=== PATIENT | male | born 1945 | race Caucasian/White ===

== ENCOUNTER 2022-01-31 21:38 | Inpatient (IN) | payer MEDICARE, SELFPAY ==
[2022-01-31 21:51] VITALS: BP 137/64; PULSE 82; RESP 20; TEMP 37; O2SAT 96; BMI 28.2
[2022-01-31 22:07] VITALS: O2SAT 98
--- NOTE | 2022-01-31 22:08 | CRLHL7_ITS ---
For Patients: As a result of the Century Cures Act, medical imaging exams and procedure reports are released immediately into your electronic medical record. You may view this report before your referring provider. If you have questions, please contact your health care provider. INDICATION: . TECHNIQUE: CT abdomen and pelvis without contrast. COMPARISON: None. FINDINGS: Lower chest: Probable focal scarring in the right lower lobe posterior basal segment. Coronary artery atherosclerotic calcification. Left lower lobe calcified granuloma. Liver: Normal in size and attenuation. Scattered calcified granulomata. No suspicious masses. Gallbladder and bile ducts: Status post cholecystectomy. No abnormal biliary ductal dilatation. Pancreas: Unremarkable. No mass or inflammation. Spleen: Scattered calcified granulomata. Adrenal glands: Normal in size. No nodules. Kidneys: Punctate nonobstructing stone left kidney. Normal right kidney. No hydronephrosis. GI tract: Unremarkable. Normal in caliber. No sign of mass or inflammation. Normal appendix. Vasculature: Normal caliber abdominal aorta with mild atherosclerotic calcification. Lymph nodes: No lymphadenopathy. Peritoneum/Abdominal Wall: Unremarkable. No sign of mass or infiltration. No free air or significant free fluid. Pelvis: Distended bladder. No pelvic masses. Bones: Advanced degenerative changes of the spine. Grade 1 anterolisthesis of L4 on L5 secondary to facet arthrosis. IMPRESSION: No acute findings within the abdomen and pelvis. No evidence for obstruction. Punctate nonobstructing left renal stone. Distended bladder. Please note that all CT scans at this facility use dose modulation, iterative reconstruction, and/or weight-based dosing when appropriate to reduce radiation dose to as low as reasonably achievable. Dictated by Ángel Durham MD @ 01/31/2022 10:59:11 PM (Electronically Signed)
--- NOTE | 2022-01-31 22:10 | ED.GENADULT ---
HPI - General Adult General Time Seen by Provider: 22:10 <Jose Chi MD - Last Filed: 01/31/22 23:12> Date Seen: 01/31/22 <Jose Chi MD - Last Filed: 01/31/22 23:12> Chief complaint: Abdominal Pain <Jose Chi MD - Last Filed: 01/31/22 23:12> Stated complaint: Influenza A+ - Distended,Painful Stomach <Jose Chi MD - Last Filed: 01/31/22 23:12> Time Seen by Provider: 01/31/22 21:39 <Jose Chi MD - Last Filed: 01/31/22 23:12> Source: patient <Jose Chi MD - Last Filed: 01/31/22 23:12> Mode of arrival: ambulatory <Jose Chi MD - Last Filed: 01/31/22 23:12> Limitations: no limitations <Jose Chi MD - Last Filed: 01/31/22 23:12> History of Present Illness HPI narrative: Patient is a 76 year white male who was diagnosed influenza a today. He reports he has not had much eating or drinking over the last 24 hours, his main complaint presented to the ER as his abdominal distension. He is also fearful is dehydrated. He has had some body aches, fever, chills. He is afebrile here and had a good O2 sat 96%. He has had a history of cholecystectomy remotely, but no recent intra-abdominal surgery, he has not had a bowel obstruction in the past. He reports he had passed a small amount of diarrhea earlier today. <Jose Chi MD - Last Filed: 01/31/22 23:12> Related Data Home medications: Home Medications Medication Instructions Recorded Confirmed chlorthalidone 25 mg tablet 25 mg PO DAILY 01/31/22 01/31/22 colchicine 0.6 mg tablet 0.6 mg PO BID PRN 01/31/22 02/01/22 metoprolol succinate 50 mg 50 mg PO DAILY 01/31/22 01/31/22 tablet,extended release 24 hr tamsulosin 0.4 mg capsule 0.8 mg PO DAILY 02/01/22 02/01/22 <Jose Chi MD - Last Filed: 01/31/22 23:12> Allergies/adverse reactions: Allergies Allergy/AdvReac Type Severity Reaction Status Date / Time vancomycin Allergy Intermediate high fever Verified 01/31/22 21:57 Sulfa (Sulfonamide Allergy Mild Hives Verified 01/31/22 21:57 Antibiotics) <Jose Chi MD - Last Filed: 01/31/22 23:12> Review of Systems Status of ROS: Reports: 10 or more systems reviewed and unremarkable except as noted in History and below <Jose Chi MD - Last Filed: 01/31/22 23:12> [facility] Medical History: Medical History Dry eyes Hypertension <Jose Chi MD - Last Filed: 01/31/22 23:12> Social History: Social History Smoking Status: Never smoker Do you use any of these nicotine containing products: None How often do you have a drink containing alcohol: never AUDIT-C Alcohol total score: 0 Non-prescribed substance use: denies use <Jose Chi MD - Last Filed: 01/31/22 23:12> Exam Narrative: Exam Narrative: Objective: Patient's vital signs unremarkable In general is no apparent distress but he does grab his abdomen is if it is uncomfortable. HEENT is unremarkable mouth somewhat dry neck is supple Pulses regular Abdomen bowel sounds hypoactive mildly distended abdomen, that is tympanitic, no rebound but mild voluntary guarding, no palpable masses Extremities are no edema good peripheral perfusion noted Neurologic nonfocal Skin is warm and dry <Jose hCi MD - Last Filed: 01/31/22 23:12> Const: Vital Signs, click to edit/add: Vital Signs - 24 hr 01/31/22 21:51 01/31/22 23:46 01/31/22 22:07 Temperature 98.6 F Pulse Rate 80 Pulse Rate [Right Pulse Oximeter] 82 Respiratory Rate 20 16 Blood Pressure 143/79 H Blood Pressure [Ri ght Upper Arm] 137/64 Pulse Oximetry 96 96 98 Oxygen Delivery Me thod Room Air Room Air 01/31/22 23:46 01/31/22 23:47 02/01/22 00:02 Temperature Pulse Rate 83 82 Pulse Rate [Right Pulse Oximeter] Respiratory Rate Blood Pressure 143/79 H 114/79 Blood Pressure [Ri ght Upper Arm] Pulse Oximetry 96 96 Oxygen Delivery Me thod 02/01/22 00:33 02/01/22 00:45 02/01/22 01:02 Temperature Pulse Rate 80 Pulse Rate [Right Pulse Oximeter] Respiratory Rate Blood Pressure 108/74 113/71 Blood Pressure [Ri ght Upper Arm] Pulse Oximetry 97 Oxygen Delivery Me thod 02/01/22 01:18 02/01/22 01:33 02/01/22 02:02 Temperature Pulse Rate 90 Pulse Rate [Right Pulse Oximeter] Respiratory Rate Blood Pressure 134/70 142/94 H Blood Pressure [Ri ght Upper Arm] Pulse Oximetry 98 Oxygen Delivery Me thod 02/01/22 02:32 02/01/22 02:43 02/01/22 02:45 Temperature Pulse Rate 84 89 Pulse Rate [Right Pulse Oximeter] Respiratory Rate Blood Pressure 130/75 Blood Pressure [Ri ght Upper Arm] Pulse Oximetry 96 95 Oxygen Delivery Me thod 02/01/22 03:00 02/01/22 03:02 02/01/22 03:15 Temperature Pulse Rate 88 88 87 Pulse Rate [Right Pulse Oximeter] Respiratory Rate Blood Pressure 106/82 Blood Pressure [Ri ght Upper Arm] Pulse Oximetry 96 96 95 Oxygen Delivery Me thod 02/01/22 03:30 02/01/22 03:32 02/01/22 03:34 Temperature Pulse Rate 87 84 85 Pulse Rate [Right Pulse Oximeter] Respiratory Rate Blood Pressure 117/34 L 136/67 Blood Pressure [Ri ght Upper Arm] Pulse Oximetry 95 96 96 Oxygen Delivery Me thod 02/01/22 03:45 02/01/22 04:00 02/01/22 04:02 Temperature Pulse Rate 86 92 Pulse Rate [Right Pulse Oximeter] Respiratory Rate Blood Pressure 126/48 L Blood Pressure [Ri ght Upper Arm] Pulse Oximetry 95 96 96 Oxygen Delivery Me thod 02/01/22 04:15 02/01/22 04:30 02/01/22 04:32 Temperature Pulse Rate 88 89 Pulse Rate [Right Pulse Oximeter] Respiratory Rate Blood Pressure 164/131 H Blood Pressure [Ri ght Upper Arm] Pulse Oximetry 96 98 96 Oxygen Delivery Me thod 02/01/22 04:35 02/01/22 04:37 02/01/22 04:45 Temperature Pulse Rate 88 85 89 Pulse Rate [Right Pulse Oximeter] Respiratory Rate Blood Pressure 185/154 H 136/64 Blood Pressure [Ri ght Upper Arm] Pulse Oximetry 95 94 94 Oxygen Delivery Me thod 02/01/22 05:00 02/01/22 05:03 02/01/22 05:15 Temperature Pulse Rate 86 89 88 Pulse Rate [Right Pulse Oximeter] Respiratory Rate Blood Pressure 119/49 L Blood Pressure [Ri ght Upper Arm] Pulse Oximetry 95 95 95 Oxygen Delivery Me thod 02/01/22 05:30 02/01/22 05:32 02/01/22 05:45 Temperature Pulse Rate 85 89 86 Pulse Rate [Right Pulse Oximeter] Respiratory Rate Blood Pressure 143/92 H Blood Pressure [Ri ght Upper Arm] Pulse Oximetry 98 97 97 Oxygen Delivery Me thod 02/01/22 06:00 02/01/22 06:02 02/01/22 06:15 Temperature Pulse Rate 82 80 82 Pulse Rate [Right Pulse Oximeter] Respiratory Rate Blood Pressure 120/98 H Blood Pressure [Ri ght Upper Arm] Pulse Oximetry 96 96 96 Oxygen Delivery Me thod 02/01/22 06:30 02/01/22 06:33 02/01/22 06:34 Temperature Pulse Rate 83 82 85 Pulse Rate [Right Pulse Oximeter] Respiratory Rate Blood Pressure 113/78 Blood Pressure [Ri ght Upper Arm] Pulse Oximetry 95 95 96 Oxygen Delivery Me thod 02/01/22 06:45 02/01/22 07:00 02/01/22 07:02 Temperature Pulse Rate 81 84 84 Pulse Rate [Right Pulse Oximeter] Respiratory Rate Blood Pressure 133/77 Blood Pressure [Ri ght Upper Arm] Pulse Oximetry 96 96 95 Oxygen Delivery Me thod 02/01/22 07:15 02/01/22 07:30 02/01/22 07:32 Temperature Pulse Rate 87 82 81 Pulse Rate [Right Pulse Oximeter] Respiratory Rate Blood Pressure 117/72 Blood Pressure [Ri ght Upper Arm] Pulse Oximetry 96 95 94 Oxygen Delivery Me thod 02/01/22 07:45 02/01/22 08:00 02/01/22 08:02 Temperature Pulse Rate 87 83 82 Pulse Rate [Right Pulse Oximeter] Respiratory Rate Blood Pressure 124/75 Blood Pressure [Ri ght Upper Arm] Pulse Oximetry 94 96 96 Oxygen Delivery Me thod 02/01/22 08:15 02/01/22 08:30 02/01/22 08:32 Temperature Pulse Rate 84 84 85 Pulse Rate [Right Pulse Oximeter] Respiratory Rate Blood Pressure 118/75 Blood Pressure [Ri ght Upper Arm] Pulse Oximetry 96 96 97 Oxygen Delivery Me thod 02/01/22 08:33 02/01/22 08:45 02/01/22 09:00 Temperature Pulse Rate 85 83 87 Pulse Rate [Right Pulse Oximeter] Respiratory Rate Blood Pressure Blood Pressure [Ri ght Upper Arm] Pulse Oximetry 97 96 94 Oxygen Delivery Me thod 02/01/22 09:02 02/01/22 09:03 02/01/22 09:13 Temperature Pulse Rate 95 93 Pulse Rate [Right Pulse Oximeter] Respiratory Rate Blood Pressure 80/52 L Blood Pressure [Ri ght Upper Arm] Pulse Oximetry 96 95 96 Oxygen Delivery Me thod 02/01/22 09:15 02/01/22 09:28 02/01/22 09:30 Temperature Pulse Rate 89 90 94 Pulse Rate [Right Pulse Oximeter] Respiratory Rate Blood Pressure Blood Pressure [Ri ght Upper Arm] Pulse Oximetry 95 90 96 Oxygen Delivery Me thod 02/01/22 09:33 02/01/22 09:45 02/01/22 10:00 Temperature Pulse Rate 88 88 87 Pulse Rate [Right Pulse Oximeter] Respiratory Rate Blood Pressure 120/74 Blood Pressure [Ri ght Upper Arm] Pulse Oximetry 94 93 95 Oxygen Delivery Me thod 02/01/22 10:02 02/01/22 10:15 02/01/22 10:30 Temperature Pulse Rate 88 86 95 Pulse Rate [Right Pulse Oximeter] Respiratory Rate Blood Pressure 134/77 Blood Pressure [Ri ght Upper Arm] Pulse Oximetry 94 94 95 Oxygen Delivery Me thod 02/01/22 10:32 02/01/22 10:45 02/01/22 11:00 Temperature Pulse Rate 93 91 95 Pulse Rate [Right Pulse Oximeter] Respiratory Rate Blood Pressure 130/85 Blood Pressure [Ri ght Upper Arm] Pulse Oximetry 94 92 95 Oxygen Delivery Me thod 02/01/22 11:02 02/01/22 11:15 02/01/22 11:30 Temperature Pulse Rate 91 88 93 Pulse Rate [Right Pulse Oximeter] Respiratory Rate Blood Pressure 104/84 Blood Pressure [Ri ght Upper Arm] Pulse Oximetry 93 95 94 Oxygen Delivery Me thod 02/01/22 11:33 02/01/22 11:45 02/01/22 12:00 Temperature Pulse Rate 91 91 91 Pulse Rate [Right Pulse Oximeter] Respiratory Rate Blood Pressure 136/74 Blood Pressure [Ri ght Upper Arm] Pulse Oximetry 94 94 94 Oxygen Delivery Me thod 02/01/22 12:02 02/01/22 12:15 Temperature Pulse Rate 90 89 Pulse Rate [Right Pulse Oximeter] Respiratory Rate Blood Pressure 138/81 Blood Pressure [Ri ght Upper Arm] Pulse Oximetry 93 94 Oxygen Delivery Me thod <Jose Chi MD - Last Filed: 01/31/22 23:12> Vital Signs, click to edit/add: Vital Signs - 24 hr 01/31/22 21:51 01/31/22 23:46 01/31/22 22:07 Temperature 98.6 F Pulse Rate 80 Pulse Rate [Right Pulse Oximeter] 82 Respiratory Rate 20 16 Blood Pressure 143/79 H Blood Pressure [Ri ght Upper Arm] 137/64 Pulse Oximetry 96 96 98 Oxygen Delivery Me thod Room Air Room Air 01/31/22 23:46 01/31/22 23:47 02/01/22 00:02 Temperature Pulse Rate 83 82 Pulse Rate [Right Pulse Oximeter] Respiratory Rate Blood Pressure 143/79 H 114/79 Blood Pressure [Ri ght Upper Arm] Pulse Oximetry 96 96 Oxygen Delivery Me thod 02/01/22 00:33 02/01/22 00:45 02/01/22 01:02 Temperature Pulse Rate 80 Pulse Rate [Right Pulse Oximeter] Respiratory Rate Blood Pressure 108/74 113/71 Blood Pressure [Ri ght Upper Arm] Pulse Oximetry 97 Oxygen Delivery Me thod 02/01/22 01:18 02/01/22 01:33 02/01/22 02:02 Temperature Pulse Rate 90 Pulse Rate [Right Pulse Oximeter] Respiratory Rate Blood Pressure 134/70 142/94 H Blood Pressure [Ri ght Upper Arm] Pulse Oximetry 98 Oxygen Delivery Me thod 02/01/22 02:32 02/01/22 02:43 02/01/22 02:45 Temperature Pulse Rate 84 89 Pulse Rate [Right Pulse Oximeter] Respiratory Rate Blood Pressure 130/75 Blood Pressure [Ri ght Upper Arm] Pulse Oximetry 96 95 Oxygen Delivery Me thod 02/01/22 03:00 02/01/22 03:02 02/01/22 03:15 Temperature Pulse Rate 88 88 87 Pulse Rate [Right Pulse Oximeter] Respiratory Rate Blood Pressure 106/82 Blood Pressure [Ri ght Upper Arm] Pulse Oximetry 96 96 95 Oxygen Delivery Me thod 02/01/22 03:30 02/01/22 03:32 02/01/22 03:34 Temperature Pulse Rate 87 84 85 Pulse Rate [Right Pulse Oximeter] Respiratory Rate Blood Pressure 117/34 L 136/67 Blood Pressure [Ri ght Upper Arm] Pulse Oximetry 95 96 96 Oxygen Delivery Me thod 02/01/22 03:45 02/01/22 04:00 02/01/22 04:02 Temperature Pulse Rate 86 92 Pulse Rate [Right Pulse Oximeter] Respiratory Rate Blood Pressure 126/48 L Blood Pressure [Ri ght Upper Arm] Pulse Oximetry 95 96 96 Oxygen Delivery Me thod 02/01/22 04:15 02/01/22 04:30 02/01/22 04:32 Temperature Pulse Rate 88 89 Pulse Rate [Right Pulse Oximeter] Respiratory Rate Blood Pressure 164/131 H Blood Pressure [Ri ght Upper Arm] Pulse Oximetry 96 98 96 Oxygen Delivery Me thod 02/01/22 04:35 02/01/22 04:37 02/01/22 04:45 Temperature Pulse Rate 88 85 89 Pulse Rate [Right Pulse Oximeter] Respiratory Rate Blood Pressure 185/154 H 136/64 Blood Pressure [Ri ght Upper Arm] Pulse Oximetry 95 94 94 Oxygen Delivery Me thod 02/01/22 05:00 02/01/22 05:03 02/01/22 05:15 Temperature Pulse Rate 86 89 88 Pulse Rate [Right Pulse Oximeter] Respiratory Rate Blood Pressure 119/49 L Blood Pressure [Ri ght Upper Arm] Pulse Oximetry 95 95 95 Oxygen Delivery Me thod 02/01/22 05:30 02/01/22 05:32 02/01/22 05:45 Temperature Pulse Rate 85 89 86 Pulse Rate [Right Pulse Oximeter] Respiratory Rate Blood Pressure 143/92 H Blood Pressure [Ri ght Upper Arm] Pulse Oximetry 98 97 97 Oxygen Delivery Me thod 02/01/22 06:00 02/01/22 06:02 02/01/22 06:15 Temperature Pulse Rate 82 80 82 Pulse Rate [Right Pulse Oximeter] Respiratory Rate Blood Pressure 120/98 H Blood Pressure [Ri ght Upper Arm] Pulse Oximetry 96 96 96 Oxygen Delivery Me thod 02/01/22 06:30 02/01/22 06:33 02/01/22 06:34 Temperature Pulse Rate 83 82 85 Pulse Rate [Right Pulse Oximeter] Respiratory Rate Blood Pressure 113/78 Blood Pressure [Ri ght Upper Arm] Pulse Oximetry 95 95 96 Oxygen Delivery Me thod 02/01/22 06:45 02/01/22 07:00 02/01/22 07:02 Temperature Pulse Rate 81 84 84 Pulse Rate [Right Pulse Oximeter] Respiratory Rate Blood Pressure 133/77 Blood Pressure [Ri ght Upper Arm] Pulse Oximetry 96 96 95 Oxygen Delivery Me thod 02/01/22 07:15 02/01/22 07:30 02/01/22 07:32 Temperature Pulse Rate 87 82 81 Pulse Rate [Right Pulse Oximeter] Respiratory Rate Blood Pressure 117/72 Blood Pressure [Ri ght Upper Arm] Pulse Oximetry 96 95 94 Oxygen Delivery Me thod 02/01/22 07:45 02/01/22 08:00 02/01/22 08:02 Temperature Pulse Rate 87 83 82 Pulse Rate [Right Pulse Oximeter] Respiratory Rate Blood Pressure 124/75 Blood Pressure [Ri ght Upper Arm] Pulse Oximetry 94 96 96 Oxygen Delivery Me thod 02/01/22 08:15 02/01/22 08:30 02/01/22 08:32 Temperature Pulse Rate 84 84 85 Pulse Rate [Right Pulse Oximeter] Respiratory Rate Blood Pressure 118/75 Blood Pressure [Ri ght Upper Arm] Pulse Oximetry 96 96 97 Oxygen Delivery Me thod 02/01/22 08:33 02/01/22 08:45 02/01/22 09:00 Temperature Pulse Rate 85 83 87 Pulse Rate [Right Pulse Oximeter] Respiratory Rate Blood Pressure Blood Pressure [Ri ght Upper Arm] Pulse Oximetry 97 96 94 Oxygen Delivery Me thod 02/01/22 09:02 02/01/22 09:03 02/01/22 09:13 Temperature Pulse Rate 95 93 Pulse Rate [Right Pulse Oximeter] Respiratory Rate Blood Pressure 80/52 L Blood Pressure [Ri ght Upper Arm] Pulse Oximetry 96 95 96 Oxygen Delivery Me thod 02/01/22 09:15 02/01/22 09:28 02/01/22 09:30 Temperature Pulse Rate 89 90 94 Pulse Rate [Right Pulse Oximeter] Respiratory Rate Blood Pressure Blood Pressure [Ri ght Upper Arm] Pulse Oximetry 95 90 96 Oxygen Delivery Me thod 02/01/22 09:33 02/01/22 09:45 02/01/22 10:00 Temperature Pulse Rate 88 88 87 Pulse Rate [Right Pulse Oximeter] Respiratory Rate Blood Pressure 120/74 Blood Pressure [Ri ght Upper Arm] Pulse Oximetry 94 93 95 Oxygen Delivery Me thod 02/01/22 10:02 02/01/22 10:15 02/01/22 10:30 Temperature Pulse Rate 88 86 95 Pulse Rate [Right Pulse Oximeter] Respiratory Rate Blood Pressure 134/77 Blood Pressure [Ri ght Upper Arm] Pulse Oximetry 94 94 95 Oxygen Delivery Me thod 02/01/22 10:32 02/01/22 10:45 02/01/22 11:00 Temperature Pulse Rate 93 91 95 Pulse Rate [Right Pulse Oximeter] Respiratory Rate Blood Pressure 130/85 Blood Pressure [Ri ght Upper Arm] Pulse Oximetry 94 92 95 Oxygen Delivery Me thod 02/01/22 11:02 02/01/22 11:15 02/01/22 11:30 Temperature Pulse Rate 91 88 93 Pulse Rate [Right Pulse Oximeter] Respiratory Rate Blood Pressure 104/84 Blood Pressure [Ri ght Upper Arm] Pulse Oximetry 93 95 94 Oxygen Delivery Me thod 02/01/22 11:33 02/01/22 11:45 02/01/22 12:00 Temperature Pulse Rate 91 91 91 Pulse Rate [Right Pulse Oximeter] Respiratory Rate Blood Pressure 136/74 Blood Pressure [Ri ght Upper Arm] Pulse Oximetry 94 94 94 Oxygen Delivery Me thod 02/01/22 12:02 02/01/22 12:15 Temperature Pulse Rate 90 89 Pulse Rate [Right Pulse Oximeter] Respiratory Rate Blood Pressure 138/81 Blood Pressure [Ri ght Upper Arm] Pulse Oximetry 93 94 Oxygen Delivery Me thod <Roman Davis MD - Last Filed: 02/01/22 13:09> Course Course Hospital Course: I assumed care of this patient from Dr. Chi. Patient seen and examined. His vitals are stable. His lungs are coarse but clear. No increased work of breathing. He thinks he feels a bit better. During the night IA adjust his fluids from normal saline to 3% saline at 25 mL/hour. This was calculated to adjust his sodium upward by 6-8 over the course of the 1st 24 hours. By morning his sodium is up to 118. Would suggest we run this fluid for another 4 hours and then switch to normal saline. He will need his electrolytes checked again in another 6 hours or so. He continues to remain in the emergency department as we continue to look for an inpatient bed for him. <Jose Chi MD - Last Filed: 01/31/22 23:12> Vital Signs Vital signs: Initial Vital Signs Temperature 98.6 F 01/31/22 21:51 Temperature Source Temporal Artery Scan 01/31/22 21:51 Pulse Rate 82 01/31/22 21:51 Respiratory Rate 20 01/31/22 21:51 Blood Pressure 137/64 01/31/22 21:51 Blood Pressure Mean 88 01/31/22 21:51 Blood Pressure Position Sitting 01/31/22 21:51 Pulse Oximetry 96 01/31/22 21:51 Oxygen Delivery Method 01/31/22 21:51 Vital Signs Temperature 98.6 F 01/31/22 21:51 Pulse Rate 82 01/31/22 21:51 Respiratory Rate 20 01/31/22 21:51 Blood Pressure 137/64 01/31/22 21:51 Pulse Oximetry 96 01/31/22 21:51 Oxygen Delivery Method 01/31/22 21:51 Temperature 98.6 F 01/31/22 21:51 Pulse Rate 89 02/01/22 12:15 Respiratory Rate 16 01/31/22 23:46 Blood Pressure 138/81 02/01/22 12:02 Pulse Oximetry 94 02/01/22 12:15 Oxygen Delivery Method 01/31/22 23:46 <Jose Chi MD - Last Filed: 01/31/22 23:12> Initial Vital Signs Temperature 98.6 F 01/31/22 21:51 Temperature Source Temporal Artery Scan 01/31/22 21:51 Pulse Rate 82 01/31/22 21:51 Respiratory Rate 20 01/31/22 21:51 Blood Pressure 137/64 01/31/22 21:51 Blood Pressure Mean 88 01/31/22 21:51 Blood Pressure Position Sitting 01/31/22 21:51 Pulse Oximetry 96 01/31/22 21:51 Oxygen Delivery Method 01/31/22 21:51 Vital Signs Temperature 98.6 F 01/31/22 21:51 Pulse Rate 82 01/31/22 21:51 Respiratory Rate 20 01/31/22 21:51 Blood Pressure 137/64 01/31/22 21:51 Pulse Oximetry 96 01/31/22 21:51 Oxygen Delivery Method 01/31/22 21:51 Temperature 98.6 F 01/31/22 21:51 Pulse Rate 89 02/01/22 12:15 Respiratory Rate 16 01/31/22 23:46 Blood Pressure 138/81 02/01/22 12:02 Pulse Oximetry 94 02/01/22 12:15 Oxygen Delivery Method 01/31/22 23:46 <Roman Davis MD - Last Filed: 02/01/22 13:09> Medical Decision Making [facility] Narrative Medical decision making narrative: Patient is a 76 year white male with history of influenza, mild dehydration, and abdominal distension. He has passed some diarrhea today but is bowel sounds are hypoactive I think because of his intra-abdominal surgery in the past, a CT scan of his abdomen be appropriate to rule out obstruction. IV hydration, electrolytes CBC. Disposition pending findings above he has were comfortable plan. Will also give a small dose Ativan 0.5 mg and morphine 2 mg IV. Addendum: The patient has a CT scan of the abdomen that shows a very distended bladder no acute findings of the abdomen pelvis other than distended bladder. He has actually got prostatism is scheduled for a procedure in the next few is now with influenza as cause bladder retention due to his prostate. Will put a catheter to drain and then take the catheter out. I think that will help him get a good amount of relief. Will also review of labs as they return. Addendum: Patient will get a catheter placed as mention we will leave it in that we find out his sodium is 113. That is too low to go home and needs correction. A saline through his IV, I think once we strict his water intake its sodium is going to go higher he has been drinking water aggressively. Due to the shortage hospital beds in the state and in our own hospital he left the stay in the ER for now. Will attempt to admit when we can <Jose Chi MD - Last Filed: 01/31/22 23:12> Patient is a 76 year white male with history of influenza, mild dehydration, and abdominal distension. He has passed some diarrhea today but is bowel sounds are hypoactive I think because of his intra-abdominal surgery in the past, a CT scan of his abdomen be appropriate to rule out obstruction. IV hydration, electrolytes CBC. Disposition pending findings above he has were comfortable plan. Will also give a small dose Ativan 0.5 mg and morphine 2 mg IV. Addendum: The patient has a CT scan of the abdomen that shows a very distended bladder no acute findings of the abdomen pelvis other than distended bladder. He has actually got prostatism is scheduled for a procedure in the next few is now with influenza as cause bladder retention due to his prostate. Will put a catheter to drain and then take the catheter out. I think that will help him get a good amount of relief. Will also review of labs as they return. Addendum: Patient will get a catheter placed as mention we will leave it in that we find out his sodium is 113. That is too low to go home and needs correction. A saline through his IV, I think once we strict his water intake its sodium is going to go higher he has been drinking water aggressively. Due to the shortage hospital beds in the [facility] and in our own hospital he left the stay in the ER for now. Will attempt to admit when we can. This patient has been boarding in the emergency department until about 1:00 p.m. when I did receive news that there are beds opening up here. Dr. Smith agrees to his admission into the hospital. The patient has influenza a and is hyponatremic. He did receive hypertonic saline intravenously. His sodium improved to 119. Guidelines state that replenish sodium should not be more than 6-8 mEq per 24 hour period. So this patient had the hypertonic saline discontinued at about 11:00 a.m. and was reverted back to normal saline at 35 mL/hr. Further management and treatment will continue in the hospital. Dr. Lizandro Davis <Roman Davis MD - Last Filed: 02/01/22 13:09> Lab Data Labs: Lab Results 01/31/22 01/31/22 01/31/22 Range/Units 22:33 22:33 22:33 WBC 8.11 (4.50-11.00) K/uL RBC 5.49 (4.30-5.90) m/uL Hgb 15.6 (13.5-17.5) gm/dL Hct 42.5 (37.0-53.0) % MCV 77 L (80-100) fL MCH 28 (26-34) pg MCHC 37 H (32-36) gm/dL RDW Coeff of [place]les[place] 12.5 (11.5-15.5) % Plt Count 227 (140-440) K/uL Neut % (Auto) 78.6 H (42.0-72.0) % Lymph % (Auto) 8.6 L (20-44) % [place] % (Auto) 11.8 H (0.0-11.0) % Eos % (Auto) 0.2 (0.0-7.0) % Baso % (Auto) 0.2 (0.0-3.0) % Neut # (Auto) 6.40 (1.7-7.0) K/uL Lymph # (Auto) 0.70 L (0.90-2.90) K/uL [place] # (Auto) 1.00 H (0.00-0.90) K/UL Eos # (Auto) 0.02 (0.00-0.50) K/uL Baso # (Auto) 0.02 (0.00-0.30) K/uL Abs Immat Gran (auto) 0.05 (0.00-0.30) K/uL Imm/Tot Granulo (auto) 0.6 % Sodium 113 L* (135-149) mmol/L Potassium 3.6 (3.6-5.1) mmol/L Chloride 78 L (96-114) mmol/L Carbon Dioxide 23 (20-32) mmol/L BUN 13 (7-30) mg/dL Creatinine 0.8 (0.5-1.5) mg/dL Estimated Creat Clear 57.84 Estimated GFR 91 ml/min Glucose 86 (60-115) mg/dL Lactate (0.5-1.9) mmol/L Calcium 8.0 L (8.4-10.6) mg/dL Total Bilirubin 1.2 (0.1-1.5) mg/dL Direct Bilirubin 0.0 (0.0-0.5) mg/dL AST 45 H (12-35) U/L ALT 32 (4-50) U/L Alkaline Phosphatase 76 (40-150) U/L C-Reactive Protein 1.4 H (0.5-1.0) mg/dL Total Protein 6.5 (6.0-8.3) g/dL Albumin 4.2 (3.3-5.0) g/dL Urine Color (Yellow) Urine Appearance (Clear) Urine pH (5.0-8.5) Ur Specific [place] (1.000-1.030) Urine Protein (Negative) Urine Glucose (UA) (Negative) Urine Ketones (Negative) Urine Blood (Negative) Urine Nitrite (Negative) Urine Bilirubin (Negative) Urine Urobilinogen (0.2-1.0) Ur Leukocyte Esterase (Negative) Urine RBC (0-2) Urine WBC (0-5) Ur Squamous Epith Cells (None-Few) Urine Bacteria (None) SARS-CoV-2 (PCR) (Negative) Influenza Type A (PCR) (Negative) Influenza Type B (PCR) (Negative) RSV (PCR) (Negative) 01/31/22 02/01/22 02/01/22 Range/Units 23:30 05:50 07:19 WBC (4.50-11.00) K/uL RBC (4.30-5.90) m/uL Hgb (13.5-17.5) gm/dL Hct (37.0-53.0) % MCV (80-100) fL MCH (26-34) pg MCHC (32-36) gm/dL RDW Coeff of [place] (11.5-15.5) % Plt Count (140-440) K/uL Neut % (Auto) (42.0-72.0) % Lymph % (Auto) (20-44) % [place] % (Auto) (0.0-11.0) % Eos % (Auto) (0.0-7.0) % Baso % (Auto) (0.0-3.0) % Neut # (Auto) (1.7-7.0) K/uL Lymph # (Auto) (0.90-2.90) K/uL [place] # (Auto) (0.00-0.90) K/UL Eos # (Auto) (0.00-0.50) K/uL Baso # (Auto) (0.00-0.30) K/uL Abs Immat Gran (auto) (0.00-0.30) K/uL Imm/Tot Granulo (auto) % Sodium 118 L* (135-149) mmol/L Potassium 3.5 L (3.6-5.1) mmol/L Chloride 82 L (96-114) mmol/L Carbon Dioxide 28 (20-32) mmol/L BUN 13 (7-30) mg/dL Creatinine 0.9 (0.5-1.5) mg/dL Estimated Creat Clear 57.84 Estimated GFR 88 ml/min Glucose 80 (60-115) mg/dL Lactate (0.5-1.9) mmol/L Calcium 8.0 L (8.4-10.6) mg/dL Total Bilirubin (0.1-1.5) mg/dL Direct Bilirubin (0.0-0.5) mg/dL AST (12-35) U/L ALT (4-50) U/L Alkaline Phosphatase (40-150) U/L C-Reactive Protein (0.5-1.0) mg/dL Total Protein (6.0-8.3) g/dL Albumin (3.3-5.0) g/dL Urine Color Yellow (Yellow) Urine Appearance Clear (Clear) Urine pH 7.0 (5.0-8.5) Ur Specific [place] 1.015 (1.000-1.030) Urine Protein Negative (Negative) Urine Glucose (UA) Negative (Negative) Urine Ketones 2+ A (Negative) Urine Blood Trace-intact A (Negative) Urine Nitrite Negative (Negative) Urine Bilirubin Negative (Negative) Urine Urobilinogen 0.2 (0.2-1.0) Ur Leukocyte Esterase Negative (Negative) Urine RBC 0-2 (0-2) Urine WBC 0-2 (0-5) Ur Squamous Epith Cells Few (None-Few) Urine Bacteria Few A (None) SARS-CoV-2 (PCR) Negative SARS-CoV-2 (Negative) Influenza Type A (PCR) POSITIVE PCR FLU A A (Negative) Influenza Type B (PCR) Negative PCR FLU B (Negative) RSV (PCR) Negative PCR RSV (Negative) 02/01/22 Range/Units 10:33 WBC (4.50-11.00) K/uL RBC (4.30-5.90) m/uL Hgb (13.5-17.5) gm/dL Hct (37.0-53.0) % MCV (80-100) fL MCH (26-34) pg MCHC (32-36) gm/dL RDW Coeff of [place]les[place] (11.5-15.5) % Plt Count (140-440) K/uL Neut % (Auto) (42.0-72.0) % Lymph % (Auto) (20-44) % [place] % (Auto) (0.0-11.0) % Eos % (Auto) (0.0-7.0) % Baso % (Auto) (0.0-3.0) % Neut # (Auto) (1.7-7.0) K/uL Lymph # (Auto) (0.90-2.90) K/uL [place] # (Auto) (0.00-0.90) K/UL Eos # (Auto) (0.00-0.50) K/uL Baso # (Auto) (0.00-0.30) K/uL Abs Immat Gran (auto) (0.00-0.30) K/uL Imm/Tot Granulo (auto) % Sodium 119 L* (135-149) mmol/L Potassium (3.6-5.1) mmol/L Chloride (96-114) mmol/L Carbon Dioxide (20-32) mmol/L BUN (7-30) mg/dL Creatinine (0.5-1.5) mg/dL Estimated Creat Clear Estimated GFR ml/min Glucose (60-115) mg/dL Lactate (0.5-1.9) mmol/L Calcium (8.4-10.6) mg/dL Total Bilirubin (0.1-1.5) mg/dL Direct Bilirubin (0.0-0.5) mg/dL AST (12-35) U/L ALT (4-50) U/L Alkaline Phosphatase (40-150) U/L C-Reactive Protein (0.5-1.0) mg/dL Total Protein (6.0-8.3) g/dL Albumin (3.3-5.0) g/dL Urine Color (Yellow) Urine Appearance (Clear) Urine pH (5.0-8.5) Ur Specific [place] (1.000-1.030) Urine Protein (Negative) Urine Glucose (UA) (Negative) Urine Ketones (Negative) Urine Blood (Negative) Urine Nitrite (Negative) Urine Bilirubin (Negative) Urine Urobilinogen (0.2-1.0) Ur Leukocyte Esterase (Negative) Urine RBC (0-2) Urine WBC (0-5) Ur Squamous Epith Cells (None-Few) Urine Bacteria (None) SARS-CoV-2 (PCR) (Negative) Influenza Type A (PCR) (Negative) Influenza Type B (PCR) (Negative) RSV (PCR) (Negative) <Jose Chi MD - Last Filed: 01/31/22 23:12> Lab Results 01/31/22 01/31/22 01/31/22 Range/Units 22:33 22:33 22:33 WBC 8.11 (4.50-11.00) K/uL RBC 5.49 (4.30-5.90) m/uL Hgb 15.6 (13.5-17.5) gm/dL Hct 42.5 (37.0-53.0) % MCV 77 L (80-100) fL MCH 28 (26-34) pg MCHC 37 H (32-36) gm/dL RDW Coeff of Igles[place] 12.5 (11.5-15.5) % Plt Count 227 (140-440) K/uL Neut % (Auto) 78.6 H (42.0-72.0) % Lymph % (Auto) 8.6 L (20-44) % [place] % (Auto) 11.8 H (0.0-11.0) % Eos % (Auto) 0.2 (0.0-7.0) % Baso % (Auto) 0.2 (0.0-3.0) % Neut # (Auto) 6.40 (1.7-7.0) K/uL Lymph # (Auto) 0.70 L (0.90-2.90) K/uL [place] # (Auto) 1.00 H (0.00-0.90) K/UL Eos # (Auto) 0.02 (0.00-0.50) K/uL Baso # (Auto) 0.02 (0.00-0.30) K/uL Abs Immat Gran (auto) 0.05 (0.00-0.30) K/uL Imm/Tot Granulo (auto) 0.6 % Sodium 113 L* (135-149) mmol/L Potassium 3.6 (3.6-5.1) mmol/L Chloride 78 L (96-114) mmol/L Carbon Dioxide 23 (20-32) mmol/L BUN 13 (7-30) mg/dL Creatinine 0.8 (0.5-1.5) mg/dL Estimated Creat Clear 57.84 Estimated GFR 91 ml/min Glucose 86 (60-115) mg/dL Lactate (0.5-1.9) mmol/L Calcium 8.0 L (8.4-10.6) mg/dL Total Bilirubin 1.2 (0.1-1.5) mg/dL Direct Bilirubin 0.0 (0.0-0.5) mg/dL AST 45 H (12-35) U/L ALT 32 (4-50) U/L Alkaline Phosphatase 76 (40-150) U/L C-Reactive Protein 1.4 H (0.5-1.0) mg/dL Total Protein 6.5 (6.0-8.3) g/dL Albumin 4.2 (3.3-5.0) g/dL Urine Color (Yellow) Urine Appearance (Clear) Urine pH (5.0-8.5) Ur Specific [place] (1.000-1.030) Urine Protein (Negative) Urine Glucose (UA) (Negative) Urine Ketones (Negative) Urine Blood (Negative) Urine Nitrite (Negative) Urine Bilirubin (Negative) Urine Urobilinogen (0.2-1.0) Ur Leukocyte Esterase (Negative) Urine RBC (0-2) Urine WBC (0-5) Ur Squamous Epith Cells (None-Few) Urine Bacteria (None) SARS-CoV-2 (PCR) (Negative) Influenza Type A (PCR) (Negative) Influenza Type B (PCR) (Negative) RSV (PCR) (Negative) 01/31/22 02/01/22 02/01/22 Range/Units 23:30 05:50 07:19 WBC (4.50-11.00) K/uL RBC (4.30-5.90) m/uL Hgb (13.5-17.5) gm/dL Hct (37.0-53.0) % MCV (80-100) fL MCH (26-34) pg MCHC (32-36) gm/dL RDW Coeff of Igles[place] (11.5-15.5) % Plt Count (140-440) K/uL Neut % (Auto) (42.0-72.0) % Lymph % (Auto) (20-44) % [place] % (Auto) (0.0-11.0) % Eos % (Auto) (0.0-7.0) % Baso % (Auto) (0.0-3.0) % Neut # (Auto) (1.7-7.0) K/uL Lymph # (Auto) (0.90-2.90) K/uL [place] # (Auto) (0.00-0.90) K/UL Eos # (Auto) (0.00-0.50) K/uL Baso # (Auto) (0.00-0.30) K/uL Abs Immat Gran (auto) (0.00-0.30) K/uL Imm/Tot Granulo (auto) % Sodium 118 L* (135-149) mmol/L Potassium 3.5 L (3.6-5.1) mmol/L Chloride 82 L (96-114) mmol/L Carbon Dioxide 28 (20-32) mmol/L BUN 13 (7-30) mg/dL Creatinine 0.9 (0.5-1.5) mg/dL Estimated Creat Clear 57.84 Estimated GFR 88 ml/min Glucose 80 (60-115) mg/dL Lactate (0.5-1.9) mmol/L Calcium 8.0 L (8.4-10.6) mg/dL Total Bilirubin (0.1-1.5) mg/dL Direct Bilirubin (0.0-0.5) mg/dL AST (12-35) U/L ALT (4-50) U/L Alkaline Phosphatase (40-150) U/L C-Reactive Protein (0.5-1.0) mg/dL Total Protein (6.0-8.3) g/dL Albumin (3.3-5.0) g/dL Urine Color Yellow (Yellow) Urine Appearance Clear (Clear) Urine pH 7.0 (5.0-8.5) Ur Specific [place] 1.015 (1.000-1.030) Urine Protein Negative (Negative) Urine Glucose (UA) Negative (Negative) Urine Ketones 2+ A (Negative) Urine Blood Trace-intact A (Negative) Urine Nitrite Negative (Negative) Urine Bilirubin Negative (Negative) Urine Urobilinogen 0.2 (0.2-1.0) Ur Leukocyte Esterase Negative (Negative) Urine RBC 0-2 (0-2) Urine WBC 0-2 (0-5) Ur Squamous Epith Cells Few (None-Few) Urine Bacteria Few A (None) SARS-CoV-2 (PCR) Negative SARS-CoV-2 (Negative) Influenza Type A (PCR) POSITIVE PCR FLU A A (Negative) Influenza Type B (PCR) Negative PCR FLU B (Negative) RSV (PCR) Negative PCR RSV (Negative) 02/01/22 Range/Units 10:33 WBC (4.50-11.00) K/uL RBC (4.30-5.90) m/uL Hgb (13.5-17.5) gm/dL Hct (37.0-53.0) % MCV (80-100) fL MCH (26-34) pg MCHC (32-36) gm/dL RDW Coeff of Iglesia (11.5-15.5) % Plt Count (140-440) K/uL Neut % (Auto) (42.0-72.0) % Lymph % (Auto) (20-44) % [place] % (Auto) (0.0-11.0) % Eos % (Auto) (0.0-7.0) % Baso % (Auto) (0.0-3.0) % Neut # (Auto) (1.7-7.0) K/uL Lymph # (Auto) (0.90-2.90) K/uL [place] # (Auto) (0.00-0.90) K/UL Eos # (Auto) (0.00-0.50) K/uL Baso # (Auto) (0.00-0.30) K/uL Abs Immat Gran (auto) (0.00-0.30) K/uL Imm/Tot Granulo (auto) % Sodium 119 L* (135-149) mmol/L Potassium (3.6-5.1) mmol/L Chloride (96-114) mmol/L Carbon Dioxide (20-32) mmol/L BUN (7-30) mg/dL Creatinine (0.5-1.5) mg/dL Estimated Creat Clear Estimated GFR ml/min Glucose (60-115) mg/dL Lactate (0.5-1.9) mmol/L Calcium (8.4-10.6) mg/dL Total Bilirubin (0.1-1.5) mg/dL Direct Bilirubin (0.0-0.5) mg/dL AST (12-35) U/L ALT (4-50) U/L Alkaline Phosphatase (40-150) U/L C-Reactive Protein (0.5-1.0) mg/dL Total Protein (6.0-8.3) g/dL Albumin (3.3-5.0) g/dL Urine Color (Yellow) Urine Appearance (Clear) Urine pH (5.0-8.5) Ur Specific [place] (1.000-1.030) Urine Protein (Negative) Urine Glucose (UA) (Negative) Urine Ketones (Negative) Urine Blood (Negative) Urine Nitrite (Negative) Urine Bilirubin (Negative) Urine Urobilinogen (0.2-1.0) Ur Leukocyte Esterase (Negative) Urine RBC (0-2) Urine WBC (0-5) Ur Squamous Epith Cells (None-Few) Urine Bacteria (None) SARS-CoV-2 (PCR) (Negative) Influenza Type A (PCR) (Negative) Influenza Type B (PCR) (Negative) RSV (PCR) (Negative) <Roman Davis MD - Last Filed: 02/01/22 13:09> Discharge Plan Discharge Clinical Impression: Influenza A, Abdominal pain, Acute urinary retention, Acute hyponatremia <Jose Chi MD - Last Filed: 01/31/22 23:12> Patient Disposition: Admitted As Inpatient <Jose Chi MD - Last Filed: 01/31/22 23:12> Condition: Improved <Jose Chi MD - Last Filed: 01/31/22 23:12> Activity Level: Light activity <Jose Chi MD - Last Filed: 01/31/22 23:12> Light activity <Roman Davis MD - Last Filed: 02/01/22 13:09> Discharge Diet: Regular <Jose Chi MD - Last Filed: 01/31/22 23:12> Regular <Roman Davis MD - Last Filed: 02/01/22 13:09>
[2022-01-31] MEDS: 0.9 % SODIUM CHLORIDE 1000 ml 1,000 ML 6000 ML IV (22:35)
[2022-01-31] MEDS: LORazepam 2 MG/ML inj 0.5 MG IVP (22:37)
[2022-01-31] MEDS: MORPHINE 4 MG/ML INJ 2 MG IVP (22:38)
[2022-01-31 23:02] LABS: Albumin* 4.2 g/dL (3.3-5.0); Chloride* 78 mmol/L (96-114)
[2022-01-31 23:03] LABS: Potassium* 3.6 mmol/L (3.6-5.1)
[2022-01-31 23:04] LABS: Basophils Absolute Auto 0.02 K/uL (0.00-0.30); Basophils Percent Auto 0.2 % (0.0-3.0); Eosinophils Absolute Auto 0.02 K/uL (0.00-0.50); Eosinophils Percent Auto 0.2 % (0.0-7.0); Hematocrit 42.5 % (37.0-53.0); Hemoglobin* 15.6 gm/dL (13.5-17.5); Immature Granulocytes Abs Auto 0.05 K/uL (0.00-0.30); Immature Granulocytes Pct Auto 0.6 %; Lymphocytes Percent Auto 8.6 % (20-44); Mean Corpuscular HGB Conc 37 gm/dL (32-36); Mean Corpuscular Hemoglobin 28 pg (26-34); Mean Corpuscular Volume 77 fL (80-100); Monocytes Percent Auto 11.8 % (0.0-11.0); Neutrophils Percent Auto 78.6 % (42.0-72.0); Platelet Count* 227 K/uL (140-440); RDW Coefficient of Variation % 12.5 % (11.5-15.5); Red Blood Count 5.49 m/uL (4.30-5.90); White Blood Count* 8.11 K/uL (4.50-11.00)
[2022-01-31 23:05] LABS: Bilirubin Total* 1.2 mg/dL (0.1-1.5); Carbon Dioxide* 23 mmol/L (20-32); Creatinine* 0.8 mg/dL (0.5-1.5); Est. Creatinine Clearance* 57.84; Estimated Glomerular Filt Rate 91 ml/min
[2022-01-31 23:06] LABS: Alanine Aminotransferase* 32 U/L (4-50); Alkaline Phosphatase* 76 U/L (40-150); Aspartate Amino Transferase* 45 U/L (12-35); Blood Urea Nitrogen* 13 mg/dL (7-30); Glucose* 86 mg/dL (60-115); Total Protein* 6.5 g/dL (6.0-8.3)
[2022-01-31 23:08] LABS: C Reactive Protein* 1.4 mg/dL (0.5-1.0)
[2022-01-31 23:11] LABS: Slide Review Reflex No; Sodium* 113 mmol/L (135-149)
--- NOTE | 2022-01-31 23:20 | ED.NURSE ---
Gilman catheter placed. Per MD, leave catheter in place at this time. 16 estonian coude catheter placed and ~700 cc urine emptied. UA to lab.
[2022-01-31] MEDS: 0.9 % SODIUM CHLORIDE 1000 ml 1,000 ML 75 ML IV (23:40)
[2022-01-31 23:41] LABS: Appearance Urine Clear (Clear); Bilirubin Urine Negative (Negative); Blood Urine Trace-intact (Negative); Color Urine Yellow (Yellow); Glucose Urine Negative (Negative); Ketones Urine 2+ (Negative); Leukocyte Esterase Urine Negative (Negative); Nitrite Urine Negative (Negative); Protein Urine Negative (Negative); Specific Gravity Urine 1.015 (1.000-1.030); Urobilinogen Urine 0.2 (0.2-1.0)
[2022-01-31 23:46] VITALS: BP 143/79; PULSE 80; PULSE 83; RESP 16; O2SAT 96
[2022-01-31 23:47] VITALS: PULSE 82; O2SAT 96
[2022-01-31 23:55] LABS: RBC Urine 0-2 (0-2); WBC Urine 0-2 (0-5)
[2022-01-31 23:56] LABS: Bacteria Urine Few; Squamous Epithelial Cell Urine Few (None-Few)
[2022-02-01] VITALS (88 sets, daily range): BP systolic 80–185; BP diastolic 34–154; PULSE 80–95; RESP 18–20; TEMP 37.1–37.6; O2SAT 90–98; BMI 28.6
--- NOTE | 2022-02-01 00:55 | ED.NURSE ---
Per MD, cancel consecutive NS orders. Pt to receive first liter normal saline at 6,000 mL/hr and second liter normal saline at 50 mL/hr.
--- NOTE | 2022-02-01 00:56 | ED.NURSE ---
Pt's , Radha, requests updates in AM. ([phone])
--- NOTE | 2022-02-01 02:42 | ED.NURSE ---
~1,200 mL emptied from catheter. Sticker SpO2 monitor applied to pt's finger d/t sensor continually falling off while pt sleeping.
[2022-02-01 06:15] LABS: Chloride* 82 mmol/L (96-114); Potassium* 3.5 mmol/L (3.6-5.1)
[2022-02-01 06:18] LABS: Blood Urea Nitrogen* 13 mg/dL (7-30); Carbon Dioxide* 28 mmol/L (20-32); Creatinine* 0.9 mg/dL (0.5-1.5); Est. Creatinine Clearance* 57.84; Estimated Glomerular Filt Rate 88 ml/min
[2022-02-01 06:19] LABS: Glucose* 80 mg/dL (60-115)
[2022-02-01 06:23] LABS: Sodium* 118 mmol/L (135-149)
--- NOTE | 2022-02-01 06:23 | ED.NURSE ---
Critical value from lab: sodium 118. aware.
--- NOTE | 2022-02-01 06:52 | ED.NURSE ---
~1,350 mL emptied from catheter. Pt continuing to sleep.
--- NOTE | 2022-02-01 07:06 | ED.NURSE ---
Pt's , Radha, called and given update.
[2022-02-01 08:07] LABS: PCR FLU A POSITIVE PCR FLU A (Negative); PCR FLU B Negative PCR FLU B (Negative); PCR RSV Negative PCR RSV (Negative)
[2022-02-01 08:08] LABS: SARS PCR* Negative SARS-CoV-2 (Negative)
--- NOTE | 2022-02-01 09:26 | PC.NURSE ---
22G IV in right hand lost during patient move to 2. New 20G IV started in right wrist. 3% sodium chloride fluids restarted.
--- NOTE | 2022-02-01 10:23 | PC.NURSE ---
Patient provided breakfast. Call light within reach. Lab called for Na redraw.
--- NOTE | 2022-02-01 11:03 | PC.NURSE ---
Critical Lab: Sodium 119 Dr. Davis notified.
[2022-02-01 11:04] LABS: Sodium* 119 mmol/L (135-149)
[2022-02-01] MEDS: 0.9 % SODIUM CHLORIDE 250 ml 250 ML 35 ML IV (11:25)
--- NOTE | 2022-02-01 13:52 | PC.NURSE ---
Report given to [facility] [employer]
--- NOTE | 2022-02-01 13:53 | PC.NURSE ---
1330: Patient took home omeprazole.
[2022-02-01] MEDS: METOPROLOL SUCCINATE (XL) 50 MG TAB PO (18:10)
--- NOTE | 2022-02-01 18:36 | PC.NURSE ---
End of Shift: Patient arrived to the floor about 1410, pleasant and cooperative. Patient is vitally stable, lung course, BS WNL, IV SL. Patient with hodges, intact and draining. Patient is very [place]. Patient independent, may need help to remove SCD's. Patient ordered dinner, not with great appetite, but tolerating diet. Patient denies pain. Cough syrup given once. Patient has intermittent cough that is dry but also productive at times. Patient on RA.
[2022-02-01 18:58] LABS: Sodium* 118 mmol/L (135-149)
[2022-02-01 19:30] LABS: Lactate* 0.7 mmol/L (0.5-1.9)
[2022-02-01 19:55] LABS: Potassium* 3.5 mmol/L (3.6-5.1)
[2022-02-01] MEDS: TAMSULOSIN HCL 0.4 MG CAPSULE PO (20:59)
[2022-02-01] MEDS: OSELTAMIVIR PHOSPHATE 75 MG CAPSULE PO (21:00)
--- NOTE | 2022-02-01 21:42 | P.IMHP_ITS ---
Hospitalist- H&P: HPI History of Present Illness Time Seen by Provider: 16:00 Date Seen: 02/01/22 Chief complaint: Influenza A+ - Distended,Painful Stomach Narrative: Alvaro Hogue is a 76 year old man who presented to the hospital with abdominal pain and distention. Interestingly he also had body aches, fevers, chills, and URI symptoms. In the emergency department he was found to have influenza a. Had a very distended bladder. Is known to have benign prostatic hyperplasia and is treated with maximal medical therapy at this time. Has tentative plans for having surgery in mid March of 2022 to help with his benign prostatic hyperplasia with urinary outlet obstructive symptoms. Gilman catheter was placed, bladder was decompressed, abdominal pain has totally resolved since then. Also emergency department he was found to have rather profound hyponatremia with a sodium of 113. Had been drinking lots of water to try to prevent dehydration. Is ordinarily on chlorthalidone as a part of his hypertension treatment regimen. Efforts were made to transfer patient to another hospital since we had no beds available. Other hospitals in the region also had no beds available. They treated him in the emergency department for several hours. They administered hypertonic saline. Sodium improved all the way up to 119. Eventually a bed in our hospital became available and thus he is admitted at this time. Review of Systems Status of ROS: Reports: 10 or more systems reviewed and unremarkable except as noted in History and below Narrative: Generally healthy and active. Enjoys walking, hiking, biking. Enjoys life. Retired. Has a home in [place], [place], and another home in [place], [place]. Had been planning on moving back to [place] this week but because of the problems he is currently having he in his are putting off that travel until sometime in the future. Denies any angina, anginal equivalent, syncope, near syncope, nausea, vomiting, palpitations, diaphoresis, dyspnea at rest, paroxysmal nocturnal dyspnea, orthopnea. No dependent edema. Denies diarrhea, dysuria, urgency, frequency, hematuria. Denies weight loss or night sweats. [facility] Medical History Ascending aorta dilatation Benign prostatic hyperplasia Cholelithiasis Chronic eustachian tube dysfunction Dry eyes Erectile dysfunction Essential hypertension Hypertension Incomplete bladder emptying Sensorineural hearing loss, bilateral Social History Highest level of school completed/degree received: Bachelor's degree Smoking Status: Former smoker Do you use any of these nicotine containing products: None How often do you have a drink containing alcohol: 2-3 times a week How often do you have six or more drinks on one occasion: Never AUDIT-C Alcohol total score: 3 Non-prescribed substance use: denies use Caffeine: Yes (3 cups of coffee a day) Gender Identity: male service: Yes Meds Home Medications and Allergies Home Medications Medication Instructions Recorded Confirmed Type chlorthalidone 25 mg tablet 25 mg PO DAILY 01/31/22 01/31/22 History colchicine 0.6 mg tablet 0.6 mg PO BID PRN 01/31/22 02/01/22 History metoprolol succinate 50 mg 50 mg PO QPM 01/31/22 02/01/22 History tablet,extended release 24 hr cholecalciferol (vitamin D3) 25 25 mcg PO HS 02/01/22 02/01/22 History mcg (1,000 unit) tablet (Vitamin D3) cyclosporine 0.05 % eye drops 1 drp ophthalmic (eye) Q12H 02/01/22 02/01/22 History (Restasis MultiDose) desipramine 25 mg tablet 25 mg PO HS 02/01/22 02/01/22 History omega 6-dax-ieu-fish oil 1,000 mg 1 cap PO BID 02/01/22 02/01/22 History (120 mg-180 mg) capsule (Fish Oil) omeprazole 20 mg capsule,delayed 20 mg PO DAILY 02/01/22 02/01/22 History release tamsulosin 0.4 mg capsule 0.4 mg PO BID 02/01/22 02/01/22 History Allergies Allergy/AdvReac Type Severity Reaction Status Date / Time vancomycin Allergy Intermediate high fever Verified 01/31/22 21:57 Sulfa (Sulfonamide Allergy Mild Hives Verified 01/31/22 21:57 Antibiotics) Exam Narrative: Exam Narrative: Appears comfortable and in no acute distress. Hard of hearing. Not new. Alert and oriented to self, place, time, situation. Friendly, cooperative, articulate. Mood and affect are congruent. Vision is grossly normal. No icterus. Moist buccal mucosa. Dentition in good repair. Midline trachea. Neck is supple. Normal thyroid. No JVD or hepatojugular reflux. No carotid bruits. No lymphadenopathy. Lungs are clear to auscultation. Heart tones with regular rhythm. Abdomen with active bowel sounds, soft, nontender. Gilman catheter in place. Extremities without edema. Independent transfer, station, and gait. No focal motor neurologic deficits. Skin is warm, dry, intact. Const: Vital Signs, click to edit/add: Vital Signs - 24 hr 01/31/22 21:51 01/31/22 23:46 01/31/22 22:07 Temperature 98.6 F Pulse Rate 80 Pulse Rate [Pulse Oximeter] Pulse Rate [Right Pulse Oximeter] 82 Respiratory Rate 20 16 Blood Pressure 143/79 H Blood Pressure [Ri ght Arm] Blood Pressure [Ri ght Upper Arm] 137/64 Pulse Oximetry 96 96 98 Oxygen Delivery Me thod Room Air Room Air 01/31/22 23:46 01/31/22 23:47 02/01/22 00:02 Temperature Pulse Rate 83 82 Pulse Rate [Pulse Oximeter] Pulse Rate [Right Pulse Oximeter] Respiratory Rate Blood Pressure 143/79 H 114/79 Blood Pressure [Ri ght Arm] Blood Pressure [Ri ght Upper Arm] Pulse Oximetry 96 96 Oxygen Delivery Me thod 02/01/22 00:33 02/01/22 00:45 02/01/22 01:02 Temperature Pulse Rate 80 Pulse Rate [Pulse Oximeter] Pulse Rate [Right Pulse Oximeter] Respiratory Rate Blood Pressure 108/74 113/71 Blood Pressure [Ri ght Arm] Blood Pressure [Ri ght Upper Arm] Pulse Oximetry 97 Oxygen Delivery Me thod 02/01/22 01:18 02/01/22 01:33 02/01/22 02:02 Temperature Pulse Rate 90 Pulse Rate [Pulse Oximeter] Pulse Rate [Right Pulse Oximeter] Respiratory Rate Blood Pressure 134/70 142/94 H Blood Pressure [Ri ght Arm] Blood Pressure [Ri ght Upper Arm] Pulse Oximetry 98 Oxygen Delivery Me thod 02/01/22 02:32 02/01/22 02:43 02/01/22 02:45 Temperature Pulse Rate 84 89 Pulse Rate [Pulse Oximeter] Pulse Rate [Right Pulse Oximeter] Respiratory Rate Blood Pressure 130/75 Blood Pressure [Ri ght Arm] Blood Pressure [Ri ght Upper Arm] Pulse Oximetry 96 95 Oxygen Delivery Me thod 02/01/22 03:00 02/01/22 03:02 02/01/22 03:15 Temperature Pulse Rate 88 88 87 Pulse Rate [Pulse Oximeter] Pulse Rate [Right Pulse Oximeter] Respiratory Rate Blood Pressure 106/82 Blood Pressure [Ri ght Arm] Blood Pressure [Ri ght Upper Arm] Pulse Oximetry 96 96 95 Oxygen Delivery Me thod 02/01/22 03:30 02/01/22 03:32 02/01/22 03:34 Temperature Pulse Rate 87 84 85 Pulse Rate [Pulse Oximeter] Pulse Rate [Right Pulse Oximeter] Respiratory Rate Blood Pressure 117/34 L 136/67 Blood Pressure [Ri ght Arm] Blood Pressure [Ri ght Upper Arm] Pulse Oximetry 95 96 96 Oxygen Delivery Me thod 02/01/22 03:45 02/01/22 04:00 02/01/22 04:02 Temperature Pulse Rate 86 92 Pulse Rate [Pulse Oximeter] Pulse Rate [Right Pulse Oximeter] Respiratory Rate Blood Pressure 126/48 L Blood Pressure [Ri ght Arm] Blood Pressure [Ri ght Upper Arm] Pulse Oximetry 95 96 96 Oxygen Delivery Me thod 02/01/22 04:15 02/01/22 04:30 02/01/22 04:32 Temperature Pulse Rate 88 89 Pulse Rate [Pulse Oximeter] Pulse Rate [Right Pulse Oximeter] Respiratory Rate Blood Pressure 164/131 H Blood Pressure [Ri ght Arm] Blood Pressure [Ri ght Upper Arm] Pulse Oximetry 96 98 96 Oxygen Delivery Me thod 02/01/22 04:35 02/01/22 04:37 02/01/22 04:45 Temperature Pulse Rate 88 85 89 Pulse Rate [Pulse Oximeter] Pulse Rate [Right Pulse Oximeter] Respiratory Rate Blood Pressure 185/154 H 136/64 Blood Pressure [Ri ght Arm] Blood Pressure [Ri ght Upper Arm] Pulse Oximetry 95 94 94 Oxygen Delivery Me thod 02/01/22 05:00 02/01/22 05:03 02/01/22 05:15 Temperature Pulse Rate 86 89 88 Pulse Rate [Pulse Oximeter] Pulse Rate [Right Pulse Oximeter] Respiratory Rate Blood Pressure 119/49 L Blood Pressure [Ri ght Arm] Blood Pressure [Ri ght Upper Arm] Pulse Oximetry 95 95 95 Oxygen Delivery Me thod 02/01/22 05:30 02/01/22 05:32 02/01/22 05:45 Temperature Pulse Rate 85 89 86 Pulse Rate [Pulse Oximeter] Pulse Rate [Right Pulse Oximeter] Respiratory Rate Blood Pressure 143/92 H Blood Pressure [Ri ght Arm] Blood Pressure [Ri ght Upper Arm] Pulse Oximetry 98 97 97 Oxygen Delivery Me thod 02/01/22 06:00 02/01/22 06:02 02/01/22 06:15 Temperature Pulse Rate 82 80 82 Pulse Rate [Pulse Oximeter] Pulse Rate [Right Pulse Oximeter] Respiratory Rate Blood Pressure 120/98 H Blood Pressure [Ri ght Arm] Blood Pressure [Ri ght Upper Arm] Pulse Oximetry 96 96 96 Oxygen Delivery Me thod 02/01/22 06:30 02/01/22 06:33 02/01/22 06:34 Temperature Pulse Rate 83 82 85 Pulse Rate [Pulse Oximeter] Pulse Rate [Right Pulse Oximeter] Respiratory Rate Blood Pressure 113/78 Blood Pressure [Ri ght Arm] Blood Pressure [Ri ght Upper Arm] Pulse Oximetry 95 95 96 Oxygen Delivery Me thod 02/01/22 06:45 02/01/22 07:00 02/01/22 07:02 Temperature Pulse Rate 81 84 84 Pulse Rate [Pulse Oximeter] Pulse Rate [Right Pulse Oximeter] Respiratory Rate Blood Pressure 133/77 Blood Pressure [Ri ght Arm] Blood Pressure [Ri ght Upper Arm] Pulse Oximetry 96 96 95 Oxygen Delivery Me thod 02/01/22 07:15 02/01/22 07:30 02/01/22 07:32 Temperature Pulse Rate 87 82 81 Pulse Rate [Pulse Oximeter] Pulse Rate [Right Pulse Oximeter] Respiratory Rate Blood Pressure 117/72 Blood Pressure [Ri ght Arm] Blood Pressure [Ri ght Upper Arm] Pulse Oximetry 96 95 94 Oxygen Delivery Me thod 02/01/22 07:45 02/01/22 08:00 02/01/22 08:02 Temperature Pulse Rate 87 83 82 Pulse Rate [Pulse Oximeter] Pulse Rate [Right Pulse Oximeter] Respiratory Rate Blood Pressure 124/75 Blood Pressure [Ri ght Arm] Blood Pressure [Ri ght Upper Arm] Pulse Oximetry 94 96 96 Oxygen Delivery Me thod 02/01/22 08:15 02/01/22 08:30 02/01/22 08:32 Temperature Pulse Rate 84 84 85 Pulse Rate [Pulse Oximeter] Pulse Rate [Right Pulse Oximeter] Respiratory Rate Blood Pressure 118/75 Blood Pressure [Ri ght Arm] Blood Pressure [Ri ght Upper Arm] Pulse Oximetry 96 96 97 Oxygen Delivery Me thod 02/01/22 08:33 02/01/22 08:45 02/01/22 09:00 Temperature Pulse Rate 85 83 87 Pulse Rate [Pulse Oximeter] Pulse Rate [Right Pulse Oximeter] Respiratory Rate Blood Pressure Blood Pressure [Ri ght Arm] Blood Pressure [Ri ght Upper Arm] Pulse Oximetry 97 96 94 Oxygen Delivery Me thod 02/01/22 09:02 02/01/22 09:03 02/01/22 09:13 Temperature Pulse Rate 95 93 Pulse Rate [Pulse Oximeter] Pulse Rate [Right Pulse Oximeter] Respiratory Rate Blood Pressure 80/52 L Blood Pressure [Ri ght Arm] Blood Pressure [Ri ght Upper Arm] Pulse Oximetry 96 95 96 Oxygen Delivery Dc thod 02/01/22 09:15 02/01/22 09:28 02/01/22 09:30 Temperature Pulse Rate 89 90 94 Pulse Rate [Pulse Oximeter] Pulse Rate [Right Pulse Oximeter] Respiratory Rate Blood Pressure Blood Pressure [Ri ght Arm] Blood Pressure [Ri ght Upper Arm] Pulse Oximetry 95 90 96 Oxygen Delivery Me thod 02/01/22 09:33 02/01/22 09:45 02/01/22 10:00 Temperature Pulse Rate 88 88 87 Pulse Rate [Pulse Oximeter] Pulse Rate [Right Pulse Oximeter] Respiratory Rate Blood Pressure 120/74 Blood Pressure [Ri ght Arm] Blood Pressure [Ri ght Upper Arm] Pulse Oximetry 94 93 95 Oxygen Delivery Me thod 02/01/22 10:02 02/01/22 10:15 02/01/22 10:30 Temperature Pulse Rate 88 86 95 Pulse Rate [Pulse Oximeter] Pulse Rate [Right Pulse Oximeter] Respiratory Rate Blood Pressure 134/77 Blood Pressure [Ri ght Arm] Blood Pressure [Ri ght Upper Arm] Pulse Oximetry 94 94 95 Oxygen Delivery Me thod 02/01/22 10:32 02/01/22 10:45 02/01/22 11:00 Temperature Pulse Rate 93 91 95 Pulse Rate [Pulse Oximeter] Pulse Rate [Right Pulse Oximeter] Respiratory Rate Blood Pressure 130/85 Blood Pressure [Ri ght Arm] Blood Pressure [Ri ght Upper Arm] Pulse Oximetry 94 92 95 Oxygen Delivery Dc thod 02/01/22 11:02 02/01/22 11:15 02/01/22 11:30 Temperature Pulse Rate 91 88 93 Pulse Rate [Pulse Oximeter] Pulse Rate [Right Pulse Oximeter] Respiratory Rate Blood Pressure 104/84 Blood Pressure [Ri ght Arm] Blood Pressure [Ri ght Upper Arm] Pulse Oximetry 93 95 94 Oxygen Delivery Dc thod 02/01/22 11:33 02/01/22 11:45 02/01/22 12:00 Temperature Pulse Rate 91 91 91 Pulse Rate [Pulse Oximeter] Pulse Rate [Right Pulse Oximeter] Respiratory Rate Blood Pressure 136/74 Blood Pressure [Ri ght Arm] Blood Pressure [Ri ght Upper Arm] Pulse Oximetry 94 94 94 Oxygen Delivery Dc thod 02/01/22 12:02 02/01/22 12:15 02/01/22 12:30 Temperature Pulse Rate 90 89 87 Pulse Rate [Pulse Oximeter] Pulse Rate [Right Pulse Oximeter] Respiratory Rate Blood Pressure 138/81 Blood Pressure [Ri ght Arm] Blood Pressure [Ri ght Upper Arm] Pulse Oximetry 93 94 94 Oxygen Delivery Dc thod 02/01/22 12:33 02/01/22 12:45 02/01/22 13:00 Temperature Pulse Rate 88 93 88 Pulse Rate [Pulse Oximeter] Pulse Rate [Right Pulse Oximeter] Respiratory Rate Blood Pressure 145/92 H Blood Pressure [Ri ght Arm] Blood Pressure [Ri ght Upper Arm] Pulse Oximetry 94 94 94 Oxygen Delivery Dc thod 02/01/22 13:02 02/01/22 13:15 02/01/22 13:30 Temperature Pulse Rate 88 89 92 Pulse Rate [Pulse Oximeter] Pulse Rate [Right Pulse Oximeter] Respiratory Rate Blood Pressure 146/78 H Blood Pressure [Ri ght Arm] Blood Pressure [Ri ght Upper Arm] Pulse Oximetry 93 95 94 Oxygen Delivery Dc thod 02/01/22 13:32 02/01/22 14:30 02/01/22 14:45 Temperature 98.8 F Pulse Rate 90 Pulse Rate [Pulse Oximeter] 92 Pulse Rate [Right Pulse Oximeter] Respiratory Rate 20 20 Blood Pressure 146/75 H Blood Pressure [Ri ght Arm] 151/80 H Blood Pressure [Ri ght Upper Arm] Pulse Oximetry 95 93 93 Oxygen Delivery Me thod Room Air Room Air 02/01/22 15:00 02/01/22 20:45 Temperature 99.2 F Pulse Rate Pulse Rate [Pulse Oximeter] 87 Pulse Rate [Right Pulse Oximeter] Respiratory Rate 20 18 Blood Pressure Blood Pressure [Ri ght Arm] 124/76 Blood Pressure [Ri ght Upper Arm] Pulse Oximetry 94 Oxygen Delivery Me thod Room Air Hospitalist - H&P: Result Labs Labs: Short CBC 01/31/22 Range/Units 22:33 WBC 8.11 (4.50-11.00) K/uL Hgb 15.6 (13.5-17.5) gm/dL Hct 42.5 (37.0-53.0) % Plt Count 227 (140-440) K/uL BMP 01/31/22 02/01/22 02/01/22 22:33 05:50 10:33 Sodium 113 L* 118 L* 119 L* Potassium 3.6 3.5 L Chloride 78 L 82 L Carbon Dioxide 23 28 BUN 13 13 Creatinine 0.8 0.9 Glucose 86 80 Calcium 8.0 L 8.0 L 02/01/22 02/01/22 18:30 19:25 Sodium 118 L* Potassium 3.5 L Chloride Carbon Dioxide BUN Creatinine Glucose Calcium Liver Function 01/31/22 Range/Units 22:33 Total Bilirubin 1.2 (0.1-1.5) mg/dL Direct Bilirubin 0.0 (0.0-0.5) mg/dL AST 45 H (12-35) U/L ALT 32 (4-50) U/L Alkaline Phosphatase 76 (40-150) U/L Albumin 4.2 (3.3-5.0) g/dL Urine 01/31/22 Range/Units 23:30 Urine Color Yellow (Yellow) Urine Appearance Clear (Clear) Urine pH 7.0 (5.0-8.5) Ur Specific [place] 1.015 (1.000-1.030) Urine Protein Negative (Negative) Urine Glucose (UA) Negative (Negative) Imaging CT scan - abdomen: Radiologist's impression: No acute findings within the abdomen and pelvis. No evidence for obstruction. Punctate nonobstructing left renal stone. Distended bladder. Assessment and Plan Assessment and plan (1) Acute hyponatremia: Problem comment: Multifactorial: Chlorthalidone, large volumes of water intake Status: Acute (2) Abdominal pain: Problem comment: Due to acute acute urinary retention Status: Acute (3) Acute urinary retention: Problem comment: Gilman catheter placed Status: Acute (4) Influenza A: Problem comment: Initiated oseltamivir 75 mg twice daily for 5 days Status: Acute Plan 1. Reviewed impression with patient and . Answered their questions. Patient warrants inpatient treatment for this. 2. Monitor serum sodium for now. 2 L fluid restriction. Stop the chlorthalidone. Hope to achieve a gradual normalization of his serum sodium level safely over time. 3. Keep Gilman catheter in place. Continue with tamsulosin. May consider removal of the Gilman catheter after several days in the outpatient setting when he sees his physician in follow-up. 4. Oseltamivir 75 mg twice daily for 5 days. 5. Patient agreeable to above stated plans and recommendations.
[2022-02-02 03:00] VITALS: BP 134/77; PULSE 81; RESP 18; TEMP 37.4; O2SAT 93
--- NOTE | 2022-02-02 05:22 | PC.NURSE ---
END OF SHIFT NOTE: PT PLEASANT AND COOPERATIVE WITH CARES. OMAHA. WEARS HEARING AIDES. SWEENEY IN PLACE AND PATENT.? @0110 PT WOKE UP IN A PANIC MOVING ABOUT ROOM DRAGGING SWEENEY BAG ON FLOOR. PT STATED HE WOKE FROM SLEEP AND UNABLE TO BREATHE. PT STATED HE TOOK HIS 2 FINGERS AND SWEPT HIS MOUTH. PT VSS CHECKED AND?STABLE ON RA; ANTERIOR LSCTA. TINGE OF PINK TO SWEENEY BAG D/T TRAUMA WHEN WALKING AROUND ROOM. PT DENIES CP, N/V, SOB. PT ENCOURAGED TO SPIT OUT SPUTUM AFTER COUGHING. ENCOURAGED TO USE AEROBIKA.
[2022-02-02] MEDS: OMEPRAZOLE 20 MG CAPSULE DR PO (06:12)
[2022-02-02 07:07] LABS: Hematocrit 44.2 % (37.0-53.0); Hemoglobin* 15.9 gm/dL (13.5-17.5); Mean Corpuscular HGB Conc 36 gm/dL (32-36); Mean Corpuscular Hemoglobin 28 pg (26-34); Mean Corpuscular Volume 79 fL (80-100); Platelet Count* 212 K/uL (140-440); Red Blood Count 5.63 m/uL (4.30-5.90)
[2022-02-02 07:09] LABS: Slide Review Reflex No
[2022-02-02 07:21] LABS: Chloride* 84 mmol/L (96-114); Potassium* 3.8 mmol/L (3.6-5.1)
[2022-02-02 07:23] LABS: Est. Creatinine Clearance* 57.84; Estimated Glomerular Filt Rate 78 ml/min
[2022-02-02 07:24] LABS: Blood Urea Nitrogen* 15 mg/dL (7-30); Calcium* 8.2 mg/dL (8.4-10.6); Carbon Dioxide* 30 mmol/L (20-32); Glucose* 81 mg/dL (60-115); Phosphorus* 2.7 mg/dL (2.5-4.5)
[2022-02-02 07:25] LABS: Magnesium* 1.7 mg/dL (1.5-2.6)
[2022-02-02 07:29] LABS: Sodium* 120 mmol/L (135-149)
--- NOTE | 2022-02-02 07:31 | PC.NURSE ---
Critical Value-- Notified by lab of critical sodium of 120. Improved from previous.
[2022-02-02 08:00] VITALS: BP 101/70; PULSE 81; PULSE 83; RESP 20; TEMP 36.7; O2SAT 92
[2022-02-02] MEDS: TAMSULOSIN HCL 0.4 MG CAPSULE PO ×2 (08:19→20:41)
[2022-02-02] MEDS: OSELTAMIVIR PHOSPHATE 75 MG CAPSULE PO ×2 (08:19→20:41)
[2022-02-02 11:00] VITALS: BP 136/79; PULSE 76; RESP 20; TEMP 36.6; O2SAT 94
[2022-02-02] MEDS: SODIUM CHLORIDE 1 GM TABLET PO ×2 (14:46→18:18)
[2022-02-02 15:00] VITALS: BP 117/68; PULSE 86; RESP 20; TEMP 36.6; O2SAT 91
--- NOTE | 2022-02-02 17:26 | PM.IMPN1 ---
Progress Note: A&P Assessment and plan (1) Abdominal pain: Problem details: Due to acute acute urinary retention Status: Acute (2) Acute urinary retention: Problem details: Likely due to underlying benign prostatic hyperplasia plus patient use of pseudoephedrine to treat URI symptoms. Gilman catheter placed. Status: Acute (3) Influenza A: Problem details: Initiated oseltamivir 75 mg twice daily for 5 days Status: Acute (4) Acute hyponatremia: Problem details: Multifactorial: Chlorthalidone, large volumes of water intake Status: Acute Assessment and Plan: 1. Continue with a 2 L per day fluid restriction 2. Continue to hold the chlorthalidone 3. Continue to monitor labs Plan 1. Reviewed impression with patient and . 2. Answered their questions are satisfaction. 3. Will attempt removing Gilman catheter tomorrow to see if he is able to pass urine without use the Gilman catheter now that we have stopped the pseudoephedrine. 4. Continue with other treatment efforts. Time Spent With Patient Total time spent: 40 minutes Subjective Time Seen by Provider: 13:30 Date Seen: 02/02/22 Interval history: 76-year-old man presented with abdominal pain and URI symptoms. Has underlying benign prostatic hyperplasia and is on maximum doses tamsulosin. On assessment his found to have distended bladder with urinary retention. Gilman catheter placed abdominal pain resolved. Interestingly he was taking [id number] Mucinex D which contains guaifenesin and pseudoephedrine. Seemingly the pseudoephedrine was enough to cause the urinary retention. Does have a history of minimal urinary retention without the pseudoephedrine with but was getting. It seems that the pseudoephedrine was enough to cause increased urinary retention and subsequent abdominal pain. Remarkably he tested positive for influenza A. Thus his URI symptoms are explainable on the basis of the influenza A. We have since initiated oseltamivir which he is tolerating. We are now using guaifenesin and dextromethorphan and avoiding the pseudoephedrine. With all the above stated symptoms patient was drinking large volumes of water. Additionally he is on chlorthalidone at baseline. At baseline he had a mild decrease in his serum sodiums which he had been following with his primary care physician for couple of years. Apparently with a increase water intake and continued use of the chlorthalidone it was enough to cause it to have of rather severe hyponatremia on presentation with a serum sodium of 113. Initially treated with hypertonic saline and serum sodium increased to 119. This morning serum sodium is up to 120. Now on a fluid restriction of 2 liters per day. Still suffering from some of the URI symptoms. Tolerating the Gilman catheter. Tolerating fluid restriction. Exam Narrative: Exam Narrative: Appears comfortable in no acute distress. Friendly, articulate, cooperative. Mood and affect are congruent. Alert, oriented to self, place, time, situation. Does have episodes of seemingly forgetfulness or confusion. Lungs are clear to auscultation. Heart tones with regular rhythm. Abdomen with active bowel sounds, soft, nontender. Independent transfer, station and gait. Gilman catheter in place. Const: Vital Signs, click to edit/add: Vital Signs - 24 hr 02/01/22 20:45 02/01/22 23:00 02/01/22 23:00 Temperature 99.2 F 99.6 F Pulse Rate [Pulse Oximeter] 87 87 87 Respiratory Rate 18 18 18 Blood Pressure [Ri ght Arm] 124/76 137/76 Pulse Oximetry 94 93 Oxygen Delivery Me thod Room Air Room Air 02/02/22 03:00 02/02/22 08:00 02/02/22 08:00 Temperature 99.4 F 98.1 F Pulse Rate [Pulse Oximeter] 81 81 83 Respiratory Rate 18 20 20 Blood Pressure [Ri ght Arm] 134/77 101/70 Pulse Oximetry 93 92 Oxygen Delivery Me thod Room Air Room Air 02/02/22 11:00 02/02/22 15:00 02/02/22 15:00 Temperature 97.9 F 97.9 F Pulse Rate [Pulse Oximeter] 76 86 86 Respiratory Rate 20 20 20 Blood Pressure [Ri ght Arm] 136/79 117/68 Pulse Oximetry 94 91 Oxygen Delivery Me thod Room Air Room Air Labs Labs: Laboratory Results - last 24 hr 02/01/22 02/01/22 02/01/22 18:30 19:25 19:25 WBC RBC Hgb Hct MCV MCH MCHC Plt Count Sodium 118 L* Potassium 3.5 L Chloride Carbon Dioxide BUN Creatinine Estimated Creat Clear Estimated GFR Glucose Lactate 0.7 Calcium Phosphorus Magnesium TSH 02/02/22 02/02/22 02/02/22 06:37 06:37 06:37 WBC 8.90 RBC 5.63 Hgb 15.9 Hct 44.2 MCV 79 L MCH 28 MCHC 36 Plt Count 212 Sodium 120 L* Potassium 3.8 Chloride 84 L Carbon Dioxide 30 BUN 15 Creatinine 1.0 Estimated Creat Clear 57.84 Estimated GFR 78 Glucose 81 Lactate Calcium 8.2 L Phosphorus 2.7 Magnesium 1.7 TSH 3.440
[2022-02-02] MEDS: METOPROLOL SUCCINATE (XL) 50 MG TAB PO (18:18)
[2022-02-02 18:25] VITALS: BP 138/84; PULSE 84; RESP 20; TEMP 36.8; O2SAT 95
[2022-02-02 18:35] LABS: Sodium* 122 mmol/L (135-149)
[2022-02-02 23:00] VITALS: BP 126/76; PULSE 81; RESP 20; TEMP 36.6; O2SAT 96
[2022-02-03 03:00] VITALS: BP 113/71; PULSE 82; RESP 18; TEMP 36.8; O2SAT 96
[2022-02-03] MEDS: OMEPRAZOLE 20 MG CAPSULE DR PO (06:05)
[2022-02-03 06:56] LABS: Sodium* 125 mmol/L (135-149)
--- NOTE | 2022-02-03 07:01 | PC.NURSE ---
: COUSHATTA. Compliant with fluid restriction. Occasional productive cough, encouraging aerobika use, PRN guaifenesin DM given. ? ZAHRA D/C?d. ? Home med (Desipramine) needing to be labeled by pharmacy, pill bottle?in pharmacy pickup bin. Verified med with med pass at HS with Charge Nurse as the prescription bottle was sealed. ?
[2022-02-03 09:00] VITALS: BP 102/65; PULSE 70; RESP 16; TEMP 36.1; O2SAT 97
[2022-02-03] MEDS: SODIUM CHLORIDE NASAL SPRAY NOSTRIL-B (09:02)
[2022-02-03] MEDS: TAMSULOSIN HCL 0.4 MG CAPSULE PO ×2 (09:03→20:23)
[2022-02-03] MEDS: OSELTAMIVIR PHOSPHATE 75 MG CAPSULE PO ×2 (09:03→20:23)
[2022-02-03] MEDS: ACETAMINOPHEN 325 MG TABLET 650 MG PO (09:03)
[2022-02-03] MEDS: SODIUM CHLORIDE 1 GM TABLET PO ×3 (09:03→18:27)
[2022-02-03] MEDS: 0.9 % SODIUM CHLORIDE 250 ml IV (09:04)
[2022-02-03] MEDS: SODIUM CHLORIDE 0.9 % (FLUSH) 10 ML SYRINGE 5 ML IVF (09:17)
[2022-02-03 13:00] VITALS: BP 106/66; PULSE 70; TEMP 36.6; O2SAT 98
--- NOTE | 2022-02-03 13:33 | ONC.NURNOTE ---
Up in his room . productive cough. states white creamy color Crackles RRL. using nasal saline, cough syrup and tylenol. sats 97 ra. up in room as torsten. no sob with activity. very SAMISH. tracie d/c this am 0600. at that time 500cc in [place]. bladder scanned at [address] Chavez aware. will continue to monitor . pt staying today. may have to go home with tracie. sodium level 125. recheck in am. pt torsten some po. 600cc fluids on days. supportive.
[2022-02-03 15:00] VITALS: BP 122/71; PULSE 85; RESP 16; TEMP 36.6; O2SAT 97
--- NOTE | 2022-02-03 16:52 | PM.IMPN1 ---
Progress Note: A&P Assessment and plan (1) Abdominal pain: Problem details: Due to acute acute urinary retention. Status: Acute (2) Acute urinary retention: Problem details: Likely due to underlying benign prostatic hyperplasia plus patient use of pseudoephedrine to treat URI symptoms. Gilman catheter placed initially and removed today. Status: Acute Assessment and Plan: We will try to determine if he is able to void without the Gilman catheter. (3) Influenza A: Problem details: Initiated oseltamivir 75 mg twice daily for 5 days Status: Acute Assessment and Plan: Also continue with symptom management efforts. (4) Acute hyponatremia: Problem details: Multifactorial: Chlorthalidone, large volumes of water intake Status: Acute Plan 1. Reviewed with patient and , Radha. 2. Answered their questions are satisfaction. 3. Proceed with trial without Gilman catheter. 4. Continue with symptom management efforts for influenza A. 5. Continue with oseltamivir. 6. Increase physical activity, walking halls at least twice in the morning, twice in the afternoon, twice in the evening. Time Spent With Patient Total time spent: 30 minutes Subjective Time Seen by Provider: 13:00 Date Seen: 02/03/22 Interval history: Hospital day 3. 76-year-old man presented with abdominal pain and URI symptoms. Has underlying benign prostatic hyperplasia and is on maximum doses tamsulosin. On assessment his found to have distended bladder with urinary retention. Gilman catheter placed abdominal pain resolved. Interestingly he was taking [id number] Mucinex D which contains guaifenesin and pseudoephedrine. Seemingly the pseudoephedrine was enough to cause the urinary retention. Does have a history of minimal urinary retention without the pseudoephedrine with but was getting. It seems that the pseudoephedrine was enough to cause increased urinary retention and subsequent abdominal pain. Remarkably he tested positive for influenza A. Thus his URI symptoms are explainable on the basis of the influenza A. We have since initiated oseltamivir which he is tolerating. We are now using guaifenesin and dextromethorphan and avoiding the pseudoephedrine. With all the above stated symptoms patient was drinking large volumes of water. Additionally he is on chlorthalidone at baseline. At baseline he had a mild decrease in his serum sodiums which he had been following with his primary care physician for couple of years. Apparently with a increase water intake and continued use of the chlorthalidone it was enough to cause it to have of rather severe hyponatremia on presentation with a serum sodium of 113. Initially treated with hypertonic saline and serum sodium increased to 119. This morning serum sodium is up to 125. Now adhering to a fluid restriction of 2 liters per day. Still suffering from some of the URI symptoms. We removed the Gilman catheter this morning to see if he would be able to void on his own and not continue to have urinary retention. He still has not had urine void at this juncture. Tolerating fluid restriction. Exam Narrative: Exam Narrative: Appears comfortable no acute distress. Alert, oriented to self, place, time situation. Articulate and cooperative. Very hard of hearing still. Vision grossly normal. Lungs are clear to auscultation. Heart tones with regular rhythm normal S1-S2. Abdomen with active bowel sounds, soft, nontender. Extremities without edema. Independent transfer, station, and gait. Skin is warm, dry, intact. Const: Vital Signs, click to edit/add: Vital Signs - 24 hr 02/02/22 18:25 02/02/22 23:00 02/02/22 23:00 Temperature 98.3 F 98 F Pulse Rate [Pulse Oximeter] 84 81 81 Respiratory Rate 20 20 20 Blood Pressure [Ri ght Arm] 138/84 126/76 Pulse Oximetry 95 96 Oxygen Delivery Me thod Room Air Room Air 02/03/22 03:00 02/03/22 09:00 02/03/22 13:00 Temperature 98.2 F 97 F L 97.8 F Pulse Rate [Pulse Oximeter] 82 70 70 Respiratory Rate 18 16 Blood Pressure [Ri ght Arm] 113/71 102/65 106/66 Pulse Oximetry 96 97 98 Oxygen Delivery Me thod Room Air Room Air Room Air Labs Labs: Laboratory Results - last 24 hr 02/02/22 02/03/22 18:05 06:29 Sodium 122 L* 125 L
[2022-02-03] MEDS: METOPROLOL SUCCINATE (XL) 50 MG TAB PO (18:27)
[2022-02-03 18:42] VITALS: BP 136/80; PULSE 79; RESP 16; TEMP 36.7; O2SAT 98
[2022-02-03 23:00] VITALS: BP 108/60; PULSE 76; RESP 18; TEMP 36.7; O2SAT 91
[2022-02-03] MEDS: ALBUTEROL SULFATE 2.5 MG/3 ML VIAL.NEB NEB (23:42)
[2022-02-04 03:00] VITALS: BP 120/62; PULSE 76; RESP 20; TEMP 36.5; O2SAT 95
[2022-02-04] MEDS: ALBUTEROL SULFATE 2.5 MG/3 ML VIAL.NEB NEB ×3 (03:44→12:38)
--- NOTE | 2022-02-04 06:37 | PC.NURSE ---
: pt voiding indep w/o any complications since d/c of hodges cath. Composing Machine Operator witnessed a severe cough episode, pt unable to catch his breath during this time, cough was dry and nonproductive,?O2 sats remained above 88% however pt was in great distress. Composing Machine Operator administered Guaifenesin DM PRN, however house sup was unable to attain another bottle to offer another dose to pt as pharmacy is out, standing order for guaifenesin placed. Issac called, PRN albuterol neb ordered and given x 2, pt stated the neb treatments have been ?lifesaving? and a ?miracle?. ?
[2022-02-04] MEDS: OMEPRAZOLE 20 MG CAPSULE DR PO (06:48)
[2022-02-04 07:00] VITALS: BP 125/81; PULSE 75; RESP 22; TEMP 36.9; O2SAT 94
[2022-02-04 07:56] LABS: Chloride* 92 mmol/L (96-114); Potassium* 3.3 mmol/L (3.6-5.1); Sodium* 129 mmol/L (135-149)
[2022-02-04 07:59] LABS: Blood Urea Nitrogen* 17 mg/dL (7-30); Carbon Dioxide* 31 mmol/L (20-32); Est. Creatinine Clearance* 56.92; Estimated Glomerular Filt Rate 77 ml/min; Glucose* 90 mg/dL (60-115)
[2022-02-04 08:00] LABS: Calcium* 8.2 mg/dL (8.4-10.6)
[2022-02-04] MEDS: SODIUM CHLORIDE 1 GM TABLET PO ×2 (08:46→12:38)
[2022-02-04] MEDS: OSELTAMIVIR PHOSPHATE 75 MG CAPSULE PO (08:46)
[2022-02-04] MEDS: TAMSULOSIN HCL 0.4 MG CAPSULE PO (08:46)
--- NOTE | 2022-02-04 19:27 | PC.NURSE ---
shift note: Pt up indept in room. pt requesting alb prn neb due to reactive cough. Ls dim with rhonchi bibasilar. pt sats 94% on Ra. pt afeb. Reviewed pt dc instructions and copies sent with pt at dc. Belongings checked and sent with pt at dc. Iv dc'd intact Rt wrist.
--- NOTE | 2022-02-04 20:44 | PC.NURSE ---
Family member Dayan called to clarify Tamiflu order is BID. Discussed with Dr. Chavez, confirmed that BID is correct. Called Dayan and communicated this. No further questions.
--- NOTE | 2022-02-04 22:31 | PM.DS1 ---
DS: Providers Provider Time Seen by Provider: 13:00 Date Seen: 02/04/22 Date of admission: 02/01/22 17:19 Primary care physician: Adam Peterson MD Admitting Clinician: Sukhjinder Smith MD Consults: 02/01/22 16:47 Consult to Respiratory Therapy [CONS] Routine Comment: Reason(s) for RT Consult:: Consult Comment: Aerobika device use Attending Physician on discharge: Marcus Ferguson MD Date of Discharge: 02/04/22 DS: Diagnosis Discharge Diagnosis (1) Acute urinary retention: Status: Acute Problem details: Likely due to underlying benign prostatic hyperplasia plus patient use of pseudoephedrine to treat URI symptoms. Gilman catheter placed initially and removed 02/03/2022. (2) Abdominal pain: Status: Acute Problem details: Due to acute acute urinary retention, resolved upon placing Gilman catheter and draining the bladder. (3) Influenza A: Status: Acute Problem details: Initiated oseltamivir 75 mg twice daily for 5 days (4) Cough: Status: Acute (5) Reactive airways dysfunction syndrome: Status: Acute Problem details: Improved remarkably with use of nebulized albuterol (6) Acute hyponatremia: Status: Acute Problem details: Multifactorial, including from use of Chlorthalidone, large volumes of water intake in an effort to address his concern of becoming dehydrated. DS: Summary Hospital Course Hospital Course: Alvaro Hogue is a 76 year old man who presented to the hospital with abdominal pain and distention.? Interestingly he also had body aches, fevers, chills, and URI symptoms.? In the emergency department he was found to have influenza a.? Had a very distended bladder.? Is known to have benign prostatic hyperplasia and is treated with maximal medical therapy at this time.? Has tentative plans for having surgery in mid March of 2022 to help with his benign prostatic hyperplasia with urinary outlet obstructive symptoms.? Gilman catheter was placed, bladder was decompressed, abdominal pain has totally resolved since then. Also emergency department he was found to have rather profound hyponatremia with a sodium of 113.? Had been drinking lots of water to try to prevent dehydration.? Is ordinarily on chlorthalidone as a part of his hypertension treatment regimen.? Efforts were made to transfer patient to another hospital since we had no beds available.? Other hospitals in the region also had no beds available.? They treated him in the emergency department for several hours.? They administered hypertonic saline.? Sodium improved all the way up to 119.? Eventually a bed in our hospital became available and thus he is admitted. His influenza a was treated with oseltamivir 75 mg twice daily throughout his hospital stay and be on. He is to complete a 5 day course of the same. The Gilman catheter was kept in place throughout much of the hospital. In retrospect it was apparent that patient started to use pseudoephedrine once he started having symptoms of the influenza A. With his underlying benign prostatic hyperplasia with known urinary retention and urinary outlet obstruction, it appears as though the pseudoephedrine was just enough to cause the patient not to be able to empty the bladder whatsoever for appeared of time. We removed the Gilman catheter on the morning of 02/03/2022 and he was able to once again urinate and empty his bladder thereafter. We advised him not to use any products containing pseudoephedrine hereafter. We also advised him to have follow-up for his planned surgery for his benign prostatic hyperplasia. Patient treated with hypertonic saline initially For his severe hyponatremia with a sodium of 113. Within a matter of about 6-12 hours his serum sodium improved up to 119. we stop the hypertonic saline at this juncture. We placed him on a 2 L fluid restriction. In hospital we also gave him sodium chloride tablets. The sodium chloride tablets were stopped at the time of discharge from the hospital. His serum sodium was up to 129 on the date of discharge. He is advised to have follow-up with his primary care physician sometime within the next week with a pre visit serum sodium. In regard to the influenza the patient had paroxysms of cough with reactive airways. Eventually we attempted the use of albuterol nebulization which helped a great deal. Patient is discharged home with the same for now. Status at Discharge Functional status at discharge: independent ambulation Overall status at discharge: patient is progressing back to baseline Time Spent with Patient Time attestation: Total time spent providing and/or coordinating discharge services: Exam Narrative: Exam Narrative: Appears comfortable no acute distress. Alert, oriented to self, place, time situation. Articulate and cooperative. Very hard of hearing still.? Vision grossly normal.? Lungs are clear to auscultation.? Heart tones with regular rhythm normal S1-S2.? Abdomen with active bowel sounds, soft, nontender.? Extremities without edema.? Independent transfer, station, and gait. Skin is warm, dry, intact. Const: Vital Signs, click to edit/add: Vital Signs - 24 hr 02/03/22 23:00 02/03/22 23:00 02/04/22 03:00 Temperature 98.1 F 97.7 F Pulse Rate [Pulse Oximeter] 76 76 76 Respiratory Rate 18 18 20 Blood Pressure [Ri ght Arm] 108/60 120/62 Pulse Oximetry 91 95 Oxygen Delivery Me thod Room Air Room Air 02/04/22 07:00 Temperature 98.5 F Pulse Rate [Pulse Oximeter] 75 Respiratory Rate 22 Blood Pressure [Ri ght Arm] 125/81 Pulse Oximetry 94 Oxygen Delivery Me thod Room Air Documenting provider has reviewed patient's vital signs: yes DS: Data Data Completed and Pending Labs on day of discharge: Labs from last 24 hours 02/04/22 07:04 Sodium 129 L Potassium 3.3 L Chloride 92 L Carbon Dioxide 31 BUN 17 Creatinine 1.0 Estimated Creat Clear 56.92 Estimated GFR 77 Glucose 90 Calcium 8.2 L Discharge Plan Discharge Disposition: Home, Self-Care Date of Admission: 02/01/22 17:19 Attending Provider on Discharge: Marcus Ferguson Primary Care Provider: Adam Peterson Condition: Improved Anticipated Discharge Date/Time: 02/04/22 15:30 Discharge Medications: New albuterol sulfate 2.5 mg /3 mL (0.083 %) Solution For Nebulization 2.5 mg NEB Q4H PRN30 Days Qty: 60 1RF oseltamivir 75 mg Capsule 75 mg PO BID 2 Days Qty: 4 0RF Continued metoprolol succinate 50 mg tablet extended release 24 hr 50 mg PO QPM Label Comments: TAKE 1 TABLET (50 MG) BY MOUTH ONCE DAILY. SPLITTING SCORED TABLET IS ALLOWED. colchicine 0.6 mg tablet 0.6 mg PO BID PRN Label Comments: TAKE 1 TABLET BY MOUTH TWICE A DAY tamsulosin 0.4 mg capsule 0.4 mg PO BID Label Comments: TAKE 2 CAPSULES (0.8 MG) BY MOUTH ONCE DAILY AFTER A MEAL. desipramine 25 mg tablet 25 mg PO HS Label Comments: TAKE 1 TABLET BY MOUTH AT BEDTIME omeprazole 20 mg capsule,delayed release(DR/EC) 20 mg PO DAILY Restasis MultiDose 0.05 % drops 1 drp ophthalmic (eye) Q12H Label Comments: BOTH EYES omega 2-bni-afe-fish oil [Fish Oil] 1,000 mg (120 mg-180 mg) capsule 1 cap PO BID cholecalciferol (vitamin D3) [Vitamin D3] 25 mcg (1,000 unit) tablet 25 mcg PO HS Discontinued chlorthalidone 25 mg tablet 25 mg PO DAILY Label Comments: TAKE 1 TABLET BY MOUTH EVERY DAY Discharge Orders: Discharge Order (Routine); Ordered 02/04/22 Ordered By: Marcus Ferguson Patient Education: Albuterol (By breathing), Oseltamivir (By mouth), Enlarged Prostate (BPH) (GEN), Influenza (GEN), How to Use a Nebulizer (DC), Reactive Airways Disease (GEN) Additional Instructions: Light activity rest, fluids, Tylenol as needed. Update regular doctor as needed, follow-up with urology as scheduled, return to ED as needed Activity Level: No Restrictions and Activity as Tolerated Discharge Diet: Regular and 2000 ml Fluid Restriction Follow Up Appointments: Adam Peterson MD [Primary Care Provider] - 02/12/22 3:45 pm (Post hospital visit with at [facility]) Forms: [facility] Info Instructions
== END 2022-02-04 17:46 | disposition home or self-care (01) | DRG 696 ==
LOC: ED 02-01 02:26 → MEDSURG 02-01 13:39
PROVIDERS: Emergency Medicine Emergency Medical Services; Family Medicine; Admitting Provider Family Medicine; Emergency Provider Family Medicine; PCP Family Medicine; Visit Provider Internal Medicine
DX: R33.0 Drug induced retention of urine (principal); E87.1 Hypo-osmolality and hyponatremia; T44.995A Adverse effect of other drug primarily affecting the autonomic nervous system, initial encounter; T50.2X5A Adverse effect of carbonic-anhydrase inhibitors, benzothiadiazides and other diuretics, initial encounter; J10.1 Influenza due to other identified influenza virus with other respiratory manifestations; N40.1 Benign prostatic hyperplasia with lower urinary tract symptoms; R33.8 Other retention of urine; R10.9 Unspecified abdominal pain; J45.909 Unspecified asthma, uncomplicated; E86.0 Dehydration; R14.0 Abdominal distension (gaseous); I10 Essential (primary) hypertension; I77.819 Aortic ectasia, unspecified site
CPT/HCPCS: 36415; 51798; 74176; 80048; 80076; 81001; 83605; 83735; 84100; 84132; 84295; 84443; 85025; 85027; 86140; 87086; 87502; 87634; 87635; 94640; 94761; 99285; A9270; J2060; J2270; J7030; J7050; J7131

== ENCOUNTER 2023-02-13 15:17 | Outpatient (CLI) | payer MEDICARE, SELFPAY ==
--- NOTE | 2023-02-13 15:30 | MR_ITS ---
[address] [address] Phone:?[phone] Fax:?[phone] Referring Physician Information: Destin Stoddard M.D. [id number] [facility] [address] Phone:?[phone] Fax:?[phone] Patient:?Alvaro Hogue D.O.B:?1945 Sex:?Male Phone:?[phone] [facility] MRN:?[id number] Exam Date:?02/13/2023 EXAM: MRI of the LEFT SHOULDER, without contrast CLINICAL: Male, 78 years old, with left shoulder pain. INDICATION: Evaluate for rotator cuff tear. PRIOR SURGERY: None reported. PLAIN FILMS: 02/05/2023 radiographic series of the left shoulder. COMPARISONS: No prior MRIs available. TECHNICAL: Using a 1.5T MR scanner and a localizing shoulder surface coil: 3.0 mm?coronal obliques: PD, T2, STIR 3.0 mm?sagittal obliques: PD, T2 3.0 mm?axials: PD, T2 SEDATION: None. CONTRAST: None. IMPRESSION: 1. Findings in keeping with those which can be associated with any clinical evidence of intermediate stage acromiohumeral impingement/rotator cuff syndrome: - Marked inferior degenerative hypertrophy of the acromioclavicular joint contributes encroachment upon the subacromial space. - Moderate supraspinatus tendinopathy with ill-defined interstitial intrasubstance and deep surface collagen fiber microtearing and fraying, without larger or full meniscus tear - Mild subacromial bursal edema/bursitis. 2. Marked tendinopathy and high-grade deep surface partial tear of the subscapularis tendon interrupting its entire lesser tuberosity attachment. 3. Intermediate towards late stage biceps porfirio lesion with tendinopathy partial tear and subluxation without complete rupture at this time. 4. Suspected element of deformity/tear of the anterior labrum although without convincing typical Bankart/Perthes morphology or associated humeral Hill-Sachs lesion. 5. No glenohumeral chondromalacia/osteoarthritis. FINDINGS: Glenohumeral joint: Effusion/cyst: Small glenohumeral joint effusion. No paralabral ganglion cyst. Articular cartilage: Humeral head: No osteochondral abnormalities. Glenoid: No osteochondral abnormalities. Loose bodies: No demonstrable loose bodies. Inferior glenohumeral ligament/axillary recess: The axillary recess is normal in thickness and signal. No evidence of adhesive capsulitis or capsuloligamentous injury. Labrum: Linear signal alteration of the anterior labrum in keeping with labral tear (axial images 15-19). The superior and posterior labrum appear intact. Bones: Proximal humerus: Up to 1 cm subchondral cyst of the mid greater tuberosity underlies distal insertional rotator cuff tendinopathy detailed below. Also mild cortical irregularity and small subchondral cyst of the lesser tuberosity underlies distal insertional subscapularis tendinopathy detailed below. The proximal humerus is otherwise intact. No humeral Hill-Sachs or reverse Hill- Sachs lesion/impaction or contusion. Glenoid: No fracture or marrow edema/pathology. No osseous Bankart lesion. Coracoacromial arch: Acromion morphology: Pronounced type II acromion without defined subacromial spur/enthesophyte. No mesoacromion or preacromion. Acromiohumeral space: Within normal limits. Coracohumeral space: Widely patent. Acromioclavicular joint: Joint: Moderate degenerative hypertrophy of the acromioclavicular joint contributes moderate encroachment upon the subacromial space where it moderately encroaches upon the underlying supraspinatus myotendinous junction (coronal PD series 5, images 12-9; sagittal T2 series 8, images 17-18). Ligaments: Coracoclavicular ligaments are intact. Bursae: Subacromial-subdeltoid: Mild abnormal subacromial bursal edema/bursitis (coronal STIR series 9, images 19-10). Subcoracoid: No convincing subcoracoid bursal thickening/bursitis. Rotator cuff and muscles/tendons: Supraspinatus: Mild towards moderate tendinopathy of intrasubstance and deep fibers of the distal supraspinatus tendon is associated ill-defined interstitial collagen fiber microtearing and perhaps some deep surface fraying/irregularity but without larger or more well-defined coalescence of partial- or full- thickness tear (coronal images 11-15; sagittal images 11-6). No tendon or myotendinous junction retraction. No muscle atrophy. Adjacent mild tendinosis of the infraspinatus tendon does not appear associated defined coalescence of partial- or full-thickness tear. No tendon or myotendinous junction retraction. No muscle atrophy. Infraspinatus: No tendinopathy, tear or atrophy. Teres minor: No tendinopathy, tear or atrophy. Subscapularis: Greater than 50% thickness deep surface partial-thickness tear of entire subscapularis tendon includes interruption of its lesser tuberosity attachment although a superficial tendon layer remains intact through the transverse humeral ligament to the greater tuberosity (axial images 16-20; sagittal images 18-10). No significant subscapularis muscle atrophy at this time. Deltoid: No strain or atrophy. Biceps tendon, long head: Moderate towards marked tendinopathy of the long head of biceps tendon appears associated mild medial subluxation, splaying and perhaps some fissuring but without complete dislocation or rupture (axial images 28-15). Axilla: No axillary masses or abnormally enlarged lymphadenopathy. [facility] Electronically signed on 02/15/2023 10:15:00 AM by Jone Gibbons M.D.
== END 2023-02-13 15:18 | disposition home or self-care (01) ==
PROVIDERS: PCP Family Medicine; Visit Provider Orthopaedic Surgery
DX: M25.512 Pain in left shoulder (principal); M75.52 Bursitis of left shoulder; M75.102 Unspecified rotator cuff tear or rupture of left shoulder, not specified as traumatic
CPT/HCPCS: 73221

== ENCOUNTER 2023-07-03 08:01 | Day surgery (SDC) | payer MEDICARE, SELFPAY ==
[2023-07-03] VITALS (34 sets, daily range): BP systolic 67–131; BP diastolic 42–82; PULSE 55–72; RESP 11–20; TEMP 36.1–36.9; O2SAT 92–99; BMI 27.6
[2023-07-03] MEDS: SODIUM CHLORIDE 0.9 % (FLUSH) 10 ML SYRINGE IVF (08:45)
[2023-07-03] MEDS: LACTATED RINGERS 1000 ML 1,000 ML 100 ML IV ×2 (08:45→10:54)
[2023-07-03] MEDS: OXYCODONE (CR) 10 MG TAB.ER.12H PO (09:36)
[2023-07-03] MEDS: CELECOXIB 200 MG CAPSULE PO (09:36)
[2023-07-03] MEDS: ACETAMINOPHEN 500 MG TABLET 1000 MG PO (09:37)
[2023-07-03] MEDS: MIDAZOLAM HCL 1 MG/ML inj IVP (10:00)
[2023-07-03] MEDS: fentaNYL 100 MCG/2 ML inj IVP (10:00)
--- NOTE | 2023-07-03 10:08 | SUR.PREOP ---
TIME?OUT:?954, left shoulder PT/RN/MDA?VERIFICATION?OF?SURGICAL?SITE,?PROCEDURE,?AND?CONSENT OBTAINED?PRIOR?TO?INVASIVE?PROCEDURE.
[2023-07-03] MEDS: CEFAZOLIN 2 GM INJ IVP (10:15)
[2023-07-03] MEDS: EPINEPHrine 1 MG in SODIUM CHLORIDE IRRIG SOLUTION 3,000 ML 3001 MG IRRIGATION ×3 (10:38→11:14)
--- NOTE | 2023-07-03 10:58 | SUR.OPER ---
PATIENT QUESTIONS ANSWERED SATISFACTORILY PREOPERATIVELY. PATIENT BROUGHT TO OR #2 PER CART FOLLOWING THE BLOCK. Patient positioned supine on OR #2 bed for the intubation.? Perioperative team wrapped the right arm in a neutral, padded position on the pt. abdomen with the drawsheet. Left arm elevated on an IV pole in a padded strap. Final approval of positioning by surgeon. CONTINUOUS IRRIGATION OF THE LEFT SHOULDER WITH MIXTURE OF 3000 NACL AND 1mg OF EPINEPHRINE DURING PROCEDURE.
--- NOTE | 2023-07-03 11:44 | W.PM.NB ---
Nerve Block Nerve Block Time Seen by Provider: 10:00 Date Seen: 07/03/23 Type of block requested by surgeon for post-operative analgesia: supraclavicular Side: left Time out performed: Yes Verification of patient name: Yes Verification of date of : Yes Site marking: site marked Name of person performing procedure: Lacho Continuous monitoring Was continuous monitoring of O2 sat, B/P, lapping machine operator, recorded every 15 minutes?: Yes Procedure Checklist: sterile prep, needles and gloves Ultrasound guided. Images saved: Yes Medications given in 5ml increments after negative aspiration: Ropivicaine %: 0.5 mL: 20 Needle gauge: 22 Decadron (mg): 10 Precedex (mcg): 25 Patient tolerated procedure well: Yes Block Charges Block Charge (with Pro Fee): Brachial Plexus Use of Ultrasound Machine for Block: Yes- US Guidance/pain block
--- NOTE | 2023-07-03 11:44 | W.ANESCHARGE ---
Anesthesia Charges Start Date/Time Anesthesia Start Date: 07/03/23 Anesthesia Start Time: 10:09 Stop Date/Time Anesthesia Stop Date: 07/03/23 Anesthesia Stop Time: 12:42 Summary Extremes of Age - Over 70 or under 1: MDA
--- NOTE | 2023-07-03 12:02 | PM.ORPRC ---
Procedure Note Date of procedure: 07/03/23 Procedure: PREOPERATIVE DIAGNOSIS: Left shoulder rotator cuff tear, AC joint arthrosis, subscap tear, biceps tendinopathy, labral tearing POSTOPERATIVE DIAGNOSIS: Left shoulder rotator cuff tear, AC joint arthrosis, subscap tear, biceps tendinopathy, labral tearing NAME OF OPERATION: Left shoulder arthroscopic glenohumeral joint debridement, subacromial decompression, distal clavicle excision, mini open rotator cuff repair, biceps tenodesis SURGEON: Destin Stoddard MD GRANULATOR TENDER: Samantha Anderson PA-C ANESTHESIA: Supraclavicular block plus general endotracheal ESTIMATED BLOOD LOSS: 15 mL COMPLICATIONS: None SPECIMENS: None DRAINS: None PREOPERATIVE ANTIBIOTICS: Ancef 2 grams INDICATIONS: The patient is a 78-year-old with a history of left shoulder pain secondary to the above diagnoses. Despite appropriate non operative management, they continue to have symptoms. Operative intervention was recommended. The risks, benefits and expected outcomes were discussed in detail. These included but were not limited to: Infection, bleeding, injury to blood vessel or nerve, venous thromboembolism. All questions were answered to their satisfaction. PROCEDURE: A supraclavicular block was placed by Anesthesia. General anesthesia was administered. The patient was placed in the high beach chair position. The right shoulder was prepped and draped in the usual sterile fashion. The glenohumeral joint was infiltrated with 20 mL of normal saline with epinephrine. The posterior portal was established, the arthroscope was introduced. The anterior portal was established, Diagnostic arthroscopy was performed with findings as follows: The biceps has a marked amount of intra-articular tendinopathy. There is circumferential, degenerative tearing of the labrum. Articular surfaces on the humeral head and glenoid are normal. There are no loose bodies. There is a high-grade partial-thickness tear of the supraspinatus and a full-thickness tear of the subscap. The biceps was tenotomized with the arthroscopic scissors. The stump was resected with the shaver. The labrum was aggressively debrided with the shaver. The arthroscope was placed in the subacromial space, the lateral portal was established. The Arthrex [place] was used to dissect the acromion free. The CA ligament was recessed off the anterior acromion, the AC joint was exposed. The acromioplasty was performed with the bur in the posterior portal. The bur was then placed in the lateral portal and the lateral and anterior aspect of the acromion were resected. The undersurface of the distal clavicle was resected through the lateral portal. Finally, the bur was placed in the anterior portal and the remainder of the distal clavicle was resected for a total of 10 mm. An accessory anterolateral portal was placed. The subacromial/subdeltoid bursa was aggressively debrided. There are a few remaining bursal sided fibers of the supraspinatus intact. Arthroscopic instruments were removed. The accessory anterolateral portal was extended proximally and distally, subcutaneous dissection was taken with electrocautery to the deltoid. The deltoid was divided in line with its fibers. The static retractor was placed. The subacromial/subdeltoid bursa was markedly thickened and was aggressively debrided with the Valera scissors. We sharply opened the bicipital groove, delivering the biceps into the wound. This led us into the full-thickness subscap tear. We extended posteriorly to release the few bursal sided fibers of the supraspinatus insertion from the greater tuberosity creating a full-thickness supraspinatus tear. The greater and lesser tuberosities were debrided to punctate bleeding bone using the arthroscopic bur. Two Arthrex Bio[employer] SwiveLock anchors were placed just off the articular surface of the greater tuberosity. Both limbs of the FiberWire and fiber tape were passed using the scorpion. A fiber link was placed in the leading edge of the rotator cuff x2. A margin convergence suture was placed in the rotator interval. An inverted mattress fiber tape was placed in the subscap and a whipstitch was placed in the biceps. We tied the 2 central FiberWire sutures over the rotator cuff. We placed a 4.75 mm SwiveLock anchor at the top of the bicipital groove, just medial to it in the far upper, lateral aspect of the lesser tuberosity. We placed the subscap suture and the biceps whipstitch in this anchor. This completes the subscap repair and biceps tenodesis. We then proceeded with a lateral row of SwiveLock anchors x 2 crossing the FiberTape and incorporating the FiberWire and fiber link into each lateral row anchor. This provides an anatomic, watertight repair of the rotator cuff. There is no tension on the repair with the shoulder at 0? abduction. The wound was irrigated with normal saline off the pump. The deltoid was repaired with an 0 Vicryl in an interrupted [id number] fashion. Subcutaneous tissues were closed with a 3-0 Vicryl. Skin was closed with a 3-0 Monocryl in a subcuticular fashion. A dry dressing and sling were applied. Sponge and needle counts were correct x2. The patient tolerated the procedure well. There were no apparent complications. They were carefully transferred to the hospital bed and taken to the postanesthesia care unit in satisfactory condition. PLAN: The patient will be discharged to home. No active range of motion of the shoulder will be allowed for 6 weeks postoperatively. They can work on active range of motion of the elbow, wrist and fingers. They will follow up in the office next week for a wound check and an AP and transscapular Y-view of the shoulder prior to being seen.
--- NOTE | 2023-07-03 13:12 | SUR.PHASEI ---
1000CC LR HUNG PER TREE LOADER MEAT AT 1304
--- NOTE | 2023-07-03 13:20 | P.ANES_ITS ---
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
--- NOTE | 2023-07-03 14:17 | SUR.PHASEI ---
700CC LR REMAINING AT 1417
[2023-07-03] MEDS: LACTATED RINGERS 1000 ML 1,000 ML 30 ML IV (14:25)
--- NOTE | 2023-07-03 14:38 | SUR.PHASEI ---
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 vs stable
== END 2023-07-03 16:01 | disposition home or self-care (01) ==
PROVIDERS: PCP Family Medicine; Visit Provider Orthopaedic Surgery
PROC: (CPT 23412; principal; 2023-07-03 10:30)
DX: M75.102 Unspecified rotator cuff tear or rupture of left shoulder, not specified as traumatic (principal); M19.012 Primary osteoarthritis, left shoulder; M75.22 Bicipital tendinitis, left shoulder; S43.432A Superior glenoid labrum lesion of left shoulder, initial encounter; G89.18 Other acute postprocedural pain
CPT/HCPCS: 29826; 29822; 29824; 29828; 23412; 01630; 64415; 76942; 99100; A9270; C1713; J0171; J0330; J0690; J1100; J2250; J2371; J2704; J2795; J3010; J3490; J7120; L3670

== ENCOUNTER 2023-09-04 09:39 | Observation (INO) | payer MEDICARE, SELFPAY ==
[2023-09-04] VITALS (27 sets, daily range): BP systolic 118–149; BP diastolic 64–84; PULSE 65–90; RESP 16–20; TEMP 36.2–36.8; O2SAT 93–99; BMI 28.2; BMI 28.4
--- NOTE | 2023-09-04 09:59 | ED.SYNCOPE ---
HPI - Syncope General Time Seen by Provider: 09:59 Date Seen: 09/04/23 Chief Complaint: Syncope/Fainted Stated Complaint: Syncopal Time Seen by Provider: 09/04/23 09:59 Source: patient, EMS, RN notes reviewed and old records reviewed Mode of arrival: EMS Limitations: no limitations History of Present Illness HPI narrative: This 78-year-old male awoke on the bathroom floor this morning. He did call his who called 911. He is unsure how long he was down. He also apparently had a syncopal episode last night. He was watching TV, came to in front of the couch on the floor. He has superficial abrasion to his left forehead, thinks that happened last night. He believes the abrasion to the back of his head happened this morning. He is unaware of the events leading to these syncopal episodes. He states he has had a history of syncope before, describes a dermatology visit where he was bleeding from a lip biopsy and they had to use electric cautery, was quite painful any passed out. He denies any chest pain. He has been experiencing recent respiratory issues, has been problematic the last 2 months, worsened over the last 2 weeks. He reports he had a recent chest x-ray that was negative in clinic. His is on the phone in does share some of his history. 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 There is no history of asthma, no history of seasonal allergies. He has a remote history of smoking in the 1970s. He was given some Robitussin with codeine, did take it around midnight last night. EMS did place a C-collar on, he states he did not have neck pain until after they put the collar on. The collar is riding up over his chin, he states it giving him significant pain. He is adamant that he had no pain in his neck prior to the collar being placed. He states that he was not given any prednisone, no antibiotics. He reports that his lungs have been problematic for a while with 2-3 of these episodes per year. He states his doctors recommended a chest CT, pulmonology consult which will happen in October as well as an ENT consult. He states in clinic recently his sodium was low. He did have significant hyponatremia in 2021 with a sodium down to 120. MD complaint: loss of consciousness Related Data Home Medications ?Medication ?Instructions ?Recorded ?Confirmed cyclosporine 0.05 % eye drops 1 drp ophthalmic (eye) Q12H 02/01/22 09/04/23 (Restasis MultiDose) desipramine 25 mg tablet 25 mg PO HS 02/01/22 09/04/23 omeprazole 20 mg capsule,delayed 20 mg PO DAILY 02/01/22 09/04/23 release tamsulosin 0.4 mg capsule 0.4 mg PO BID 02/01/22 09/04/23 metoprolol succinate 100 mg 100 mg PO DAILY 02/05/23 09/04/23 tablet,extended release 24 hr Allergies Allergy/AdvReac Type Severity Reaction Status Date / Time vancomycin Allergy Intermediate high fever Verified 09/04/23 09:53 ciprofloxacin Allergy Mild elevated Verified 09/04/23 09:53 temp losartan Allergy Mild Cough Verified 09/04/23 09:53 Sulfa (Sulfonamide Allergy Mild Hives Verified 09/04/23 09:53 Antibiotics) Review of Systems Status of ROS: Reports: 6 or more systems reviewed and unremarkable except as noted in History and below [facility] Medical History Wheezing ?R06.2 - Wheezing (ICD-10) Urinary tract infection ?N39.0 - Urinary tract infection, site not specified (ICD-10) Sinusitis ?J32.9 - Chronic sinusitis, unspecified (ICD-10) Intermittent lightheadedness ?R42 - Dizziness and giddiness (ICD-10) Hyponatremia ?E87.1 - Hypo-osmolality and hyponatremia (ICD-10) Dizziness ?R42 - Dizziness and giddiness (ICD-10) Bronchitis ?J40 - Bronchitis, not specified as acute or chronic (ICD-10) Hypokalemia ?E87.6 - Hypokalemia (ICD-10) Ascending aorta dilatation ?I77.810 - Thoracic aortic ectasia (ICD-10) Incomplete bladder emptying ?R33.9 - Retention of urine, unspecified (ICD-10) Benign prostatic hyperplasia ?N40.0 - Benign prostatic hyperplasia without lower urinary tract symptoms (ICD-10) Sensorineural hearing loss, bilateral ?H90.3 - Sensorineural hearing loss, bilateral (ICD-10) Chronic eustachian tube dysfunction ?H69.80 - Other specified disorders of Eustachian tube, unspecified ear (ICD-10) Erectile dysfunction ?N52.9 - Male erectile dysfunction, unspecified (ICD-10) Essential hypertension ?I10 - Essential (primary) hypertension (ICD-10) Cholelithiasis ?K80.20 - Calculus of gallbladder without cholecystitis without obstruction (ICD-10) Dry eyes ?H04.123 - Dry eye syndrome of bilateral lacrimal glands (ICD-10) Hypertension ?I10 - Essential (primary) hypertension (ICD-10) Surgical History History of arthroscopy of left shoulder (07/03/23) ?Z98.890 - Other specified postprocedural states (ICD-10) Hx of cataract extraction ?Z98.49 - Cataract extraction status, unspecified eye (ICD-10) H/O hand surgery ?Z98.890 - Other specified postprocedural states (ICD-10) History of laparoscopic cholecystectomy (10/27/08) ?Z90.49 - Acquired absence of other specified parts of digestive tract (ICD-10) History of arthroscopy of right shoulder (01/06/15) ?Z98.890 - Other specified postprocedural states (ICD-10) History of arthroscopy of right knee (03/15/16) ?Z98.890 - Other specified postprocedural states (ICD-10) Social History Highest level of school completed/degree received: Bachelor's degree Smoking Status: Former smoker Do you use any of these nicotine containing products: None How often do you have a drink containing alcohol: 2-4 times a month AUDIT-C Alcohol total score: 2 Non-prescribed substance use: denies use Caffeine: Yes (3 cups of coffee a day) Gender Identity: male service: Yes Exam Const: Vital Signs, click to edit/add: Vital Signs - 24 hr 09/04/23 09:47 Temperature 97.2 F L Pulse Rate [Pulse Oximeter] 69 Respiratory Rate 18 Blood Pressure [Ri ght Upper Arm] 127/80 Pulse Oximetry 96 Oxygen Delivery Me thod Room Air This 78-year-old male is alert, interactive, no apparent distress. GCS 15/15. C-collar is on, is up over his chin. He has no palpable midline or paraspinous tenderness, collar was removed and patient felt relief of his pain. 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 Pupils are equal, small but do C reactivity, normal conjugate gaze. Sq clear. Symmetrical facial function. He does have a harsh sounding cough, sounds wheezy when he is coughing. He is able to speak in complete sentences, voice sounds normal. Symmetrical facial function otherwise. Neck without any adenopathy, again no midline tenderness of the spine. There are no neck masses noted. Lungs with distant breath sounds, do not hear wheezing or crackles at this time on auscultation. CV regular rate and rhythm, no murmur, normal S1-S2, no S3-S4. Abdomen is soft, no rebound or guarding, no organomegaly. Upper and lower extremities without any focal neurologic deficit on examination. He follows commands, no tremors, no motor deficits on strength testing throughout the hands arms and legs, feet. He has superficial very small abrasion, developing bruise left forehead. There is a probable little abrasion with some dried blood in the hair on the right posterior occiput. Documenting provider has reviewed patient's vital signs: yes Course Course ED Course: This patient has had 2 episodes of syncope but is neurologically intact, doubt POL[employer] WORK[employer] disease as far as vascular etiologies such as stroke. It is possible it could be neurologic with seizure activity but I think other things are more likely. Will rule out acute VT with EKG and troponin. Arrhythmia is a possibility, he will be monitored on pulse oximetry and cardiac monitoring. We will get a head CT due to the trauma, will look at cervical spine given some complaints of pain although this was after the C-collar was placed. He has a history of hyponatremia, hyponatremia coupled with codeine use and respiratory issues could contribute to this picture. Will like it orthostatic vitals after his C-spine is cleared. It is possible he has an underlying respiratory infection or even such things as pulmonary emboli. Will be doing a D-dimer. He will likely need chest imaging but will await the D-dimer to see if we need to do this to rule out a pulmonary embolus. Reevaluation(s) Time of Reevaluation #1: 11:37 Reevaluation #1: D-dimer has come back elevated beyond H rule, chest CT PE protocol will be done. Time of Reevaluation #2: 13:33 Reevaluation #2: Have reviewed CT findings and brought a copy this CT in with patient and his son whom is here. We discussed chronic bronchitis. It does not seem like antibiotics are indicated at this point. We do not have a definitive reason for why he had 2 syncopal episodes overnight, could be multifactorial with his lower sodium of 125, his a acute exacerbation of his chronic bronchitis + possible use of the codeine in his cough medicine. I will talk to the hospitalist and see if they will be agreeable to observe him due to the 2 syncopal episodes overnight. We have not seen any arrhythmia while here but he could continue to be monitored. Will initiate a L of normal saline, see if that helps improve some of his symptoms with complaint of dizziness when he sits up. He did have a drop in his blood pressure from lying to standing, pulse did not go up but he is on metoprolol. There certainly could be a component of orthostatic hypotension. Will talk to the hospitalists about observing him. Consultations Consultation #1: Spoke with hospitalist Mel Jenkins, reviewed case. She agreed with 40 mg oral prednisone for the chronic bronchitis probable acute exacerbation of this. I do not think he needs antibiotics for this at this point. They can consider further after observing him. Given the 2 syncopal episodes, do think he needs observation, this certainly may be multifactorial but we have not found is definitive etiology for it. Time: 13:41 Vital Signs Vital signs: Initial Vital Signs Temperature 97.2 F L 09/04/23 09:47 Temperature Source Temporal Artery Scan 09/04/23 09:47 Pulse Rate 69 09/04/23 09:47 Respiratory Rate 18 09/04/23 09:47 Blood Pressure 127/80 09/04/23 09:47 Blood Pressure Mean 95 09/04/23 09:47 Blood Pressure Position Semi-Fowlers 09/04/23 09:47 Pulse Oximetry 96 09/04/23 09:47 Oxygen Delivery Method Room Air 09/04/23 09:47 Vital Signs Temperature 97.2 F L 09/04/23 09:47 Pulse Rate 69 09/04/23 09:47 Respiratory Rate 18 09/04/23 09:47 Blood Pressure 127/80 09/04/23 09:47 Pulse Oximetry 96 09/04/23 09:47 Oxygen Delivery Method Room Air 09/04/23 09:47 Temperature 97.2 F L 09/04/23 09:47 Pulse Rate 69 09/04/23 09:47 Respiratory Rate 18 09/04/23 09:47 Blood Pressure 127/80 09/04/23 09:47 Pulse Oximetry 96 09/04/23 09:47 Oxygen Delivery Method Room Air 09/04/23 09:47 MDM - Syncope Lab Data Attestation: I reviewed the patient's lab results. Labs: Lab Results 09/04/23 09/04/23 09/04/23 Range/Units 10:13 10:20 12:08 WBC 6.03 (4.50-11.00) K/uL RBC 5.00 (4.30-5.90) m/uL Hgb 13.5 (13.5-17.5) gm/dL Hct 40.6 (37.0-53.0) % MCV 81 (80-100) fL MCH 27 (26-34) pg MCHC 33 (32-36) gm/dL RDW Coeff of [place] 12.4 (11.5-15.5) % Plt Count 242 (140-440) K/uL Neut % (Auto) 70.6 (42.0-72.0) % Lymph % (Auto) 14.4 L (20-44) % [place] % (Auto) 13.3 H (0.0-11.0) % Eos % (Auto) 1.0 (0.0-7.0) % Baso % (Auto) 0.5 (0.0-3.0) % Neut # (Auto) 4.26 (1.7-7.0) K/uL Lymph # (Auto) 0.90 (0.90-2.90) K/uL [place] # (Auto) 0.80 (0.00-0.90) K/UL Eos # (Auto) 0.06 (0.00-0.50) K/uL Baso # (Auto) 0.03 (0.00-0.30) K/uL Abs Immat Gran (auto) 0.01 (0.00-0.30) K/uL Imm/Tot Granulo (auto) 0.2 % D-Dimer Quant (PE/DVT) 1.33 H (0.00-0.50) ug/ml VBG pH 7.378 (7.32-7.43) VBG pCO2 50 (40-50) mmHG VBG pO2 < 30.1 (25-47) mmHG VBG HCO3 30 H (21-28) mmol/L Sodium 125 L (135-149) mmol/L Potassium 4.6 (3.6-5.1) mmol/L Chloride 92 L (96-114) mmol/L Carbon Dioxide 28 (20-32) mmol/L Anion Gap 5 L (7-15) mEq/L BUN 14 (7-30) mg/dL Creatinine 0.9 (0.5-1.5) mg/dL Estimated Creat Clear 56.00 Estimated GFR 87 ml/min Glucose 99 (60-115) mg/dL Lactate 0.6 (0.5-1.9) mmol/L Calcium 8.2 L (8.4-10.6) mg/dL Magnesium 2.0 (1.5-2.6) mg/dL Total Bilirubin 0.7 (0.1-1.5) mg/dL AST 41 H (12-35) U/L ALT 32 (4-50) U/L Alkaline Phosphatase 85 (40-150) U/L Total Creatine Kinase 328 H (54-186) U/L Troponin I < 0.01 L (0.01-0.04) ng/mL C-Reactive Protein 4.1 H (0.5-1.0) mg/dL NT-Pro-B Natriuret Pep 313 pg/mL Total Protein 6.7 (6.0-8.3) g/dL Albumin 3.9 (3.3-5.0) g/dL Procalcitonin 0.09 (<0.50) ng/mL Urine Color Yellow (Yellow) Urine Appearance Clear (Clear) Urine pH 7.0 (5.0-8.5) Ur Specific [place] 1.015 (1.000-1.030) Urine Protein Negative (Negative) Urine Glucose (UA) Negative (Negative) Urine Ketones Negative (Negative) Urine Blood Trace-intact A (Negative) Urine Nitrite Negative (Negative) Urine Bilirubin Negative (Negative) Urine Urobilinogen 1.0 (0.2-1.0) Ur Leukocyte Esterase Negative (Negative) Urine RBC 0-2 (0-2) Urine WBC 0-2 (0-5) Ur Squamous Epith Cells Few (None-Few) Urine Bacteria Few A (None) Ethyl Alcohol < 0.01 L (0.01-0.03) % SARS-CoV-2 (PCR) Negative SARS-CoV-2 (Negative) Influenza Type A (PCR) Negative PCR FLU A (Negative) Influenza Type B (PCR) Negative PCR FLU B (Negative) RSV (PCR) Negative PCR RSV (Negative) Lab Acknowledgement Test Added POC Troponin I 0.00 L (0.01-0.04) ng/ml Imaging Data CT scan - head: Attestation: I have reviewed the pertinent imaging results. Radiologist's impression: Patient: DAHIANA OQUENDO Facility:?[facility] Patient ID:?[id number] Site Patient ID:?[id number] Site :?[id number] Study:?CT-Head W/O-09/04/2023 10:41:18 AM Ordering Physician:?Trung Logan Final Report: INDICATION: Syncope x2, hit head, neck pain. COMPARISON: None. TECHNIQUE: CT of the brain / head without intravenous contrast. Multiplanar axial, coronal, and sagittal reformats were reconstructed. FINDINGS: No intracranial hemorrhage. Normal appearance of the white matter. No acute or subacute cortically based infarct. No mass or mass effect. Normal ventricles. No skull fractures. No worrisome focal bone lesion. Very small right frontal osteoma. Asymmetric advanced degenerative change in the left temporomandibular joint. IMPRESSION: No intracranial hemorrhage. No acute findings. Please note that all CT scans at this facility use dose modulation, iterative reconstruction, and/or weight-based dosing when appropriate to reduce radiation dose to as low as reasonably achievable. Dictated by Erin Adam MD @ 09/04/2023 10:45:07 AM (Electronic Signature) CT cervical spine: Attestation: I have reviewed the pertinent imaging results. Radiologist's impression: Patient: DAHIANA OQUENDO Facility:?[facility] Patient ID:?[id number] Site Patient ID:?[id number]. Site :?1945 Study:?CT-Spine Cervical W/O-09/04/2023 10:41:25 AM Ordering Physician:?Trung Logan Final Report: INDICATION: Fell, hit head, neck pain. COMPARISON: None. TECHNIQUE: CT of the cervical spine without contrast. Multiplanar axial, coronal, and sagittal reformats were reconstructed. FINDINGS: No fracture. No listhesis. Straightening of the normal cervical lordosis. Advanced multilevel disc degenerative change. Advanced multilevel facet arthritis. Multilevel neural foraminal narrowing. No severe central canal stenosis. No destructive bony lesions. Limited exam of the soft tissues is normal. IMPRESSION: No acute or traumatic findings on cervical spine CT. Please note that all CT scans at this facility use dose modulation, iterative reconstruction, and/or weight-based dosing when appropriate to reduce radiation dose to as low as reasonably achievable. Dictated by Erin Adam MD @ 09/04/2023 10:47:06 AM (Electronic Signature) CT scan - chest: Attestation: I have reviewed the pertinent imaging results. Radiologist's impression: Patient: DAHIANA QOUENDO Facility:?[facility] Patient ID:?[id number] Site Patient ID:?[id number]. Site :?1945 Study:?CT-Chest Angio W/ 95CC ISOVUE-370 PE PROTOCOL-09/04/2023 12:23:32 PM Ordering Physician:?Trung Logan Final Report: Indication: Syncope, elevated D-dimer, cough Technique: Volumetric multidetector CT images of the chest were obtained after the administration of IV contrast. 95 cc Isovue 370 low osmolar intravenous contrast Comparison: None available. Findings: The thoracic inlet and thyroid gland are unremarkable. The thoracic aorta is nonaneurysmal. There is no central filling defect to suggest pulmonary embolism. There are calcified mediastinal and hilar lymph nodes. There is moderate central bronchial thickening and minimal traction bronchiectasis predominantly of the lower lobes with mucoid impaction. There is basilar atelectasis and parenchymal scar with minimal peripheral airspace opacities likely representing minimal pulmonary edema and/or pneumonitis changes. There is calcified granuloma within the right lower lobe. The partially visualized upper abdominal viscera are within normal limits. The thoracic vertebral body heights are grossly maintained with moderate to severe degenerative disc disease. There is straightening of the normal thoracic kyphosis without evidence of significant spondylolisthesis or displaced fracture. Impression: Moderate central bronchial thickening and mucoid impaction consistent with sequela of likely chronic bronchitis changes with minimal peripheral interstitial and ground-glass opacities which may represent minimal pneumonitis changes. No dense consolidation. No evidence of pulmonary embolus. Please note that all CT scans at this facility use dose modulation, iterative reconstruction, and/or weight-based dosing when appropriate to reduce radiation dose to as low as reasonably achievable. Dictated by Wilner Banda MD @ 09/04/2023 1:11:15 PM (Electronic Signature) ECG Data Attestation: I personally reviewed and interpreted this ECG as follows: (Normal sinus rhythm, 68 beats per minute. Nonspecific intra conduction delay but looks to be left bundle branch block to me, QT corrected 421 milliseconds.) ECG interpretation date: 09/04/23 ECG interpretation time: 10:40 Prior ECG tracings: available for review (Has left bundle branch block on EKG from 2020.) Discharge Plan Discharge Clinical Impression: Hyponatremia Syncopal episodes Qualifiers: Syncope type: unspecified Qualified Code(s): R55 - Syncope and collapse Chronic bronchitis Qualifiers: Chronic bronchitis type: unspecified Qualified Code(s): J42 - Unspecified chronic bronchitis Patient Disposition: Admitted As Observation Prescriptions: No Action metoprolol succinate 100 mg tablet extended release 24 hr 100 mg PO DAILY tamsulosin 0.4 mg capsule 0.4 mg PO BID Patient Comments: TAKE 2 CAPSULES (0.8 MG) BY MOUTH ONCE DAILY AFTER A MEAL. desipramine 25 mg tablet 25 mg PO HS Patient Comments: TAKE 1 TABLET BY MOUTH AT BEDTIME omeprazole 20 mg capsule,delayed release(DR/EC) 20 mg PO DAILY Restasis MultiDose 0.05 % drops 1 drp ophthalmic (eye) Q12H Patient Comments: BOTH EYES Follow Up/Referrals: Adam Peterson MD [Primary Care Provider] -
--- NOTE | 2023-09-04 10:11 | CRLHL7_ITS ---
For Patients: As a result of the Century Cures Act, medical imaging exams and procedure reports are released immediately into your electronic medical record. You may view this report before your referring provider. If you have questions, please contact your health care provider. INDICATION: Syncope x2, hit head, neck pain. COMPARISON: None. TECHNIQUE: CT of the brain / head without intravenous contrast. Multiplanar axial, coronal, and sagittal reformats were reconstructed. FINDINGS: No intracranial hemorrhage. Normal appearance of the white matter. No acute or subacute cortically based infarct. No mass or mass effect. Normal ventricles. No skull fractures. No worrisome focal bone lesion. Very small right frontal osteoma. Asymmetric advanced degenerative change in the left temporomandibular joint. IMPRESSION: No intracranial hemorrhage. No acute findings. Please note that all CT scans at this facility use dose modulation, iterative reconstruction, and/or weight-based dosing when appropriate to reduce radiation dose to as low as reasonably achievable. Dictated by Erin Adam MD @ 09/04/2023 10:45:07 AM (Electronically Signed)
--- NOTE | 2023-09-04 10:11 | CRLHL7_ITS ---
For Patients: As a result of the Century Cures Act, medical imaging exams and procedure reports are released immediately into your electronic medical record. You may view this report before your referring provider. If you have questions, please contact your health care provider. INDICATION: Fell, hit head, neck pain. COMPARISON: None. TECHNIQUE: CT of the cervical spine without contrast. Multiplanar axial, coronal, and sagittal reformats were reconstructed. FINDINGS: No fracture. No listhesis. Straightening of the normal cervical lordosis. Advanced multilevel disc degenerative change. Advanced multilevel facet arthritis. Multilevel neural foraminal narrowing. No severe central canal stenosis. No destructive bony lesions. Limited exam of the soft tissues is normal. IMPRESSION: No acute or traumatic findings on cervical spine CT. Please note that all CT scans at this facility use dose modulation, iterative reconstruction, and/or weight-based dosing when appropriate to reduce radiation dose to as low as reasonably achievable. Dictated by Erin Adam MD @ 09/04/2023 10:47:06 AM (Electronically Signed)
--- OUTSIDE RECORDS SUMMARY | 2023-09-04 10:17 | XMS_ITS | Encounter Summary ---
Author Name [facility] [place] [facility] [place] [facility] [place] Address [address] [place] [address] Care Team Providers Care Circuits Engineer Name Role Phone SIMI SALDIVARICA Primary Care Provider Unavailabl e Insurance Providers: All historical and current Section Date Range: From patient's date of to the date document was created. This section includes the names of all active insurance providers for the patient. Insurance Provider Type of Coverage Plan Name Start of Policy Coverage End of Policy Coverage Group Number Member ID Insurance Provider's Telephone Number Policy Macedo's Name Patient's Relationship to Policy Macedo MEDICARE (WNR) MEDICARE (M) PART A Jan 31, 2009 PART A [id number] [phone] DAHIANA OQUENDO PATIENT MEDICARE (WNR) MEDICARE (M) PART B Jan 31, 2009 PART B [id number] [phone] DAHIANA OQUENDO PATIENT Selected Encounter This section includes the information on record at [place] for the Encounter. Date/Time Encounter Type Encounter Description Reason Pro vider Source Sep 03, 2023 10:26 AM Outpatient Encounter TELEPHONE TRIAGE IHE Encounter Template Text not used by [place] Social History: Smoking Status (Most current) and Tobacco Use (All prior to encounter date) This section includes the most current, and the historical, smoking and tobacco- related health factors from the [place] facility where the Encounter took place. Current Smoking Status This section includes the most current smoking, or tobacco-related health factor, from the [place] facility where the Encounter took place. Date/Time Current Smoking Status Comment Facil itlay Nov 26, 2022 10:30 AM VA-TOBACCO NEVER USED [facility] Tobacco Use History This section includes a history of the smoking, or tobacco-related health factors, that were collected on or before the date of the Encounter. The data comes from the [place] facility where the Encounter took place. Date/Time Smoking Status/Tobacco Use Comment F acility Nov 13, 2021 09:15 AM VA-TOBACCO FORMER USER [facility] Nov 13, 2021 09:15 AM VA-TOBACCO QUIT 15 YRS OR MORE [facility] Advance Directives: All historical and current Section Date Range: From patient's date of to the date document was created. This section includes ALL of a patient's completed or amended [place] Advance and Rescinded Directives. The entries below indicate that a directive exists for the patient, but an actual copy is not included with this document. The data comes from all [place] facilities. Date Advance Directives Provider Source Feb 03, 2022 ADVANCE DIRECTIVE DISCUSSION ELGINIVONNE Jasiel [facility] Feb 03, 2022 ADVANCE DIRECTIVE ELGINIVONNE Jasiel [facility] Dec 10, 2021 ADVANCE DIRECTIVE DISCUSSION ELGINIVONNE Weathers [facility] Dec 10, 2021 ADVANCE DIRECTIVE [facility] Encounter Notes: All associated encounter notes This section contains the clinical notes associated to the Encounter. Date/Time Encounter Note(s) Provider Source Sep 03, 2023 10:26 AM ADMINISTRATIVE NOT E: LOCAL TITLE: CCC: SCHEDULING ADMINISTRATION STANDARD TITLE: ADMINISTRATIVE NOTE DATE OF NOTE: SEP 03, 2023@10:26 ENTRY DATE: SEP 03, 2023@10:26:38 AUTHOR: CLEO MCGILL EXP COSIGNER: URGENCY: STATUS: COMPLETED CCC: SCHEDULING ADMINISTRATION Has ADDENDA Primary Care Call Center Primary Care Provider Call. This note was created by a V23 [facility] Call Center ABDELRAHMAN/TAHIRA. Please do not alert this teletypewriter installer by adding as a signer for future communications. Alerts are not monitored by this user, please reach out to [facility] Leadership instead if indicated. Noted: Patient's unrelated friend called requesting a call back form the nurse. /maximiliano/ CLEO PAGAN [facility] Signed: 09/03/2023 10:36 Receipt Acknowledged By: 09/03/2023 11:03 /maximiliano/ MARCO HER REGISTERED NURSE for GINNA MCKEON 09/03/2023 ADDENDUM STATUS: COMPLETED S/w vet's friend, Willow. She mentions vet recently had community appt with [facility] where they recommend pulmonology and ENT referrals r/t chronic cough. Records of visit available in [facility] (see office visit summary dated 09/01). Willow is requesting referrals [facility]. Supervisor [facility] [employer] will alert PCP to review records and place appropriate referrals accordingly. FYI PCP: Vet recently seen in community w/ Hermelinda for chronic cough, provider recommending ENT and Pulmonology referals. Also recommending obtaining PFT. Per vet's friend, Willow, would like to pursue specialty services through [facility]. Please review Office Visit Summary dated 09/01 available in [facility] and order appropriate consults if in agreement. /maximiliano/ MARCO HER REGISTERED NURSE Signed: 09/03/2023 11:03 Receipt Acknowledged By: * AWAITING SIGNATURE * KYLEE SALDIVAR YVETTE N [facility]
--- OUTSIDE RECORDS SUMMARY | 2023-09-04 10:17 | XMS_ITS | Continuity of Care Document ---
Author Name [facility] Organization [facility] Care Team Providers Care Functional Tester Typewriters Name Role Phone [facility] Unavailable Unavailable Problems Combined list of problems from Department of [facility] and Veterans Affairs facilities. It does not include entries that were removed or entered in error. 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 [facility] Depression ([facility] [id number]) Active Condition [facility] Erectile Dysfunction ([facility] [id number]) Active Condition [facility] GERD - Gastro-Esophageal Reflux Disease ([facility] [id number]) Active Condition [facility] Hearing loss Active Condition [facility] Diagnosis: ICD-10-CM H90.3 Sensorineural hearing loss, bilateral Active Diagnosis [facility] Diagnosis: ICD-10-CM Z23 Encounter for immunization Active Diagnosis [facility] Diagnosis: ICD-10-CM Z46.1 Encounter for fitting and adjustment of hearing aid Active Diagnosis [facility] Diagnosis: ICD-10-CM H91.90 Unspecified hearing loss, unspecified ear Active Diagnosis [facility] Medications Combined list of outpatient medications from Department [facility] and Veterans Affairs facilities.Medications provided include 1) outpatient medications from the last 15 months, and 2) patient-reported medications. Medication Details Route Status Patient Instructions Prescription Expires Prescription Number Last Dispense Date Ordering Provider Order Date Order Qty Source CHOLECALCIF MIRANDA TAB CHOLECAL CIFEROL TAB Non-VA TAKE BY MOUTH Nov 13, 2021 Non-VA Document ed by: Dahlia SALDIVAR Document ed at: [facility] ORAL ACTIVE SALDIVAR,SIMI ICA C 2021 [facility] CYCLOSPORIN E 0.05% EMULSION,OP H CYCLOSPO RINE 0.05% EMULSION ,OPH Non-VA Nov 13, 2021 Non-VA Document ed by: Dahlia SALDIVAR Document ed at: [facility] ACTIVE SALDIVAR,ER ICA C [address] [facility] DESIPRAMINE HCL 25MG TAB DESIPRAM INE HCL 25MG TAB Active TAKE ONE TABLET BY MOUTH EVERY DAY FOR DEPRESSI ON Oct 28, 2022 90 Oct 29, 2023 [id number] A July 17, 2023 Dahlia SALDIVAR [facility] ORAL ACTIVE 10/29/2023 [id number] JANNAER ICA C [address] [facility] DESIPRAMINE HCL 25MG TAB DESIPRAM INE HCL 25MG TAB Disconti nued TAKE ONE TABLET BY MOUTH EVERY DAY FOR DEPRESSI ON Nov 13, 2021 90 Nov 14, 2022 [id number] Nov 07, 2022 Dahlia SALDIVAR [facility] ORAL DISCONT INUED 11/14/2022 [id number] SIMI SALDIVAR ICA C 2021 90 [facility] MARINE LIPID (FISH OIL) CAP,ORAL MARINE LIPID (FISH OIL) CAP,ORAL Non-VA TAKE BY MOUTH TWICE A DAY Nov 13, 2021 Non-VA Document ed by: Dahlia SALDIVAR Document ed at: [facility] ORAL ACTIVE SALDIVAR,ER ICA C 2021 [facility] METOPROLOL TARTRATE 100MG TAB METOPROL OL TARTRATE 100MG TAB Non-VA TAKE ONE TABLET BY MOUTH AT BEDTIME FOR BLOOD PRESSURE Nov 26, 2022 Non-VA Document ed by: Dahlia SALDIVAR Document ed at: [facility] ORAL ACTIVE SALDIVAR,ER ICA C 2022 [facility] OMEPRAZOLE 20MG CAP,EC OMEPRAZO LE 20MG CAP,EC Non-VA TAKE 1 CAPSULE BY MOUTH EVERY DAY Nov 13, 2021 Non-VA Document ed by: Dahlia SALDIVAR Document ed at: [facility] ORAL ACTIVE SALDIVAR,ER ICA C [address] [facility] TADALAFIL TAB TADALAFI L TAB Non-VA TAKE BY MOUTH Nov 13, 2021 Non-VA Document ed by: Dahlia SALDIVAR Document ed at: [facility] ORAL ACTIVE SALDIVAR,ER ICA C [address] [facility] TAMSULOSIN HCL 0.4MG CAP TAMSULOS IN HCL 0.4MG CAP Non-VA TAKE 1 CAPSULE BY MOUTH TWICE A DAY Nov 13, 2021 Non-VA Document ed by: Dahlia SALDIVAR Document ed at: [facility] ORAL ACTIVE SALDIVARSIMI ICA C [address] [facility] Allergies, Adverse Reactions, Alerts Combined list of allergies from Department of [facility] and [facility] facilities. It does not include entries that were removed or entered in error. Substance Category Reaction Severity Reaction type Status Date Reported Comments Source CARVEDILOL Propensity to adverse reactions to drug (finding) Hyponatremi a active 3 [facility] [place] Propensity to adverse reactions to drug (finding) active 2 [facility] SULFA DRUGS Propensity to adverse reactions to drug (finding) Eruption active 2 [facility] VANCOMYCIN Propensity to adverse reactions to drug (finding) Fever active 2 [facility] Immunizations Combined list of available immunizations from the Department of [facility] and [facility] facilities. Immunization Series Date Given Administered By Site Reaction Lot Number CVX Code Drug Rn Plastics Status Comments Source COVID-19 ([employer]), MRNA, LNP-S, PF, AMADO-SUCROSE, 30 MCG/0.3 ML (AGES 12+ YEARS) 1 2022 MICAH PALACIO LEFT DELTO ID [id number] [facility] INFLUENZA, HIGH-DOSE, QUADRIVALENT 2022 FLACO BACK RIGHT DELTO ID [id number] [address] [facility] TDAP 2022 FLACO BACK LEFT DELTO ID [id number] [address] [facility] COVID-19 ([employer]), MRNA, LNP-S, BIVALENT, PF, 30 MCG/0.3 ML DOSE [address] [facility] INFLUENZA VACCINE, QUADRIVALENT, ADJUVANTED [address] [facility] COVID-19 ([employer]), MRNA, LNP-S, PF, 30 MCG/0.3 ML DOSE [address] [facility] INFLUENZA VACCINE, QUADRIVALENT, ADJUVANTED [address] [facility] INFLUENZA, HIGH-DOSE, QUADRIVALENT [address] [facility] INFLUENZA, HIGH DOSE SEASONAL [address] [facility] ZOSTER RECOMBINANT [address] [facility] ZOSTER RECOMBINANT 1 2018 187 complet ed RAFA COHEN TA ZOSTER RECOMBINANT [address] [facility] INFLUENZA, TRIVALENT, ADJUVANTED [address] [facility] INFLUENZA, TRIVALENT, ADJUVANTED [address] [facility] INFLUENZA, HIGH DOSE SEASONAL [address] [facility] INFLUENZA, HIGH DOSE SEASONAL [address] [facility] PNEUMOCOCCAL CONJUGATE PCV [address] [facility] INFLUENZA, HIGH DOSE SEASONAL [address] [facility] INFLUENZA, SEASONAL, INJECTABLE [address] [facility] TDAP [address] [facility] INFLUENZA, SEASONAL, INJECTABLE [address] [facility] INFLUENZA, SEASONAL, INJECTABLE [address] [facility] ZOSTER LIVE [address] [facility] INFLUENZA, SEASONAL, INJECTABLE [address] [facility] PNEUMOCOCCAL POLYSACCHARID E PPV23 [address] [facility] NOVEL INFLUENZA-H1N 1-09, ALL FORMULATIONS [address] [facility] INFLUENZA, UNSPECIFIED FORMULATION [address] [facility] INFLUENZA, SEASONAL, INJECTABLE [address] [facility] INFLUENZA, SEASONAL, INJECTABLE [address] [facility] TD (ADULT), 2 LF TETANUS TOXOID, PRESERVATIVE FREE, ADSORBED [address] [facility] Vital Signs Combined list of inpatient and outpatient Vital Signs from Department of Defense and Veterans Affairs, ranging from 12 months to all on record, depending upon the facility. Vital Sign Value Date Comments Source Encounters Combined list of: 1) Encounters from [facility] of [facility] facilities going back up to thelast 18 months. 2) Encounters from the Department of Defense facilities going back up to 280 months. Location Location Details Encounter Type Encounter Number Reason For Visit Attending Provider ADM Date DC Date Status Disposition Source [facility] HEARING AID FITTING/CH ECKING [id number] Diagnos is: ICD-10- CM Z46.1 Encount er for fitting and adjustm ent of hearing aid<br/ > DARLINE VOSS M 09/18 [facility] OFFICE O/P EST HI 40-54 MIN [id number] Diagnos is: ICD-10- CM H91.90 Unspeci fied hearing loss, unspeci fied ear<br/ > SAGAR SALDIVAR C 11/26 [facility] HEARING AID FITTING/CH ECKING [id number] Diagnos is: ICD-10- CM Z46.1 Encount er for fitting and adjustm ent of hearing aid<br/ > Lawson LIGHT R 11/29 [facility] Outpatient Encounter [id number] 12/01 [facility] IMMUNIZATI ON ADMIN [id number] Diagnos is: ICD-10- CM Z23 Encount er for immuniz ation<b r/> PAMELA PALACIO M 12/14 [facility] HEARING AID REPAIR/MOD IFYING [id number] Diagnos is: ICD-10- CM H90.3 Sensori neural hearing loss, bilater al
MARY WASHINGTON RTHA R 06/18 [facility] Outpatient Encounter [id number] 09/02 [facility] Social History Combined list of available smoking, tobacco, and other social history from Department of Defense and Veterans Affairs facilities. Social History Type Response Date Comment Sour e Tobacco smoking status NHIS MO-TOBACCO NEVER USED 11/26/2022 [facility] History of tobacco use MO-TOBACCO FORMER USER 11/13/2021 [facility] Advance Directives List of completed, amended, or rescinded Advance Directives on record at Department of Veterans [facility] facilities. An actual copy of the Directive is not included. Date Advance Directive Provider Source 02/03/2022 ADVANCE DIRECTIVE DISCUSSION IVONNE EISENBERG [facility] 02/03/2022 ADVANCE DIRECTIVE [facility]ONNE [facility]ISENBERG [facility] 12/10/2021 ADVANCE DIRECTIVE DISCUSSION IVONNE EISENBERG [facility] 12/10/2021 ADVANCE DIRECTIVE IVONNE EISENBERG [facility]
--- OUTSIDE RECORDS SUMMARY | 2023-09-04 10:17 | XMS_ITS | Encounter Summary ---
Author Name [facility] Organization [facility] [place] Address [address] [place] [address] Care Team Providers Care Computer Trainer Name Role Phone SIMI SALDIVARICA Primary Care [...] PART A Jan 31, 2009 PART A [id number] [facility] [phone] DAHIANA OQUENDO PATIENT MEDICARE (WNR) MEDICARE (M) PART B Jan 31, 2009 PART B [id number] DAHIANA OQUENDO PATIENT Selected Encounter This section includes the information on record at [place] for the Encounter. Date/Time Encounter Type Encounter Description Reason Provider Source Jun 19, 2023 07:45 AM HEARING AID REPAIR/MODIFYIN G AUDIOLOGY ICD-10-CM H90.3 Sensorineural hearing loss, bilateral [place] Encounter Template Text not used by MD Assessments - Encounter Diagnoses This section includes the primary and secondary diagnoses documented for the Encounter. Date/Time Primary/Secondary Diagnosis Diagnosis Name Provider Source Jun 19, 2023 08:04 AM PRIMARY Sensorineural hearing loss, bilateral MAEVE VIDAL [facility] Jun 19, 2023 08:04 AM SECONDARY Encounter for fitting and adjustment of hearing aid MAEVE VIDAL [facility] Social History: Smoking Status (Most current) and Tobacco Use (All prior to encounter date) This section includes the most current, and the historical, smoking and tobacco- related health factors from the [place] facility where the Encounter took place. Current Smoking Status This section includes the most current smoking, or tobacco-related health factor, from the [place] facility where the Encounter took place. Date/Time Current Smoking Status Comment Facil ity Nov 26, 2022 10:30 AM VA-TOBACCO NEVER USED [facility] Tobacco Use History This section includes a history of the smoking, or tobacco-related health factors, that were collected on or before the date of the Encounter. The data comes from the [place] facility where the Encounter took place. Date/Time Smoking Status/Tobacco Use Comment F acility Nov 13, 2021 09:15 AM MD-TOBACCO FORMER USER [facility] Nov 13, 2021 09:15 AM MD-TOBACCO QUIT 15 YRS OR MORE [facility] Advance Directives: All historical and current Section Date Range: From patient's date of to the date document was created. This section includes ALL of a patient's completed or amended MD Advance and Rescinded Directives. The entries below indicate that a directive exists for the patient, but an actual copy is not included with this document. The data comes from all [facility]. Date Advance Directives Provider Source Feb 03, 2022 ADVANCE DIRECTIVE DISCUSSION IVONNE EISENBERG [facility] Feb 03, 2022 ADVANCE DIRECTIVE ELGINIVONNE Jasiel [facility] Dec 10, 2021 ADVANCE DIRECTIVE DISCUSSION ELGINIVONNE Jasiel [facility] Dec 10, 2021 ADVANCE DIRECTIVE ELGINIVONNE Weathers [facility] Encounter Notes: All associated encounter notes This section contains the clinical notes associated to the Encounter. Date/Time Encounter Note(s) Provider Source Jun 19, 2023 07:57 AM AUDIOLOGY NOTE: LOCAL TITLE: AUDIOLOGY CLINIC NOTE STANDARD TITLE: AUDIOLOGY NOTE DATE OF NOTE: JUN 19, 2023@07:57 ENTRY DATE: JUN 19, 2023@07:57:43 AUTHOR: HEIDI VIDAL COSIGNER: URGENCY: STATUS: COMPLETED AUDIOLOGY CLINIC NOTE Has ADDENDA DIAGNOSIS Encounter for fitting and Adjustment of Hearing Aids Sensorineural Hearing Loss, Bilateral Reason for Visit: Hearing Aid Service Location of Visit(Room Number):2S-109 was seen for Hearing Aid Service/Repair: 30 minute Appointment Otoscopy: Free of Excessive Cerumen, Normal anatomy bilaterally DIAGNOSIS History: Patient seen for a hearing aid service/hearing aid check Make:SHANEL Model: MIK[employer]AYTON L90-RT AIRAM Serial Number:[id number] Dome/Mold:CUSTOM EARMOLD The following Hearing aid problem(s) were presented Right Hearing Aid:NOT HOLDING A CHARGE, NOT WORKING Left Hearing Aid: NYA ON IN NOT WORKING-MAILED TO RUBBER ENGRAVER FOR WARRANTY REPAIR Action: Problem will require repair by neon sign servicer and aid was mailed to neon sign servicer today. Device can be programmed/ mailed to once repaired. Order more supplies in ROES for patient. [place] was counseled using a curriculum on the cleaning,care and use of hearing aids. Plan: Vet will contact call center as needed for follow up Patient is in agreement with this plan. Equal Opportunity Counselor:MAIL AID TO WHEN RECEIVED. MAIL REPAIRED NYA ON TO /maximiliano/ HEIDI VIDAL AUDIO TECH Signed: 06/19/2023 08:04 06/19/2023 ADDENDUM STATUS: COMPLETED As the supervising buckle frame shaper, I have reviewed this audiology note and concur with the findings, procedures, and recommendations for the . The Audiology Health Gauger Chief Delivery provided services to the during the appointment. Provider was indirectly supervised for this encounter. /maximiliano/ Mike Borges CCC-A Electric Sign Assembler Signed: 06/19/2023 11:52 06/27/2023 ADDENDUM STATUS: COMPLETED RECEIVED, CERTIFIED AND ISSUED SHANEL FAY ON V2 DEVICE MAILED TO AT THE ADDRESS ON FILE /maximiliano/ HEIDI VIDAL AUDIO TECH Signed: 06/27/2023 15:18 06/28/2023 ADDENDUM STATUS: COMPLETED MAILING REPAIRED RIGHT HEARING AID TO THE ADDRESS ON FILE /med Shabazz [facility] BED WORKER Signed: 06/28/2023 12:17 HEIDI VIDAL [facility]
--- OUTSIDE RECORDS SUMMARY | 2023-09-04 10:17 | XMS_ITS | Referral Summary ---
Author Organization [facility] Address [address] [place] [address] Care Team Providers Care Log Chain Feeder Name Role Phone Elsewhere, Pcp Primary Care Provider Unavailabl e Source Comments Patient records contain information from all sites at [facility]. For routine questions regarding patient records, call [phone] during business hours, M-F 8:00 AM - 5:00 PM Central Time. Record requests for emergency care only can be directed to [phone] at any time.[facility] Allergies Active Allergy Reactions Criticality Noted Date Comments Sulfa (Sulfonamide Antibiotics) Hives (Reselect Reaction) 06/29/2022 Vancomycin Malignant Hyperthermia 06/29/2022 Medications Medication Sig Dispensed Refills Start Date End Date Status metoprolol succinate (TOPROL-XL) 100 mg 24 hr tablet Take 100 mg by mouth daily. Do not crush or chew. Active Immunizations Name Administration Dates Next Due Influenza Split 12/15/2008 PPSV23 05/19/2009 Social History Tobacco Use Types Packs/Day Years Used Date Smoking Tobacco: Former Tobacco Cessation:Counseling Given: Not Answered Alcohol Use Standard Drinks/Week Comments Yes 0 (1 standard drink = 0.6 oz pur e alcohol) Social Connection and Isolation Panel [NHANES] A nswer Date Recorded In a typical week, how many times do you talk on the phone with family, friends, or neighbors? Once a week 01/31/20 How often do you get togethe r with friends or relatives? Once a week 01/30/2021 How often do you attend memorial healthcare or yazidi services? 1 to 4 times per year 01/30/2021 Do you belong to any clubs o r organizations such as synagogue groups, unions, fraternal or athletic groups, or school groups? Yes 01/30/2021 How often do you attend meet ings of the clubs or organizations you belong to? 1 to 4 times per year 01/30/2021 Are you , , di vorced, , never , or living with a partner? Living with partner 01/30/2021 AUDIT-C Answer Date Recorded Q1: How often do you have a drink containing alc ohol? 2-3 times a week 01/30/2021 Q2: How many drinks containi ng alcohol do you have on a typical day when you are drinking? 1 or 2 01/30/2021 Q3: How often do you have si x or more drinks on one occasion? Less than monthly 01/30/2021 Overall Financial Resource Strain (CARDIA) Answe r Date Recorded How hard is it for you to pa y for the very basics like food, housing, medical care, and heating? Not hard at all 01/30/2021 [facility] - Occupational Stress Questionnaire Answer Date Recorded Do you feel stress - tense, restless, nervous, or anxious, or unable to sleep at night because your mind is troubled all the time - these days? Not at all 01/30/2021 Exercise Vital Sign Answer Date Recorde d On average, how many days pe r week do you engage in moderate to strenuous exercise (like a brisk walk)? 3 days 01/30/2021 On average, how many minutes do you engage in exercise at this level? 120 min 01/30/2021 Hunger Vital Sign Answer Date Recorded Within the past 12 months, y ou worried that your food would run out before you got the money to buy more. Never true 01/31/20 21 Within the past 12 months, t he food you bought just didn't last and you didn't have money to get more. Never true 01/30/2021 PRAPARE - Transportation Answer Date Re corded In the past 12 months, has l ack of transportation kept you from medical appointments or from getting medications? No 01/03 In the past 12 months, has l ack of transportation kept you from meetings, work, or from getting things needed for daily living? No 01/30/2021 Housing Stability Vital Sign Answer Isra e Recorded In the last 12 months, was t here a time when you were not able to pay the mortgage or rent on time? No 01/30/2021 In the last 12 months, how many places have you lived? 2 01/30/2021 In the last 12 months, was t here a time when you did not have a steady place to sleep or slept in a retirement (including now)? No 01/30/2021 Nutrition Answer Date Recorded Nutrition: EVOO Fat Source Yes 01/30 On average, how many serving s of fruits and vegetables do you eat per day (serving size is equal to 1 cup or approximately the size of a tennis ball)? 2-3 01/30/2021 Dental Answer Date Recorded Dental: Regular Dentist Yes 03/13/19 Employment Answer Date Recorded Employment status Retired 01/30/2021 Education Answer Date Recorded What is the highest level of school you have completed or the highest degree you have received? Bachelor's degree (e.g., BA, AB, BS) 10/09/2019 Sex and Gender Information Value Date Recorded Sex Assigned at Male 10/09/2019 1:07 PM CDT Gender Identity Male 10/11/2019 1:52 PM CDT Sexual Orientation Straight 10/11/2019 1: 53 PM CDT Last Filed Vital Signs Vital Sign Reading Time Taken Comments Blood Pressure 135/74 03/17/2023 8:52 PM MST Pulse 77 03/17/2023 8:46 PM MST Temperature 36.3 ??C (97.3 ??F) 03/17/2023 1:31 PM MS T Respiratory Rate 12 03/17/2023 8:46 PM MST Oxygen Saturation 96% 03/17/2023 8:46 PM MST Inhaled Oxygen Concentration - - Weight 84 kg (185 lb 3 oz) 03/17/2023 1:31 PM MS T Height 170.2 cm (5' 7) 03/17/2023 1:31 PM MST Body Mass Index 29 03/17/2023 1:31 PM MST Plan of Treatment Not on file Care Teams Log Chain Feeder Relationship Specialty Start Date End Date Elsewhere, Pcp PCP - General Internal Medicine 06/29/22
--- OUTSIDE RECORDS SUMMARY | 2023-09-04 10:17 | XMS_ITS | Clinical Summary ---
Author Organization [facility] Address [address] [place] [address] Care Team Providers Care Hand Binder Stripper Name Role Phone Tinotelionel Adam Talbert Primary Care Provider [phone] Daniel Wick MD Unavailable [phone] Allergies Active Allergy Reactions Criticality Noted Date Comments Losartan Cough 02/20/2017 Sulfa Antibiotics Rash Low 08/31/2019 Vancomycin 08/31/2019 Fever Vancomycin Other (See Comments) 11/13/2021 Medications Medication Sig Dispensed Refills Start Date End Date Status tamsulosin (FLOMAX) 0.4 MG capsule Take 0.4 mg by mouth 2 times daily Active desipramine (NORPRAMIN) 25 MG tablet Take 25 mg by mouth At Bedtime Active metoprolol succinate ER (TOPROL-XL) 50 MG 24 hr tablet Take 50 mg by mouth At Bedtime Active chlorthalidone (HYGROTON) 25 MG tablet Take 25 mg by mouth daily Active aspirin (ASA) 81 MG EC tablet Take 81 mg by mouth daily Active omeprazole (PRILOSEC) [address] capsule Take 20 mg by mouth daily Active fish oil-omega-3 fatty acids 1000 MG capsule Take 1 g by mouth 2 times daily Active tadalafil (CIALIS) 20 MG tablet Take 20 mg by mouth daily as needed Active Active Problems Problem Noted Date Diagnosed Date Essential hypertension 10/01/2021 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 Major depression, chronic 10/01/2021 Gastroesophageal reflux disease without esophagi tis 10/01/2021 Resolved Problems Problem Noted Date Diagnosed Date Resolved Date Acute sepsis 10/05/2019 10/01/2021 Immunizations Name Administration Dates Next Due COVID-19 MONOVALENT 12+ (Pfizer) 11/27/2020 Flu 65+ Years 11/25/2018,11/19/2017,11/12/2016 Flu, Unspecified 12/15/2008 Influenza (H1N1) 11/24/2018, 6,12/29/2014,2013,02/14/2009 Influenza (High Dose) 3 bela nt vaccine 11/24/2018,12/22/2015,12/29/2014,2013 Influenza (IIV3) PF 12/02/2012, 2,12/15/2010,2009,11/30/2008,01/18/2008,12/10/2006 Influenza Vaccine 65+ (FLUAD) 11/15/2020 Influenza Vaccine 65+ (Fluzone HD) 12/21/2019 Pneumo Conj 13-V (2010&after) 06/06/2014 Pneumococcal 23 valent 06/15/2009,05/19/2009 TDAP (Adacel,Boostrix) 04/13/2012 Td (Adult), Adsorbed 03/19/2002 Tdap (Adult) Unspecified Formulation 04/13/2012 Zoster recombinant adjuvante d (SHINGRIX) 10/09/2018,08/03/2018 Zoster vaccine, live 03/12/2010 Family History Medical History Relation Comments Hypertension Mother Other Cancer Mother Liver cancer Relation Status Comments Father Mother Social History Tobacco Use Types Packs/Day Years Used Date Smoking Tobacco: Former Cigarettes 1 4 0 03/03/1968 - 03/03/1972 Smokeless Tobacco: Never Alcohol Use Standard Drinks/Week Comments Yes 0 (1 standard drink = 0.6 oz pur e alcohol) occ PHQ-2 Answer Date Recorded PHQ-2 Score 0 10/01/2021 Adolescent Education Answer Date Record ed Getting School Help Needed Not on file 12/02 Sex and Gender Information Value Date Recorded Sex Assigned at Not on file Gender Identity Not on file Sexual Orientation Not on file Last Filed Vital Signs Vital Sign Reading Time Taken Comments Blood Pressure 148/74 01/31/2022 4:30 PM TEST CELL TECHNICIAN Pulse 87 01/31/2022 4:30 PM TEST CELL TECHNICIAN Temperature 36.8 ??C (98.3 ??F) 01/31/2022 4:30 PM CS T Respiratory Rate 18 01/31/2022 4:30 PM TEST CELL TECHNICIAN Oxygen Saturation 100% 01/31/2022 4:30 PM TEST CELL TECHNICIAN Inhaled Oxygen Concentration - - Weight 81.6 kg (180 lb) 01/31/2022 4:30 PM TEST CELL TECHNICIAN Height 170.2 cm (5' 7) 10/05/2019 11:21 PM CDT Body Mass Index 28.19 10/05/2019 11:21 PM CDT Plan of Treatment Health Maintenance Due Date Last Done Comments ADVANCE CARE PLANNING 1945 ANNUAL REVIEW OF HM ORDERS 1944 DEPRESSION ACTION PLAN 1944 PHQ-9 1944 HEPATITIS C SCREENING 02/04/1962 LIPID 1984 RSV VACCINE ( & 60+) (1 - 1-dose 60+ series) 2004 FALL RISK ASSESSMENT 02/04/2009 DTAP/TDAP/TD IMMUNIZATION (3 - Td or Tdap) 04/13/2022 04/13/2012, 04/13/2012, 03/19/2002 MEDICARE ANNUAL WELLNESS VISIT 07/10/2022 07/10/2021 COVID-19 Vaccine (2022- season) 2022 06/10/2021, 11/27/2020 INFLUENZA VACCINE (#1) 2023 , 12/21/2019, 11/25/2018, Additional history exists GLUCOSE 09/22/2024 09/22/2021, 08/31, 08/03/2020, Additional history exists Pneumococcal Vaccine: 65+ Years Completed 06/06/2014, 06/15/2009, 05/19/2009 ZOSTER IMMUNIZATION Completed 10/09/2018, 08/03/2018, 03/12/2010 HPV IMMUNIZATION Aged Out No longer e ligible based on patient's age to complete this topic IPV IMMUNIZATION Aged Out No longer e ligible based on patient's age to complete this topic MENINGITIS IMMUNIZATION Aged Out No l onger eligible based on patient's age to complete this topic RSV MONOCLONAL ANTIBODY Aged Out No l onger eligible based on patient's age to complete this topic Procedures Procedure Name Priority Date/Time Associated Diagnosis Comments BASIC METABOLIC PANEL STAT 09/22/2021 10:38 PM CDT from Last 3 Months or Most Recently Relevant to Health Maintenance Results * (ABNORMAL) Basic metabolic panel (09/22/2021 10:38 PM CDT) Sodium 125(L) 133 - 144 mmol/L 09/22/2021 11:16 PM CDT LABORATORY Potassium 3.3(L) 3.4 - 5.3 mmol/L 09/22/2021 11:16 PM CDT [facility] LABORATORY Chloride 91(L) 94 - 109 mmol/L 09/22/2021 11:16 PM CDT [facility] Carbon Dioxide (CO2) 26 20 - 32 mmol/L 09/22/2021 11:16 PM CDT [facility] Anion Gap 8 3 - 14 mmol/L 09/22/2021 11:16 PM CDT [facility] Urea Nitrogen 14 7 - 30 mg/dL 09/22/2021 11:16 PM CDT LABORATORY Creatinine 0.97 0.66 - 1.25 mg/dL 09/22/2021 11:16 PM CDT LABORATORY Calcium 8.6 8.5 - 10.1 mg/dL 09/22/2021 11:16 PM CDT LABORATORY Glucose 93 70 - 99 mg/dL 09/22/2021 11:16 PM CDT [facility] GFR Estimate 80 >60 mL/min/1.7 3m2 09/22/2021 11:16 PM CDT [facility] Comment:Effective February 012020 eGFRcr in adults is calculated using the 2020 CKD-EPI creatinine equation which includes age and gender (Katty et al., NEJM, DOI: 10.1056/ZKQUlt4859334) Blood STRUCTURE OF LEFT UPPER LIMB / Unknown Venipuncture / Unknown 09/22/2021 10:38 PM CDT 09/22/2021 10:47 PM CDT Bryant Yap MD LAB - BLOOD ORDERABL ES LABORATORY [facility] Lab [address] (1st floor, no room number) [place] [address], [facility] [place] [phone] from Last 3 Months or Most Recently Relevant to Health Maintenance Care Teams Hand Binder Stripper Relationship Specialty Start Date End Date Votel, Adam Talbert PCP - General Family Practice 09/01/19 Daniel Wick MD [address] [place] [address] Assigned PCP 09/12/21
--- OUTSIDE RECORDS SUMMARY | 2023-09-04 10:17 | XMS_ITS | Encounter Summary ---
Author Name [facility] Organization [facility] Address [address] [place] [address] Care Team Providers Care Kinder Teacher Name Role Phone SIMI SALDIVARICA Primary Care [...] PART A Jan 31, 2009 PART A [id number] [facility] [phone] DAHIANA OQUENDO PATIENT MEDICARE (WNR) MEDICARE (M) PART B Jan 31, 2009 PART B [id number] [phone] DAHIANA OQUENDO PATIENT Selected Encounter This section includes the information on record at [place] for the Encounter. Date/Time Encounter Type Encounter Description Reason Provider Source Sep 18, 2022 12:41 PM HEARING AID FITTING/CHECKIN G AUDIOLOGY ICD-10-CM Z46.1 Encounter for fitting and adjustment of hearing aid ALINA VOSS Encounter Template Text not used by [place] Assessments - Encounter Diagnoses This section includes the primary and secondary diagnoses documented for the Encounter. Date/Time Primary/Secondary Diagnosis Diagnosis Name Provider Source Sep 18, 2022 12:54 PM PRIMARY Encounter for fitting and adjustment of hearing aid ALINA VOSS [facility] Plan of Treatment: Future Appointments (+ 6 months) and Future Tests (+/- 45 days) The Plan of Treatment section includes future care activities for the patient from all [facility]. This section includes future appointments and future orders which are active, pending or scheduled. Future Appointments This section includes appointments that were scheduled to occur 6 months from the date of the Encounter, up to a maximum of 20 appointments. The data comes from all [facility] facilities. Appointment Date/Time Appointment Type Appointme nt Facility Name Nov 26, 2022 10:30 AM AMBULATORY - MEDICINE SIMONAPallavi LEW [facility] Nov 29, 2022 03:30 PM AMBULATORY - SURGERY YVONNE TORRES [facility] Social History: Smoking Status (Most current) and Tobacco Use (All prior to encounter date) This section includes the most current, and the historical, smoking and tobacco- related health factors from the [place] facility where the Encounter took place. Current Smoking Status This section includes the most current smoking, or tobacco-related health factor, from the [place] facility where the Encounter took place. Date/Time Current Smoking Status Comment Facil ity Nov 13, 2021 09:15 AM VA-TOBACCO FORMER USER [facility] Tobacco Use History This section includes a history of the smoking, or tobacco-related health factors, that were collected on or before the date of the Encounter. The data comes from the [place] facility where the Encounter took place. Date/Time Smoking Status/Tobacco Use Comment F acility Nov 13, 2021 09:15 AM MS-TOBACCO QUIT 15 YRS OR MORE [facility] Advance Directives: All historical and current Section Date Range: From patient's date of to the date document was created. This section includes ALL of a patient's completed or amended [place] Advance and Rescinded Directives. The entries below indicate that a directive exists for the patient, but an actual copy is not included with this document. The data comes from all [facility]. Date Advance Directives Provider Source Feb 03, 2022 ADVANCE DIRECTIVE DISCUSSION IVONNE EISENBERG [facility] Feb 03, 2022 ADVANCE DIRECTIVE IVONNE EISENBERG [facility] Dec 10, 2021 ADVANCE DIRECTIVE DISCUSSION IVONNE EISENBERG [facility] Dec 10, 2021 ADVANCE DIRECTIVE IVONNE EISENBERG [facility] Encounter Notes: All associated encounter notes This section contains the clinical notes associated to the Encounter. Date/Time Encounter Note(s) Provider Source Sep 18, 2022 12:41 PM AUDIOLOGY NOTE: LOCAL TITLE: AUDIOLOGY CLINIC NOTE STANDARD TITLE: AUDIOLOGY NOTE DATE OF NOTE: SEP 18, 2022@12:41 ENTRY DATE: SEP 18, 2022@12:41:41 AUTHOR: ANTONIETA VOSS COSIGNER: URGENCY: STATUS: COMPLETED SUBJECT: remote programming AUDIOLOGY VA VIDEO CONNECT (VVC) SESSION Type of Session: [x] Hearing aid service [ ] Hearing aid fitting/orientation [ ] Patient education [ ] Tinnitus Management ------- SAFETY AND PRIVACY CHECKS ------- [X] Confirmed [place] could see and hear the provider(s) clearly and provider(s) can see and hear the clearly [X] [place] did not report nor provider observe acute behavioral distress or symptoms which VVC could exacerbate. [X] [place] did not report active intent or plan for suicide. If another individual present, their name and relation is listed here: Radha ------- DIAGNOSIS: Sensorineural loss REASON FOR VISIT: Hearing Aid Fitting (Appointment Length: 60 minute appointment) HEARING AIDS: Make: SONOVA Model: PHONAK AUDEO L90-RT [facility] Serial Numbers R/L: [id number] / [id number] Gas Operations Superintendent/Slim Tube Size: Size 1 P Dome/Earmold: cshell 4.0 with canal locks ACCESSORIES: Ej Meléndez in ACTION: First, left aid was not showing a light in the health careers instructor. Gravity Flow Irrigator had reset the device by holding down the bottom button for 30 seconds. It began charging again once it was placed back in the health careers instructor. Then we attempted a remote session and could not connect. Had to call [employer] and get advice. Both of us restarted our devices (computer and phone). Then we were able to connect. Gravity Flow Irrigator added the public tcoil program. PLAN: would like a follow-up appointment to complete the firmware update for stability; it may prevent the issue that came up today (no lights, ). An order will be placed and an MSA will contact him. /maximiliano/ MIKE DODGE STAFF AUTO SERVICE MECHANIC Signed: 09/18/2022 12:54 MAYITO VOSS [facility]
--- OUTSIDE RECORDS SUMMARY | 2023-09-04 10:17 | XMS_ITS | Referral Summary ---
Author Organization [facility] Address [address] [place] [address] Care Team Providers Care Practice Or Student Teacher Name Role Phone Tinotelionel Adam Talbert Primary Care Provider [phone] Daniel Wick MD Unavailable [phone] Allergies Active Allergy Reactions Criticality Noted [...] d (SHINGRIX) 10/09/2018,08/03/2018 Zoster vaccine, live 03/12/2010 Social History Tobacco Use Types Packs/Day Years [...] Comments Blood Pressure 148/74 01/31/2022 4:30 PM BOTANY LABORATORY ASSISTANT Pulse 87 01/31/2022 4:30 PM BOTANY LABORATORY ASSISTANT Temperature 36.8 ??C (98.3 ??F) 01/31/2022 4:30 PM CS T Respiratory Rate 18 01/31/2022 4:30 PM BOTANY LABORATORY ASSISTANT Oxygen Saturation 100% 01/31/2022 4:30 PM BOTANY LABORATORY ASSISTANT Inhaled Oxygen Concentration - - Weight 81.6 kg (180 lb) 01/31/2022 4:30 PM BOTANY LABORATORY ASSISTANT Height 170.2 cm (5' 7) 10/05/2019 11:21 PM CDT Body Mass Index 28.19 10/05/2019 11:21 PM CDT Plan of Treatment Not on file Procedures Procedure Name Priority Date/Time Associated Diagnosis Comments BASIC METABOLIC PANEL STAT 09/22/2021 10:38 PM CDT from Last 3 Months or Most Recently Relevant to Health Maintenance Results * (ABNORMAL) Basic metabolic panel (09/22/2021 10:38 PM CDT) Sodium 125(L) 133 - 144 mmol/L 09/22/2021 11:16 PM CDT LABORATORY Potassium 3.3(L) 3.4 - 5.3 mmol/L 09/22/2021 11:16 PM CDT LABORATORY Chloride 91(L) 94 - 109 mmol/L 09/22/2021 11:16 PM CDT LABORATORY Carbon Dioxide (CO2) 26 20 - 32 mmol/L 09/22/2021 11:16 PM CDT LABORATORY Anion Gap 8 3 - 14 mmol/L 09/22/2021 11:16 PM CDT LABORATORY Urea Nitrogen 14 7 - 30 mg/dL 09/22/2021 11:16 PM CDT LABORATORY Creatinine 0.97 0.66 - 1.25 mg/dL 09/22/2021 11:16 PM CDT LABORATORY Calcium 8.6 8.5 - 10.1 mg/dL 09/22/2021 11:16 PM CDT LABORATORY Glucose 93 70 - 99 mg/dL 09/22/2021 11:16 PM CDT LABORATORY GFR Estimate 80 >60 mL/min/1.7 3m2 09/22/2021 11:16 PM CDT LABORATORY Comment:Effective February 012020 eGFRcr in adults is calculated using the 2020 CKD-EPI creatinine equation which includes age and gender (Katty et al., NEJM, DOI: 10.1056/[id number]) Blood STRUCTURE OF LEFT UPPER LIMB / Unknown Venipuncture / Unknown 09/22/2021 10:38 PM CDT 09/22/2021 10:47 PM CDT Bryant Yap MD LAB - BLOOD ORDERABL ES [facility] Acute Care Lab [address] (1st floor, no room number) [place] [address], [facility] [place] [phone] from Last 3 Months or Most Recently Relevant to Health Maintenance Care Teams Practice Or Student Teacher Relationship Specialty Start Date End Date Votel, Adam Talbert PCP - General Family Practice 09/01/19 Daniel Wick MD [address] [place] [address] Assigned PCP 09/12/21
--- OUTSIDE RECORDS SUMMARY | 2023-09-04 10:17 | XMS_ITS ---
Author Organization [facility] Address [address] [place] [address] Care Team Providers Care Binder Coverstitch Name Role Phone Unavailable Unavailable Unavailable Surgery Details Not on file Complications Check Surgery Details section. Procedure Estimated Blood Loss Check Surgery Details section. Procedure Findings Check Surgery Details section. Procedure Specimens Taken Check Surgery Details section.
--- OUTSIDE RECORDS SUMMARY | 2023-09-04 10:17 | XMS_ITS | Encounter Summary ---
Author Name [facility] [place] [place] Organization [facility] [place] Address [address] [place] [address] Care Team Providers Care Caretaker Resort Name Role Phone KYLEE WEST Primary Care Provider Unavailabl e Insurance Providers: [...] PART A Jan 31, 2009 PART A [id number] [facility] [phone] DAHIANA OQUENDO PATIENT MEDICARE (WNR) MEDICARE (M) PART B Jan 31, 2009 PART B [id number] [phone] DAHIANA OQUENDO PATIENT Selected Encounter This section includes the information on record at [place] for the Encounter. Date/Time Encounter Type Encounter Description Reason Provider Source Nov 26, 2022 10:30 AM OFFICE O/P EST HI 40-54 MIN PRIMARY CARE/MEDICINE ICD-10-CM H91.90 Unspecified hearing loss, unspecified ear WESTKYLEE C IHE Encounter Template Text not used by [place] Assessments - Encounter Diagnoses This section includes the primary and secondary diagnoses documented for the Encounter. Date/Time Primary/Secondary Diagnosis Diagnosis Name Provider Source Nov 26, 2022 11:07 AM PRIMARY Unspecified hearing loss, unspecified ear KYLEE WEST [facility] Nov 26, 2022 11:07 AM SECONDARY Depression, unspecified WESTKYLEE C [facility] Nov 26, 2022 11:07 AM SECONDARY Encounter for immunization CHIO CONNORS [facility] Plan of Treatment: Future Appointments (+ 6 months) and Future Tests (+/- 45 days) The Plan of Treatment section includes future care activities for the patient from all [place] [facility]. This section includes future appointments and future orders which are active, pending or scheduled. Future Appointments This section includes appointments that were scheduled to occur 6 months from the date of the Encounter, up to a maximum of 20 appointments. The data comes from all [facility] facilities. Appointment Date/Time Appointment Type Appointme nt Facility Name Nov 29, 2022 03:30 PM AMBULATORY - SURGERY [facility] Vital Signs: All taken on the encounter date This section contains inpatient and outpatient Vital Signs collected on the date of the Encounter. Date/Time Temperature Pulse Blood Pressure Respiratory Rate SP02 Pain Height Weight Body Mass Index Source Nov 26, 2022 10:20 AM 97.9 F 75 /min 142/85 mm[Hg] 18 /min 100 % 0 68 in 179.8 lb 27 [facility] Immunizations: All administered on the encounter date This section contains immunizations associated to the Encounter. Immunization Series Date Issued Reaction Comments INFLUENZA, HIGH-DOSE, QUADRIVALENT Nov 26, 2022 TDAP Nov 26, 2022 Social History: Smoking Status (Most current) and Tobacco Use (All prior to encounter date) This section includes the most current, and the historical, smoking and tobacco- related health factors from the [place] facility where the Encounter took place. Current Smoking Status This section includes the most current smoking, or tobacco-related health factor, from the [place] facility where the Encounter took place. Date/Time Current Smoking Status Comment Francisca ity Nov 26, 2022 10:30 AM VA-TOBACCO NEVER USED [facility] Tobacco Use History This section includes a history of the smoking, or tobacco-related health factors, that were collected on or before the date of the Encounter. The data comes from the [place] facility where the Encounter took place. Date/Time Smoking Status/Tobacco Use Comment F acility Nov 13, 2021 09:15 AM VA-TOBACCO FORMER USER [facility] Nov 13, 2021 09:15 AM [place]-TOBACCO QUIT 15 YRS OR MORE [facility] Advance Directives: All historical and current Section Date Range: From patient's date of to the date document was created. This section includes ALL of a patient's completed or amended [place] Advance and Rescinded Directives. The entries below indicate that a directive exists for the patient, but an actual copy is not included with this document. The data comes from all [place] facilities. Date Advance Directives Provider Source Feb 03, 2022 ADVANCE DIRECTIVE DISCUSSION IVONNE EISENBERG [facility] Feb 03, 2022 [facility] Dec 10, 2021 ADVANCE DIRECTIVE DISCUSSION IVONNE EISENBERG [facility] Dec 10, 2021 ADVANCE DIRECTIVE IVONNE EISENBERG [facility] Encounter Notes: All associated encounter notes This section contains the clinical notes associated to the Encounter. Date/Time Encounter Note(s) Provider Source Nov 26, 2022 10:39 AM INTERNAL MEDICINE NOTE: LOCAL TITLE: MEDICINE CLINIC NOTE STANDARD TITLE: INTERNAL MEDICINE NOTE DATE OF NOTE: NOV 26, 2022@10:39 ENTRY DATE: NOV 26, 2022@10:39:13 AUTHOR: KYLEE WEST COSIGNER: URGENCY: STATUS: COMPLETED MEDICINE CLINIC NOTE Has ADDENDA ANNUAL Nurse's notes reviewed from today. DAHIANA OQUENDO is a 77 year old MALE with hearing loss, HTN, BPH with norturia, depression, ED, dry eyes, GERD who presents to clinic for routine follow-up. Prefered communication: ? Service Connection/Rated Disabilities: [place] Percent: 30% Rated Disabilities: IMPAIRED HEARING (30%-SC) Assessment and Plan: Travels to [place], [place] in Winter. # Co-managed: -Hermelinda Conklin - PCP -[facility]ro - at [facility] -planning to get hearing care here -will get meds, labs through non-[place] clinics -except for Desipramine - requests here due to cost # Hard of hearing: Assessed at [facility] ~ 2020 - on border of qualifying for cochlear implant. -Audiology / hearing aids (provided by [place]) # HTN: Reports 120/70s at home. Reports Chlorthalidone stopped ~2021 given hyponatremia. -Metoprolol # BPH: # Nocturia (4-6x/n): Less an issue during day. Reports hesitency. Underwent prostatic artery embolism Jan 2022 at [facility], reports prostate size reduction, but no change in symptoms. -Tamsulosin (takes bid) # Depression: Has seen Neuro. Also did a Psych assessment. Initially assessed for brain fogginess. Also helps his sleep. -Desipramine (since 1980) - asking that I prescribe. This is an old tricyclic antidepressant, and has anticholinergic warnings >65. Given long-term use, will continue, but will monitor for symptoms and possible need to change in future. Likely to SSRI, or consult with Psych. # ED: -[facility] prn # Dry eyes: -Restsis, Systane -most recently going to [facility] in [place] - reports plans for surgery 11/27/22 # GERD: -Omeprazole # Supplements: -takes Vit D, fish oil # Overweight: BMI: 27.6 in 2021 # Substance use: -Tobacco: quit 1971 -Alcohol: 1-2 drinks monthly or less # Mental health - depression, see above # Routine Health Maintenance - defer to non-VA PCP for now -Home care / co-managed care: -ASCVD risk screen (40-75): ?% 10y risk of heart disease or stroke -CRC screen (45-75): -AAA screen (65-75 if ever smoked): -Lung CA screen (50-80): -HCV screen (18-79): -Last PSA (50-70?): PSA____ # RTC - RTC in 1y without labs - Nov 2023 Objective: Social History: Living situation - [place], 2 daughters, 4 sons 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 Active problems - Computerized Problem List is the source for the followin. Benign Prostatic Hypertrophy with Outflow Obstruction (SCT 988742570) 2. Depression (SCT [id number]) 3. GERD - Gastro-Esophageal Reflux Disease ([facility] [id number]) 4. Ascending aorta dilatation 5. Erectile Dysfunction ([facility] [id number]) 6. Hearing loss Allergies: LOSARTAN (Nov 13, 2021) SULFA DRUGS (Nov 13, 2021) VANCOMYCIN (Nov 13, 2021) Medications: Active Outpatient Medications (including Supplies): Active Outpatient Medications Status 1) DESIPRAMINE HCL 25MG TAB TAKE ONE TABLET BY MOUTH ACTIVE (S) EVERY DAY FOR DEPRESSION Active Non-VA Medications Status 1) Non-VA CHLORTHALIDONE 25MG TAB 25MG MOUTH ACTIVE 2) Non-VA CHOLECALCIFEROL TAB MOUTH ACTIVE 3) Non-VA CYCLOSPORINE 0.05% EMULSION,OPH ACTIVE 4) Non-VA MARINE LIPID (FISH OIL) CAP,ORAL MOUTH TWICE ACTIVE A DAY 5) Non-VA METOPROLOL TARTRATE 50MG TAB 50MG MOUTH AT ACTIVE BEDTIME 6) Non-VA OMEPRAZOLE 20MG EC CAP 20MG MOUTH EVERY DAY ACTIVE 7) Non-VA TADALAFIL TAB MOUTH ACTIVE 8) Non-VA TAMSULOSIN HCL 0.4MG CAP 0.4MG MOUTH TWICE A ACTIVE DAY 9 Total Medications MEDICATION RECONCILIATION Outpatient At this visit I have reviewed the medication list, and discussed relevant medications with the patient/surrogate. (x)Patient was informed of available lab, imaging, and other study results associated with today's visit. Subjective: HPI: AE. ROS: 14-point system negative unless discussed above. EXAM: VS: Temp: 97.9 F [36.6 C] (11/26/2022 10:20) BP: 142/85 (11/26/2022 10:20) Pulse:75 (11/26/2022 10:20) Resp: 18 (11/26/2022 10:20) Pain: 0 (11/26/2022 10:20) Weight: WEIGHTS IN LAST 6 MONTHS: 179.8 (NOV 26, 2022@10:20:19) Body Mass Index: 27.4 GENERAL: Well nourished, well developed. Not in acute distress. HEENT: Normocephalic/atraumatic. Eyes non-icteric/no injection. No rhinorrhea. CV: Regular rate and rhythm. Normal s1, s2. No murmur. LUNGS: Non-labored breathing. Clear to auscultation bilaterally. ABDOMEN: Active bowel sounds. Abdomen soft, non-tender. MSK: No LE edema. Skin: Warm, dry. NEURO: Normal gait. No gross focal neuro deficits. (x) Patient/Caregiver indicates readiness to learn, verbalizes understanding, agreement and satisfaction with the treatment plan. Patient/Caregiver doesn't have any further questions today. 40 minutes spent on exam, charting, orders. /med WEST PA-C PHYSICIAN MEDICAL PRACTITIONERS Signed: 11/26/2022 11:08 11/26/2022 ADDENDUM STATUS: COMPLETED Sold home in [place], where he had done a lot of walking, hiking, biking. Wants to rent a place in [place]. /med WEST PA-C PHYSICIAN MEDICAL PRACTITIONERS Signed: 11/26/2022 11:08 KYLEE WEST [facility] Nov 26, 2022 10:22 AM INTERNAL MEDICINE OUTPATIENT NOTE: LOCAL TITLE: MEDICINE CLINIC NURSING NOTE STANDARD TITLE: INTERNAL MEDICINE OUTPATIENT NOTE DATE OF NOTE: NOV 26, 2022@10:22 ENTRY DATE: NOV 26, 2022@10:22:33 AUTHOR: CHIO CONNORS EXP COSIGNER: URGENCY: STATUS: COMPLETED TYPE OF VISIT: Appointment Check In Type of appointment: In-person appointment REASON FOR VISIT: annual ALLERGIES: LOSARTAN (Nov 13, 2021) SULFA DRUGS (Nov 13, 2021) VANCOMYCIN (Nov 13, 2021) VITAL SIGNS: Blood Pressure: 142/85 (11/26/2022 10:20) Pulse: 75 (11/26/2022 10:20) Respiration: 18 (11/26/2022 10:20) Temperature: 97.9 F [36.6 C] (11/26/2022 10:20) Weight: 179.8 lb [81.56 kg] (11/26/2022 10:20) Height: 68 in [172.7 cm] (11/26/2022 10:20) BMI: 27.4 O2 Sat: 100% (11/26/2022 10:20) Pain: 0 (11/26/2022 10:20) PAIN SCREEN: Patient is not having significant pain that they wish to discuss with their provider today. MEDICATION Over the Counter/Herbal Medications: The patient denies taking any outside medications or herbals. 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 [place] has no concerns about toxic exposure(s) while serving in the Armed Forces. The [place]/caregiver was informed that we will continue to ask this screening question every 5 years. They can contact their provider/healthcare team if they have concerns about exposures and would like to be screened sooner. Printed information was offered and provided if desired. Depression Screening: Perform PHQ-2 A PHQ-2 screen was performed. The score was 0 which is a negative screen for depression. Over the past two weeks, how often have you been bothered by the following problems? 1. Little interest or pleasure in doing things Not at all 2. Feeling down, depressed, or hopeless Not at all Alcohol Use Screen (AUDIT-C): Alcohol Screen: SCREEN FOR ALCOHOL (AUDIT-C) An alcohol screening test (AUDIT-C) was negative (score=1). 1. How often did you have a drink containing alcohol in the past year? Monthly or less 2. How many drinks containing alcohol did you have on a typical day when you were drinking in the past year? One or two drinks 3. How often did you have six or more drinks on one occasion in the past year? Never Tobacco Use Screening: The patient has never used tobacco. Nursing Annual Screening: Fall History Screen During the past 12 months, have you had any falls? Patient does not report any falls in the past 12 months. MEDICATIONS: Patient is on one of the following medication classes: Antihypertensives, Antidepressants, Antipsychotics, Diuretics, or Controlled substance medication used for pain. FALL RISK ADVICE: Fall Risk Advice provided. Handout entitled Fall Prevention At Home reviewed and given to patient and/or significant other. Script Talk Screen Are you able to read your prescription bottles with your glasses, magnifiers or other aids? Yes or patient not taking any prescriptions. Skin Screen Patient reports any current pressure ulcers, a history of pressure ulcers, or a wound from a medical practitioners or Patient is bed-confined or a wheelchair-user or Patient requires assistance to transfer/change position No, Skin Screen is Negative Home Abuse/Violence Screen Is your home free of abuse and violence? Yes MOVE! Program Screen Body Mass Index (BMI)= 27.4 [place]: No data available [place] Hgb A1C: No data available [place] Hgb A1C: No data available Point of Care Hgb A1C: POC HGB A1C____ Outpatient Nutrition Screen Body Mass Index (BMI)= 27.4 [place]: No data available [place] Hgb A1C: No data available [place] Hgb A1C: No data available Point of Care Hgb A1C: POC HGB A1C____ Is patient's BMI less than 18.5? No Does patient have swallowing, coughing, or chewing problems affecting oral intake? No Has patient experienced unplanned weight loss or gain greater than 10 pounds over the last 2 months? No Is patient's Hgb A1C (Glycosylated Hemoglobin) greater than 9.5? Information not available Is patient receiving Total Parenteral Nutrition (TPN) or Tube Feedings? No Patient Health Education Screen BARRIERS/SPECIAL NEEDS: No barriers identified PREFERRED STYLE OF LEARNING: Reading Client Assistive Service (AD[place]) Screen Does the patient require assistance with outpatient visit? No Suicide Screen: C-SSRS Screening [place] Suicide Severity Rating Scale (C-SSRS) screener 1. Over the past month, have you wished you were or wished you could go to sleep and not wake up? No 2. Over the past month, have you had any actual thoughts of killing yourself? No 3. Over the past month, have you been thinking about how you might do this? Response not required due to responses to other questions. 4. Over the past month, have you had these thoughts and had some intention of acting on them? Response not required due to responses to other questions. 5. Over the past month, have you started to work out or worked out the details of how to kill yourself? Response not required due to responses to other questions. 6. If yes, at any time in the past month did you intend to carry out this plan? Response not required due to responses to other questions. 7. In your lifetime, have you ever done anything, started to do anything, or prepared to do anything to end your life (for example, collected pills, obtained a gun, gave away valuables, went to the roof but didn't jump)? No 8. If YES, was this within the past 3 months? Response not required due to responses to other questions. Homelessness/Food Insecurity Screen: In the past 2 months, have you been living in stable housing that you own, rent, or stay in as part of a household? Yes - Living in stable housing. Are you worried or concerned that in the next 2 months you may NOT have stable housing that you own, rent, or stay in as part of a household? No - Not worried about housing near future The [place] reports the following: Within the past 12 months, you worried whether your food would run out before you got money to buy more. Never true Within the past 12 months, the food you bought just didn't last and you didn't have money to get more. Never true Food Insecurity Resources Influenza Immunization: The patient was given the influenza VIS which lists the benefits and side effects of the vaccine and which reviews the risks of not receiving the flu vaccine. The VIS was reviewed with the patient and they were given an opportunity to ask questions. The patient was provided education on how to decrease the risk of influenza infection including social distancing and use of good hand hygiene. The patient denied any prior severe reaction to the flu vaccine or its components. The patient gave verbal consent to receive the vaccine. Influenza, High Dose, Quadrivalent (Fluzone - syringe) Administered: INFLUENZA, HIGH-DOSE, QUADRIVALENT Date Administered: Nov 26, 2022 10:30 Clay Plant Treater: SANOFI PASTEUR Lot: [id number] Exp Date: Aug 31, 2023 ND: [id number] Admin Route/Site: INTRAMUSCULAR/RIGHT DELTOID Dosage: 0.7mL Vaccine Information Statement(s): INFLUENZA(FLU) VACC(INACTIVATED OR RECOMBINANT)VIS Oct 06, 2020 (BELARUSIAN) Order By: Policy Administered By: Chio Connors Td / Tdap Immunization: Administered: TDAP Date Administered: Nov 26, 2022 10:30 Clay Plant Treater: Business Combined Lot: [id number] Exp Date: Dec 11, 2024 NDC: [id number] Admin Route/Site: INTRAMUSCULAR/LEFT DELTOID Dosage: 0.5mL Vaccine Information Statement(s): TDAP (TETANUS, DIPHTHERIA, PERTUSSIS) VACCINE VIS Oct 06, 2020 (BELARUSIAN) Order By: Kylee West Administered By: Chio Connors /maximiliano/ CHIO CONNORS LPN Signed: 11/26/2022 10:32 CHIO CONNORS [facility]
--- OUTSIDE RECORDS SUMMARY | 2023-09-04 10:17 | XMS_ITS | Clinical Summary ---
Author Organization [facility] Address [address] [place] [address] Care Team Providers Care Supervisor Fireworks Assembly Name Role Phone Elsewhere, Pcp Primary Care Provider Unavailabl e Source Comments Patient records contain information from all sites at [facility]. For routine questions regarding patient records, call [phone] during business hours, M-F 8:00 AM - 5:00 PM Central Time. Record requests for emergency care only can be directed to [phone] at any time.[facility] Allergies Active Allergy Reactions Criticality Noted Date [...] week 01/30/2021 How often do you attend [facility] or anabaptism services? 1 to 4 times per year 01/30/2021 Do you belong to any clubs o r organizations such as jehovah's witness groups, unions, fraternal or athletic groups, or [...] and heating? Not hard at all 01/30/2021 [facility] - Occupational Stress [...] place to sleep or slept in a chcf (including now)? No 01/30/2021 Nutrition Answer Date [...] 03/17/2023 1:31 PM MST Plan of Treatment Health Maintenance Due Date Last Done Comments Hepatitis C Screening 1945 Depression Screening (Annual PHQ-2) 03/03/2023 Fall Risk Screen (Annual) 03/03/2023 COVID-19 Vaccine (5 - 2023-2 4 season) 2023 12/14/2022, 11/09/2021, 06/10/2021, Additional history exists Influenza Vaccine (#1) 2023 3, 11/09/2021, 11/15/2020, Additional history exists DTaP,Tdap,and Td Vaccines (4 - Td or Tdap) 11/26/2032 11/26/2022, 04/13/2012, 04/13/2012, Additional history exists Pneumococcal vaccine (65+ years) Completed 06/06/2014, 06/15/2009, 05/19/2009 Zoster Vaccines Completed 10/09/2018, 08/2018, 08/03/2018, Additional history exists Care Teams Supervisor Fireworks Assembly Relationship Specialty Start Date End Date Elsewhere, Pcp PCP - General Internal Medicine 06/29/22
--- OUTSIDE RECORDS SUMMARY | 2023-09-04 10:17 | XMS_ITS | Encounter Summary ---
Author Organization [facility] Address [address] [place] [id number] Care Team Providers Care Ash Worker Name Role Phone Votel, Adam Talbert Primary Care Provider [phone] Daniel Wick MD Unavailable [phone] Encounter Details Date Type Department Care Team (Late st Contact Info) Description 01/27/2023 [facility] Medical Advice [address] [id number] Lois Mensah RN Social History Tobacco Use Types Packs/Day Years [...] on file Sexual Orientation Not on file documented as of this encounter Plan of Treatment Not on file documented as of this encounter Visit Diagnoses Not on filedocumented in this encounter Care Teams Ash Worker Relationship Specialty Start Date End Date Votel, Adam Talbert PCP - General Family Practice 09/01/19 Daniel Wick MD [address] [place], [place] [address] Assigned PCP 09/12/21 documented as of this encounter
--- OUTSIDE RECORDS SUMMARY | 2023-09-04 10:18 | XMS_ITS | Data Portability ---
Author Organization [place] [facility] Address [address] [place] [address] Assessment Encounter Date Assessment Date Assessment LastModified by Organization Details LastModified Time 12/09/2019 12/09/2019 Today I spent a considerable amount of time discussing the patients past medical and personal history, as well as performing a physical examination all of which is documented in it's entirety in the electronic health record. I reviewed the pathophysiology of the disorder, potential contributing and risk factors as well as treatment options to address their complaints. Today imaging was obtained. I've recommended advanced imaging with CT to rule out DJD. Alvaro is a big clencher 23/09. From a treatment perspective I've recommended self management treatment approach. Treatment begins with home self management designed to rest the muscles of mastication and reduce inflammation in the temporomandibular joints. This includes heat and ice compresses, eating a soft food or pain-free diet, bilateral chewing identifying and decreasing daytime muscle tension and modification of their sleep position. Beyond self management I do believe that they would benefit from a mandibular intraoral appliance if the CT results show DJD. In addition I've recommended rehabilitation with physical therapy depending on CT results and success of self care/daytime habit changes. The goal of treatment is to improve pain, function and focus on long-term self-management strategies. I do believe that by following these treatment recommendations there is a good prognosis for reduction of symptoms. Today greater than 50% of the 60 minute visit was spent counseling and coordinating care. This may have included a review of the diagnosis, contributing factors, diagnostic imaging, home self-management strategies and the limitations and expectations. Cost of care and insurance coverage was reviewed and discussed with the patient. [email or web address] Not available 12/09/2019 17:14:55 01/05/2020 01/05/2020 Today I reviewed the pathophysiology of this disorder, potential contributing factors and treatment options with the patient. We reviewed the findings of her CT. Findings include, DJD of the left TMJ. The right TMJ is unremarkable. There were no other abnormalities noted. For complete details regarding her imaging see the radiology report in their EHR. Diagnosis and treatment options were reviewed at today's appointment. I am continuing to recommend rehabilitative care at this time. 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 I explained how the next step is to try to decompress the joint using a mandibular stabilization appliance while sleeping and if that stabilizes the joint and reduces his pain, then he may want to address a full mouth reconstruction to obtain VDO and physicological joint decompression with his DDS. Impressions were taken for an intraoral mandibular stabilization appliance. I've suggested that (s)he return for follow-up care in . Today greater than 50% of the 35 minute visit was spent counseling and coordinating care. This may have included a review of the diagnosis, contributing factors, diagnostic imaging home self-management strategies and the limitations and expectations. [email or web address] Not available 01/05/2020 13:36:40 02/02/2020 02/02/2020 Patient was seen today for follow-up and insertion of a mandibular stabilization intraoral appliance. Diagnosis and contributing factors were reviewed. Questions were answered. Self-management and home exercise techniques were reviewed. Today the intraoral appliance was fit to patient comfort. Instructions on proper use and care were discussed/reviewed both written and verbally. I suggested that (s)he uses the appliance as a retraining tool to aid in relaxing their jaw muscles - put it in 20-30 minutes before bed time, keeping their jaw in a relaxed balanced position, simultaneously applying a heat compress on the jaw. Potential side effects were reviewed. The patient was advised to discontinue oral appliance use should they experience untoward side effects or be unable to return for follow-up care. The patient was advised to return in 4-6 weeks to reassess their progress and continue their treatment plan as previously outlined. In addition to oral appliance insertion today we review home self-care strategies as previously discussed. We discussed additional treatment options including rehabilitative treatment with physical therapy. Today greater than 50% of the 30 minute visit was spent counseling and coordinating care. This may have included a review of the diagnosis, contributing factors, home self-management strategies and the limitations and expectations.h [email or web address] Not available 02/02/2020 12:27:25 Plan of Treatment Reminders Order Date Submit Date Provider Last Modified By Organization Details Last Modified Time Details Appointments None recorded. Lab None recorded. Referral None recorded. Procedures None recorded. Surgeries None recorded. Imaging CT, temporomand ibular joint(s), w/o contrast 2019 020 mmrosak [place] [id number] [facility] [address], [place], [address], 0 17:14:56 Medication Orders None recorded. Patient TargetsNo targets recorded. Patient Instructions Encounter Date Encounter Id Patient Instructions Last Modified By Organization Details Last Modified Time 12/09/2019 [id number] Self Care for TMD [email or web address] Not availab le 12/09/2019 17:11:27 Reason for Referral None Reported. Results Created Date Observation Date Name Description Value Unit Range Abnormal Flag LastModifiedBy Organization Detail LastModifiedTime 12/15/[address], tempo maryana dibul ar joint (s), w/o contr ast No observ ation record ed. [email or web address] Not Available 01/06/2020 10:05:19 Result Notes None recorded. Problems Name Status Onset Date Resolution Date Notes Provider Name and Address Organization Details Recorded Time Arthralgia of temporomandibular joint Active 020 left advanced DJD GARTH Rivera [facility] 0 13:28:43 Bruxism Active GARTH Rivera [facility] 0 17:16:06 Problem Notes None recorded. Procedures Surgical History Date Name Laterality Status Provider Name and Address Organization Details Recorded Time 0 Oral appliance completed GARTH Sutherland [facility] 02/02/2020 11:33:[address] TMJ completed GARTH Rivera [facility] 12/09/2019 17:15:15 Xcapsl ctrc rmvl cplx wo ecp [facility] 12/09/2019 15:37:34 Unlisted px hands/fingers [facility] 12/09/2019 15:37:52 Imaging Results Imaging Date Name Status LastModified by Organization Details LastModified Time 12/15/2019 CT, temporomandibular joint(s), w/o contrast completed juve Information not available 01/06/2020 10:05:19 Procedure Notes None recorded. Medical Equipment None Reported. Allergies Allergen ID Allergen Name Allergen Category Reaction Reaction Severity Criticality Documentation Date Start Date Code Code System Note Provider Name and Address Organization Details Recorded Time 30574 Substance with sulfonami de structure and antibacte rial mechanism of action (substanc e) medicatio n Not available Not available Not available 12/09/2019 [id number] SNOMED Arlette merida [facility] 0 15:32:38 66446 vancomyci n medicatio n fever moderate Not available 02/02/20202009 82822 RxNorm [facility] 0 11:32:55 Medications Name Sig Start Date Stop Date Status Note LastModified by Organization Details LastModified Time desipramine 25 mg tablet active Not Available Not Available Not Available azithromyci n 250 mg tablet 12/08 completed Not Available Not Available Not Available metoprolol succinate ER 50 mg tablet,exte nded release 24 hr active Not Available Not Available Not Available senna 8.6 mg tablet TK 1 T PO BID PRF CONSTIPAT ION active Not Available Not Available No t Available doxycycline hyclate 50 mg capsule active Not Available Not Available N ot Available chlorthalid one 25 mg tablet active Not Available Not Available Not Available ciprofloxac in 250 mg tablet 12/08 completed Not Available Not Available Not Available ciprofloxac in 500 mg tablet 12/08 completed Not Available Not Available Not Available ketorolac 0.5 % eye drops active Not Available Not Available Not Available tamsulosin 0.4 mg capsule active Not Available Not Available Not Available ciprofloxac in 0.3 % eye drops 12/08 completed Not Available Not Available Not Available cefdinir 300 mg capsule active Not Available Not Available Not Available finasteride 5 mg tablet 12/08 completed Not Available Not Available Not Available tobramycin 0.3 %-dexametha sone 0.1 % eye drops,suspe nsion 12/08 completed Not Available Not Available Not Available oxycodone 5 mg tablet active Not Available Not Available No t Available omeprazole active Not Available Not Av ailable Not Available Flomax active Not Available Not Availa ble Not Available Vitals Date Recorded Body height Body mass index (BMI) Body weight Body temperature Heart rate Systolic blood pressure Diastolic blood pressure Provider Name and Address Organization Details Last Updated DateTime 0 170.18 cm 28.2 kg/m2 75422.6 3 g 97.4 [degF] 71 /min 120 mm[Hg] 78 mm[Hg] Arlette LIANG [facility] 0 15:32:18 Date Recorded Body height Body mass index (BMI) Body weight Body temperature Provider Name and Address Organization Details Last Updated DateTime 01/05/2020 170.18 cm 28.2 kg/m2 59577.63 g 98.2 [degF] Rachana Epstein [facility] 01/05/2020 12:28:33 Date Recorded Body height Body mass index (BMI) Body weight Body temperature Heart rate Systolic blood pressure Diastolic blood pressure Provider Name and Address Organization Details Last Updated DateTime 0 170.18 cm 28.2 kg/m2 79999.6 3 g 97.5 [degF] 71 /min 125 mm[Hg] 76 mm[Hg] Rachana Epstein [facility] 0 11:32:40 Social History Question Answer Notes LastModified by Organizat ion Details LastModified Time Tobacco Smoking Status Never Smoker Arlette merida [facility] 12/09/2019 15:35:07 What Is Your Level Of Alcohol Consumption? Moderate Information not available 12/09/2019 Auto Related Injury? No Information not available 12/09/2019 What Is Your Level Of Caffeine Consumption? Heavy Information not available 12/09/2019 Are You Currently Employed? No Information not available 12/09/2019 Currently No Information not available 12/09/2019 What Type Of Diet Are You Following? REGULAR Information not available 12/09/2019 Education 4 Year College Information not available 12/09/2019 Live Alone Or With Others? With Others Information not available 12/09/2019 Marital Status Informatio n not available 12/09/2019 If Injured, Is Litigation Ongoing? No Information not available 12/09/2019 General Stress Level Medium Information not available 12/09/2019 Do You Use Any Illicit Or Recreational Drugs? No Information not available 12/09/2019 Work Related Injury? No Information not available 12/09/2019 Sex: Unknown Functional Status Question Answer Note LastModified by Organization D etails LastModified Time What is your exercise level? Heavy Information not available 12/09/2019 Mental Status None recorded. Family History Relationship Description Onset Age of this Age Resolved Age Notes Mother Family history of malignant neoplasm Father Substance abuse Medical History Condition Response Coronary Artery Disease N Hyperthyroidism N Premenstrual syndrome (PMS) N MRSA N Emphysema N COPD N Depression N Pneumonia N Anxiety Disorder N Acid Reflux (GERD) Y Stroke N Neck Injury N Neurologic Disorder N Rheumatoid Arthritis N Fibromyalgia N Kidney Disease N Post traumatic stress disorder (PTSD) N Brain Tumors N Meningitis N Back pain N Tuberculosis N History of radiation therapy N Asthma N Physical or sexual abuse N Substance Abuse N Peripheral Vascular Disease N Vertigo N Sleep Disorder N Pulmonary Embolism N Glaucoma N Lung Disease N Pacemaker N Serious Illness or Injuries N Back Injury N Liver Disease N Parkinson's Disease N Anemia N Multiple Sclerosis N Immune System Disorder N Heart Attack (SC) N Diabetes N Hyperlipidemia N Psoriasis N Reflux/GERD N Aneurysm N Heart Disease N Hypertension Y Other Y Gout N Head Trauma/Injury N Irritable bowel syndrome N Obstructive Sleep Apnea N Muscle, Joint, or Bone Problems N Autoimmune disease N Vision or Eye Problems N Arthritis N Cancer N History of chemotherapy N Headaches N Migraines N Pancreatic disease N Bleeding Disorder N AIDS/HIV N Hepatitis N Neuropathy N Chronic fatigue syndrome N Hypothyroidism N Eating disorder N High Cholesterol N Organ Transplant N Allergies/Hayfever N Stomach Ulcers N Seizures/Epilepsy N Sjogren's syndrome N Dementia N Mental Problems N Osteoporosis N Immunizations Vaccine Type Date Status Provider Name and Address Organization Details Recorded Time Influenza, split virus, trivalent, preservative 12/02/2019 completed GARTH [place] - [facility] 12/09/2019 15:34:55 Past Encounters Encounter ID Performer Location Encounter Start Date Encounter Closed Date Diagnosis/Indication Diagnosis SNOMED-CT Code [id number] Ángel Summers [address] [place] [id number] 12/09/2019 15:17:17 12/09/2019 16:36:33 Arthralgia of temporomandibular joint 35773768 Bruxism [id number] Ángel Epps [address] [place] [id number] 01/05/2020 12:23:27 01/05/2020 13:53:16 Arthralgia of temporomandibular joint 15540705 Bruxism [id number] Ángel Epps [address] [place] [id number] 02/02/2020 11:08:57 02/02/2020 12:33:27 Bruxism 240563891 Arthralgia of temporomandibular joint 23879890 Health Concerns Section Related Observation LastModified by Organization Detai ls LastModified Time None Recorded Concern Status LastModified by Organization Details LastModified Time None Recorded Advance Directives Directive None Recorded Payers Encounter Date Sequence Insurance Name Policy Number Policy Macedo Covered Member ID Macedo Member ID Guarantor Name 12/09/2019 1 [place] [employer] Alvaro Hogue [id number] Alvrao Hogue 12/09/2019 2 [place] [id number] Alvaro Hogue [id number] Alvaro Hogue 01/05/2020 1 [place] [employer] Alvaro Hogue [id number] Alvaro Hogue 01/05/2020 2 [place] [id number] Alvaro Cardenason [id number] Alvaro Cardenason 02/02/2020 1 [place] [employer] Alvaro Hogue [id number] Alvaro Hogue 02/02/2020 2 [place] (MEDICARE REPLACEMENT HMO) [id number] Alvaro Hogue [id number] Alvaro Hogue Notes Date Note Type Note Provider Name and Address Organization Details Recorded Time 12/09/2019 text/html HPI Notes: gener al HPI for jaw, face, TMD pain Reported by patient. Onset: started 1 year(s) ago Location: left Quality: sharp; sharp when chewing Severity: moderate; pain level 2-4/10 Duration intermittent daily Symptom triggers: chews hard/crunchy/chewy foods Aggravating Factors: chewing Alleviating Factors: none Associated Symptoms: no jaw locking; jaw clicking left; jaw popping left Prior Treatment: soft diet Symptoms status stable Patient presents today for evaluation of a possible temporomandibular disorder. These symptoms are chronic and began with no clear triggering events. Previous consultation include evaluation with his/her dentist. Symptoms are left sided only and aggravated by jaw use and function. The patient is aware of teeth clenching. Pain on left side a year ago. He was eating hard tough bread and heard a snap. Since that incident his jaw and teeth does not seem to be aligned. He has had on and off pain for 1 year. Its hard for him to chew and eat hard food. Pain is always left sided. GARTH Rivera - [facility] 12/09/2019 17:17:31 01/05/2020 text/html HPI Notes: gener al HPI for jaw, face, TMD pain Reported by patient. Onset: started 1 year(s) ago Location: left Quality: sharp; sharp when chewing Severity: mild; pain level 0-4/10 Duration intermittent daily Symptom triggers: chews hard/crunchy/chewy foods Aggravating Factors: chewing Alleviating Factors: none Associated Symptoms: no jaw locking; jaw clicking left; jaw popping left Prior Treatment: soft diet Symptoms status unchanged Patient presents today for follow-up. They report jaw symptoms which are unchanged since the previous visit. Symptoms and pertinent information along with prior data was reviewed, updated and documented in the patient history of present illness. Patient rates the pain intensity as 0-4 on a scale of 0 to 10. Patient is partially engaged in active treatment at this time. GARTH Rivera - [facility] 01/05/2020 13:37:59 02/02/2020 text/html HPI Notes: gener al HPI for jaw, face, TMD pain Reported by patient. Onset: started 1 year(s) ago Location: left Quality: sharp; sharp when chewing Severity: mild; pain level 0-2/10 Duration intermittent daily Symptom triggers: chews hard/crunchy/chewy foods Aggravating Factors: chewing Alleviating Factors: none Associated Symptoms: no jaw locking; jaw clicking left; jaw popping left Prior Treatment: soft diet Symptoms status unchanged Patient presents today for insertion of a mandibular stabilization oral appliance. They note no changes in symptoms which along with prior data was reviewed, updated and documented in the patient history of present illness. (S)he describes compliance with home self care as previously recommended. Alvaro states he has not seen PT. GARTH Rivera - [facility] 02/02/2020 12:27:40
[2023-09-04 10:24] LABS: HCO3 VBG 30 mmol/L (21-28); Lactate* 0.6 mmol/L (0.5-1.9); PCO2 VBG 50 mmHG (40-50); PO2 VBG < 30.1 mmHG (25-47); pH VBG 7.378 (7.32-7.43)
[2023-09-04 10:26] LABS: Basophils Absolute Auto 0.03 K/uL (0.00-0.30); Basophils Percent Auto 0.5 % (0.0-3.0); Eosinophils Absolute Auto 0.06 K/uL (0.00-0.50); Hematocrit 40.6 % (37.0-53.0); Hemoglobin* 13.5 gm/dL (13.5-17.5); Immature Granulocytes Abs Auto 0.01 K/uL (0.00-0.30); Immature Granulocytes Pct Auto 0.2 %; Lymphocytes Percent Auto 14.4 % (20-44); Mean Corpuscular HGB Conc 33 gm/dL (32-36); Mean Corpuscular Hemoglobin 27 pg (26-34); Mean Corpuscular Volume 81 fL (80-100); Monocytes Percent Auto 13.3 % (0.0-11.0); Neutrophils Absolute Auto 4.26 K/uL (1.7-7.0); Neutrophils Percent Auto 70.6 % (42.0-72.0); Platelet Count* 242 K/uL (140-440); RDW Coefficient of Variation % 12.4 % (11.5-15.5); White Blood Count* 6.03 K/uL (4.50-11.00)
[2023-09-04 10:30] LABS: Slide Review Reflex No
[2023-09-04 10:54] LABS: D Dimer Quantitative* 1.33 ug/ml (0.00-0.50)
[2023-09-04 11:04] LABS: PCR FLU A Negative PCR FLU A (Negative); PCR FLU B Negative PCR FLU B (Negative); PCR RSV Negative PCR RSV (Negative); SARS PCR* Negative SARS-CoV-2 (Negative)
--- NOTE | 2023-09-04 11:36 | CRLHL7_ITS ---
For Patients: As a result of the Cures Act, medical imaging exams and procedure reports are released immediately into your electronic medical record. You may view this report before your referring provider. If you have questions, please contact your health care provider. Indication: Syncope, elevated D-dimer, cough Technique: Volumetric multidetector CT images of the chest were obtained after the administration of IV contrast. 95 cc Isovue 370 low osmolar intravenous contrast Comparison: None available. Findings: The thoracic inlet and thyroid gland are unremarkable. The thoracic aorta is nonaneurysmal. There is no central filling defect to suggest pulmonary embolism. There are calcified mediastinal and hilar lymph nodes. There is moderate central bronchial thickening and minimal traction bronchiectasis predominantly of the lower lobes with mucoid impaction. There is basilar atelectasis and parenchymal scar with minimal peripheral airspace opacities likely representing minimal pulmonary edema and/or pneumonitis changes. There is calcified granuloma within the right lower lobe. The partially visualized upper abdominal viscera are within normal limits. The thoracic vertebral body heights are grossly maintained with moderate to severe degenerative disc disease. There is straightening of the normal thoracic kyphosis without evidence of significant spondylolisthesis or displaced fracture. Impression: Moderate central bronchial thickening and mucoid impaction consistent with sequela of likely chronic bronchitis changes with minimal peripheral interstitial and ground-glass opacities which may represent minimal pneumonitis changes. No dense consolidation. No evidence of pulmonary embolus. Please note that all CT scans at this facility use dose modulation, iterative reconstruction, and/or weight-based dosing when appropriate to reduce radiation dose to as low as reasonably achievable. Dictated by Wilner Banda MD @ 09/04/2023 1:11:15 PM (Electronically Signed)
[2023-09-04 11:55] LABS: Alanine Aminotransferase* 32 U/L (4-50); Albumin* 3.9 g/dL (3.3-5.0); Alkaline Phosphatase* 85 U/L (40-150); Anion Gap 5 mEq/L (7-15); Aspartate Amino Transferase* 41 U/L (12-35); Bilirubin Total* 0.7 mg/dL (0.1-1.5); Blood Urea Nitrogen* 14 mg/dL (7-30); Calcium* 8.2 mg/dL (8.4-10.6); Carbon Dioxide* 28 mmol/L (20-32); Chloride* 92 mmol/L (96-114); Creatinine* 0.9 mg/dL (0.5-1.5); Estimated Glomerular Filt Rate 87 ml/min; Glucose* 99 mg/dL (60-115); Potassium* 4.6 mmol/L (3.6-5.1); Sodium* 125 mmol/L (135-149); Total Protein* 6.7 g/dL (6.0-8.3)
[2023-09-04 11:57] LABS: C Reactive Protein* 4.1 mg/dL (0.5-1.0); Ethanol* < 0.01 % (0.01-0.03)
[2023-09-04 12:04] LABS: Creatine Kinase* 328 U/L (54-186)
[2023-09-04 12:14] LABS: Appearance Urine Clear (Clear); Bilirubin Urine Negative (Negative); Blood Urine Trace-intact (Negative); Color Urine Yellow (Yellow); Glucose Urine Negative (Negative); Ketones Urine Negative (Negative); Leukocyte Esterase Urine Negative (Negative); Nitrite Urine Negative (Negative); Protein Urine Negative (Negative); Specific Gravity Urine 1.015 (1.000-1.030)
[2023-09-04 12:23] LABS: Bacteria Urine Few; RBC Urine 0-2 (0-2); Squamous Epithelial Cell Urine Few (None-Few); WBC Urine 0-2 (0-5)
[2023-09-04 13:17] LABS: NT Pro B Type NatriureticPept* 313 pg/mL; Procalcitonin* 0.09 ng/mL (<0.50); Troponin I* < 0.01 ng/mL (0.01-0.04)
[2023-09-04] MEDS: 0.9 % SODIUM CHLORIDE 1000 ml 1,000 ML 500 ML IV (13:53)
[2023-09-04] MEDS: predniSONE 20 MG TABLET 40 MG PO (13:53)
--- NOTE | 2023-09-04 15:46 | P.IMHP_ITS ---
<Statement entered by Beverley Harden - 09/04/23 18:08> I Beverley NULLS personally scribed for Dr. Quach on 09/04/23 at 1630. Documented by User: Beverley Harden 09/04/23 18:08 Hospitalist- H&P: HPI History of Present Illness Time Seen by Provider: 15:00 Date Seen: 09/04/23 Chief complaint: Syncopal Narrative: Alvaro Hogue is a 78 year old male presenting to the floor from the ER due to two syncopal episodes. His is bedside and informed me of an episode the patient had yesterday am. 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 He didn't know where he was but the patient reports that he was just coming out of a deep sleep. Then, Bienvenido reassured her that he was fine and his left for the wild. In the evening, last night, Bienvenido was watching TV and woke up on the floor. He lost consciousness and hit his head. He believes he was on the floor for a couple minutes. He then resumed his life activities. This morning his called him and Bienvenido told her he had to put his hearing aids in and he would call her back. He never called her back and when he woke up he was on the bathroom floor. He called his and told her that he had just lost consciousness, hit his head, and was on the bathroom floor. His called 911 and they were brought to the ER. He denies new changes in his routine. He has new medications for his chronic bronchitis including Robitussin with Codeine, albuterol, and Mucinex. He took the Robitussin with Codeine last evening, but stated he has taken it for the past few nights. He denies head and neck pain at this moment. He says that he is normally good with his water intake and has regularly been drinking Gatorade for his chronically low sodium. He smokes for a few years as a teenager in the 70s. For the past 2 months he has been having a chronic cough and pulmonary congestion. His cough is sometimes productive and sometimes not. When it is productive it is a white color. In the beginning of this, he would cough for 24 hours straight, but now it has let up in frequency. His cough is worse when he lays down so he sleeps in a recliner. His cough wakes him up. He and his went to the [facility] on Friday and they prescribed him Benzoate that did not help for the cough. However, albuterol has helped. He has received a Z pack at some point but that did not help. Before this all started, he was very active and now he has decreased activity and cannot walk without coughing. He will be seeing Pulmonology and ENT soon for further work up. He also mentioned that he had left shoulder surgery in July and ever since then he has been having trouble putting his flip flops on because he cannot lift his toes. I have reviewed the ER labs. Notable findings: Hemoglobin normal. Normal platelet. No white count. Elevated D-dimer at 1.33. Total Creatine Kinase high at 328. C-Reactive Protein high at 4.1 Normal pH Mildly elevated HCO3. Chemistries reveal hyponatremia at 125. Normal renal function. Lactate is normal. There is a mild elevation in his AST at 41. Urine did not show signs of infection. UC pending. Negative flu and RSV. Negative COVID screen. Admission EKG shows normal sinus rhythm, 68 beats per minute. LBBB that was also noted on an EKG from 2020. I have reviewed imaging. Cervical spine CT: No acute or traumatic findings on cervical spine CT. Head CT: No intracranial hemorrhage. No acute findings. Chest CTA: Moderate central bronchial thickening and mucoid impaction consistent with sequela of likely chronic bronchitis changes with minimal peripheral interstitial and ground-glass opacities which may represent minimal pneumonitis changes. No dense consolidation. No evidence of pulmonary embolus. Review of Systems Status of ROS: Reports: 6 or more systems reviewed and unremarkable except as noted in History and below Const: Denies: fever Eyes: Denies: change in vision ENMT: Denies: throat pain, neck pain or ear pain Cardio: Denies: chest pain, palpitations, edema, lightheadedness or shortness of breath with exertion Resp: Reports: cough (Sometimes productive with a white sputum. Worse with laying down. ); Denies: shortness of breath Musculo: Denies: neck pain Neuro: Reports: other (Denies tingling in extremities. ); Denies: headache or numbness in extremities [facility] Medical History (Updated 09/04/23 @ 19:07 by Colette Quach MD) Colon polyp ?K63.5 - Polyp of colon (ICD-10) Depression ?F32.A - Depression, unspecified (ICD-10) Normal esophagogastroduodenoscopy (EGD) ?Z01.89 - Encounter for other specified special examinations (ICD-10) Acute urinary retention ?R33.8 - Other retention of urine (ICD-10) Chronic bronchitis ?J42 - Unspecified chronic bronchitis (ICD-10) Asthma ?J45.909 - Unspecified asthma, uncomplicated (ICD-10) Hyponatremia ?E87.1 - Hypo-osmolality and hyponatremia (ICD-10) Ascending aorta dilatation ?I77.810 - Thoracic aortic ectasia (ICD-10) Incomplete bladder emptying ?R33.9 - Retention of urine, unspecified (ICD-10) Benign prostatic hyperplasia ?N40.0 - Benign prostatic hyperplasia without lower urinary tract symptoms (ICD-10) Sensorineural hearing loss, bilateral ?H90.3 - Sensorineural hearing loss, bilateral (ICD-10) Chronic eustachian tube dysfunction ?H69.80 - Other specified disorders of Eustachian tube, unspecified ear (ICD- 10) Erectile dysfunction ?N52.9 - Male erectile dysfunction, unspecified (ICD-10) Essential hypertension ?I10 - Essential (primary) hypertension (ICD-10) Dry eyes ?H04.123 - Dry eye syndrome of bilateral lacrimal glands (ICD-10) Surgical History History of arthroscopy of left shoulder (07/03/23) ?Z98.890 - Other specified postprocedural states (ICD-10) Hx of cataract extraction ?Z98.49 - Cataract extraction status, unspecified eye (ICD-10) H/O hand surgery ?Z98.890 - Other specified postprocedural states (ICD-10) History of laparoscopic cholecystectomy (10/27/08) ?Z90.49 - Acquired absence of other specified parts of digestive tract (ICD- 10) History of arthroscopy of right shoulder (01/06/15) ?Z98.890 - Other specified postprocedural states (ICD-10) History of arthroscopy of right knee (03/15/16) ?Z98.890 - Other specified postprocedural states (ICD-10) Family History (Updated 09/04/23 @ 18:49 by Colette Quach MD) Mother Liver cancer, Onset Age: 92 Social History (Updated 09/04/23 @ 18:51 by Colette Quach MD) Narrative: , Radha, is here with him today and helps give history. Denies tobacco use, smoked for a few years 30 years ago. Drinks 1-5 beers every other week. Denies recreational drugs. Wishes to be a FULL CODE. What is your current living situation?: I presently have a place to live Problems where you live: no known problems Problems where you live details: n/a In the past 12 months, utilities in danger of being shut off: no In past 12 months, lack of transportation kept you from medical appts, meetings, work, or getting things needed for daily living: no In the past 12 mos, have been you worried that your food would run out before you had money to buy more?: never true In the past 12 mos, the food you bought just didn't last and you didn't have money to buy more?: never true Highest level of school completed/degree received: Bachelor's degree Smoking Status: Former smoker Do you use any of these nicotine containing products: None How often do you have a drink containing alcohol: 2-4 times a month Alcohol type: beer How many standard drinks containing alcohol do you have on a typical day: 1 or 2 How often do you have six or more drinks on one occasion: Less than monthly AUDIT-C Alcohol total score: 3 Non-prescribed substance use: denies use Caffeine: Yes How often does anyone, including family, friends and others, physically hurt you : never How often does anyone, including family, friends and others, insult or talk down to you: never How often does anyone, including family, friends and others, threaten you with harm: never How often does anyone, including family, friends and others, scream or curse at you: never Gender Identity: male service: Yes Meds Home Medications and Allergies Home Medications ?Medication ?Instructions ?Recorded ?Confirmed ?Type cyclosporine 0.05 % eye drops 1 drp ophthalmic (eye) Q12H 02/01/22 09/04/23 History (Restasis MultiDose) desipramine 25 mg tablet 25 mg PO HS 02/01/22 09/04/23 History omeprazole 20 mg capsule,delayed 20 mg PO DAILY 02/01/22 09/04/23 History release tamsulosin 0.4 mg capsule 0.4 mg PO BID 02/01/22 09/04/23 History metoprolol succinate 100 mg 100 mg PO HS 02/05/23 09/04/23 History tablet,extended release 24 hr albuterol sulfate 2.5 mg/3 mL 2.5 mg inhalation Q4H PRN dyspnea 09/04/23 09/04/23 History (0.083 %) solution for nebulization codeine 10 mg-guaifenesin 100 mg/5 5 ml PO Q6H PRN 09/04/23 09/04/23 History mL oral liquid (Virtussin AC) guaifenesin 600 mg tablet, 600 mg PO BID PRN 09/04/23 09/04/23 History extended release 12 hr (Mucinex) Allergies Allergy/AdvReac Type Severity Reaction Status Date / Time vancomycin Allergy Intermediate high fever Verified 09/04/23 09:53 ciprofloxacin Allergy Mild elevated Verified 09/04/23 09:53 temp losartan Allergy Mild Cough Verified 09/04/23 09:53 Sulfa (Sulfonamide Allergy Mild Hives Verified 09/04/23 09:53 Antibiotics) Exam Narrative: Exam Narrative: Bienvenido is a very pleasant 78 year old man. He is laying comfortably in bed. He is able to have a conversation with me and answers questions appropriately. Const: Vital Signs, click to edit/add: Vital Signs - 24 hr 09/04/23 09:47 09/04/23 10:10 09/04/23 11:04 Temperature 97.2 F L Pulse Rate 70 Pulse Rate [Pulse Oximeter] 69 Pulse Rate [orthos tatic lying Left P ulse Oximeter] Pulse Rate [orthos tatic sitting Left Pulse Oximeter] Pulse Rate [orthos tatic standing Lef t Pulse Oximeter] Respiratory Rate 18 Blood Pressure Blood Pressure [Ri ght Upper Arm] 127/80 Blood Pressure [or thostatic lying Ri ght Arm] Blood Pressure [or thostatic sitting Right Arm] Blood Pressure [or thostatic standing Right Arm] Pulse Oximetry 96 99 97 Oxygen Delivery [place] thod Room Air 09/04/23 11:06 09/04/23 11:15 09/04/23 11:20 Temperature Pulse Rate 71 70 Pulse Rate [Pulse Oximeter] Pulse Rate [orthos tatic lying Left P ulse Oximeter] 66 Pulse Rate [orthos tatic sitting Left Pulse Oximeter] 68 Pulse Rate [orthos tatic standing Lef t Pulse Oximeter] 69 Respiratory Rate 18 Blood Pressure 123/76 Blood Pressure [Ri ght Upper Arm] Blood Pressure [or thostatic lying Ri ght Arm] 130/78 Blood Pressure [or thostatic sitting Right Arm] 121/64 Blood Pressure [or thostatic standing Right Arm] 118/72 Pulse Oximetry 99 98 Oxygen Delivery Me thod Room Air 09/04/23 11:21 09/04/23 11:24 09/04/23 11:25 Temperature Pulse Rate 69 74 71 Pulse Rate [Pulse Oximeter] Pulse Rate [orthos tatic lying Left P ulse Oximeter] Pulse Rate [orthos tatic sitting Left Pulse Oximeter] Pulse Rate [orthos tatic standing Lef t Pulse Oximeter] Respiratory Rate 18 16 16 Blood Pressure 130/78 121/64 118/72 Blood Pressure [Ri ght Upper Arm] Blood Pressure [or thostatic lying Ri ght Arm] Blood Pressure [or thostatic sitting Right Arm] Blood Pressure [or thostatic standing Right Arm] Pulse Oximetry 98 98 96 Oxygen Delivery Me thod Room Air Room Air Room Air 09/04/23 11:30 09/04/23 11:45 09/04/23 12:00 Temperature Pulse Rate 70 66 65 Pulse Rate [Pulse Oximeter] Pulse Rate [orthos tatic lying Left P ulse Oximeter] Pulse Rate [orthos tatic sitting Left Pulse Oximeter] Pulse Rate [orthos tatic standing Lef t Pulse Oximeter] Respiratory Rate Blood Pressure Blood Pressure [Ri ght Upper Arm] Blood Pressure [or thostatic lying Ri ght Arm] Blood Pressure [or thostatic sitting Right Arm] Blood Pressure [or thostatic standing Right Arm] Pulse Oximetry 98 99 96 Oxygen Delivery Me thod 09/04/23 12:28 09/04/23 12:30 09/04/23 12:45 Temperature Pulse Rate 73 73 68 Pulse Rate [Pulse Oximeter] Pulse Rate [orthos tatic lying Left P ulse Oximeter] Pulse Rate [orthos tatic sitting Left Pulse Oximeter] Pulse Rate [orthos tatic standing Lef t Pulse Oximeter] Respiratory Rate Blood Pressure Blood Pressure [Ri ght Upper Arm] Blood Pressure [or thostatic lying Ri ght Arm] Blood Pressure [or thostatic sitting Right Arm] Blood Pressure [or thostatic standing Right Arm] Pulse Oximetry 98 98 95 Oxygen Delivery Me thod 09/04/23 13:01 09/04/23 13:15 09/04/23 13:30 Temperature Pulse Rate 73 68 75 Pulse Rate [Pulse Oximeter] Pulse Rate [orthos tatic lying Left P ulse Oximeter] Pulse Rate [orthos tatic sitting Left Pulse Oximeter] Pulse Rate [orthos tatic standing Lef t Pulse Oximeter] Respiratory Rate Blood Pressure Blood Pressure [Ri ght Upper Arm] Blood Pressure [or thostatic lying Ri ght Arm] Blood Pressure [or thostatic sitting Right Arm] Blood Pressure [or thostatic standing Right Arm] Pulse Oximetry 98 95 94 Oxygen Delivery Me thod 09/04/23 13:45 09/04/23 14:00 09/04/23 14:15 Temperature Pulse Rate 74 67 72 Pulse Rate [Pulse Oximeter] Pulse Rate [orthos tatic lying Left P ulse Oximeter] Pulse Rate [orthos tatic sitting Left Pulse Oximeter] Pulse Rate [orthos tatic standing Lef t Pulse Oximeter] Respiratory Rate Blood Pressure Blood Pressure [Ri ght Upper Arm] Blood Pressure [or thostatic lying Ri ght Arm] Blood Pressure [or thostatic sitting Right Arm] Blood Pressure [or thostatic standing Right Arm] Pulse Oximetry 96 93 96 Oxygen Delivery Me thod Common normals: no apparent distress and oriented x3 HENMT: Head and scalp: abrasion (Left forehead. Right posterior occiput. ) Neck & C-Spine: Common normals: full ROM Other: No midline tenderness of the spine. Resp: Common normals: normal respiratory effort and no use of accessory muscles; not clear to ascultation bilaterally Auscultation: rhonchi; not clear to auscultation bilaterally Cardio: Common normals: regular rate, regular rhythm, S1 normal heart sound, S2 normal heart sound, no gallops, no clicks, no murmurs and no rub Rate: regular rate Rhythm: regular rhythm Heart sounds: S1 normal and S2 normal Extremity: Common normals: normal to inspection and no pedal edema Neuro: Common normals: oriented x3, CN's II-XII intact bilaterally, moves all extremities, no focal motor deficits and no sensory deficits noted Motor exam: other (Left foot drop. ) Other: Left eyelid ptosis (normal for him). Psych: Common normals: mental status grossly normal, thought process normal and speech normal Speech: normal speech Thought process: normal thought process Hospitalist - H&P: Result Labs Labs: Short CBC 09/04/23 Range/Units 10:20 WBC 6.03 (4.50-11.00) K/uL Hgb 13.5 (13.5-17.5) gm/dL Hct 40.6 (37.0-53.0) % Plt Count 242 (140-440) K/uL BMP 09/04/23 10:20 Sodium 125 L Potassium 4.6 Chloride 92 L Carbon Dioxide 28 BUN 14 Creatinine 0.9 Glucose 99 Calcium 8.2 L Cardiac Enzymes 09/04/23 Range/Units 10:20 Total Creatine Kinase 328 H (54-186) U/L Troponin I < 0.01 L (0.01-0.04) ng/mL Liver Function 09/04/23 Range/Units 10:20 Total Bilirubin 0.7 (0.1-1.5) mg/dL AST 41 H (12-35) U/L ALT 32 (4-50) U/L Alkaline Phosphatase 85 (40-150) U/L Albumin 3.9 (3.3-5.0) g/dL Urine 09/04/23 Range/Units 12:08 Urine Color Yellow (Yellow) Urine Appearance Clear (Clear) Urine pH 7.0 (5.0-8.5) Ur Specific [place] 1.015 (1.000-1.030) Urine Protein Negative (Negative) Urine Glucose (UA) Negative (Negative) Assessment and Plan Assessment and plan (1) Syncopal episodes: Problem comment: - Suspected syncopal episodes. - MRI head ordered due to events and new left foot drop. Based off of the results, neurology may need to be consulted. - Orthostatic VS done in ER reviewed and not meeting criteria for orthostatic hypotension. - Daily orthostatic vitals and other vitals per routine. - No previous ECHO results found in ours or [facility] records. Order an echo. - Ongoing cardiac monitoring. - Walk with assistance; fall risk. - Unsure of the ideology of the suspected syncopal episodes so seizure pads are appropriate to utilize. - Anticipate overnight stay with discharge after ECHO, MRI if results are unremarkable. Consider outpatient Zio patch and f/u with PCP for possible cardiology and neuro referrals if appropriate. Status: Acute (2) Left foot drop: Problem comment: - Patient reported symptom started with shoulder surgery and has been persistent and stable since then. Has not previously mentioned this to a provider or had a work up. MRI ordered due to syncopal events and new left foot drop. Based off of the results, neurology may need to be consulted. Consult PT and OT. Status: Acute (3) Hyponatremia: Problem comment: - Patient has a history of chronic hyponatremia and was recently diagnosed with SIADH. - Fluid restriction at 1500 mL. - Counseled the patient to reduce his ingestion of Gatorade and free water. - PCP recommended stopping the desipramine. - Recheck sodium in am. Status: Acute (4) Asthma: Problem comment: - Patient reports 2 month cough. Has tried course of antibiotics and prednisone without much benefit. Concern for asthma vs pulomonary fibrosis vs GERD vs allergies vs other. Patient has outpatient referrals to pulmonology and ENT. I r ecommended considering allergy testing as symptoms got better when patient left his house for vacation and worsened upon returning. - Sputum culture. - Consult RT. - Pulmonary hygiene with [employer]. - Patient's oxygen has been stable. Last O2 at 98%. Does not need continuous pulse oximetry. - Ordered Prednisone. Status: Suspected Total Time Spent Total Time Spent: I spent 45 minutes reviewing the patient's chart and interviewing the patient. Documented by User: Colette Quach MD 09/04/23 19:29 Hospitalist- H&P: HPI History of Present Illness Date Seen: 09/04/23 Chief complaint: Syncopal [facility] Medical History (Updated 09/04/23 @ 19:07 by Colette Quach MD) Colon polyp ?K63.5 - Polyp of colon (ICD-10) Depression ?F32.A - Depression, unspecified (ICD-10) Normal esophagogastroduodenoscopy (EGD) ?Z01.89 - Encounter for other specified special examinations (ICD-10) Acute urinary retention ?R33.8 - Other retention of urine (ICD-10) Chronic bronchitis ?J42 - Unspecified chronic bronchitis (ICD-10) Asthma ?J45.909 - Unspecified asthma, uncomplicated (ICD-10) Hyponatremia ?E87.1 - Hypo-osmolality and hyponatremia (ICD-10) Ascending aorta dilatation ?I77.810 - Thoracic aortic ectasia (ICD-10) Incomplete bladder emptying ?R33.9 - Retention of urine, unspecified (ICD-10) Benign prostatic hyperplasia ?N40.0 - Benign prostatic hyperplasia without lower urinary tract symptoms (ICD-10) Sensorineural hearing loss, bilateral ?H90.3 - Sensorineural hearing loss, bilateral (ICD-10) Chronic eustachian tube dysfunction ?H69.80 - Other specified disorders of Eustachian tube, unspecified ear (ICD- 10) Erectile dysfunction ?N52.9 - Male erectile dysfunction, unspecified (ICD-10) Essential hypertension ?I10 - Essential (primary) hypertension (ICD-10) Dry eyes ?H04.123 - Dry eye syndrome of bilateral lacrimal glands (ICD-10) Surgical History History of arthroscopy of left shoulder (07/03/23) ?Z98.890 - Other specified postprocedural states (ICD-10) Hx of cataract extraction ?Z98.49 - Cataract extraction status, unspecified eye (ICD-10) H/O hand surgery ?Z98.890 - Other specified postprocedural states (ICD-10) History of laparoscopic cholecystectomy (10/27/08) ?Z90.49 - Acquired absence of other specified parts of digestive tract (ICD- 10) History of arthroscopy of right shoulder (01/06/15) ?Z98.890 - Other specified postprocedural states (ICD-10) History of arthroscopy of right knee (03/15/16) ?Z98.890 - Other specified postprocedural states (ICD-10) Family History (Updated 09/04/23 @ 18:49 by Colette Quach MD) Mother Liver cancer, Onset Age: 92 Social History (Updated 09/04/23 @ 18:51 by Colette Quach MD) Narrative: , Radha, is here with him today and helps give history. Denies tobacco use, smoked for a few years 30 years ago. Drinks 1-5 beers every other week. Denies recreational drugs. Wishes to be a FULL CODE. What is your current living situation?: I presently have a place to live Problems where you live: no known problems Problems where you live details: n/a In the past 12 months, utilities in danger of being shut off: no In past 12 months, lack of transportation kept you from medical appts, meetings, work, or getting things needed for daily living: no In the past 12 mos, have been you worried that your food would run out before you had money to buy more?: never true In the past 12 mos, the food you bought just didn't last and you didn't have money to buy more?: never true Highest level of school completed/degree received: Bachelor's degree Smoking Status: Former smoker Do you use any of these nicotine containing products: None How often do you have a drink containing alcohol: 2-4 times a month Alcohol type: beer How many standard drinks containing alcohol do you have on a typical day: 1 or 2 How often do you have six or more drinks on one occasion: Less than monthly AUDIT-C Alcohol total score: 3 Non-prescribed substance use: denies use Caffeine: Yes How often does anyone, including family, friends and others, physically hurt you : never How often does anyone, including family, friends and others, insult or talk down to you: never How often does anyone, including family, friends and others, threaten you with harm: never How often does anyone, including family, friends and others, scream or curse at you: never Gender Identity: male service: Yes Meds Home Medications and Allergies Home Medications ?Medication ?Instructions ?Recorded ?Confirmed ?Type cyclosporine 0.05 % eye drops 1 drp ophthalmic (eye) Q12H 02/01/22 09/04/23 History (Restasis MultiDose) desipramine 25 mg tablet 25 mg PO HS 02/01/22 09/04/23 History omeprazole 20 mg capsule,delayed 20 mg PO DAILY 02/01/22 09/04/23 History release tamsulosin 0.4 mg capsule 0.4 mg PO BID 02/01/22 09/04/23 History metoprolol succinate 100 mg 100 mg PO HS 02/05/23 09/04/23 History tablet,extended release 24 hr albuterol sulfate 2.5 mg/3 mL 2.5 mg inhalation Q4H PRN dyspnea 09/04/23 09/04/23 History (0.083 %) solution for nebulization codeine 10 mg-guaifenesin 100 mg/5 5 ml PO Q6H PRN 09/04/23 09/04/23 History mL oral liquid (Virtussin AC) guaifenesin 600 mg tablet, 600 mg PO BID PRN 09/04/23 09/04/23 History extended release 12 hr (Mucinex) Allergies Allergy/AdvReac Type Severity Reaction Status Date / Time vancomycin Allergy Intermediate high fever Verified 09/04/23 09:53 ciprofloxacin Allergy Mild elevated Verified 09/04/23 09:53 temp losartan Allergy Mild Cough Verified 09/04/23 09:53 Sulfa (Sulfonamide Allergy Mild Hives Verified 09/04/23 09:53 Antibiotics) Exam Resp: Auscultation: rhonchi lower bilaterally Assessment and Plan Assessment and plan (1) Syncopal episodes: Problem comment: - Suspected syncopal episodes. - MRI head ordered due to events and new left foot drop. Based off of the results, neurology may need to be consulted. - Orthostatic VS done in ER reviewed and not meeting criteria for orthostatic hypotension. - Daily orthostatic vitals and other vitals per routine. - No previous ECHO results found in ours or [facility] records. Order an echo. - Ongoing cardiac monitoring. - Walk with assistance; fall risk. - Unsure of the ideology of the suspected syncopal episodes so seizure pads are appropriate to utilize. - Anticipate overnight stay with discharge after ECHO, MRI if results are unremarkable. Consider outpatient Zio patch and f/u with PCP for possible cardiology and neuro referrals if appropriate. Status: Acute (2) Left foot drop: Problem comment: - Patient reported symptom started with shoulder surgery and has been persistent and stable since then. Has not previously mentioned this to a provider or had a work up. MRI ordered due to syncopal events and new left foot drop. Based off of the results, neurology may need to be consulted. Consult PT and OT. Status: Acute (3) Hyponatremia: Problem comment: - Patient has a history of chronic hyponatremia and was recently diagnosed with SIADH. - Fluid restriction at 1500 mL. - Counseled the patient to reduce his ingestion of Gatorade and free water. - PCP recommended stopping the desipramine. - Recheck sodium in am. Status: Acute (4) Asthma: Problem comment: - Patient reports 2 month cough. Has tried course of antibiotics and prednisone without much benefit. Concern for asthma vs pulomonary fibrosis vs GERD vs allergies vs other. Patient has outpatient referrals to pulmonology and ENT. I recommended considering allergy testing as symptoms got better when patient left his house for vacation and worsened upon returning. - Sputum culture. - Consult RT. - Pulmonary hygiene with [facility]. - Patient's oxygen has been stable. Last O2 at 98%. Does not need continuous pulse oximetry. - Ordered Prednisone. Status: Suspected Plan VTE risk is low, no pharmacologic or mechanical prophylaxis needed. I have independently interviewed and examined this patient and reviewed his records from our hospital as well as [facility], reviewed the above documentation by Beverley Harden and agree with her assessment and plan. 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 He presented through the ER today after having woken up on the floor two separate times overnight. These episodes were unwitnessed as his was not home at the time. On the first occasion he had a bleeding abrasion on his forehead. He denies any lightheadedness, dizziness, palpitations, chest pain, or any prodromal symptoms. He denies any new numbness, weakness or tingling. He denies any new headaches or vision changes. He does complain of a headache that comes on after an hour of coughing, but this is nothing new. He is not on a blood thinner. He denies any head or neck pain at this time. He has had a cough for the past 2 months, it started a week after he had his left shoulder surgery at the beginning of July. He has seen multiple providers for this cough and had various imaging studies. One of the studies showed possible pulmonary fibrosis. He has also completed a course of antibiotics and prednisone without much effect. He was recently referred to pulmonology and ENT for the concern of chronic cough. He has also had a recent workup for chronic hyponatremia, and it was determined that this is likely SIADH. His sodium several days ago in the clinic was 125, which is the same as his level today. Denies any nausea, vomiting, or weakness. Also of note is that he has been having trouble putting flip-flops on his left foot because he cannot lift his toes. This is something new that has been going on since he had his shoulder surgery in July. It has not changed and is not worse or different in the last few days. General: No acute distress. Awake alert oriented x3. HEENT: Left forehead abrasion, hemostatic, pupils equally round and reactive to light and accommodation. Previous are eyelid surgeries are apparent, well- healed. Oropharynx clear. Mucous membranes are moist. No cervical lymphadenopathy, thyromegaly or carotid bruits. No JVD. Cardiovascular: Regular rate and rhythm. No murmurs, gallops, or rubs. Chest: No increased work of breathing. Frequent, tight cough noted without sputum production. Bilateral lower rhonchi, no crackles or wheezes. Abdomen: Bowel sounds present. Soft, nondistended, nontender. No hepatosplenomegaly or masses. Extremities: No edema, no cyanosis or clubbing. Skin: No jaundice, no pallor, no rashes. Neuro: There are no focal deficits although exam was slightly limited due to recent left shoulder surgery. I was unable to evaluate Romberg due to recent left shoulder surgery. Gait is within normal limits. Cranial nerves 2-12 are intact. Extraocular movements are full. No nystagmus. No facial asymmetry. Tongue is midline. Peripheral vision and vision are grossly intact. With the exception of left footdrop, strength is 5/5 in all 4 extremities. Light touch sensation is intact in face body and extremities. Coordination is intact in upper and lower extremities, left hand coordination slower due to recent left shoulder surgery, but still intact. A/P: Admit for observation for syncope monitoring on telemetry, obtain echocardiogram and MRI head due to footdrop. For cough, patient has noted that this improves with albuterol and his cough is tight with rhonchi on exam, I am concerned about the possibility of asthma exacerbation for which I have started him on prednisone and I have ordered an RT consult. He already has an outpatient referral to pulmonology and ENT. Hyponatremia is chronic and appears to be at baseline. Discussed outpatient therapies for SIADH and have recommended decreasing free water intake. Patient has a follow-up appointment with his primary care provider in 5 days.
[2023-09-04] MEDS: IBUPROFEN 600 MG TABLET PO (17:07)
[2023-09-04] MEDS: ALBUTEROL SULFATE 2.5 MG/3 ML VIAL.NEB NEB ×2 (17:08→20:38)
--- NOTE | 2023-09-04 19:24 | PC.NURSE ---
End of shift: Patient pleasant and cooperative, A&O. VSS, afebrile. Patient reports dizziness upon standing. Tolerating regular diet. 1A walker and gaitbelt. Intermittent cough.
[2023-09-04] MEDS: METOPROLOL SUCCINATE (XL) 100 MG TAB PO (20:35)
[2023-09-04] MEDS: OMEPRAZOLE 20 MG CAPSULE DR PO (20:35)
[2023-09-04] MEDS: TAMSULOSIN HCL 0.4 MG CAPSULE PO (20:36)
[2023-09-04] MEDS: SODIUM CHLORIDE 0.9 % (FLUSH) 10 ML SYRINGE 5 ML IVF (20:38)
[2023-09-05] MEDS: GUAIF/CODEINE 200/20MG/10 ML SOLUTION 5 ML PO ×2 (00:03→08:11)
[2023-09-05 01:45] VITALS: PULSE 78
[2023-09-05 02:02] VITALS: BP 148/81; PULSE 82; RESP 17; TEMP 36.4; O2SAT 94
--- NOTE | 2023-09-05 06:28 | PC.NURSE ---
Patient pleasant, alert and oriented. Patient impulsive at times. Ambulated well with stand by assist of one; no noted unsteady gait. PRN neb and PRN cough syrup given. Sputum specimen obtained and sent to lab; culture results pending. Denied pain.?
[2023-09-05 06:54] VITALS: PULSE 81
[2023-09-05 07:40] VITALS: BP 121/81; PULSE 81; PULSE 82; RESP 17; RESP 20; TEMP 36.4; O2SAT 94
[2023-09-05] MEDS: OMEPRAZOLE 20 MG CAPSULE DR PO (08:12)
[2023-09-05] MEDS: ALBUTEROL SULFATE 2.5 MG/3 ML VIAL.NEB NEB (08:12)
[2023-09-05] MEDS: TAMSULOSIN HCL 0.4 MG CAPSULE PO (08:12)
[2023-09-05] MEDS: SODIUM CHLORIDE 0.9 % (FLUSH) 10 ML SYRINGE 5 ML IVF (08:12)
[2023-09-05] MEDS: predniSONE 20 MG TABLET 40 MG PO (08:12)
[2023-09-05 09:01] LABS: Sodium* 129 mmol/L (135-149)
[2023-09-05 11:31] VITALS: BP 127/74; PULSE 83; RESP 18; TEMP 36.6; O2SAT 97
--- NOTE | 2023-09-05 12:59 | PM.DS1 ---
DS: Providers Provider Date Seen: 09/05/23 Date of admission: 09/04/23 14:23 Primary care physician: Adam Peterson MD Admitting Clinician: Anay Dhaliwal MD Consults: 09/04/23 17:40 Consult to Physical Therapy [CONS] Routine Comment: Reason(s) for PT Consult:: Evaluate and Treat Any Restrictions?:: No Restrictions Consult to Respiratory Therapy [CONS] Routine Comment: Reason(s) for RT Consult:: Consult 09/04/23 17:44 Consult to Occupational Therapy [CONS] Routine Comment: Reason(s) for OT Consult:: Evaluate and Treat Any Restrictions?:: No Restrictions Attending Physician on discharge: Colette Quach MD DS: Diagnosis Discharge Diagnosis (1) Syncopal episodes: Status: Acute Problem details: - Suspected syncopal episodes. Etiology unclear. Has mild BPPV symptoms and h/o BPPV, but no prodromal symptoms to syncopal episodes. These were unwitnessed. Has not had any further episodes. CT head okay. Telemetry showed NSR, EKG okay, no bradycardia or arrhythmias. ECHO okay. Orthostatic VS okay. Will order outpatient MRI (for 8 week symptom of LLE weakness) and Ziopatch. Have patient f/u with [facility] to discuss if need for neuro or cardiology referrals. Patient to contact [facility]. (2) Essential hypertension: Status: Chronic (3) Left foot drop: Status: Acute Problem details: - Patient reported symptom started with shoulder surgery and has been persistent and stable since then. Has not previously mentioned this to a provider or had a work up.MRI head ordered due to events and new left foot drop (started 8 weeks ago). Patient desires to go home today and get MRI as outpatient. PT and OT evaluated. Outpatient PT ordered. (4) Asthma: Status: Suspected Problem details: - Patient reports 2 month cough. No hypoxia. Has tried course of antibiotics and prednisone without much benefit. Concern for asthma vs pulomonary fibrosis vs GERD vs allergies vs other. Patient has outpatient referrals to pulmonology and ENT. I recommended considering allergy testing as symptoms got better when patient left his house for vacation and worsened upon returning. - Sputum culture pending. - Improved a bit on prednisone. Complete 5 day course. (5) Chronic bronchitis: Status: Chronic (6) Hyponatremia: Status: Acute Problem details: - Patient has a history of chronic hyponatremia and was recently diagnosed with SIADH. - Fluid restriction at 1500 mL. Improved to 129 today. Recommended outpatient free water restriction and increase salt use if hydration needed on a hot day. - PCP recommended stopping the desipramine. I also discussed this with patient. (7) Cough: Status: Chronic (8) BPPV (benign paroxysmal positional vertigo): Status: Acute Problem details: - Some dizziness with turning over in bed with PT. Attempting Dallas-Halpike maneuver's today prior to discharge. 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 He presented through the ER today after having woken up on the floor two separate times overnight. These episodes were unwitnessed as his was not home at the time. On the first occasion he had a bleeding abrasion on his forehead. He denies any lightheadedness, dizziness, palpitations, chest pain, or any prodromal symptoms. He denies any new numbness, weakness or tingling. He denies any new headaches or vision changes. He does complain of a headache that comes on after an hour of coughing, but this is nothing new. He is not on a blood thinner. He denies any head or neck pain at this time. He has had a cough for the past 2 months, it started a week after he had his left shoulder surgery at the beginning of July. He has seen multiple providers for this cough and had various imaging studies. One of the studies showed possible pulmonary fibrosis. He has also completed a course of antibiotics and prednisone without much effect. He was recently referred to pulmonology and ENT for the concern of chronic cough. He has also had a recent workup for chronic hyponatremia, and it was determined that this is likely SIADH. His sodium several days ago in the clinic was 125, which is the same as his level today. Denies any nausea, vomiting, or weakness. Also of note is that he has been having trouble putting flip-flops on his left foot because he cannot lift his toes. This is something new that has been going on since he had his shoulder surgery in July. It has not changed and is not worse or different in the last few days. Etiology unclear. Has mild BPPV symptoms and h/o BPPV, but no prodromal symptoms to syncopal episodes, and BPPV is not a likely cause of syncope. These episodes were unwitnessed. Has not had any further episodes. CT head okay. Telemetry showed NSR, EKG okay, no bradycardia or arrhythmias. ECHO okay. Orthostatic VS okay. Will order outpatient MRI (for 8 week symptom of LLE weakness) and Ziopatch. Have patient f/u with [facility] to discuss if need for neuro or cardiology referrals. Patient to contact [facility]. Time Spent with Patient Time attestation: Total time spent providing and/or coordinating discharge services: 40 minutes due to discussion with patient and later with patient and , attempt to contact clinic provider and reviewing results of ECHO. Exam Narrative: Exam Narrative: General: No acute distress. Awake alert oriented x3. Cardiovascular: Regular rate and rhythm. No murmurs, gallops, or rubs. Chest: No increased work of breathing. Frequent, tight cough noted without sputum production. Bilateral lower rhonchi - a little better today, no crackles or wheezes. Abdomen: Bowel sounds present. Soft, nondistended, nontender. No hepatosplenomegaly or masses. Extremities: No edema, no cyanosis or clubbing. Neuro: Exam unchanged from yesterday with persistent left foot drop. Const: Vital Signs, click to edit/add: Vital Signs - 24 hr 09/04/23 13:01 09/04/23 13:15 09/04/23 13:30 Temperature Pulse Rate 73 68 75 Pulse Rate [Pulse Oximeter] Pulse Rate [orthos tatic lying Left P ulse Oximeter] Pulse Rate [orthos tatic sitting Left Pulse Oximeter] Pulse Rate [orthos tatic standing Lef t Pulse Oximeter] Respiratory Rate Blood Pressure [Le ft Arm] Blood Pressure [or thostatic lying Ri ght Arm] Blood Pressure [or thostatic sitting Right Arm] Blood Pressure [or thostatic standing Right Arm] Pulse Oximetry 98 95 94 Oxygen Delivery Me thod 09/04/23 13:45 09/04/23 14:00 09/04/23 14:15 Temperature Pulse Rate 74 67 72 Pulse Rate [Pulse Oximeter] Pulse Rate [orthos tatic lying Left P ulse Oximeter] Pulse Rate [orthos tatic sitting Left Pulse Oximeter] Pulse Rate [orthos tatic standing Lef t Pulse Oximeter] Respiratory Rate Blood Pressure [Le ft Arm] Blood Pressure [or thostatic lying Ri ght Arm] Blood Pressure [or thostatic sitting Right Arm] Blood Pressure [or thostatic standing Right Arm] Pulse Oximetry 96 93 96 Oxygen Delivery Me thod 09/04/23 14:40 09/04/23 15:00 09/04/23 15:58 Temperature 98.3 F Pulse Rate Pulse Rate [Pulse Oximeter] 69 69 Pulse Rate [orthos tatic lying Left P ulse Oximeter] Pulse Rate [orthos tatic sitting Left Pulse Oximeter] Pulse Rate [orthos tatic standing Lef t Pulse Oximeter] Respiratory Rate 18 18 18 Blood Pressure [Le ft Arm] 141/82 H Blood Pressure [or thostatic lying Ri ght Arm] Blood Pressure [or thostatic sitting Right Arm] Blood Pressure [or thostatic standing Right Arm] Pulse Oximetry 98 98 Oxygen Delivery Me thod Room Air Room Air 09/04/23 17:48 09/04/23 19:00 09/04/23 22:04 Temperature 97.6 F 98.2 F Pulse Rate Pulse Rate [Pulse Oximeter] 90 87 Pulse Rate [orthos tatic lying Left P ulse Oximeter] 79 Pulse Rate [orthos tatic sitting Left Pulse Oximeter] 85 Pulse Rate [orthos tatic standing Lef t Pulse Oximeter] 79 Respiratory Rate 20 20 Blood Pressure [Le ft Arm] 123/82 135/84 Blood Pressure [or thostatic lying Ri ght Arm] 149/78 H Blood Pressure [or thostatic sitting Right Arm] 139/80 Blood Pressure [or thostatic standing Right Arm] 119/72 Pulse Oximetry 93 93 Oxygen Delivery Me thod Room Air Room Air 09/05/23 01:45 09/05/23 02:02 09/05/23 06:54 Temperature 97.6 F Pulse Rate 78 81 Pulse Rate [Pulse Oximeter] 82 Pulse Rate [orthos tatic lying Left P ulse Oximeter] Pulse Rate [orthos tatic sitting Left Pulse Oximeter] Pulse Rate [orthos tatic standing Lef t Pulse Oximeter] Respiratory Rate 17 Blood Pressure [Le ft Arm] 148/81 H Blood Pressure [or thostatic lying Ri ght Arm] Blood Pressure [or thostatic sitting Right Arm] Blood Pressure [or thostatic standing Right Arm] Pulse Oximetry 94 Oxygen Delivery Me thod Room Air 09/05/23 07:40 09/05/23 07:40 09/05/23 11:31 Temperature 97.6 F 97.8 F Pulse Rate Pulse Rate [Pulse Oximeter] 82 81 83 Pulse Rate [orthos tatic lying Left P ulse Oximeter] Pulse Rate [orthos tatic sitting Left Pulse Oximeter] Pulse Rate [orthos tatic standing Lef t Pulse Oximeter] Respiratory Rate 17 20 18 Blood Pressure [Le ft Arm] 121/81 127/74 Blood Pressure [or thostatic lying Ri ght Arm] Blood Pressure [or thostatic sitting Right Arm] Blood Pressure [or thostatic standing Right Arm] Pulse Oximetry 94 97 Oxygen Delivery Me thod Room Air Room Air DS: Data Data Completed and Pending Labs on day of discharge: Labs from last 24 hours 09/05/23 09/04/23 08:40 10:20 Sodium 129 L Troponin I < 0.01 L NT-Pro-B Natriuret Pep 313 Procalcitonin 0.09 Preliminary micro results at discharge 09/04/23 12:08 Urine Culture - Preliminary Urine,Clean Catch <10,000 COL/ML GRAM POSITIVE YONG 09/05/23 02:09 Sputum Culture - Preliminary Sputum - Expectorated Sputum Culture in Progress Ordering Physician: Doreen Nino M.D. Date of Service: 09/04/23 Procedure(s): CT cervical spine wo con Accession Number(s): [id number] cc: Doreen Nino M.D.; Adam Peterson M.D.~ For Patients: As a result of the Century Cures Act, medical imaging exams and procedure reports are released immediately into your electronic medical record. You may view this report before your referring provider. If you have questions, please contact your health care provider. INDICATION: Fell, hit head, neck pain. COMPARISON: None. TECHNIQUE: CT of the cervical spine without contrast. Multiplanar axial, coronal, and sagittal reformats were reconstructed. FINDINGS: No fracture. No listhesis. Straightening of the normal cervical lordosis. Advanced multilevel disc degenerative change. Advanced multilevel facet arthritis. Multilevel neural foraminal narrowing. No severe central canal stenosis. No destructive bony lesions. Limited exam of the soft tissues is normal. IMPRESSION: No acute or traumatic findings on cervical spine CT. Please note that all CT scans at this facility use dose modulation, iterative reconstruction, and/or weight-based dosing when appropriate to reduce radiation dose to as low as reasonably achievable. Dictated by Erin Adam MD @ 09/04/2023 10:47:06 AM (Electronically Signed) Ordering Physician: Doreen Nino M.D. Date of Service: 09/04/23 Procedure(s): CT head/brain wo con Accession Number(s): [id number] cc: Doreen Nino M.D.; Adam Peterson M.D.~ For Patients: As a result of the Cures Act, medical imaging exams and procedure reports are released immediately into your electronic medical record. You may view this report before your referring provider. If you have questions, please contact your health care provider. INDICATION: Syncope x2, hit head, neck pain. COMPARISON: None. TECHNIQUE: CT of the brain / head without intravenous contrast. Multiplanar axial, coronal, and sagittal reformats were reconstructed. FINDINGS: No intracranial hemorrhage. Normal appearance of the white matter. No acute or subacute cortically based infarct. No mass or mass effect. Normal ventricles. No skull fractures. No worrisome focal bone lesion. Very small right frontal osteoma. Asymmetric advanced degenerative change in the left temporomandibular joint. IMPRESSION: No intracranial hemorrhage. No acute findings. Please note that all CT scans at this facility use dose modulation, iterative reconstruction, and/or weight-based dosing when appropriate to reduce radiation dose to as low as reasonably achievable. Dictated by Erin Adma MD @ 09/04/2023 10:45:07 AM (Electronically Signed) Ordering Physician: Doreen Nino M.D. Date of Service: 09/04/23 Procedure(s): CT angio chest PE protocol Accession Number(s): [id number] cc: Doreen Nino M.D.; Adam Peterson M.D.~ For Patients: As a result of the Cures Act, medical imaging exams and procedure reports are released immediately into your electronic medical record. You may view this report before your referring provider. If you have questions, please contact your health care provider. Indication: Syncope, elevated D-dimer, cough Technique: Volumetric multidetector CT images of the chest were obtained after the administration of IV contrast. 95 cc Isovue 370 low osmolar intravenous contrast Comparison: None available. Findings: The thoracic inlet and thyroid gland are unremarkable. The thoracic aorta is nonaneurysmal. There is no central filling defect to suggest pulmonary embolism. There are calcified mediastinal and hilar lymph nodes. There is moderate central bronchial thickening and minimal traction bronchiectasis predominantly of the lower lobes with mucoid impaction. There is basilar atelectasis and parenchymal scar with minimal peripheral airspace opacities likely representing minimal pulmonary edema and/or pneumonitis changes. There is calcified granuloma within the right lower lobe. The partially visualized upper abdominal viscera are within normal limits. The thoracic vertebral body heights are grossly maintained with moderate to severe degenerative disc disease. There is straightening of the normal thoracic kyphosis without evidence of significant spondylolisthesis or displaced fracture. Impression: Moderate central bronchial thickening and mucoid impaction consistent with sequela of likely chronic bronchitis changes with minimal peripheral interstitial and ground-glass opacities which may represent minimal pneumonitis changes. No dense consolidation. No evidence of pulmonary embolus. Please note that all CT scans at this facility use dose modulation, iterative reconstruction, and/or weight-based dosing when appropriate to reduce radiation dose to as low as reasonably achievable. Dictated by Wilner Banda MD @ 09/04/2023 1:11:15 PM (Electronically Signed) Discharge Plan Discharge Disposition: Home, Self-Care Date of Admission: 09/04/23 14:23 Attending Provider on Discharge: Colette Quach Primary Care Provider: Adam Peterson Condition: Improved Anticipated Discharge Date/Time: 09/05/23 16:10 Discharge Medications: New prednisone 20 mg Tablet 40 mg PO DAILYWM 3 Days Qty: 6 0RF Continued metoprolol succinate 100 mg tablet extended release 24 hr 100 mg PO HS tamsulosin 0.4 mg capsule 0.4 mg PO BID Patient Comments: TAKE 2 CAPSULES (0.8 MG) BY MOUTH ONCE DAILY AFTER A MEAL. desipramine 25 mg tablet 25 mg PO HS Patient Comments: TAKE 1 TABLET BY MOUTH AT BEDTIME omeprazole 20 mg capsule,delayed release(DR/EC) 20 mg PO DAILY Restasis MultiDose 0.05 % drops 1 drp ophthalmic (eye) Q12H Patient Comments: BOTH EYES albuterol sulfate 2.5 mg /3 mL (0.083 %) solution for nebulization 2.5 mg inhalation Q4H PRN (Reason: dyspnea) codeine-guaifenesin [Virtussin AC] 10-100 mg/5 mL liquid 5 ml PO Q6H PRN guaifenesin [Mucinex] 600 mg tablet extended release 12hr 600 mg PO BID PRN Discharge Orders: Discharge Order (Routine); Ordered 09/05/23 Ordered By: Colette Quach Additional Instructions: - Do not drive until you have contacted the DMV to notify them of syncopal episodes - F/u with Dr. Peterson as previously scheduled, next Friday - Outpatient PT for left foot drop. - Through [facility]: MRI brain with and without contrast for LLE weakness and syncope - results to [facility]. - Through [facility]: Zio patch for syncope - results to [facility]. - Take prednisone as prescribed and use [facility] (can be used with nebs) for cough. Activity Level: No Restrictions Discharge Diet: Regular Follow Up Appointments: Adam Peterson MD [Primary Care Provider] - (next week) Forms: [employer] Info Instructions
--- NOTE | 2023-09-05 14:31 | PC.NURSE ---
discharge. Patient has been very pleasant. he is alert x4. no pain. Ambulated well with stand by assist. he has a drop foot. .PRN neb and PRN cough syrup given. tele shows NSR. went over discharge packet with pt and . went over meds, appointment, education and instructions. pt took all belongings and paperwork with him. he got a w/c ride to his car. to [facility] and mylene set up home
== END 2023-09-05 14:25 | disposition home or self-care (01) ==
LOC: ED 13:47 → MEDSURG 14:23
PROVIDERS: Family Medicine; Admitting Provider Family Medicine; Emergency Provider Family Medicine; PCP Family Medicine; Visit Provider Family Medicine
DX: R55 Syncope and collapse (principal); E87.1 Hypo-osmolality and hyponatremia; R82.90 Unspecified abnormal findings in urine; J42 Unspecified chronic bronchitis; M21.372 Foot drop, left foot; R05.9 Cough, unspecified; R74.01 Elevation of levels of liver transaminase levels; R79.1 Abnormal coagulation profile; S00.81XA Abrasion of other part of head, initial encounter; I10 Essential (primary) hypertension; H81.10 Benign paroxysmal vertigo, unspecified ear; F32.A Depression, unspecified; H02.402 Unspecified ptosis of left eyelid; E87.6 Hypokalemia; K21.9 Gastro-esophageal reflux disease without esophagitis; H90.3 Sensorineural hearing loss, bilateral; Z87.891 Personal history of nicotine dependence; Z98.49 Cataract extraction status, unspecified eye; Z90.49 Acquired absence of other specified parts of digestive tract; Z98.890 Other specified postprocedural states; Z11.52 Encounter for screening for COVID-19
CPT/HCPCS: 36415; 70450; 71275; 72125; 80053; 81001; 82077; 82550; 82803; 83605; 83735; 83880; 84145; 84295; 84484; 85025; 85379; 86140; 87070; 87086; 87631; 93005; 93306; 94640; 94664; 94761; 96360; 96361; 97116; 97161; 97165; 99285; G0378; A9270; J7030; J7512; Q9967

== ENCOUNTER 2023-09-06 15:30 | Emergency (ER) | payer MEDICARE, SELFPAY ==
[2023-09-06 15:35] VITALS: BP 124/90; PULSE 69; RESP 20; TEMP 36.5; O2SAT 94; BMI 28.2
--- OUTSIDE RECORDS SUMMARY | 2023-09-06 16:58 | XMS_ITS | Clinical Summary ---
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 Name Role Phone Tinotelionel Adam Talbert Primary Care Provider [phone] Daniel Wick MD Unavailable [phone] Allergies Active Allergy Reactions Criticality Noted [...] Comments Blood Pressure 148/74 01/31/2022 4:30 PM PROTOTYPE FABRICATOR Pulse 87 01/31/2022 4:30 PM PROTOTYPE FABRICATOR Temperature 36.8 ??C (98.3 ??F) 01/31/2022 4:30 PM CS T Respiratory Rate 18 01/31/2022 4:30 PM PROTOTYPE FABRICATOR Oxygen Saturation 100% 01/31/2022 4:30 PM PROTOTYPE FABRICATOR Inhaled Oxygen Concentration - - Weight 81.6 kg (180 lb) 01/31/2022 4:30 PM PROTOTYPE FABRICATOR Height 170.2 cm (5' 7) 10/05/2019 11:21 [...] and gender (Katty et al., NEJM, DOI: 10.1056/QWBKri7290648) Blood STRUCTURE OF LEFT UPPER LIMB / Unknown Venipuncture / Unknown 09/22/2021 10:38 PM CDT 09/22/2021 10:47 PM CDT Bryant Yap MD LAB - BLOOD ORDERABL ES LABORATORY [facility] [address] (1st floor, no room number) [place] [address], [facility] [phone] from Last 3 Months or Most Recently Relevant to Health Maintenance Care Teams Rough And Truing Machine Operator Relationship Specialty Start Date End Date [facility]ot[facility], Adam Talbert PCP - General Family Practice 09/01/19 Daniel Wick MD [address] [place] [address] Assigned PCP 09/12/21
--- OUTSIDE RECORDS SUMMARY | 2023-09-06 16:58 | XMS_ITS | Clinical Summary ---
Author Organization [facility] Address [address] [place] [address] Care Team Providers Care Bench Inspector Name Role Phone Elsewhere, Pcp Primary Care Provider Unavailabl e Source Comments Patient records contain information from all sites at [facility]. For routine questions regarding patient records, call [phone] during business hours, M-F 8:00 AM - 5:00 PM Central Time. Record requests for emergency care only can be directed to [phone] at any time.[facility] Allergies Active Allergy Reactions Criticality Noted Date [...] week 01/30/2021 How often do you attend [facility] health system or zoroastrian services? 1 to 4 times per year 01/30/2021 Do you belong to any clubs o r organizations such as baptism groups, unions, fraternal or athletic groups, or [...] and heating? Not hard at all 01/30/2021 [facility] - Occupational Stress [...] place to sleep or slept in a assisted (including now)? No 01/30/2021 Nutrition Answer Date [...] 08/2018, 08/03/2018, Additional history exists Care Teams Bench Inspector Relationship Specialty Start Date End Date Elsewhere, Pcp PCP - General Internal Medicine 06/29/22
--- OUTSIDE RECORDS SUMMARY | 2023-09-06 16:58 | XMS_ITS | Referral Summary ---
Author Organization [facility] Address [address] [place] [address] Care Team Providers Care Draw Frame Operator Name Role Phone Tinotelionel Adam Talbert Primary Care Provider [phone] Daniel Wick MD Unavailable [phone] Allergies Active Allergy Reactions Criticality Noted [...] Comments Blood Pressure 148/74 01/31/2022 4:30 PM VALVE MECHANIC Pulse 87 01/31/2022 4:30 PM VALVE MECHANIC Temperature 36.8 ??C (98.3 ??F) 01/31/2022 4:30 PM CS T Respiratory Rate 18 01/31/2022 4:30 PM VALVE MECHANIC Oxygen Saturation 100% 01/31/2022 4:30 PM VALVE MECHANIC Inhaled Oxygen Concentration - - Weight 81.6 kg (180 lb) 01/31/2022 4:30 PM VALVE MECHANIC Height 170.2 cm (5' 7) 10/05/2019 11:21 [...] and gender (Katty et al., NEJM, DOI: 10.1056/[id number]) Blood STRUCTURE OF LEFT UPPER LIMB / Unknown Venipuncture / Unknown 09/22/2021 10:38 PM CDT 09/22/2021 10:47 PM CDT Bryant Yap MD LAB - BLOOD ORDERABL ES [facility] [address] (1st floor, no room number) [place] [address], [facility] [phone] from Last 3 Months or Most Recently Relevant to Health Maintenance Care Teams Draw Frame Operator Relationship Specialty Start Date End Date Votel, Adam Talbert PCP - General Family Practice 09/01/19 Daniel Wick MD [address] [place] [address] Assigned PCP 09/12/21
--- OUTSIDE RECORDS SUMMARY | 2023-09-06 16:58 | XMS_ITS | Encounter Summary ---
Author Organization [facility] Address [address] [place] [address] Care Team Providers Care Pneumatic Tube Fitter Name Role Phone Votel, Adam Talbert Primary Care Provider [phone] Daniel Wick MD Unavailable [phone] Encounter Details Date Type Department Care Team (Late st Contact Info) Description 01/27/2023 My[facility] Medical Advice [address] [address] Lois Mensah RN Social History [...] on filedocumented in this encounter Care Teams Pneumatic Tube Fitter Relationship Specialty Start Date End Date Votel, Adam Talbert PCP - General Family Practice 09/01/19 Daniel Wick MD [address] [place], [place] [address] Assigned PCP 09/12/21 documented as of this encounter
--- OUTSIDE RECORDS SUMMARY | 2023-09-06 16:58 | XMS_ITS ---
Author Organization [facility] Address [address] [place] [address] Care Team Providers Care Screen Printing Equipment Setter Name Role Phone Unavailable Unavailable Unavailable Surgery Details Not on file Complications Check Surgery Details section. Procedure Estimated Blood Loss Check Surgery Details section. Procedure Findings Check Surgery Details section. Procedure Specimens Taken Check Surgery Details section.
--- OUTSIDE RECORDS SUMMARY | 2023-09-06 16:58 | XMS_ITS | Referral Summary ---
Author Organization [facility] Address [address] [place] [address] Care Team Providers Care Composing Machine Operator/Tender Name Role Phone Elsewhere, Pcp Primary Care Provider Unavailabl e Source Comments Patient records contain information from all sites at [facility]. For routine questions regarding patient records, call [phone] during business hours, M-F 8:00 AM - 5:00 PM Central Time. Record requests for emergency care only can be directed to [phone] at any time.[facility] Allergies Active Allergy Reactions Criticality Noted Date [...] week 01/30/2021 How often do you attend [facility] or christianity services? 1 to 4 times per year 01/30/2021 Do you belong to any clubs o r organizations such as zoroastrian groups, unions, fraternal or athletic groups, or [...] and heating? Not hard at all 01/30/2021 [facility] - Occupational [...] place to sleep or slept in a care home (including now)? No 01/30/2021 Nutrition Answer Date [...] of Treatment Not on file Care Teams Composing Machine Operator/Tender Relationship Specialty Start Date End Date Elsewhere, Pcp PCP - General Internal Medicine 06/29/22
--- OUTSIDE RECORDS SUMMARY | 2023-09-06 16:58 | XMS_ITS | Continuity of Care Document ---
Author Name [facility] Organization [facility] Care Team Providers Care Supervisor Game Farm Name Role Phone [facility] Unavailable Unavailable Problems Combined list of problems from Department of [facility] and [facility] Affairs facilities. It does not include entries that were removed or entered in error. Problem Status Onset Date Problem Type Date of Resolution Comments Source Ascending aorta dilatation Active Condition [facility] Benign Prostatic Hypertrophy with Outflow Obstruction (SCT 416368438) Active Condition [facility] Depression ([facility] 12027559) Active Condition [facility] Erectile Dysfunction ([facility] 300269585) Active Condition [facility] GERD - Gastro-Esophageal Reflux Disease ([facility] 473039198) Active Condition [facility] Hearing loss Active Condition [facility] Diagnosis: ICD-10-CM H90.3 Sensorineural hearing loss, bilateral Active Diagnosis [facility] Diagnosis: ICD-10-CM Z23 Encounter for immunization Active Diagnosis [facility] Diagnosis: ICD-10-CM Z46.1 Encounter for fitting and adjustment of hearing aid Active Diagnosis [facility] Diagnosis: ICD-10-CM H91.90 Unspecified hearing loss, unspecified ear Active Diagnosis [facility] Medications Combined list of outpatient medications from Department [facility] and Veterans Affairs facilities.Medications provided include 1) outpatient medications from the last 15 months, and 2) patient-reported medications. Medication Details Route Status Patient Instructions Prescription Expires Prescription Number Last Dispense Date Ordering Provider Order Date Order Qty Source CHOLECALCIF MIRANDA TAB CHOLECAL CIFEROL TAB Non-VA TAKE BY MOUTH Nov 13, 2021 Non-VA Document ed by: Dahlia SALDIVAR Document ed at: [facility] ORAL ACTIVE SALDIVAR,SIMI ICA C 2021 [facility] CYCLOSPORIN E 0.05% EMULSION,OP H CYCLOSPO RINE 0.05% EMULSION ,OPH Non-VA Nov 13, 2021 Non-VA Document ed by: Dahlia SALDIVAR Document ed at: [facility] ACTIVE SALDIVAR,ER ICA C 2021 [facility] DESIPRAMINE HCL 25MG TAB DESIPRAM INE HCL 25MG TAB Active TAKE ONE TABLET BY MOUTH EVERY DAY FOR DEPRESSI ON Oct 28, 2022 90 Oct 29, 2023 [id number] A July 17, 2023 Dahlia SALDIVAR [facility] ORAL ACTIVE 10/29/2023 [id number] JANNAER ICA C 2022 90 [facility] DESIPRAMINE HCL 25MG TAB DESIPRAM INE HCL 25MG TAB Disconti nued TAKE ONE TABLET BY MOUTH EVERY DAY FOR DEPRESSI ON Nov 13, 2021 90 Nov 14, 2022 [id number] Nov 07, 2022 Dahlia SALDIVAR [facility] ORAL DISCONT INUED 11/14/2022 [id number] SIMI SALDIVAR ICA C 2021 90 [facility] MARINE LIPID (FISH OIL) CAP,ORAL MARINE LIPID (FISH OIL) CAP,ORAL Non-VA TAKE BY MOUTH TWICE A DAY Nov 13, 2021 Non-VA Document ed by: Dahlia SALDIVAR Document ed at: [facility] ORAL ACTIVE SALDIVAR,ER ICA C 2021 [facility] METOPROLOL TARTRATE 100MG TAB METOPROL OL TARTRATE 100MG TAB Non-VA TAKE ONE TABLET BY MOUTH AT BEDTIME FOR BLOOD PRESSURE Nov 26, 2022 Non-VA Document ed by: Dahlia SALDIVAR Document ed at: [facility] ORAL ACTIVE SALDIVAR,ER ICA C 2022 [facility] OMEPRAZOLE 20MG CAP,EC OMEPRAZO LE 20MG CAP,EC Non-VA TAKE 1 CAPSULE BY MOUTH EVERY DAY Nov 13, 2021 Non-VA Document ed by: Dahlia SALDIVAR Document ed at: [facility] ORAL ACTIVE SALDIVAR,ER ICA C 2021 [facility] TADALAFIL TAB TADALAFI L TAB Non-VA TAKE BY MOUTH Nov 13, 2021 Non-VA Document ed by: Dahlia SALDIVAR Document ed at: [facility] ORAL ACTIVE SALDIVAR,ER ICA C 2021 [facility] TAMSULOSIN HCL 0.4MG CAP TAMSULOS IN HCL 0.4MG CAP Non-VA TAKE 1 CAPSULE BY MOUTH TWICE A DAY Nov 13, 2021 Non-VA Document ed by: Dahlia SALDIVAR Document ed at: [facility] ORAL ACTIVE SALDIVARSIMI ICA C 2021 [facility] Allergies, Adverse Reactions, Alerts Combined list of allergies from Department of [facility] and [facility] facilities. It does not include entries that were removed or entered in error. Substance Category Reaction Severity Reaction type Status Date Reported Comments Source CARVEDILOL Propensity to adverse reactions to drug (finding) Hyponatremi a active 3 [facility] LOSARTAN Propensity to adverse reactions to drug (finding) active 2 [facility] SULFA DRUGS Propensity to adverse reactions to drug (finding) Eruption active 2 [facility] VANCOMYCIN Propensity to adverse reactions to drug (finding) Fever active 2 [facility] Immunizations Combined list of available immunizations from the Department of [facility] and [facility] facilities. Immunization Series Date Given Administered By Site Reaction Lot Number CVX Code Drug Hot Box Operator Status Comments Source COVID-19 ([facility]), MRNA, LNP-S, PF, AMADO-SUCROSE, 30 MCG/0.3 ML (AGES 12+ YEARS) 1 2022 MICAH PALACIO LEFT DELTO ID [id number] 309 complet ed [facility] INFLUENZA, HIGH-DOSE, QUADRIVALENT 2022 FLACO BACK RIGHT DELTO ID [id number] 197 complet ed [facility] TDAP 2022 FLACO BACK LEFT DELTO ID [id number] 115 complet ed [facility] COVID-19 ([facility]), MRNA, LNP-S, BIVALENT, PF, 30 MCG/0.3 ML DOSE 2021 300 complet ed [facility] INFLUENZA VACCINE, QUADRIVALENT, ADJUVANTED 2021 205 complet ed [facility] COVID-19 ([facility]), MRNA, LNP-S, PF, 30 MCG/0.3 ML DOSE 2020 208 complet ed [facility] INFLUENZA VACCINE, QUADRIVALENT, ADJUVANTED 2020 205 complet ed [facility] INFLUENZA, HIGH-DOSE, QUADRIVALENT 2019 197 complet ed [facility] INFLUENZA, HIGH DOSE SEASONAL 2018 135 complet ed [facility] ZOSTER RECOMBINANT 2018 187 complet ed [facility] ZOSTER RECOMBINANT 1 2018 187 complet ed [facility] COHEN TA ZOSTER RECOMBINANT 2018 187 complet ed [facility] INFLUENZA, TRIVALENT, ADJUVANTED 2017 168 complet ed [facility] INFLUENZA, TRIVALENT, ADJUVANTED 2016 168 complet ed [facility] INFLUENZA, HIGH DOSE SEASONAL 2015 135 complet ed [facility] INFLUENZA, HIGH DOSE SEASONAL 2014 135 complet ed [facility] PNEUMOCOCCAL CONJUGATE PCV 13 2014 133 complet ed [facility] INFLUENZA, HIGH DOSE SEASONAL 2013 135 complet ed [facility] INFLUENZA, SEASONAL, INJECTABLE 2012 141 complet ed [facility] TDAP 2012 115 complet ed [facility] INFLUENZA, SEASONAL, INJECTABLE 2011 141 complet ed [facility] INFLUENZA, SEASONAL, INJECTABLE 2010 141 complet ed [facility] ZOSTER LIVE 2010 121 complet ed [facility] INFLUENZA, SEASONAL, INJECTABLE 2009 141 complet ed [facility] PNEUMOCOCCAL POLYSACCHARID E PPV23 2009 33 complet ed [facility] NOVEL INFLUENZA-H1N 1-09, ALL FORMULATIONS 2008 128 complet ed [facility] INFLUENZA, UNSPECIFIED FORMULATION 2008 88 complet ed [facility] INFLUENZA, SEASONAL, INJECTABLE 2007 141 complet ed [facility] INFLUENZA, SEASONAL, INJECTABLE 2006 141 complet ed [facility] TD (ADULT), 2 LF TETANUS TOXOID, PRESERVATIVE FREE, ADSORBED 2002 09 complet ed [facility] Vital Signs Combined list of inpatient and outpatient Vital Signs from Department of Defense and Veterans Affairs, ranging from 12 months to all on record, depending upon the facility. Vital Sign Value Date Comments Source Encounters Combined list of: 1) Encounters from [facility] of [facility] facilities going back up to thelast 18 months. 2) Encounters from the Department of Defense facilities going back up to 280 months. Location Location Details Encounter Type Encounter Number Reason For Visit Attending Provider ADM Date DC Date Status Disposition [facility] ECK[facility] [id number] Diagnos is: ICD-10- CM Z46.1 Encount er for fitting and adjustm ent of hearing aid<br/ > DARLINE VOSS M 09/18 [facility] OFF[facility] O/P EST HI 40-54 MIN [id number] Diagnos is: ICD-10- CM H91.90 Unspeci fied hearing loss, unspeci fied ear<br/ > SAGAR SALDIVAR C 11/26 [facility]/CH ECKING [id number] Diagnos is: ICD-10- CM Z46.1 Encount er for fitting and adjustm ent of hearing aid<br/ > Lawson LIGHT R 11/29 [facility] Out[facility] Encounter [id number] 12/01 [facility] [place] ADMIN [id number] Diagnos is: ICD-10- CM Z23 Encount er for immuniz ation<b r/> PAMELA PALACIO M 12/14 [facility] HE[facility] REPAIR/MOD IFYING [id number] Diagnos is: ICD-10- CM H90.3 Sensori neural hearing loss, bilater al
[place] RTHA R 06/18 [facility] Out[facility] Encounter [id number] 09/02 [facility] Social History Combined list of available smoking, tobacco, and other social history from Department of Defense and Veterans Affairs facilities. Social History Type Response Date Comment Sour e Tobacco smoking status NHIS [place] NEVER USED 11/26/2022 [facility] [place] of tobacco use [place] FORMER USER 11/13/2021 [facility] Advance Directives List of completed, amended, or rescinded Advance Directives on record at [facility] facilities. An actual copy of the Directive is not included. Date Advance Directive Provider Source 02/03/2022 ADVANCE DIRECTIVE DISCUSSION IVONNE EISENBERG [facility] 02/03/2022 ADVANCE DIRECTIVE [facility] 12/10/2021 ADVANCE DIRECTIVE DISCUSSION IVONNE EISENBERG [facility] 12/10/2021 ADVANCE DIRECTIVE IVONNE EISENBERG [facility]
--- OUTSIDE RECORDS SUMMARY | 2023-09-06 16:59 | XMS_ITS | Data Portability ---
Author Organization [place] [facility] Address [address] [place] [address] Assessment Encounter Date Assessment Date Assessment LastModified [...] ibular joint(s), w/o contrast 2019 020 [address]ros[address] [place] [id number] [facility] [address], [place], [address], 0 17:14:56 Medication Orders None recorded. Patient TargetsNo targets recorded. 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 Procedures Surgical History Date Name Laterality Status Provider Name and Address Organization Details Recorded Time 0 Oral appliance completed GARTH Sutherland [facility] 02/02/2020 11:33:[address] TMJ completed GARTH Rivera [facility] 12/09/2019 17:15:15 Xcapsl ctrc rmvl cplx wo ecp [facility] 12/09/2019 15:37:34 Unlisted px hands/fingers [facility] 12/09/2019 15:37:52 [...] Name and Address Organization Details Recorded Time 90952 Substance with sulfonami de structure and antibacte rial mechanism of action (substanc e) medicatio n Not available Not available Not available 12/09/2019 [id number] [id number] SNOMED Arlette merida [facility] 0 15:32:38 [id number] vancomyci n medicatio n fever moderate Not available 02/02/20202009 34541 RxNorm [facility]ana [facility] 0 11:32:55 [...] Updated DateTime 0 170.18 cm 28.2 kg/m2 84495.6 3 g 97.4 [degF] 71 /min 120 mm[Hg] 78 mm[Hg] Arlette LIANG [facility] 0 15:32:18 Date Recorded Body height Body mass index (BMI) Body weight Body temperature Provider Name and Address Organization Details Last Updated DateTime 01/05/2020 170.18 cm 28.2 kg/m2 00218.63 g 98.2 [degF] Rachana Epstein [facility] 01/05/2020 12:28:33 Date Recorded Body height Body mass index (BMI) Body weight Body temperature Heart rate Systolic blood pressure Diastolic blood pressure Provider Name and Address Organization Details Last Updated DateTime 0 170.18 cm 28.2 kg/m2 05872.6 3 g 97.5 [degF] 71 /min 125 mm[Hg] 76 mm[Hg] Rachana Epstein [facility] 0 11:32:40 Social History Question Answer Notes LastModified by Organizat ion Details LastModified Time Tobacco Smoking Status Never Smoker Arlette merida [facility] 12/09/2019 [...] History Condition Response Coronary Artery Disease N Other Y Gout N Chronic fatigue syndrome N Hyperthyroidism N Premenstrual syndrome (PMS) N MRSA N Head Trauma/Injury N Emphysema N Irritable bowel syndrome N Hypothyroidism N Lung Disease N Glaucoma N COPD N Depression N Pneumonia N Pacemaker N Obstructive Sleep Apnea N Anxiety Disorder N Muscle, Joint, or Bone Problems N Autoimmune disease N Vision or Eye Problems N Arthritis N Serious Illness or Injuries N Acid Reflux (GERD) Y Cancer N Stroke N Neck Injury N Eating disorder N Back Injury N High Cholesterol N Neurologic Disorder N History of chemotherapy N Liver Disease N Organ Transplant N Rheumatoid Arthritis N Headaches N Fibromyalgia N Kidney Disease N Allergies/Hayfever N Post traumatic stress disorder (PTSD) N Parkinson's Disease N Migraines N Brain Tumors N Anemia N Multiple Sclerosis N Immune System Disorder N Meningitis N Pancreatic disease N Heart Attack ([place]) N Stomach Ulcers N Diabetes N Back pain N Bleeding Disorder N Seizures/Epilepsy N Sjogren's syndrome N Tuberculosis N AIDS/HIV N Hyperlipidemia N History of radiation therapy N Dementia N Asthma N Physical or sexual abuse N Substance Abuse N Psoriasis N Peripheral Vascular Disease N Reflux/GERD N Mental Problems N Vertigo N Sleep Disorder N Hepatitis N Aneurysm N Neuropathy N Heart Disease N Pulmonary Embolism N Hypertension Y Osteoporosis N Immunizations Vaccine Type Date Status Provider Name and Address Organization Details Recorded Time Influenza, split virus, trivalent, preservative 12/02/2019 completed GARTH [place] [facility] 12/09/2019 15:34:55 Past Encounters Encounter ID Performer Location Encounter Start Date Encounter Closed Date Diagnosis/Indication Diagnosis SNOMED-CT Code [id number] Ángel Summers [address] [place] [id number] 12/09/2019 15:17:17 12/09/2019 16:36:33 Arthralgia of temporomandibular joint 27931659 Bruxism [id number] Ángel Epps [address] [place] [address] 01/05/2020 12:23:27 01/05/2020 13:53:16 Arthralgia of temporomandibular joint 42486162 Bruxism [id number] Ángel Epps [address] [place] [address] 02/02/2020 11:08:57 02/02/2020 12:33:27 Bruxism 338546000 Arthralgia of temporomandibular joint 31213489 Health Concerns Section Related Observation LastModified by Organization Detai ls LastModified Time None Recorded Concern Status LastModified by Organization Details LastModified Time None Recorded Advance Directives Directive None Recorded Payers Encounter Date Sequence Insurance Name Policy Number Policy Macedo Covered Member ID Macedo Member ID Guarantor Name 12/09/2019 1 [place] [employer] Alvaro Hogue [id number] Alvaro Hogue 12/09/2019 2 [place] [id number] Alvaro Hogue [id number] Alvaro Hogue 01/05/2020 1 [place] [employer] Alvaro Hogue [id number] Alvaro Hogue 01/05/2020 2 [place] [id number] Alvaro Cardenason [id number] Alvaro Cardenason 02/02/2020 1 [place] [employer] Alvaro Hogue [id number] Alvaro Hogue 02/02/2020 2 [place]MED[place]AC[place] HMO) [id number] Alvaro Hogue [id number] Alvaro Hogue Notes Date Note Type Note [...] is always left sided. GARTH Rivera [facility] 12/09/2019 17:17:31 [...] treatment at this time. GARTH Rivera - [facility] 01/05/2020 13:37:59 [...] has not seen PT. GARTH Rivera [facility] 02/02/2020 12:27:40
[2023-09-06 17:03] LABS: Hematocrit 41.6 % (37.0-53.0); Immature Granulocytes Abs Auto 0.02 K/uL (0.00-0.30); Immature Granulocytes Pct Auto 0.2 %; Lymphocytes Percent Auto 8.6 % (20-44); Mean Corpuscular HGB Conc 34 gm/dL (32-36); Mean Corpuscular Hemoglobin 27 pg (26-34); Mean Corpuscular Volume 80 fL (80-100); Monocytes Percent Auto 2.4 % (0.0-11.0); Neutrophils Percent Auto 88.8 % (42.0-72.0); Platelet Count* 303 K/uL (140-440); RDW Coefficient of Variation % 12.6 % (11.5-15.5); Red Blood Count 5.22 m/uL (4.30-5.90); White Blood Count* 8.75 K/uL (4.50-11.00)
[2023-09-06] MEDS: 0.9 % SODIUM CHLORIDE 1000 ml 1,000 ML IV (17:05)
[2023-09-06 17:07] LABS: Slide Review Reflex No
[2023-09-06 17:16] LABS: Chloride* 97 mmol/L (96-114); Potassium* 4.7 mmol/L (3.6-5.1); Sodium* 129 mmol/L (135-149)
[2023-09-06 17:19] LABS: Anion Gap 8 mEq/L (7-15); Carbon Dioxide* 24 mmol/L (20-32); Creatinine* 0.8 mg/dL (0.5-1.5); Estimated Glomerular Filt Rate 90 ml/min
[2023-09-06 17:20] LABS: Blood Urea Nitrogen* 19 mg/dL (7-30); Calcium* 8.8 mg/dL (8.4-10.6); Glucose* 125 mg/dL (60-115); Magnesium* 2.1 mg/dL (1.5-2.6)
--- NOTE | 2023-09-06 17:33 | ED.DIZZY ---
HPI - Dizziness General Chief Complaint: Dizziness/Vertigo Stated Complaint: dizziness Time Seen by Provider: 09/06/23 15:33 Source: patient Mode of arrival: ambulatory Limitations: no limitations History of Present Illness HPI Narrative: Patient is a 78-year-old male presenting to emergency department for dizziness. States he has been having chronic dizziness now for quite a while but is usually pretty mild. Thinks it might got worse off few weeks ago but cannot say for certain but has noted it has been definitively worse over the past few days. He was admitted 2 days ago to this hospital for syncopal episodes at that time before discharge she was having this severe dizziness which was improved with Apley's maneuver by physical therapy. He was feeling well and was discharged yesterday up until he got he was vehicle and then was starting to feel dizzy again. Since then the dizziness has not subsided. Does note it is worse when he moves his head. States it is not bad enough that makes it hard to walk and is ambulating without issue. Denies any recent head injuries. States sometimes the dizziness is so bad that it makes him almost nauseated. Does state he has a history of issues with dehydration on low-sodium and is on a fluid restriction. States he does think he is dehydrated. Denies fevers, chills, chest pain, shortness of breath weakness, numbness or headaches, vision changes. No other concerns noted. Initially stated he was hoping to get the Doug's maneuver performed again. He also states he has been having a cough for a few months in other viral symptoms. Related Data Home Medications ?Medication ?Instructions ?Recorded ?Confirmed cyclosporine 0.05 % eye drops 1 drp ophthalmic (eye) Q12H 02/01/22 09/04/23 (Restasis MultiDose) desipramine 25 mg tablet 25 mg PO HS 02/01/22 09/04/23 omeprazole 20 mg capsule,delayed 20 mg PO DAILY 02/01/22 09/04/23 release tamsulosin 0.4 mg capsule 0.4 mg PO BID 02/01/22 09/04/23 metoprolol succinate 100 mg 100 mg PO HS 02/05/23 09/04/23 tablet,extended release 24 hr albuterol sulfate 2.5 mg/3 mL 2.5 mg inhalation Q4H PRN dyspnea 09/04/23 09/04/23 (0.083 %) solution for nebulization codeine 10 mg-guaifenesin 100 mg/5 5 ml PO Q6H PRN 09/04/23 09/04/23 mL oral liquid (Virtussin AC) guaifenesin 600 mg tablet, 600 mg PO BID PRN 09/04/23 09/04/23 extended release 12 hr (Mucinex) Previous Rx's ?Medication ?Instructions ?Recorded prednisone 20 mg tablet 40 mg (2 x 20 mg) PO DAILYWM 3 09/05/23 days #6 tabs meclizine 25 mg tablet 25 mg PO QID #20 tabs 09/06/23 Allergies Allergy/AdvReac Type Severity Reaction Status Date / Time vancomycin Allergy Intermediate high fever Verified 09/04/23 09:53 ciprofloxacin Allergy Mild elevated Verified 09/04/23 09:53 temp losartan Allergy Mild Cough Verified 09/04/23 09:53 Sulfa (Sulfonamide Allergy Mild Hives Verified 09/04/23 09:53 Antibiotics) Review of Systems Status of ROS: Reports: 10 or more systems reviewed and unremarkable except as noted in History and below [facility] [place] [facility] History Colon polyp ?K63.5 - Polyp of colon (ICD-10) Depression ?F32.A - Depression, unspecified (ICD-10) Normal esophagogastroduodenoscopy (EGD) ?Z01.89 - Encounter for other specified special examinations (ICD-10) Acute urinary retention ?R33.8 - Other retention of urine (ICD-10) Chronic bronchitis ?J42 - Unspecified chronic bronchitis (ICD-10) Asthma ?J45.909 - Unspecified asthma, uncomplicated (ICD-10) Hyponatremia ?E87.1 - Hypo-osmolality and hyponatremia (ICD-10) Ascending aorta dilatation ?I77.810 - Thoracic aortic ectasia (ICD-10) Incomplete bladder emptying ?R33.9 - Retention of urine, unspecified (ICD-10) Benign prostatic hyperplasia ?N40.0 - Benign prostatic hyperplasia without lower urinary tract symptoms (ICD-10) Sensorineural hearing loss, bilateral ?H90.3 - Sensorineural hearing loss, bilateral (ICD-10) Chronic eustachian tube dysfunction ?H69.80 - Other specified disorders of Eustachian tube, unspecified ear (ICD-10) Erectile dysfunction ?N52.9 - Male erectile dysfunction, unspecified (ICD-10) Essential hypertension ?I10 - Essential (primary) hypertension (ICD-10) Dry eyes ?H04.123 - Dry eye syndrome of bilateral lacrimal glands (ICD-10) Surgical History History of arthroscopy of left shoulder (07/03/23) ?Z98.890 - Other specified postprocedural states (ICD-10) Hx of cataract extraction ?Z98.49 - Cataract extraction status, unspecified eye (ICD-10) H/O hand surgery ?Z98.890 - Other specified postprocedural states (ICD-10) History of laparoscopic cholecystectomy (10/27/08) ?Z90.49 - Acquired absence of other specified parts of digestive tract (ICD-10) History of arthroscopy of right shoulder (01/06/15) ?Z98.890 - Other specified postprocedural states (ICD-10) History of arthroscopy of right knee (03/15/16) ?Z98.890 - Other specified postprocedural states (ICD-10) Family History Mother Liver cancer, Onset Age: 92 Social History Narrative: , Radha, is here with him today and helps give history. Denies tobacco use, smoked for a few years 30 years ago. Drinks 1-5 beers every other week. Denies recreational drugs. Wishes to be a [employer]. What is your current living situation?: I presently have a place to live Problems where you live: no known problems Problems where you live details: n/a In the past 12 months, utilities in danger of being shut off: no In past 12 months, lack of transportation kept you from medical appts, meetings, work, or getting things needed for daily living: no In the past 12 mos, have been you worried that your food would run out before you had money to buy more?: never true In the past 12 mos, the food you bought just didn't last and you didn't have money to buy more?: never true Highest level of school completed/degree received: Bachelor's degree Smoking Status: Former smoker Do you use any of these nicotine containing products: None How often do you have a drink containing alcohol: 2-4 times a month Alcohol type: beer How many standard drinks containing alcohol do you have on a typical day: 1 or 2 How often do you have six or more drinks on one occasion: Less than monthly AUDIT-C Alcohol total score: 3 Non-prescribed substance use: denies use Caffeine: Yes How often does anyone, including family, friends and others, physically hurt you: never How often does anyone, including family, friends and others, insult or talk down to you: never How often does anyone, including family, friends and others, threaten you with harm: never How often does anyone, including family, friends and others, scream or curse at you: never Gender Identity: male service: Yes Exam Narrative: Exam Narrative: Const: Well-nourished, Well-developed, in mild distress Eyes: PERRL, no conjunctival injection, and symmetrical lids HENT: Atraumatic external nose and ears. Moist mucous membranes. Neck: Symmetric, trachea midline, No thyromegaly. CVS: RRR, No murmurs or gallops. Peripheral pulses 2+ and equal in all extremities RESP: Unlabored respiratory effort. Clear to auscultation bilaterally. GI: Nontender/Nondistended, No rebound or guarding. MSK:Extremities w/o deformity, Normal Active ROM Skin: Warm, Dry. No rashes or lesions. Neuro: Normal Muscle tone, No focal neurological deficits. Hints exam: Head impulse showed corrective sick aid, no nystagmus seen, no skew deviation Psych: Awake, Alert, & Oriented x3. Appropriate mood and affect. Const: Vital Signs, click to edit/add: Vital Signs - 24 hr 09/06/23 15:35 Temperature 97.7 F Pulse Rate [Pulse Oximeter] 69 Respiratory Rate 20 Blood Pressure [Ri ght Upper Arm] 124/90 H Pulse Oximetry 94 Oxygen Delivery Me thod Room Air Course Vital Signs Vital signs: Initial Vital Signs Temperature 97.7 F 09/06/23 15:35 Temperature Source Temporal Artery Scan 09/06/23 15:35 Pulse Rate 69 09/06/23 15:35 Pulse Rhythm Regular 09/06/23 15:35 Respiratory Rate 20 09/06/23 15:35 Blood Pressure 124/90 H 09/06/23 15:35 Blood Pressure Mean 101 09/06/23 15:35 Blood Pressure Position Supine 09/06/23 15:35 Pulse Oximetry 94 09/06/23 15:35 Oxygen Delivery Method Room Air 09/06/23 15:35 Vital Signs Temperature 97.7 F 09/06/23 15:35 Pulse Rate 69 09/06/23 15:35 Respiratory Rate 20 09/06/23 15:35 Blood Pressure 124/90 H 09/06/23 15:35 Pulse Oximetry 94 09/06/23 15:35 Oxygen Delivery Method Room Air 09/06/23 15:35 Temperature 97.7 F 09/06/23 15:35 Pulse Rate 69 09/06/23 15:35 Respiratory Rate 20 09/06/23 15:35 Blood Pressure 124/90 H 09/06/23 15:35 Pulse Oximetry 94 09/06/23 15:35 Oxygen Delivery Method Room Air 09/06/23 15:35 Medications Administered Medications: Discontinued Medications Generic Name Dose Route Start Last Admin Trade Name Freq PRN Reason Stop Dose Admin Sodium Chloride 1,000 mls @ 1,000 mls/hr 09/06/23 16:45 09/06/23 17:42 0.9 % Sodium Chloride 1000 Ml IV 09/06/23 17:44 Infused .Q1H STACEY Infusion MDM - Dizziness MDM Narrative Medical decision making narrative: Patient is a 78-year-old male presenting for dizziness. Again week multiple things causing his dizziness. Right now considering that previously the Epleys maneuver work and the hands exam is reassuring this seems very unlikely to be a central brain issue. He has also been having dizziness for while which also makes me think this is more peripheral problem. This could also be related to dehydration or electrolyte imbalances. Less likely to be viral related. Will order a CBC, BMP, magnesium and given 1 L of fluids. EKG also done. EKG showed no concerning abnormalities. CBC shows no concerning findings. BMP shows a sodium of 129 which is consistent with his previous sodium levels and is unlikely to be causing his symptoms. Magnesium within normal limits. After he received the fluids he was still having some dizziness and I spoke to him about performing the Epleys maneuver. He states he has a follow-up with physical therapy on Friday and will have them do it since they have more experience. I did give him a prescription for Antivert. Patient is being discharged. He is agreeable to this plan peer Lab Data Labs: Lab Results 09/06/23 Range/Units 16:53 WBC 8.75 (4.50-11.00) K/uL RBC 5.22 (4.30-5.90) m/uL Hgb 14.0 (13.5-17.5) gm/dL Hct 41.6 (37.0-53.0) % MCV 80 (80-100) fL MCH 27 (26-34) pg MCHC 34 (32-36) gm/dL RDW Coeff of Igles[place] 12.6 (11.5-15.5) % Plt Count 303 (140-440) K/uL Neut % (Auto) 88.8 H (42.0-72.0) % Lymph % (Auto) 8.6 L (20-44) % [place] % (Auto) 2.4 (0.0-11.0) % Eos % (Auto) 0.0 (0.0-7.0) % Baso % (Auto) 0.0 (0.0-3.0) % Neut # (Auto) 7.80 H (1.7-7.0) K/uL Lymph # (Auto) 0.80 L (0.90-2.90) K/uL [place] # (Auto) 0.20 (0.00-0.90) K/UL Eos # (Auto) 0.00 (0.00-0.50) K/uL Baso # (Auto) 0.00 (0.00-0.30) K/uL Abs Immat Gran (auto) 0.02 (0.00-0.30) K/uL Imm/Tot Granulo (auto) 0.2 % Sodium 129 L (135-149) mmol/L Potassium 4.7 (3.6-5.1) mmol/L Chloride 97 (96-114) mmol/L Carbon Dioxide 24 (20-32) mmol/L Anion Gap 8 (7-15) mEq/L BUN 19 (7-30) mg/dL Creatinine 0.8 (0.5-1.5) mg/dL Estimated Creat Clear 56.00 Estimated GFR 90 ml/min Glucose 125 H (60-115) mg/dL Calcium 8.8 (8.4-10.6) mg/dL Magnesium 2.1 (1.5-2.6) mg/dL ECG Data Attestation: I personally reviewed and interpreted this ECG as follows: Prior ECG tracings: available for review Interpretation: Normal sinus rhythm with a rate similar beats per minute, left axis deviation, no ST or T-wave abnormalities. Appears similar previous EKG on file Discharge Plan Discharge Clinical Impression: BPPV (benign paroxysmal positional vertigo) Patient Disposition: Home, Self-Care Condition: Stable Instructions: Benign Paroxysmal Positional Vertigo (DC) Additional Instructions: Make sure to keep you are physical therapy appointment on Friday to have the Apley's maneuver performed. He can try using the meclizine also known as Antivert for your dizziness. Return to emergency department for new or worsening symptoms Prescriptions: New meclizine 25 mg tablet 25 mg PO QID Qty: 20 0RF No Action metoprolol succinate 100 mg tablet extended release 24 hr 100 mg PO HS tamsulosin 0.4 mg capsule 0.4 mg PO BID Patient Comments: TAKE 2 CAPSULES (0.8 MG) BY MOUTH ONCE DAILY AFTER A MEAL. desipramine 25 mg tablet 25 mg PO HS Patient Comments: TAKE 1 TABLET BY MOUTH AT BEDTIME omeprazole 20 mg capsule,delayed release(DR/EC) 20 mg PO DAILY Restasis MultiDose 0.05 % drops 1 drp ophthalmic (eye) Q12H Patient Comments: BOTH EYES albuterol sulfate 2.5 mg /3 mL (0.083 %) solution for nebulization 2.5 mg inhalation Q4H PRN (Reason: dyspnea) codeine-guaifenesin [Virtussin AC] 10-100 mg/5 mL liquid 5 ml PO Q6H PRN guaifenesin [Mucinex] 600 mg tablet extended release 12hr 600 mg PO BID PRN prednisone 20 mg Tablet 40 mg PO DAILYWM 3 Days Qty: 6 0RF Follow Up/Referrals: Adam Peterson MD [Primary Care Provider] - Stand Alone [facility]: [facility] Info Instructions
== END 2023-09-06 17:43 | disposition home or self-care (01) ==
PROVIDERS: Emergency Provider Student in an Organized Health Care Education/Training Program; PCP Family Medicine
DX: H81.13 Benign paroxysmal vertigo, bilateral (principal)
CPT/HCPCS: 36415; 80048; 83735; 85025; 93005; 99283; 99284; J7030

== ENCOUNTER 2023-10-07 10:52 | Outpatient (CLI) | payer MEDICARE, SELFPAY ==
--- OUTSIDE RECORDS SUMMARY | 2023-10-07 10:56 | XMS_ITS | Continuity of Care Document ---
Author Name [facility] Organization [facility] Care Team Providers Care Chemical Dependency Attendant Name Role Phone [facility] Unavailable Unavailable Problems Combined list of problems from Department [facility] and [facility] Affairs facilities. It does not include entries that were removed or entered in error. Problem Status Onset Date Problem Type Date of Resolution Comments Source Ascending aorta dilatation Active Condition 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 Depression ([facility] [id number]) Active Condition [facility] Erectile Dysfunction ([facility] [id number]) Active Condition [facility] GERD - Gastro-Esophageal Reflux Disease ([facility] [id number]) Active Condition [facility] Hearing loss Active Condition [facility] Diagnosis: ICD-10-CM H90.3 Sensorineural hearing loss, bilateral Active Diagnosis [facility] Diagnosis: ICD-10-CM Z23 Encounter for immunization Active Diagnosis [facility] Diagnosis: ICD-10-CM Z46.1 Encounter for fitting and adjustment of hearing aid Active Diagnosis [facility] Diagnosis: ICD-10-CM H91.90 Unspecified hearing loss, unspecified ear Active Diagnosis [facility] Medications Combined list of outpatient medications from Department [facility] and Veterans Affairs facilities.Medications provided include 1) outpatient medications from the last 15 months, and 2) patient-reported medications. Medication Details Route Status Patient Instructions Prescription Expires Prescription Number Last Dispense Date Ordering Provider Order Date Order Qty Source CHOLECALCIF MIRANDA TAB CHOLECAL CIFEROL TAB Non-VA TAKE BY MOUTH Nov 13, 2021 Non-VA Document ed by: Dahlia SALDIVAR Document ed at: [facility] ORAL ACTIVE SALDIAVR,SIMI ICA C 2021 [facility] CYCLOSPORIN E 0.05% EMULSION,OP H CYCLOSPO RINE 0.05% EMULSION ,OPH Non-VA Nov 13, 2021 Non-VA Document ed by: Dahlia SALDIVAR Document ed at: [facility] ACTIVE SALDIVAR,ER ICA C 2021 [facility] DESIPRAMINE HCL 25MG TAB DESIPRAM INE HCL 25MG TAB Active TAKE ONE TABLET BY MOUTH EVERY DAY FOR DEPRESSI ON Oct 28, 2022 90 Oct 29, 2023 [id number] July 17, 2023 Dahlia SALDIVAR [facility] ORAL ACTIVE 10/29/2023 [id number] JANNAER ICA C 2022 90 [facility] DESIPRAMINE HCL 25MG TAB DESIPRAM INE HCL 25MG TAB Disconti nued TAKE ONE TABLET BY MOUTH EVERY DAY FOR DEPRESSI ON Nov 13, 2021 90 Nov 14, 2022 [id number] Nov 07, 2022 Dahlia SALDIVAR [facility] ORAL DISCONT INUED 11/14/2022 [id number] SIMI SALDIVAR ICA C 2021 90 [facility] MARINE LIPID (FISH OIL) CAP,ORAL MARINE LIPID (FISH OIL) CAP,ORAL Non-VA TAKE BY MOUTH TWICE A DAY Nov 13, 2021 Non-VA Document ed by: Dahlia SALDIVAR Document ed at: [facility] ORAL ACTIVE SALDIVAR,ER ICA C 2021 [facility] METOPROLOL TARTRATE 100MG TAB METOPROL OL TARTRATE 100MG TAB Non-VA TAKE ONE TABLET BY MOUTH AT BEDTIME FOR BLOOD PRESSURE Nov 26, 2022 Non-VA Document ed by: Dahlia SALDIVAR Document ed at: [facility] ORAL ACTIVE SALDIVAR,ER ICA C 2022 [facility] OMEPRAZOLE 20MG CAP,EC OMEPRAZO LE 20MG CAP,EC Non-VA TAKE 1 CAPSULE BY MOUTH EVERY DAY Nov 13, 2021 Non-VA Document ed by: Dahlia SALDIVAR Document ed at: [facility] ORAL ACTIVE SALDIVAR,ER ICA C 2021 [facility] TADALAFIL TAB TADALAFI L TAB Non-VA TAKE BY MOUTH Nov 13, 2021 Non-VA Document ed by: Dahlia SALDIVAR Document ed at: [facility] ORAL ACTIVE SALDIVAR,ER ICA C 2021 [facility] TAMSULOSIN HCL 0.4MG CAP TAMSULOS IN HCL 0.4MG CAP Non-VA TAKE 1 CAPSULE BY MOUTH TWICE A DAY Nov 13, 2021 Non-VA Document ed by: Dahlia SALDIVAR Document ed at: [facility] ORAL ACTIVE SALDIVARSIMI ICA C 2021 [facility] Allergies, Adverse Reactions, Alerts Combined list of allergies from Department of [facility] and [facility] facilities. It does not include entries that were removed or entered in error. Substance Category Reaction Severity Reaction type Status Date Reported Comments Source CARVEDILOL Propensity to adverse reactions to drug (finding) Hyponatremi a active 3 [facility] LOSARTAN Propensity to adverse reactions to drug (finding) active 2 [facility] SULFA DRUGS Propensity to adverse reactions to drug (finding) Eruption active 2 [facility] VANCOMYCIN Propensity to adverse reactions to drug (finding) Fever active 2 [facility] Immunizations Combined list of available immunizations from the Department of [facility] and [facility] facilities. Immunization Series Date Given Administered By Site Reaction Lot Number CVX Code Drug Senior Radiation Protection Technician Status Comments Source COVID-19 ([place]), MRNA, LNP-S, PF, AMADO-SUCROSE, 30 MCG/0.3 ML (AGES 12+ YEARS) 1 2022 MICAH PALACIO LEFT DELTO ID [id number] 309 complet ed [facility] INFLUENZA, HIGH-DOSE, QUADRIVALENT 2022 FLACO BACK RIGHT DELTO ID [id number] 197 complet ed [facility] TDAP 2022 FLACO BACK LEFT DELTO ID [id number] 115 complet ed [facility] COVID-19 ([place]), MRNA, LNP-S, BIVALENT, PF, 30 MCG/0.3 ML DOSE 2021 300 complet ed [facility] INFLUENZA VACCINE, QUADRIVALENT, ADJUVANTED 2021 205 complet ed [facility] COVID-19 ([place]ER), MRNA, LNP-S, PF, 30 MCG/0.3 ML DOSE 2020 208 complet ed [facility] INFLUENZA VACCINE, QUADRIVALENT, ADJUVANTED 2020 205 complet ed [facility] INFLUENZA, HIGH-DOSE, QUADRIVALENT 2019 197 complet ed [facility] INFLUENZA, HIGH DOSE SEASONAL 2018 135 complet ed [facility] ZOSTER RECOMBINANT 2018 187 complet ed [facility] ZOSTER RECOMBINANT 1 2018 187 complet ed [facility] COHEN TA ZOSTER RECOMBINANT 2018 187 complet ed [facility] INFLUENZA, TRIVALENT, ADJUVANTED 2017 168 complet ed [facility] INFLUENZA, TRIVALENT, ADJUVANTED 2016 168 complet ed [facility] INFLUENZA, HIGH DOSE SEASONAL 2015 135 complet ed [facility] INFLUENZA, HIGH DOSE SEASONAL 2014 135 complet ed [facility] PNEUMOCOCCAL CONJUGATE PCV 13 2014 133 complet ed [facility] INFLUENZA, HIGH DOSE SEASONAL 2013 135 complet ed [facility] INFLUENZA, SEASONAL, INJECTABLE 2012 141 complet ed [facility] TDAP 2012 115 complet ed [facility] INFLUENZA, SEASONAL, INJECTABLE 2011 141 complet ed [facility] INFLUENZA, SEASONAL, INJECTABLE 2010 141 complet ed [facility] ZOSTER LIVE 2010 121 complet ed [facility] INFLUENZA, SEASONAL, INJECTABLE 2009 141 complet ed [facility] PNEUMOCOCCAL POLYSACCHARID E PPV23 2009 33 complet ed [facility] NOVEL INFLUENZA-H1N 1-09, ALL FORMULATIONS 2008 128 complet ed [facility] INFLUENZA, UNSPECIFIED FORMULATION 2008 88 complet ed [facility] INFLUENZA, SEASONAL, INJECTABLE 2007 141 complet ed [facility] INFLUENZA, SEASONAL, INJECTABLE 2006 141 complet ed [facility] TD (ADULT), 2 LF TETANUS TOXOID, PRESERVATIVE FREE, ADSORBED 2002 09 complet ed [facility] Vital Signs Combined list of inpatient and outpatient Vital Signs from Department of Defense and Veterans Affairs, ranging from 12 months to all on record, depending upon the facility. Vital Sign Value Date Comments Source Encounters Combined list of: 1) Encounters from [facility] facilities going back up to thelast 18 months. 2) Encounters from the Department of Defense facilities going back up to 280 months. Location Location Details Encounter Type Encounter Number Reason For Visit Attending Provider ADM Date DC Date Status Disposition Source [facility] HEARING AID FITTING/CH ECKING [id number] Diagnos is: ICD-10- CM Z46.1 Encount er for fitting and adjustm ent of hearing aid<br/ > DARLINE VOSS M 09/18 [facility] OFFICE O/P EST HI 40-54 MIN [id number] Diagnos is: ICD-10- CM H91.90 Unspeci fied hearing loss, unspeci fied ear<br/ > SAGAR SALDIVAR C 11/26 [facility] HEARING AID FITTING/CH ECKING [id number] Diagnos is: ICD-10- CM Z46.1 Encount er for fitting and adjustm ent of hearing aid<br/ > Lawson LIGHT R 11/29 [facility] Outpatient Encounter [id number] 12/01 [facility] IMMUNIZATI ON ADMIN [id number] Diagnos is: ICD-10- CM Z23 Encount er for immuniz ation<b r/> PAMELA PALACIO M 12/14 [facility] HEARING AID REPAIR/MOD IFYING [id number] Diagnos is: ICD-10- CM H90.3 Sensori neural hearing loss, bilater al
MARY [place] RTHA R 06/18 [facility] Outpatient Encounter [id number] 09/02 [facility] Outpatient Encounter [id number] 09/08 [facility] CHANE[facility] [place] [facility] Outpatient Encounter [id number] 09/29 [facility] Social History Combined list of available smoking, tobacco, and other social history from Department of Defense and Veterans Affairs facilities. Social History Type Response Date Comment Sourc e Tobacco smoking status NHIS DC-TOBACCO NEVER USED 11/26/2022 [facility] History of tobacco use DC-TOBACCO FORMER USER 11/13/2021 [facility] Plan of Care List of future care activities from Department of Veterans Affairs facilities. Additional future care activities may be listed in the Assessment and Plan section. Date/Time Care Activity Care Activity Detail Facili ty 10/16/2023 AMBULATORY - MEDICINE AMBULATORY - MEDICI [facility] Advance Directives List of completed, amended, or rescinded Advance Directives on record at Department of Veterans Affairs facilities. An actual copy of the Directive is not included. Date Advance Directive Provider Source 02/03/2022 ADVANCE DIRECTIVE DISCUSSION IVONNE EISENBERG [facility] 02/03/2022 ADVANCE DIRECTIVE IVONNE EISENBERG [facility] 12/10/2021 ADVANCE DIRECTIVE DISCUSSION IVONNE EISENBERG [facility] 12/10[facility]20[facility]
--- OUTSIDE RECORDS SUMMARY | 2023-10-07 10:57 | XMS_ITS | Encounter Summary ---
Author Organization [facility] Address [address] [place] [address] Care Team Providers Care Cath Lab Manager Name Role Phone Votel Adam Talbert Primary Care Provider [phone] Daniel Wick MD Unavailable [phone] Encounter Details Date Type Department Care Team (Late st Contact Info) Description 10/06/2023 [facility] Medical Advice [address] [address] Daniel Wick MD [address] [place] [address] Social History Tobacco Use Types Packs/Day Years [...] on file documented as of this encounter Miscellaneous Notes * Telephone Encounter - Zara Rodríguez - 10/06/2023 4:54 PM CDT LVM x1 * Telephone Encounter - Daniel Wick MD - 10/06/2023 4:52 PM CDT The patient was last seen by me in 2021. I cannot put a referral with visit. I am fine with virtualvisit. documented in this encounter Plan of Treatment Not on file documented as of this encounter Visit Diagnoses Not on filedocumented in this encounter Care Teams Cath Lab Manager Relationship Specialty Start Date End Date Votel, Adam Talbert PCP - General Family Practice 09/01/19 Daniel Wick MD [address] [place] [address] Assigned PCP 09/12/21 documented as of this encounter
--- OUTSIDE RECORDS SUMMARY | 2023-10-07 10:57 | XMS_ITS | Encounter Summary ---
Author Organization [facility] Address [address] [place] [address] Care Team Providers Care Combining Machine Operator Name Role Phone Votel, Adam Talbert Primary Care Provider [phone] Daniel Wick MD Unavailable [phone] Encounter Details Date Type Department Care Team (Late st Contact Info) Description 09/23/2023 MyC Medical Advice [address] [address] Davide Grimes MA Social History Tobacco Use Types Packs/Day Years [...] on filedocumented in this encounter Care Teams Combining Machine Operator Relationship Specialty Start Date End Date Votel, Adam Talbert PCP - General Family Practice 09/01/19 Daniel Wick MD [address] [place], [place] [address] Assigned PCP 09/12/21 documented as of this encounter
--- OUTSIDE RECORDS SUMMARY | 2023-10-07 10:57 | XMS_ITS | Clinical Summary ---
Author Organization [facility] Address [address] [place] [address] Care Team Providers Care Golf Club Assembler Name Role Phone Elsewhere, Pcp Primary Care Provider Unavailabl e Source Comments Patient records contain information from all sites at [facility]. For routine questions regarding patient records, call [phone] during business hours, M-F 8:00 AM - 5:00 PM Central Time. Record requests for emergency care only can be directed to [phone] at any time.[facility] Allergies Active Allergy Reactions Criticality Noted Date [...] friends, or neighbors? Once a week 01/31/20 21 How often do you get togethe r with friends or relatives? Once a week 01/30/2021 How often do you attend [facility] or pentecostalism services? 1 to 4 times per year 01/30/2021 Do you belong to any clubs o r organizations such as mormonism groups, unions, fraternal or athletic groups, or [...] and heating? Not hard at all 01/30/2021 [facility] - Occupational [...] 08/2018, 08/03/2018, Additional history exists Care Teams Golf Club Assembler Relationship Specialty Start Date End Date Elsewhere, Pcp PCP - General Internal Medicine 06/29/22
--- OUTSIDE RECORDS SUMMARY | 2023-10-07 10:57 | XMS_ITS | Encounter Summary ---
Author Organization [facility] Address [address] [place] [address] Care Team Providers Care Bottom Presser Name Role Phone Votel, Adam Talbert Primary Care Provider [phone] Daniel Wick MD Unavailable [phone] Encounter Details Date Type Department Care Team (Late st Contact Info) Description 01/27/2023 MyC Medical Advice [address] [address] Lois Mensah RN Social History [...] on filedocumented in this encounter Care Teams Bottom Presser Relationship Specialty Start Date End Date Votel, Adam Talbert PCP - General Family Practice 09/01/19 Daniel Wick MD [address] [place], [place] [address] Assigned PCP 09/12/21 documented as of this encounter
--- OUTSIDE RECORDS SUMMARY | 2023-10-07 10:57 | XMS_ITS | Encounter Summary ---
Author Organization [facility] Address [address] [place] [address] Care Team Providers Care Mobile Security Architect Name Role Phone Votel Adam Talbert Primary Care Provider [phone] Daniel Wick MD Unavailable [phone] Encounter Details Date Type Department Care Team (Late st Contact Info) Description 09/23/[address] [address] Daniel Wick MD [address] [place] [address] Social History Tobacco Use Types Packs/Day [...] encounter Miscellaneous Notes * Telephone Encounter - Davide Grimes MA - 09/23/2023 12:44 PM CDT Patient Quality Outreach Patient is due for the following: Hypertension - BP check Physical Preventive Adult Physical Topic Date Due Diptheria Tetanus Pertussis (DTAP/TDAP/TD) Vaccine (3 - Td or Tdap) 04/13/2022 COVID-19 Vaccine (3 - 2023-24 season) 2022 Next Steps: Type of outreach: Sent Gamar message. Next Steps: Reach out within 90 days via Ubertes[employer]. Max number of attempts reached: Yes. Will try again in 90 days if patient still on fail list. Questions for provider review: None Davide Grimes MA documented in this encounter Plan of Treatment Not on file documented as of this encounter Visit Diagnoses Not on filedocumented in this encounter Care Teams Mobile Security Architect Relationship Specialty Start Date End Date Votel, Adam Talbert PCP - General Family Practice 09/01/19 Daniel Wick MD [address] [place] [address] Assigned PCP 09/12/21 documented as of this encounter
--- OUTSIDE RECORDS SUMMARY | 2023-10-07 10:57 | XMS_ITS | Clinical Summary ---
Author Organization [place] [facility] Address [address] [place] [address] Care Team Providers Care Statistical Financial Analyst Name Role Phone Votelionel Adam Talbert Primary Care Provider [phone] Daniel Wick MD Unavailable [phone] Allergies Active Allergy Reactions Criticality Noted [...] Date Resolved Date Acute sepsis 10/05/2019 10/01/2021 Encounters Date Type Department Care Team Description 10/06/2023 My[facility] Medical Advice [address] [place] [address] Daniel Wick MD 09/23/2023 My[facility] Medical Advice [address] [phone] Davide Grimes MA 09/23/[address] [phone] Daniel Wick MD from Last 3 Months Immunizations Name Administration Dates Next Due COVID-19 [...] Comments Blood Pressure 148/74 01/31/2022 4:30 PM JUNIOR ORACLE DBA Pulse 87 01/31/2022 4:30 PM JUNIOR ORACLE DBA Temperature 36.8 ??C (98.3 ??F) 01/31/2022 4:30 PM CS T Respiratory Rate 18 01/31/2022 4:30 PM JUNIOR ORACLE DBA Oxygen Saturation 100% 01/31/2022 4:30 PM JUNIOR ORACLE DBA Inhaled Oxygen Concentration - - Weight 81.6 kg (180 lb) 01/31/2022 4:30 PM JUNIOR ORACLE DBA Height 170.2 cm (5' 7) 10/05/2019 11:21 [...] ANNUAL WELLNESS VISIT 07/10/2022 07/10/2021 COVID-19 Vaccine (3 - 2022- season) 2022 06/10/2021, 11/27/2020 INFLUENZA VACCINE (#1) [...] and gender (Katty et al., NEJM, DOI: 10.1056/JRTYut0864832) Blood STRUCTURE OF LEFT UPPER LIMB / Unknown Venipuncture / Unknown 09/22/2021 10:38 PM CDT 09/22/2021 10:47 PM CDT Bryant Yap MD LAB - BLOOD ORDERABL ES LABORATORY [facility] [address] [facility] (1st floor, no room number) [place] [address], [facility] [phone] from Last 3 Months or Most Recently Relevant to Health Maintenance Care Teams Statistical Financial Analyst Relationship Specialty Start Date End Date Votel, Adam Talbert PCP - General Family Practice 09/01/19 Daniel Wick MD [address] [place] [address] Assigned PCP 09/12/21
--- OUTSIDE RECORDS SUMMARY | 2023-10-07 10:57 | XMS_ITS | Referral Summary ---
Author Organization [facility] Address [address] [place] [address] Care Team Providers Care Research Assistant Professor Name Role Phone Votel Adam Talbert Primary Care Provider [phone] Daniel Wick MD Unavailable [phone] Encounters Date Type Department Care Team Description 10/06/2023 MyC Medical Advice [address] [address] Daniel Wick MD 09/23/2023 MyC Medical Advice [address] [phone] Davide Grimes MA 09/23/[address] [address] Daniel Wick MD from Last 3 Months Allergies Active Allergy Reactions Criticality Noted Date [...] Comments Blood Pressure 148/74 01/31/2022 4:30 PM SYSTEMS QA ANALYST Pulse 87 01/31/2022 4:30 PM SYSTEMS QA ANALYST Temperature 36.8 ??C (98.3 ??F) 01/31/2022 4:30 PM CS T Respiratory Rate 18 01/31/2022 4:30 PM SYSTEMS QA ANALYST Oxygen Saturation 100% 01/31/2022 4:30 PM SYSTEMS QA ANALYST Inhaled Oxygen Concentration - - Weight 81.6 kg (180 lb) 01/31/2022 4:30 PM SYSTEMS QA ANALYST Height 170.2 cm (5' 7) 10/05/2019 11:21 [...] - 30 mg/dL 09/22/2021 11:16 PM CDT [facility] Creatinine 0.97 0.66 - 1.25 mg/dL 09/22/2021 11:16 PM CDT [facility] Calcium 8.6 8.5 - 10.1 mg/dL 09/22/2021 11:16 PM CDT [facility] Glucose 93 70 - 99 mg/dL 09/22/2021 11:16 PM CDT [facility] GFR Estimate 80 >60 mL/min/1.7 3m2 09/22/2021 11:16 PM CDT [facility] Comment:Effective February 012020 eGFRcr in adults is calculated using the 2020 CKD-EPI creatinine equation which includes age and gender (Katty et al., NEJ, DOI: 10.1056/BXDSpp1060659) Blood STRUCTURE OF LEFT UPPER LIMB / Unknown Venipuncture / Unknown 09/22/2021 10:38 PM CDT 09/22/2021 10:47 PM CDT Bryant Yap MD LAB - BLOOD ORDERABL ES [facility] [address] [facility] Lab (1st floor, no room number) [place] [address], [facility] [phone] from Last 3 Months or Most Recently Relevant to Health Maintenance Care Teams Research Assistant Professor Relationship Specialty Start Date End Date Votel, Adam Talbert PCP - General Family Practice 09/01/19 Daniel Wick MD [address] [place] [address] Assigned PCP 09/12/21
--- OUTSIDE RECORDS SUMMARY | 2023-10-07 10:57 | XMS_ITS ---
Author Organization [facility] Address [address] [place] [address] Care Team Providers Care Nurse Practical Name Role Phone Unavailable Unavailable Unavailable Surgery Details Not on file Complications Check Surgery Details section. Procedure Estimated Blood Loss Check Surgery Details section. Procedure Findings Check Surgery Details section. Procedure Specimens Taken Check Surgery Details section.
--- OUTSIDE RECORDS SUMMARY | 2023-10-07 10:57 | XMS_ITS | Referral Summary ---
Author Organization [facility] Address [address] [place] [address] Care Team Providers Care Sawdust Machine Operator Name Role Phone Elsewhere, Pcp Primary Care Provider Unavailabl e Source Comments Patient records contain information from all sites at [facility]. For routine questions regarding patient records, call [phone] during business hours, M-F 8:00 AM - 5:00 PM Central Time. Record requests for emergency care only can be directed to [phone] at any time.[facility] Allergies Active Allergy Reactions Criticality Noted [...] week 01/30/2021 How often do you attend [facility] or rastafari services? 1 to 4 times per year 01/30/2021 Do you belong to any clubs o r organizations such as hoahaoism groups, unions, fraternal or athletic groups, or [...] and heating? Not hard at all 01/30/2021 [facility] - Occupational [...] place to sleep or slept in a intermediate (including now)? No 01/30/2021 Nutrition Answer Date [...] of Treatment Not on file Care Teams Sawdust Machine Operator Relationship Specialty Start Date End Date Elsewhere, Pcp PCP - General Internal Medicine 06/29/22
--- NOTE | 2023-10-07 11:15 | MR_ITS ---
[address] [address] Phone:?[phone] Fax:?[phone] Referring Physician Information: Venkat Harris [address] [facility] [address] Phone:?[phone] Fax:?[phone] Patient:?Alvaro Hogue D.O.B:?1945 Sex:?Male Phone:?[phone] [facility] MRN:?[id number] Exam Date:?10/07/2023 EXAM: MRI of the LEFT SHOULDER, without contrast CLINICAL INFORMATION: Male, 78 years old, with left shoulder pain. INDICATION: Evaluate for infection. PRIOR SURGERY: History of shoulder surgery. PLAIN FILMS: Left shoulder radiograph dated 07/09/2023. COMPARISONS: Left shoulder MRI dated 02/13/2023. TECHNICAL INFORMATION: Using a 1.5T MR scanner and a localizing surface coil: coronal obliques: PD, T2, STIR sagittal obliques: PD, T2 axials: PD, T2 SEDATION: None CONTRAST: None FINDINGS: Bones: Proximal humerus: Surgical anchors in the greater tuberosity reflects rotator cuff repair, described below. There is moderate circumferential lucency surrounding the 2 most superiorly positioned screws (axial PD series 9 image 52 and sagittal PD series 7 image 12) this is associated with moderate edema-like signal throughout the anterior aspect of the humeral head and greater tuberosity, with slight PD hypointense signal (coronal PD series 5 and coronal STIR series 4 image 14). Glenoid: No fracture or marrow edema/pathology. No osseous Bankart lesion. Rotator cuff and muscles/tendons: Supraspinatus: Status post repair. There is full-thickness, essentially full- width recurrent tearing of supraspinatus, tendon retraction to the mid humeral head and grade 2 muscle atrophy. Infraspinatus: Status post repair. There is mild-moderate attenuation and irregularity of the anterior distal tendon fibers, without definite recurrent tendon tear. Teres minor: No tendinopathy, tear or atrophy. Subscapularis: Status post repair. However, there is broad-based high-grade recurrent tearing of the lesser tuberosity attachment, which appears retracted to the level the glenohumeral joint and grade 2 muscle atrophy. Deltoid: No strain or atrophy. Coracoacromial arch: Acromion morphology: Status post anterior acromioplasty for subacromial decompression, with good result. No os acromiale. Acromiohumeral space: The acromiohumeral space is decompressed. Coracohumeral space: The coracohumeral space is within normal limits. Acromioclavicular joint: Joint: Status post AC joint resection for subacromial decompression, good result. Ligaments: Coracoclavicular ligaments are intact. Bursae: Subacromial-subdeltoid: Marked subacromial-subdeltoid bursal fluid/bursitis (sagittal PD series 8 image 14 and coronal STIR series 4 image 15). Subcoracoid: No convincing subcoracoid bursal thickening/bursitis. Biceps tendon: Status post biceps tenodesis at the superior aspect of the bicipital groove. The biceps long head tendon is attenuated, but appears to extend to the tenodesis site. Glenohumeral joint: Effusion/cyst: No significant glenohumeral joint effusion. Articular cartilage: Humeral head & glenoid: Mild signal heterogeneity, surface irregularity, and thinning of the articular cartilage without full-thickness chondral loss or reactive osseous changes. Loose bodies: No discrete intra-articular body within the joint. Labrum:?Circumferential degeneration and poorly defined fraying/tearing of the labrum, which is of doubtful clinical significance. Inferior glenohumeral ligament/axillary pouch:?Intact. The axillary pouch is normal in thickness and signal. No evidence of adhesive capsulitis or capsular injury. IMPRESSION: 1. Status post supraspinatus, infraspinatus, & subscapularis tendon repairs: -Full-thickness, essentially full-width recurrent tearing of supraspinatus, with tendon retraction to the mid humeral head and grade 2 muscle atrophy. -Broad-based high-grade recurrent tearing of the lesser tuberosity of subscapularis, with retraction to level the glenohumeral joint and grade 2 muscle atrophy. -Mild-moderate attenuation and irregularity of the infraspinatus tendon, without definite recurrent tear. -There is moderate circumferential lucency surrounding the 2 most superiorly positioned surgical anchors with a greater than expected amount of bone marrow edema in the anterior aspect of the humeral head and greater tuberosity. A superimposed infection cannot entirely be excluded, particularly given the marked subacromial-subdeltoid bursitis and debris. 2. Status post AC joint resection and anterior acromioplasty for subacromial decompression, with good result. 3. Status post biceps tenodesis at the superior aspect of the bicipital groove, which appears intact. 4. Circumferential degeneration and poorly defined fraying/tearing of the labrum 5. No full-thickness chondral defect or evidence of glenohumeral joint osteoarthritis. BC Electronically signed on 10/07/2023 12:55:00 PM by Marc Richmond M.D.
== END 2023-10-07 10:53 | disposition home or self-care (01) ==
PROVIDERS: PCP Family Medicine; Visit Provider Physician Assistant
DX: M25.512 Pain in left shoulder (principal); M75.102 Unspecified rotator cuff tear or rupture of left shoulder, not specified as traumatic; S43.492A Other sprain of left shoulder joint, initial encounter; Z98.890 Other specified postprocedural states
CPT/HCPCS: 73221

== ENCOUNTER 2023-10-14 11:25 | Day surgery (SDC) | payer MEDICARE, SELFPAY ==
[2023-10-14] VITALS (14 sets, daily range): BP systolic 80–132; BP diastolic 49–90; PULSE 60–74; RESP 12–22; TEMP 36.1–36.7; O2SAT 93–98; BMI 28.5
--- OUTSIDE RECORDS SUMMARY | 2023-10-14 11:28 | XMS_ITS | Encounter Summary ---
Author Organization [facility] Address [address] [place] [address] Care Team Providers Care Elevator Constructor Helper Name Role Phone Votel Adam Talbert Primary Care Provider [phone] Daniel Wick MD Unavailable [phone] Encounter Details Date Type Department Care Team (Late st Contact Info) Description 10/06/2023 My[facility] Medical Advice [address] [address] Daniel Wick MD [address] [place] [address] Social History Tobacco Use Types Packs/Day [...] on filedocumented in this encounter Care Teams Elevator Constructor Helper Relationship Specialty Start Date End Date Votel, Adam Talbert PCP - General Family Practice 09/01/19 Daniel Wick MD [address] [place] [address] Assigned PCP 09/12/21 documented as of this encounter
--- OUTSIDE RECORDS SUMMARY | 2023-10-14 11:28 | XMS_ITS | Encounter Summary ---
Author Organization [facility] Address [address] [place] [address] Care Team Providers Care Financial Coach Name Role Phone Votel Adam Talbert Primary Care Provider [phone] Daniel Wick MD Unavailable [phone] Encounter Details Date Type Department Care Team (Late st Contact Info) Description 09/23/[address] [address] Daniel Wick MD [address] [place] [address] Social History Tobacco Use Types Packs/Day [...] 2022 Next Steps: Type of outreach: Sent [employer] message. Next Steps: Reach out within 90 days via [employer]. Max number of attempts reached: Yes. Will try again in 90 days if patient still on fail list. Questions for provider review: None Davide Grimes MA documented in this encounter Plan of Treatment Not on file documented as of this encounter Visit Diagnoses Not on filedocumented in this encounter Care Teams Financial Coach Relationship Specialty Start Date End Date Votel, Adam Talbert PCP - General Family Practice 09/01/19 Daniel Wick MD [address] [place] [address] Assigned PCP 09/12/21 documented as of this encounter
--- OUTSIDE RECORDS SUMMARY | 2023-10-14 11:28 | XMS_ITS | Referral Summary ---
Author Organization [facility] Address [address] [place] [address] Care Team Providers Care Film Projector Operator Name Role Phone Votel Adam Talbert Primary Care Provider [phone] Daniel Wick MD Unavailable [phone] Encounters Date Type Department Care Team Description 10/06/2023 MyC Medical Advice [address] [address] Daniel Wick MD 09/23/2023 MyC Medical Advice [address] [address] Davide Grimes MA 09/23/[address] [address] Daniel Wick MD from Last 3 Months [...] Comments Blood Pressure 148/74 01/31/2022 4:30 PM CHISEL MORTISER OPERATOR Pulse 87 01/31/2022 4:30 PM CHISEL MORTISER OPERATOR Temperature 36.8 ??C (98.3 ??F) 01/31/2022 4:30 PM CS T Respiratory Rate 18 01/31/2022 4:30 PM CHISEL MORTISER OPERATOR Oxygen Saturation 100% 01/31/2022 4:30 PM CHISEL MORTISER OPERATOR Inhaled Oxygen Concentration - - Weight 81.6 kg (180 lb) 01/31/2022 4:30 PM CHISEL MORTISER OPERATOR Height 170.2 cm (5' 7) 10/05/2019 11:21 [...] and gender (Katty et al., NEJ, DOI: 10.1056/SDSVpt8051081) Blood STRUCTURE OF LEFT UPPER LIMB / Unknown Venipuncture / Unknown 09/22/2021 10:38 PM CDT 09/22/2021 10:47 PM CDT Bryant Yap MD LAB - BLOOD ORDERABL ES RH LABORATORY [facility] Acute Care Lab [address] [facility] (1st floor, no room number) [place] [address], [facility] [phone] from Last 3 Months or Most Recently Relevant to Health Maintenance Care Teams Film Projector Operator Relationship Specialty Start Date End Date Votel, Adam Talbert PCP - General Family Practice 09/01/19 Daniel Wick MD [address] [facility] [address] Assigned PCP 09/12/21
--- OUTSIDE RECORDS SUMMARY | 2023-10-14 11:28 | XMS_ITS | Clinical Summary ---
Author Organization [facility] Address [address] [place] [address] Care Team Providers Care Academic Computing Director Name Role Phone Votelionel Adam Talbert Primary Care Provider [phone] Daniel Wick MD Unavailable [phone] Allergies Active Allergy Reactions Criticality Noted [...] Care Team Description 10/06/2023 MyC Medical Advice [address] [place] [address] Daniel Wick MD 09/23/2023 MyC Medical Advice [address] [phone] Davide Grimes MA 09/23/[address] [phone] Daniel Wick MD from Last 3 Months [...] Comments Blood Pressure 148/74 01/31/2022 4:30 PM MILKING WORKER Pulse 87 01/31/2022 4:30 PM MILKING WORKER Temperature 36.8 ??C (98.3 ??F) 01/31/2022 4:30 PM CS T Respiratory Rate 18 01/31/2022 4:30 PM MILKING WORKER Oxygen Saturation 100% 01/31/2022 4:30 PM MILKING WORKER Inhaled Oxygen Concentration - - Weight 81.6 kg (180 lb) 01/31/2022 4:30 PM MILKING WORKER Height 170.2 cm (5' 7) 10/05/2019 11:21 [...] and gender (Katty et al., NEJM, DOI: 10.1056/[id number]) Blood STRUCTURE OF LEFT UPPER LIMB / Unknown Venipuncture / Unknown 09/22/2021 10:38 PM CDT 09/22/2021 10:47 PM CDT Bryant Yap MD LAB - BLOOD ORDERABL ES LABORATORY [facility] Acute Care Lab [address] [facility] (1st floor, no room number) [place] [address], [facility] [phone] from Last 3 Months or Most Recently Relevant to Health Maintenance Care Teams Academic Computing Director Relationship Specialty Start Date End Date Votel, Adam Talbert PCP - General Family Practice 09/01/19 Daniel Wick MD [address] [facility] [place] [place] [address] Assigned PCP 09/12/21
--- OUTSIDE RECORDS SUMMARY | 2023-10-14 11:28 | XMS_ITS | Encounter Summary ---
Author Name [facility] Organization [facility] Address [address] [place] [address] Care Team Providers Care Associate Professor Of Library Media Name Role Phone SIMI SALDIVARICA Primary Care [...] PART A Jan 31, 2009 PART A [id number] [phone] DAHIANA OQUENDO PATIENT MEDICARE (WNR) MEDICARE ([place]) PART B Jan 31, 2009 PART B [id number] DAHIANA OQUENDO PATIENT Selected Encounter This section includes the information on record at [place] for the Encounter. Date/Time Encounter Type Encounter Description Reason Provider Source Oct 13, 2023 09:51 AM Outpatient Encounter TELEPHONE/ANCILLARY ELIZABETH SCHMIDT Encounter Template Text not used by [place] Plan of Treatment: Future Appointments (+ 6 months) and Future Tests (+/- 45 days) The Plan of Treatment section includes future care activities for the patient from all [place] treatmentfacilities. This section includes future appointments and future orders which are active, pending or scheduled. Future Appointments This section includes appointments that were scheduled to occur 6 months from the date of the Encounter, up to a maximum of 20 appointments. The data comes from all [place] treatment facilities. Appointment Date/Time Appointment Type Appointme nt Facility Name Oct 16, 2023 03:00 PM AMBULATORY - MEDICINE [facility] Social History: Smoking Status (Most current) and Tobacco Use (All prior to encounter date) This section includes the most current, and the historical, smoking and tobacco- related health factors from the [facility] where the Encounter took place. Current Smoking Status This section includes the most current smoking, or tobacco-related health factor, from the [facility] where the Encounter took place. Date/Time Current Smoking Status Comment Facil ity Nov 26, 2022 10:30 AM [place]-TOBACCO NEVER USED [facility] Tobacco Use History This section includes a history of the smoking, or tobacco-related health factors, that were collected on or before the date of the Encounter. The data comes from the [place] facility where the Encounter took place. Date/Time Smoking Status/Tobacco Use Comment F acility Nov 13, 2021 09:15 AM VA-TOBACCO FORMER USER [facility] Nov 13, 2021 09:15 AM [place] QU[place] 15 YRS OR MORE [facility] Advance Directives: All historical and current Section Date Range: From patient's date of to the date document was created. This section includes ALL of a patient's completed or amended [place] Advance and Rescinded Directives. The entries below indicate that a directive exists for the patient, but an actual copy is not included with this document. The data comes from all [facility]. Date Advance Directives Provider Source Feb 03, 2022 ADVANCE DIRECTIVE DISCUSSION IVONNE EISENBERG [facility] Feb 03, 2022 ADVANCE DIRECTIVE IVONNE EISENBERG [facility] Dec 10, 2021 ADVANCE DIRECTIVE DISCUSSION IVONNE EISENBERG [facility] Dec 10, 2021 ADVANCE DIRECTIVE IVONNE EISENBERG [facility] Encounter Notes: All associated encounter notes This section contains the clinical notes associated to the Encounter. Date/Time Encounter Note(s) Provider Source Oct 13, 2023 09:51 AM INTEGRATIVE HEALTH NOTE: LOCAL TITLE: WHOLE HEALTH ESCREENING NOTE STANDARD TITLE: INTEGRATIVE HEALTH NOTE DATE OF NOTE: OCT 13, 2023@09:51:01 ENTRY DATE: OCT 14, 2023@07:49:59 AUTHOR: ELIZABETH SCHMIDT EXP COSIGNER: URGENCY: STATUS: COMPLETED Whole Health Questions Whole Health Why is addressing your overall health important to you?: For good and lengthy quality of life What do you want your health for (why do you want to be healthy)?: Stated above. Whole Health assessment has been completed and reviewed by the Primary Care Team /maximiliano/ TOY GARCIA MA, RN Signed: 10/14/2023 10:15 ELIZABETH SCHMIDT [facility]
--- OUTSIDE RECORDS SUMMARY | 2023-10-14 11:28 | XMS_ITS | Continuity of Care Document ---
Author Name [facility] Organization [facility] Care Team Providers Care Sign Board Erector Name Role Phone [facility] Unavailable Unavailable Problems Combined list of problems from Department [facility] and [facility] facilities. It does not include entries that were removed or entered in error. Problem Status Onset Date Problem Type Date of Resolution Comments Source Ascending aorta dilatation Active Condition [facility] Benign Prostatic Hypertrophy with Outflow Obstruction (SCT [id number]) Active Condition [facility] Depression ([facility] [id number]) Active Condition [facility] Erectile Dysfunction ([facility] [id number]) Active Condition [facility] GERD - Gastro-Esophageal Reflux Disease ([facility] [id number]) Active Condition [facility] Hearing loss Active Condition [facility] Diagnosis: ICD-10-CM H90.3 Sensorineural hearing loss, bilateral Active Diagnosis [facility] Diagnosis: ICD-10-CM Z23 Encounter for immunization Active Diagnosis [facility] Diagnosis: ICD-10-CM Z46.1 Encounter for fitting and adjustment of hearing aid Active Diagnosis [facility] Diagnosis: ICD-10-CM H91.90 Unspecified hearing loss, unspecified ear Active Diagnosis [facility] Medications Combined list of outpatient medications from Department [facility] and [facility] Affairs facilities.Medications provided include 1) outpatient medications from the last 15 months, and 2) patient-reported medications. Medication Details Route Status Patient Instructions Prescription Expires Prescription Number Last Dispense Date Ordering Provider Order Date Order Qty Source CHOLECALCIF MIRANDA TAB CHOLECAL CIFEROL TAB Non-VA TAKE BY MOUTH Nov 13, 2021 Non-VA Document ed by: Dahlia SALDIVAR Document ed at: [facility] ORAL ACTIVE SALDIVAR,SIMI ICA C 2021 [facility] CYCLOSPORIN E 0.05% EMULSION,OP H CYCLOSPO RINE 0.05% EMULSION ,OPH Non-VA Nov 13, 2021 Non-VA Document ed by: Dahlia SALDIVAR Document ed at: [facility] ACTIVE SALDIVAR,ER ICA C 2021 [facility] DESIPRAMINE HCL 25MG TAB DESIPRAM INE HCL 25MG TAB Active TAKE ONE TABLET BY MOUTH EVERY DAY FOR DEPRESSI ON Oct 28, 2022 90 Oct 29, 2023 [id number] A July 17, 2023 Dahlia SALDIVAR [facility] ORAL ACTIVE 10/29/2023 [id number] JANNAER ICA C 2022 90 [facility] DESIPRAMINE HCL 25MG TAB DESIPRAM INE HCL 25MG TAB Disconti nued TAKE ONE TABLET BY MOUTH EVERY DAY FOR DEPRESSI ON Nov 13, 2021 90 Nov 14, 2022 [id number] Nov 07, 2022 Dahlia SLADIVAR [facility] ORAL DISCONT INUED 11/14/2022 [id number] SIMI SALDIVAR ICA C 2021 90 [facility] MARINE LIPID (FISH OIL) CAP,ORAL MARINE LIPID (FISH OIL) CAP,ORAL Non-VA TAKE BY MOUTH TWICE A DAY Nov 13, 2021 Non-VA Document ed by: Dahlia SALDIVAR Document ed at: [facility] ORAL ACTIVE SALDIVAR,ER ICA C 2021 [facility] METOPROLOL TARTRATE 100MG TAB METOPROL OL TARTRATE 100MG TAB Non-VA TAKE ONE TABLET BY MOUTH AT BEDTIME FOR BLOOD PRESSURE Nov 26, 2022 Non-VA Document ed by: Dahlia SALDIVAR Document ed at: [facility] ORAL ACTIVE SALDIVAR,ER ICA C 2022 [facility] OMEPRAZOLE 20MG CAP,EC OMEPRAZO LE 20MG CAP,EC Non-VA TAKE 1 CAPSULE BY MOUTH EVERY DAY Nov 13, 2021 Non-VA Document ed by: Dahlia SALDIVAR Document ed at: [facility] ORAL ACTIVE SALDIVAR,ER ICA C 2021 [facility] TADALAFIL TAB TADALAFI L TAB Non-VA TAKE BY MOUTH Nov 13, 2021 Non-VA Document ed by: Dahlia SALDIVAR Document ed at: [facility] ORAL ACTIVE SALDIVAR,ER ICA C 2021 [facility] TAMSULOSIN HCL 0.4MG CAP TAMSULOS IN HCL 0.4MG CAP Non-VA TAKE 1 CAPSULE BY MOUTH TWICE A DAY Nov 13, 2021 Non-VA Document ed by: Dahlia SALDIVAR Document ed at: [facility] ORAL ACTIVE SALDIVARSIMI ICA C 2021 [facility] Allergies, Adverse Reactions, Alerts Combined list of allergies from Department of [facility] and [facility] facilities. It does not include entries that were removed or entered in error. Substance Category Reaction Severity Reaction type Status Date Reported Comments Source CARVEDILOL Propensity to adverse reactions to drug (finding) Hyponatremi a active 3 [facility] LOSARTAN Propensity to adverse reactions to drug (finding) active 2 [facility] SULFA DRUGS Propensity to adverse reactions to drug (finding) Eruption active 2 [facility] VANCOMYCIN Propensity to adverse reactions to drug (finding) Fever active 2 [facility] Immunizations Combined list of available immunizations from the Department of [facility] and [facility] facilities. Immunization Series Date Given Administered By Site Reaction Lot Number CVX Code Drug Contract Forester Status Comments Source COVID-19 (PLAYD8), MRNA, LNP-S, PF, AMADO-SUCROSE, 30 MCG/0.3 ML (AGES 12+ YEARS) 1 2022 MICAH PALACIO LEFT DELTO ID [id number] 309 complet ed [facility] INFLUENZA, HIGH-DOSE, QUADRIVALENT 2022 FLACO BACK RIGHT DELTO ID [id number] 197 complet ed [facility] TDAP 2022 FLACO BACK LEFT DELTO ID [id number] 115 complet ed [facility] COVID-19 (PLAYD8), MRNA, LNP-S, BIVALENT, PF, 30 MCG/0.3 ML DOSE 2021 300 complet ed [facility] INFLUENZA VACCINE, QUADRIVALENT, ADJUVANTED 2021 205 complet ed [facility] COVID-19 (PFIZER), MRNA, LNP-S, PF, 30 MCG/0.3 ML DOSE 2020 208 complet ed [facility] INFLUENZA VACCINE, QUADRIVALENT, ADJUVANTED 2020 205 complet ed [facility] INFLUENZA, HIGH-DOSE, QUADRIVALENT 2019 197 complet ed [facility] INFLUENZA, HIGH DOSE SEASONAL 2018 135 complet ed [facility] ZOSTER RECOMBINANT 2018 187 complet ed [facility] ZOSTER RECOMBINANT 1 2018 187 complet ed [facility] COHEN TA ZOSTER RECOMBINANT 2018 187 complet ed [facility] INFLUENZA, TRIVALENT, ADJUVANTED 2017 168 complet ed [facility] INFLUENZA, TRIVALENT, ADJUVANTED 2016 168 complet ed [facility] INFLUENZA, HIGH DOSE SEASONAL 2015 135 complet ed [facility] INFLUENZA, HIGH DOSE SEASONAL 2014 135 complet ed [facility] PNEUMOCOCCAL CONJUGATE PCV 13 2014 133 complet ed [facility] INFLUENZA, HIGH DOSE SEASONAL 2013 135 complet ed [facility] INFLUENZA, SEASONAL, INJECTABLE 2012 141 complet ed [facility] TDAP 2012 115 complet ed [facility] INFLUENZA, SEASONAL, INJECTABLE 2011 141 complet ed [facility] INFLUENZA, SEASONAL, INJECTABLE 2010 141 complet ed [facility] ZOSTER LIVE 2010 121 complet ed [facility] INFLUENZA, SEASONAL, INJECTABLE 2009 141 complet ed [facility] PNEUMOCOCCAL POLYSACCHARID E PPV23 2009 33 complet ed [facility] NOVEL INFLUENZA-H1N 1-09, ALL FORMULATIONS 2008 128 complet ed [facility] INFLUENZA, UNSPECIFIED FORMULATION 2008 88 complet ed [facility] INFLUENZA, SEASONAL, INJECTABLE 2007 141 complet ed [facility] INFLUENZA, SEASONAL, INJECTABLE 2006 141 complet ed [facility] TD (ADULT), 2 LF TETANUS TOXOID, PRESERVATIVE FREE, ADSORBED 2002 09 complet ed [facility] Vital Signs Combined list of inpatient and outpatient Vital Signs from Department of Defense and Veterans Affairs, ranging from 12 months to all on record, depending upon the facility. Vital Sign Value Date Comments Source Encounters Combined list of: 1) Encounters from [facility] of [facility] facilities going back up to thelast 18 months. 2) Encounters from the Department of Defense facilities going back up to 280 months. Location Location Details Encounter Type Encounter Number Reason For Visit Attending Provider ADM Date DC Date Status Disposition Source [facility] HEARING AID FITTING/CH ECKING [id number] Diagnos is: ICD-10- CM Z46.1 Encount er for fitting and adjustm ent of hearing aid<br/ > DARLINE VOSS M 09/18 [facility] OFFICE O/P EST HI 40-54 MIN [id number] Diagnos is: ICD-10- CM H91.90 Unspeci fied hearing loss, unspeci fied ear<br/ > SAGAR SALDIVAR C 11/26 [facility] HEARING AID FITTING/CH ECKING [id number] Diagnos is: ICD-10- CM Z46.1 Encount er for fitting and adjustm ent of hearing aid<br/ > Lawson LIGHT R 11/29 [facility] Outpatient Encounter [id number] 12/01 [facility] IMMUNIZATI ON ADMIN [id number] Diagnos is: ICD-10- CM Z23 Encount er for immuniz ation<b r/> PAMELA PALACIO M 12/14 [facility] HEARING AID REPAIR/MOD IFYING [id number] Diagnos is: ICD-10- CM H90.3 Sensori neural hearing loss, bilater al
MARY WASHINGTON RTHA R 06/18 [facility] Outpatient Encounter [id number] 09/02 [facility] Outpatient Encounter [id number] 09/08 TOMY CHANE[place] [facility] [place] [facility] Outpatient Encounter [id number] 09/29 [facility] Social History Combined list of available smoking, tobacco, and other social history from Department of Defense and Veterans Affairs facilities. Social History Type Response Date Comment Sourc e Tobacco smoking status NHIS OR-TOBACCO NEVER USED 11/26/2022 [facility] History of tobacco use OR-TOBACCO FORMER USER 11/13/2021 [facility] Plan of Care List of future care activities from Department of Veterans Affairs facilities. Additional future care activities may be listed in the Assessment and Plan section. Date/Time Care Activity Care Activity Detail Facili ty 10/16/2023 AMBULATORY - MEDICINE AMBULATORY - MEDICI [facility] Advance Directives List of completed, amended, or rescinded Advance Directives on record at Department of Veterans Affairs facilities. An actual copy of the Directive is not included. Date Advance Directive Provider Source 02/03/2022 ADVANCE DIRECTIVE DISCUSSION IVONNE EISENBERG [facility] 02/03/2022 ADVANCE DIRECTIVE IVONNE EISENBERG [facility] 12/10/2021 ADVANCE DIRECTIVE DISCUSSION IVONNE EISENBERG [facility] 12/10/2021 [facility]
--- OUTSIDE RECORDS SUMMARY | 2023-10-14 11:28 | XMS_ITS | Encounter Summary ---
Author Organization [facility] Address [address] [place] [address] Care Team Providers Care Income Tax Consultant Name Role Phone Votel, Adam Talbert Primary Care Provider [phone] Daniel Wick MD Unavailable [phone] Encounter Details Date Type Department Care Team (Late st Contact Info) Description 09/23/2023 [facility] Medical Advice [address] [address] Davide Grimes MA Social History [...] on filedocumented in this encounter Care Teams Income Tax Consultant Relationship Specialty Start Date End Date Votel, Adam Talbert PCP - General Family Practice 09/01/19 Daniel Wick MD [address] [place], [place] [address] Assigned PCP 09/12/21 documented as of this encounter
--- OUTSIDE RECORDS SUMMARY | 2023-10-14 11:29 | XMS_ITS ---
Author Organization [facility] Address [address] [place] [address] Care Team Providers Care Engine Emission Technician Name Role Phone Unavailable Unavailable Unavailable Surgery Details Not on file Complications Check Surgery Details section. Procedure Estimated Blood Loss Check Surgery Details section. Procedure Findings Check Surgery Details section. Procedure Specimens Taken Check Surgery Details section.
--- OUTSIDE RECORDS SUMMARY | 2023-10-14 11:29 | XMS_ITS | Referral Summary ---
Author Organization [facility] Address [address] [place] [address] Care Team Providers Care Commercial Green Building Designer Name Role Phone Elsewhere, Pcp Primary Care Provider Unavailabl e Source Comments Patient records contain information from all sites at [facility]. For routine questions regarding patient records, call [phone] during business hours, M-F 8:00 AM - 5:00 PM Central Time. Record requests for emergency care only can be directed to [phone] at any time.[facility] Allergies Active Allergy Reactions Criticality Noted [...] week 01/30/2021 How often do you attend [facility] or jainism services? 1 to 4 times per year 01/30/2021 Do you belong to any clubs o r organizations such as denominational groups, unions, fraternal or athletic groups, or [...] and heating? Not hard at all 01/30/2021 [facility] - Occupational [...] place to sleep or slept in a correction (including now)? No 01/30/2021 Nutrition Answer Date [...] of Treatment Not on file Care Teams Commercial Green Building Designer Relationship Specialty Start Date End Date Elsewhere, Pcp PCP - General Internal Medicine 06/29/22
--- OUTSIDE RECORDS SUMMARY | 2023-10-14 11:29 | XMS_ITS | Clinical Summary ---
Author Organization [facility] Address [address] [place] [address] Care Team Providers Care Paint Grinder Name Role Phone Elsewhere, Pcp Primary Care Provider Unavailabl e Source Comments Patient records contain information from all sites at [facility]. For routine questions regarding patient records, call [phone] during business hours, M-F 8:00 AM - 5:00 PM Central Time. Record requests for emergency care only can be directed to [phone] at any time.[facility] Allergies Active Allergy Reactions Criticality Noted Date [...] week 01/30/2021 How often do you attend [facility] or advent services? 1 to 4 times per year 01/30/2021 Do you belong to any clubs o r organizations such as alevism groups, unions, fraternal or athletic groups, or [...] and heating? Not hard at all 01/30/2021 [facility] ional Health - Occupational [...] place to sleep or slept in a usp (including now)? No 01/30/2021 Nutrition Answer Date [...] 08/2018, 08/03/2018, Additional history exists Care Teams Paint Grinder Relationship Specialty Start Date End Date Elsewhere, Pcp PCP - General Internal Medicine 06/29/22
--- OUTSIDE RECORDS SUMMARY | 2023-10-14 11:29 | XMS_ITS | Encounter Summary ---
Author Organization [facility] Address [address] [place] [address] Care Team Providers Care Filter Cloth Maker Name Role Phone Votel, Adam Talbert Primary Care Provider [phone] Daniel Wick MD Unavailable [phone] Encounter Details Date Type Department Care Team (Late st Contact Info) Description 01/27/2023 MyC Medical Advice [address] [address] Lois Mensah RN Social History [...] on filedocumented in this encounter Care Teams Filter Cloth Maker Relationship Specialty Start Date End Date Votel, Adam Talbert PCP - General Family Practice 09/01/19 Daniel Wick MD [address] [place], [place] [address] Assigned PCP 09/12/21 documented as of this encounter
[2023-10-14] MEDS: CELECOXIB 200 MG CAPSULE PO (12:36)
[2023-10-14] MEDS: OXYCODONE (CR) 10 MG TAB.ER.12H PO (12:36)
[2023-10-14] MEDS: ACETAMINOPHEN 500 MG TABLET 1000 MG PO (12:36)
[2023-10-14] MEDS: SODIUM CHLORIDE 0.9 % (FLUSH) 10 ML SYRINGE IVF (12:55)
[2023-10-14] MEDS: LACTATED RINGERS 1000 ML 1,000 ML 100 ML IV ×2 (12:58→14:54)
[2023-10-14] MEDS: MIDAZOLAM HCL 1 MG/ML inj IVP (13:19)
[2023-10-14] MEDS: fentaNYL 100 MCG/2 ML inj IVP (13:19)
--- NOTE | 2023-10-14 13:20 | SUR.PREOP ---
TIME?OUT:?1318 PT/RN/MDA?VERIFICATION?OF?SURGICAL?SITE,?PROCEDURE,?AND?CONSENT OBTAINED?PRIOR?TO?INVASIVE?PROCEDURE. all in agreement
--- NOTE | 2023-10-14 13:30 | W.PM.NB ---
Nerve Block Nerve Block Time Seen by Provider: : Date Seen: 10/14/23 Type of block requested by surgeon for post-operative analgesia: supraclavicular Side: left Time out performed: Yes Verification of patient name: Yes Verification of date of : Yes Site marking: site marked Name of person performing procedure: Lacho Continuous monitoring Was continuous monitoring of O2 sat, B/P, cardiac catheterization technologist, recorded every 15 minutes?: Yes Procedure Checklist: sterile prep, needles and gloves Ultrasound guided. Images saved: Yes Medications given in 5ml increments after negative aspiration: Ropivicaine %: 0.5 mL: 20 Needle gauge: 22 Decadron (mg): 10 Precedex (mcg): 25 Patient tolerated procedure well: Yes Block Charges Block Charge (with Pro Fee): Brachial Plexus Use of Ultrasound Machine for Block: Yes- US Guidance/pain block
[2023-10-14] MEDS: CEFAZOLIN 2 GM INJ IVP (13:50)
--- NOTE | 2023-10-14 14:32 | SUR.OPER ---
culture-left shoulder synovial fluid--per dr. mandujano request--wants the cultures held for 3 weeks--verbally passed on to the lab--
[2023-10-14] MEDS: EPINEPHrine 1 MG in SODIUM CHLORIDE IRRIG SOLUTION 3,000 ML 9003 MG IRRIGATION ×2 (14:35→15:15)
--- NOTE | 2023-10-14 15:18 | W.ANESCHARGE ---
Anesthesia Charges Start Date/Time Anesthesia Start Date: 10/14/23 Anesthesia Start Time: 13:39 Stop Date/Time Anesthesia Stop Date: 10/14/23 Anesthesia Stop Time: 15:55 Summary Extremes of Age - Over 70 or under 1: MDA
--- NOTE | 2023-10-14 15:44 | P.ORPRC_ITS ---
Procedure Note Date of procedure: 10/14/23 Procedure: PERATIVE DIAGNOSIS: Left shoulder deep infection after rotator cuff repair POSTOPERATIVE DIAGNOSIS: Left shoulder deep infection after rotator cuff repair NAME OF OPERATION: Left shoulder arthroscopic irrigation and debridement, mini open irrigation and debridement of fibrinous exudate, bone and soft tissue scar, hardware removal deep SURGEON: Destin Stoddard MD RACE RELATIONS ADVISER: ADAN Davidson ANESTHESIA: Supraclavicular block plus general endotracheal ESTIMATED BLOOD LOSS: 10 mL COMPLICATIONS: None SPECIMENS: Left shoulder synovial fluid sent for Gram stain, aerobic and anaerobic cultures, to be held for 3 weeks to evaluate for Cutibacterium DRAINS: None PREOPERATIVE ANTIBIOTICS: Ancef 2 grams INDICATIONS: The patient is a 78-year-old with a history of a left shoulder rotator cuff repair done in July of 2023. He has done well until more recently when his shoulder became swollen and red, with minimal pain. A deep infection was suspected. He was started on empiric doxycycline 100 mg p.o. b.i.d. for presumed Cutibacterium infection. He has clinically responded well to this treatment. However, with the working diagnosis of a deep infection the above procedure was recommended. The risks, benefits and expected outcomes were discussed in detail. These included but were not limited to: Infection, bleeding, injury to blood vessel or nerve, venous thromboembolism. All questions were answered to their satisfaction. PROCEDURE: A supraclavicular block was placed by Anesthesia. General anesthesia was administered. The patient was placed in the high beach chair position. The left shoulder was prepped and draped in the usual sterile fashion. The spinal needle was placed into the glenohumeral joint posteriorly. 1-2 mL of clear, yellow synovial fluid was obtained. This was sent for Gram stain, aerobic and anaerobic cultures labeled left shoulder glenohumeral joint synovial fluid. The glenohumeral joint was infiltrated with 20 mL of normal saline with epinephrine. The posterior portal was established, the arthroscope was introduced. The anterior portal was established, Diagnostic arthroscopy was performed with findings as follows: The joint is somewhat hyperemic, without o bvious purulence. There is a minimal amount of white fibrinous exudate. The biceps is not in the glenohumeral joint. Articular surfaces on the humeral head and glenoid showed diffuse grade 2/3 change. There are no loose bodies. There is a full-thickness, recurrent tear of the supraspinatus. The fibrinous exudate was debrided with the shaver. The glenohumeral joint was flushed with 1-2 L of normal saline off of the arthroscopic pump. The arthroscope was placed in the subacromial space, the lateral portal was established. The subacromial space has white fibrinous exudate, without gross purulence. There is an area anteriorly, just medial to the mini open incision where it appears there was a fluid collection previously. This does not appear to be an abscess. The recurrent tear of the supraspinatus is noted. Arthroscopic instruments were removed. The previously placed mini open incision was reopened. Subcutaneous dissection was taken with electrocautery through the deltoid, to the subacromial space. The static retractor was placed. A marked amount of subacromial scarring was aggressively debrided with the Salomónpert rongeur and electrocautery. Sutures in the rotator cuff were debrided with the rongeur. They were followed down to their respective anchors. Five SwiveLock anchors and the deep eyelets were all removed. A small amount of bone was debrided to free up the anchors. All of the suture was removed. The wound was irrigated with 6 L of normal saline off of the pump. A #1 PDS suture was used to close the supraspinatus over the top of the humeral head in a simple, interrupted fashion x2. The deltoid was closed with a 0 Vicryl suture, subcutaneous tissues reapproximated with a 2-0 Vicryl, the skin was run with Monocryl and sealed with glue. A dry dressing and sling were applied. Sponge and needle counts were correct x2. The patient tolerated the procedure well. There were no apparent complications. He was awakened and extubated and sent to the postanesthesia care unit in satisfactory condition. Plan: The patient will be to discharged home, use of the shoulder as tolerates. He may discontinue the sling when he feels comfortable. Doxycycline 100 mg p.o. b.i.d. will be prescribed for 3 weeks postoperatively. He will follow-up in the office next week for a wound check and to begin physical therapy again.
--- NOTE | 2023-10-14 16:00 | P.ANES_ITS ---
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
[2023-10-14] MEDS: PHENYLEPHRINE 100 MCG/ML SYRINGE IVP (16:07)
== END 2023-10-14 17:34 | disposition home or self-care (01) ==
LOC: OR 11:25
PROVIDERS: PCP Family Medicine; Visit Provider Orthopaedic Surgery
PROC: (CPT 29805; principal; 2023-10-14 13:30)
DX: T81.49XA Infection following a procedure, other surgical site, initial encounter (principal); G89.18 Other acute postprocedural pain
CPT/HCPCS: 20610; 29822; 20680; 01630; 64415; 76942; 87070; 87075; 87205; 99100; A9270; J0171; J0690; J1100; J2250; J2371; J2405; J2704; J2795; J3010; J3490; J7120; L3670

== ENCOUNTER 2023-11-18 14:45 | Outpatient (RCR) | payer MEDICARE, SELFPAY ==
--- NOTE | 2023-07-16 13:51 | PT.OPE ---
PT [place] [facility] Eval PT [facility] Outpatient Eval Start: 07/16/23 12:16 Freq: Status: Active Protocol: Document 07/16/23 13:48 CJT (Rec: 07/16/23 13:50 CJT [id number]) E-signed By Qasim Moran PT Physical Therapy Outpatient Evaluation Insurance Information Recert Due Date 10/14/23 Insurance Name Medicare B Medical Diagnosis Z98.890 - Other post- procedural states Treating Diagnosis M25.512 - L shoulder pain Z47.89 - orthopedic aftercare Referring MD Connor, Helene PAC Subjective Subjective Pt reports he had been doing very well post-op until the past 24 hours when he noticed increased L arm swelling and increased pain. Occasionally has had sharper pains in the L shoulder but sitting in the clinic now he is pain free. Has been taking IBP, 800mg twice daily and this seems to be helping to manage his pain appropriately. Notes that his L shoulder seems to be healing more slowly than his R RCR did many years ago. Pain Comments 05/10 Date of Last Physician Visit 07/09/23 Current Work Status Retired Preferred Name Bienvenido Precautions Therapy Limitations/Systems Review Not Limited Objective Other/Pertinent Objective L shoulder PROM elevation: 90 degrees Skin: pts incisions healing well, absent of redness and drainage Assessment Assessment/Impression Bienvenido is a very pleasant 78 year old male who presents to our clinic for evaluation and treatment post-op L RCR. Pt is doing well and progressing as planned. His pain is well managed and has been abiding by his restrictions. PROM of R shoulder is good for first post-op therapy appointment ( 90 degrees elevation with reported pain of 4/10). Pt and his spouse Radha took time to ask many good questions about pts recovery process. The nature of the pts condition was explained and all questions were answered to the pts satisfaction. Skilled PT services are medically necessary to address deficits and return patient to highest level of function. Recommend physical therapy sessions 1-2/ week for 12+ weeks. Pt agrees with this plan. Printout of HEP was given for I completion and pt gives verbal understanding of each exercise . Primary Functional Limitations Lifting, reaching, carrying Plan of Care Rehabilitation Potential Good Physical Therapy Goals STG - To be completed in 2-3 weeks: 1. Pt will demonstrate improved shoulder elevation PROM by 10+ degrees to reduce risk of development of adhesive capsulitis. 2. Pt will report ability to sleep 5 hours uninterrupted so that he may wake fairly rested with reduced mental fatigue during working hours. 3. Pt will report consistent use of sling on involved UE to help protect surgical repair. LTG - To be completed in 12+ weeks: 1. Pt to be I with HEP so that they may I manage progression of symptoms. 2. Pt will report ability to lay on L shoulder in bed without increase in pain so that they may sleep in preferred position to achieve better night's sleep. 3. Pt will demo full and pain free shoulder ROM and strength so that they may return to recreational exercise with their friends. Treatment Plan/Direct Interventions Electrical Stimulation,Ice/ Cold/Vasopneumatic,Joint Mobilization,Manual Therapy, Self-Care/Home Management, Therapeutic Activities, Therapeutic Exercises Frequency/Duration 1-2/week for 12+ weeks Patient Will Be Discharged From Therapy Completion of LTG(s),Skills Plateau,Independent w/HEP, Independently Progressing Evaluation Billing Untimed Code Treatment Minutes 30 PT Eval No Charge No Complexity Low Certification Information Initial Certification Date 07/16/23 Ending Certification Date 10/14/23 Provider Signature Shows Agreement With POC & Medical Necessity Physician Signature & Date Requested Please Sign/Date Here Physician Comment/Change : Physician NPI Number #
--- NOTE | 2023-09-24 14:46 | PT.OPDN ---
PT [place] Outpatient Daily Note PT [facility] Outpatient Daily Note Start: 07/16/23 12:16 Freq: Status: Active Protocol: Document 09/24/23 13:15 CJT (Rec: 09/24/23 13:26 CJT [id number]) E-signed By Qasim Moran PT PT OP Daily Progress Note Visit Information Note Type Recert/Progress Note Visit Number 10 Insurance Authorized Visits no auth required Physician Authorized Visits eval and treat Insurance Information Recert Due Date 10/14/23 Insurance Name Medicare B Medical Diagnosis Z98.890 - Other post- procedural states Treating Diagnosis M25.512 - L shoulder pain Z47.89 - orthopedic aftercare Referring Helene Davis PAC Subjective Preferred Name Bienvenido Date of Last Physician Visit 09/24/23 Date of Surgery (If applicable) 07/03/23 Home Exercise Home Exercise Comments Access Code: [email or web address] URL: [email or web address] Date: 09/24/2023 Prepared by: Qasim Moran Exercises - Seated Shoulder Flexion AAROM with Kathleen Behind - Standing Shoulder Flexion Stretch on Wall - 1-2 x daily - 7 x weekly - 1 sets - 45 seconds hold - Standing Shoulder Internal Rotation Stretch with Hands Behind Back - 1-2 x daily - 7 x weekly - 1 sets - 45 seconds hold - Standing Shoulder Posterior Capsule Stretch - 1-2 x daily - 7 x weekly - 1 sets - 45 seconds hold - Doorway Pec Stretch at 90 Degrees Abduction - 1-2 x daily - 7 x weekly - 1 sets - 45 seconds hold - Shoulder External Rotation with Anchored Resistance - 1 x daily - 4-5 x weekly - 3 sets - 20 reps - Shoulder Internal Rotation with Resistance - 1 x daily - 4-5 x weekly - 3 sets - 20 reps - Seated Shoulder External Rotation in Abduction Supported with Dumbbell - 1 x daily - 4-5 x weekly - 2-3 sets - 20 reps - Seated Shoulder Internal Rotation in Abduction Supported with Resistance - 1 x daily - 4-5 x weekly - 2-3 sets - 20 reps - Standing Shoulder Row with Anchored Resistance - 1 x daily - 4-5 x weekly - 3 sets - 10-15 reps - Shoulder extension with resistance - Neutral - 1 x daily - 4-5 x weekly - 3 sets - 10-15 reps - Standing Shoulder Flexion to 90 Degrees with Dumbbells - 1 x daily - 4-5 x weekly - 3 sets - 10-15 reps - Shoulder Abduction with Dumbbells - Thumbs Up - 1 x daily - 4-5 x weekly - 3 sets - 10-15 reps Objective Other/Pertinent Objective L shoulder AROM Flexion: 148 Abduction: 157 ER: 86 IR: T12 Patient Instructed in Risks/Benefits Yes Therapeutic Exercise Therapeutic Exercise Minutes (minutes) 46 Therapeutic Exercise: To Restore UBE x 4 minutes Functional Status Pulleys into shoulder elevation x 25 Shoulder ER/IR with YTB 2 x 20 ea Shoulder ER with elbow supported @ 90 degrees abduction 2 x 20 Shoulder IR with elbow supported @ 90 degrees abduction w/ YTB 2 x 20 Standing shoulder flexion, 3# x 10, 4# x 10 Standing shoulder abduction AROM 2 x 10 Cat cow x 10 Extensions, GTB 2 x 10 Rows, GTB 2 x 10 Treatment Minutes Timed Code Treatment Minutes 46 Total Treatment Time 46 Billing Units Therapeutic Exercise Units 3 Assessment/Impression Assessment/Impression Bienvenido has progressed very well during his time in therapy. He has [id number] pain at all times. Occasionally having some discomfort with laying on his L side at night but he does this rarely still. HEP going well at home and pt reports consistency. L shoulder AROM is progressing consistently and WNL for current phase of rehabilitation. I have no concerns for Bienvenido at this time . Today, pts HEP was updated to progress strength exercises . Will also reduce frequency moving forward to 1 every 2-3 weeks. Pt in agreement with this plan. Recommend continued PT services to address deficits and return pt to highest level of function. Plan of Care Physical Therapy Goals STG - To be completed in 2-3 weeks: 1. Pt will demonstrate improved shoulder elevation PROM by 10+ degrees to reduce risk of development of adhesive capsulitis. MET 2. Pt will report ability to sleep 5 hours uninterrupted so that he may wake fairly rested with reduced mental fatigue during working hours. MET 3. Pt will report consistent use of sling on involved UE to help protect surgical repair. MET LTG - To be completed in 12+ weeks: 1. Pt to be I with HEP so that they may I manage progression of symptoms. 2. Pt will report ability to lay on L shoulder in bed without increase in pain so that they may sleep in preferred position to achieve better night's sleep. 3. Pt will demo full and pain free shoulder ROM and strength so that they may return to recreational exercise with their friends. Daily Plan of Care Continue per POC Recertification Information Provider [employer] Agreement With POC & Medical Necessity
--- NOTE | 2023-10-28 13:40 | PT.OPDN ---
PT [place] [facility] Daily Note PT [facility] Daily Note Start: 07/16/23 12:16 Freq: Status: Active Protocol: Document 10/28/23 10:36 CJT (Rec: 10/28/23 11:24 CJT [id number]) E-signed By Qasim Moran PT PT OP Daily Progress Note Visit Information Note Type Re-Evaluation Visit Number 11 Insurance Authorized Visits no auth required Physician Authorized Visits eval and treat Insurance Information Recert Due Date 10/14/23 Insurance Name Medicare B Medical Diagnosis Z98.890 - Other post- procedural states Treating Diagnosis M25.512 - L shoulder pain Z47.89 - orthopedic aftercare Referring Helene Davis Subjective Preferred Name Bienvenido Subjective Pt returns following 4-week absence from therapy. After last session on 09/24/23, pt notes that he began to have some soreness in his shoulder. Kiester that maybe he worked his shoulder too hard. After a few more days the soreness increased. At this time he also noticed some swelling in the front of his shoulder that he describes as egg shaped, and the color of his skin was orange/red. Pt reports he called the ortho emergency line and described his situation to HU Max and was asked to submit a picture. Pt was then put on antibiotics and started taking immediately. Pt then attended appointment with HU Beltrán about 4-5 days later and Helene tried to aspirate the shoulder. Pt was then scheduled for an MRI which showed tissue damage including recurrent tearing of RTC tendons and signs of infection . Pt was then scheduled for surgery to remove anchors and irrigate. Pt reports he was then told that no more operations will be performed on his shoulder due to risk of infection. Pt reports that now he is having pain all of the time. He does feel that his motion has improved slightly since surgery. Pt is upset that a plan was discussed for his current situation and would like to know what he can do to help with his pain and function. Pt wonders if a second opinion should be explored. Date of Last Physician Visit 10/23/23 Date of Surgery (If applicable) 07/03/23 Home Exercise Home Exercise Comments Access Code: [email or web address] URL: [email or web address] Date: 10/28/2023 Prepared by: Qasim Moran Exercises - Circular Shoulder Pendulum with Table Support - 1-2 x daily - 7 x weekly - 1-2 sets - 10-20 reps - Seated Shoulder Flexion Towel Slide at Table Top - 1- 2 x daily - 7 x weekly - 1-2 sets - 10-20 reps - Seated Shoulder Abduction Towel Slide at Table Top - 1- 2 x daily - 7 x weekly - 1-2 sets - 10-20 reps - Seated Shoulder Flexion AAROM with Kathleen Behind - 1- 2 x daily - 7 x weekly - 1 sets - 10-20 reps - Seated Shoulder Scaption AAROM with Kathleen at Side - 1 -2 x daily - 7 x weekly - 1 sets - 10-20 reps - Shoulder Scaption AAROM with Dowel - 1-2 x daily - 7 x weekly - 1-2 sets - 10-20 reps - Standing Shoulder Abduction AAROM with Dowel - 1-2 x daily - 7 x weekly - 1-2 sets - 10-20 reps - Standing Shoulder External Rotation AAROM with Dowel - 1 -2 x daily - 7 x weekly - 1-2 sets - 10-20 reps Objective Other/Pertinent Objective L shoulder AROM Flexion: 114 (pain starts at 80 degrees elevation) Abduction: 65 ER: 69 IR: L PSIS Skin Inspection: pts incisions healing well, absent of redness and drainage Patient Instructed in Risks/Benefits Yes Therapeutic Exercise Therapeutic Exercise Minutes (minutes) 4 Therapeutic Exercise: To Restore Pendulums x 20 ea, CW/CCW Functional Status Manual Therapy Techniques Manual Therapy Minutes (minutes) 25 Manual Therapy Techniques STM performed to L UT, levator , pec minor/major, LHBT, biceps mm belly, CET, rhomboids, thoracic paraspinals, infraspinatus, subscapularis, and teres group to reduce tissue tension and improve extensibility. Gentle PROM of L shoulder to facilitate motion. Treatment Minutes Timed Code Treatment Minutes 29 Total Treatment Time 29 Billing Units Manual Therapy Units 2 Re-Evaluation Units 1 Assessment/Impression Assessment/Impression Bienvenido presents 2 weeks post-op L shoulder hardware removal. He has had constant pain since surgery and L shoulder AROM has been quite limited. Pts AROM in the clinic today is very limited this date (see objective), however, this is to be expected. Bienvenido and I had a long discussion today with his Radha regarding pts timeline from onset of infection to today. Pt did not have pain today with PROM exercises which was promising. We have regressed exercises and returned to AAROM shoulder exercises with use of dowel as well as pendulums and table slides to encourage movement throughout the glenohumeral joint. We will continue to progress Bienvenido's exercises as able. Recommend continued PT services to address deficits and return pt to highest level of function. Plan of Care Physical Therapy Goals STG - To be completed in 2-3 weeks: 1. Pt will demonstrate improved shoulder elevation AROM by 10+ degrees to reduce risk of development of adhesive capsulitis. 2. Pt will report ability to sleep 5 hours uninterrupted so that he may wake fairly rested with reduced mental fatigue during working hours. LTG - To be completed in 6-8 weeks: 1. Pt to be I with HEP so that they may I manage progression of symptoms. 2. Pt will report ability to lay on L shoulder in bed without increase in pain so that they may sleep in preferred position to achieve better night's sleep. 3. Pt will demo ability to repeatedly reach objects in upper cabinet shelf in clinic without pain so that he may perform this activity in his home to help put away clean dishes. Daily Plan of Care Continue per POC Recertification Information Provider Signature Shows Agreement With POC & Medical Necessity
== END 2024-01-22 09:49 | disposition home or self-care (01) ==
PROVIDERS: PCP Family Medicine; Visit Provider Physician Assistant
DX: Z98.890 Other specified postprocedural states (principal); Z51.89 Encounter for other specified aftercare
CPT/HCPCS: 97110; 97140; 97161; 97164

== ENCOUNTER 2023-11-23 13:56 | Emergency (ER) | payer MEDICARE, SELFPAY ==
--- NOTE | 2023-11-23 13:58 | ED_ITS ---
HPI - General Adult General Date Seen: 11/23/23 Chief complaint: Laceration/Wound Stated complaint: L hand lac-folding chair accident Time Seen by Provider: 11/23/23 13:58 History of Present Illness HPI narrative: 78-year-old male with a past medical history of osteoarthritis, BPH, asthma, hypertension, BPPV, left shoulder arthroscopy,, dilation of ascending aorta, presenting to the ER today with a laceration to the dorsum of the skin webspace between his left thumb and index finger. He is up-to-date on tetanus. Most recent tetanus was in November 2022. He was going to his grandson soccer game today. He was trying to unfold a folding chair when he got his thumb caught in the hinge mechanism of the folding chair. He suffered a laceration to the skin of the webspace between the thumb and index finger. He did notice a fairly long flap that was gaping about 387 in. He had dark red venous oozing. No pulsatile bruising. He had no injury to his thumb or index finger. Normal flexion and extension of the finger joints. Does not think there is any foreign material in the cut. Bleeding was controlled prior to arrival. No other injury Related Data Home Medications ?Medication ?Instructions ?Recorded ?Confirmed metoprolol succinate 100 mg 100 mg PO HS 02/05/23 11/23/23 tablet,extended release 24 hr omeprazole 20 mg capsule,delayed 20 mg PO DAILY 10/13/23 11/23/23 release tamsulosin 0.4 mg capsule 0.8 mg PO DAILY 10/13/23 11/23/23 cyclosporine 0.1 % eye drops drp ophthalmic (eye) 10/22/23 11/07/23 (Vevye) desipramine 10 mg tablet 10 mg PO QPM 11/23/23 11/23/23 tadalafil 5 mg tablet mg PO 11/23/23 Allergies Allergy/AdvReac Type Severity Reaction Status Date / Time vancomycin Allergy Intermediate high fever Verified 11/07/23 11:05 ciprofloxacin Allergy Mild elevated Verified 11/07/23 11:05 temp losartan Allergy Mild Cough Verified 11/07/23 11:05 Sulfa (Sulfonamide Allergy Mild Hives Verified 11/07/23 11:05 Antibiotics) [facility] Medical History Colon polyp ?K63.5 - Polyp of colon (ICD-10) Depression ?F32.A - Depression, unspecified (ICD-10) Normal esophagogastroduodenoscopy (EGD) ?Z01.89 - Encounter for other specified special examinations (ICD-10) Acute urinary retention ?R33.8 - Other retention of urine (ICD-10) Chronic bronchitis ?J42 - Unspecified chronic bronchitis (ICD-10) Asthma ?J45.909 - Unspecified asthma, uncomplicated (ICD-10) Hyponatremia ?E87.1 - Hypo-osmolality and hyponatremia (ICD-10) Ascending aorta dilatation ?I77.810 - Thoracic aortic ectasia (ICD-10) Incomplete bladder emptying ?R33.9 - Retention of urine, unspecified (ICD-10) Benign prostatic hyperplasia ?N40.0 - Benign prostatic hyperplasia without lower urinary tract symptoms (ICD-10) Sensorineural hearing loss, bilateral ?H90.3 - Sensorineural hearing loss, bilateral (ICD-10) Chronic eustachian tube dysfunction ?H69.80 - Other specified disorders of Eustachian tube, unspecified ear (ICD- 10) Erectile dysfunction ?N52.9 - Male erectile dysfunction, unspecified (ICD-10) Essential hypertension ?I10 - Essential (primary) hypertension (ICD-10) Dry eyes ?H04.123 - Dry eye syndrome of bilateral lacrimal glands (ICD-10) Surgical History H/O shoulder surgery (10/14/23) ?Z98.890 - Other specified postprocedural states (ICD-10) History of arthroscopy of left shoulder (07/03/23) ?Z98.890 - Other specified postprocedural states (ICD-10) Hx of cataract extraction ?Z98.49 - Cataract extraction status, unspecified eye (ICD-10) H/O hand surgery ?Z98.890 - Other specified postprocedural states (ICD-10) History of laparoscopic cholecystectomy (10/27/08) ?Z90.49 - Acquired absence of other specified parts of digestive tract (ICD- 10) History of arthroscopy of right shoulder (01/06/15) ?Z98.890 - Other specified postprocedural states (ICD-10) History of arthroscopy of right knee (03/15/16) ?Z98.890 - Other specified postprocedural states (ICD-10) Family History Mother Liver cancer, Onset Age: 92 Social History Narrative: , Radha, is here with him today and helps give history. Denies tobacco use, smoked for a few years 30 years ago. Drinks 1-5 beers every other week. Denies recreational drugs. Wishes to be a F[employer]. What is your current living situation?: I presently have a place to live Problems where you live: no known problems Problems where you live details: n/a In the past 12 months, utilities in danger of being shut off: no In past 12 months, lack of transportation kept you from medical appts, meetings, work, or getting things needed for daily living: no In the past 12 mos, have been you worried that your food would run out before you had money to buy more?: never true In the past 12 mos, the food you bought just didn't last and you didn't have money to buy more?: never true Highest level of school completed/degree received: Bachelor's degree Smoking Status: Former smoker Do you use any of these nicotine containing products: None How often do you have a drink containing alcohol: 2-4 times a month Alcohol type: beer How many standard drinks containing alcohol do you have on a typical day: 1 or 2 How often do you have six or more drinks on one occasion: Less than monthly AUDIT-C Alcohol total score: 3 Non-prescribed substance use: denies use Caffeine: Yes How often does anyone, including family, friends and others, physically hurt you : never How often does anyone, including family, friends and others, insult or talk down to you: never How often does anyone, including family, friends and others, threaten you with harm: never How often does anyone, including family, friends and others, scream or curse at you: never Gender Identity: male service: Yes Exam Narrative: Exam Narrative: Constitutional: Appears well-developed and well-nourished. Very polite. HENT: Head: Atraumatic. No signs of injury. Nose: No nasal discharge. Mouth/Throat: Mucous membranes are moist. Pharynx is normal. Tonsils symmetric. Uvula midline. Airway patent. Eyes: Conjunctivae normal and EOM are normal. Pupils are equal, round, and reactive to light. Right eye exhibits no discharge. Left eye exhibits no discharge. No icterus. Neck: Normal range of motion. Neck supple. No adenopathy. No stridor. Cardiovascular: Normal rate and regular rhythm. No murmur heard. No murmurs, rubs, or gallops. Brisk capillary refill Pulmonary/Chest: Effort normal. No stridor. No respiratory distress. No wheezes.No rhonchi. No rales. No retractions. Abdominal: Soft. Bowel sounds are normal. No distension. No mass. There is no tenderness. There is no rebound and no guarding. Musculoskeletal: Normal range of motion in his thumb including the MCP, IP joint. Normal flexion/extension. Normal flexion/extension of the MCP, PIP joint of the index finger and other fingers. Intact distal did nerve function. No edema. No tenderness. No deformity. There is a 2.5 cm curvilinear laceration affecting the skin of the dorsum of the webspace between the thumb and index finger. When the patient extends his thumb the wound does open up about 2-4 mm at the center. No visible foreign body in a bloodless field. No pulsatile bleeding. Neurovascularly intact. Neurological: Alert. Normal strength. No cranial nerve deficit or sensory deficit. Coordination normal. GCS eye subscore is 4. GCS verbal subscore is 5. GCS motor subscore is 6. Skin: Skin is warm. No rash noted. Const: Vital Signs, click to edit/add: Vital Signs - 24 hr 11/23/23 14:00 Temperature 98.0 F Pulse Rate [Pulse Oximeter] 76 Respiratory Rate 16 Blood Pressure [Ri ght Upper Arm] 153/78 H Pulse Oximetry 99 Oxygen Delivery Me thod Room Air Course Vital Signs Vital signs: Initial Vital Signs Temperature 98.0 F 11/23/23 14:00 Temperature Source Temporal Artery Scan 11/23/23 14:00 Pulse Rate 76 11/23/23 14:00 Respiratory Rate 16 11/23/23 14:00 Blood Pressure 153/78 H 11/23/23 14:00 Blood Pressure Mean 103 11/23/23 14:00 Blood Pressure Position Sitting 11/23/23 14:00 Pulse Oximetry 99 11/23/23 14:00 Oxygen Delivery Method Room Air 11/23/23 14:00 Vital Signs Temperature 98.0 F 11/23/23 14:00 Pulse Rate 76 11/23/23 14:00 Respiratory Rate 16 11/23/23 14:00 Blood Pressure 153/78 H 11/23/23 14:00 Pulse Oximetry 99 11/23/23 14:00 Oxygen Delivery Method Room Air 11/23/23 14:00 Temperature 98.0 F 11/23/23 14:00 Pulse Rate 76 11/23/23 14:00 Respiratory Rate 16 11/23/23 14:00 Blood Pressure 153/78 H 11/23/23 14:00 Pulse Oximetry 99 11/23/23 14:00 Oxygen Delivery Method Room Air 11/23/23 14:00 Medical Decision Making MDM Narrative Medical decision making narrative: Findings and exam are consistent with an uncomplicated laceration to his left hand webspace between the thumb and index finger. which was repaired as noted above. There is no evidence at this time to suggest any associated fracture or foreign body. There is no evidence to suggest tendon or arterial injury and patient is neurologically in tact. The patient is to follow up for suture removal as instructed in 10 days. Indications to seek urgent reevaluation and signs of infection (including but not limited to increasing pain, redness, swelling, fevers, and drainage) were reviewed. Tetanus is up-to-date. This is a clean and non-contaminated wound in which prophylactic antibiotics are not indicated. An understanding of the discharge instructions and need for follow up were verbally confirmed. Discharge Plan Discharge Clinical Impression: Hand laceration Patient Disposition: Home, Self-Care Condition: Stable Instructions: Laceration (DC) Additional Instructions: As we discussed, please follow-up with your doctor's office in 10 days for suture remove (or come back to the urgent care or emergency room). Clean the wound gently once per day with a clean wet washcloth her gauze. After the wound is clean, gently dry it. After it is dry reapply antibiotic ointment and a dressing to cover the wound in the stitches. Watch for signs of infection. If you have any redness, swelling of the cut, pus draining from the wound, fever, red streaks spreading up her hand, please come back to the ER or see your doctor right away to be rechecked. Prescriptions: No Action metoprolol succinate 100 mg tablet extended release 24 hr 100 mg PO HS Vevye 0.1 % drops ophthalmic (eye) desipramine 10 mg tablet 10 mg PO QPM tadalafil 5 mg tablet PO omeprazole 20 mg capsule,delayed release(DR/EC) 20 mg PO DAILY tamsulosin 0.4 mg capsule 0.8 mg PO DAILY Follow Up/Referrals: Adam Peterson MD [Primary Care Provider] - Stand Alone Forms: [facility] Info Instructions Procedures Laceration Left hand, 1-2 dorsal webspace laceration: Pre procedure diagnosis: Web space laceration between thumb and index finger on dorsum of webspace Verification/time out: correct patient and correct site Site: hand Side (If applicable): left Size (cm): 2.5 Description: linear Depth: simple, single layer Local Anesthetic: lidocaine 1% and with epi Amount of anesthesia used (mL): 5 Pre-repair: wound explored, irrigated extensively and deep structures int act Skin layer closed with: nylon Size (cm): 5-0 Number of sutures: 5 Technique: simple, interrupted
[2023-11-23 14:00] VITALS: BP 153/78; PULSE 76; RESP 16; TEMP 36.7; O2SAT 99; BMI 28.2
--- OUTSIDE RECORDS SUMMARY | 2023-11-23 14:49 | XMS_ITS | Referral Summary ---
Author Organization [facility] Address [address] [place] [address] Care Team Providers Care Oceanography Teacher Name Role Phone Elsewhere, Pcp Primary Care Provider Unavailabl e Source Comments Patient records contain information from all sites at [facility]. For routine questions regarding patient records, call [phone] during business hours, M-F 8:00 AM - 5:00 PM Central Time. Record requests for emergency care only can be directed to [phone] at any time.[facility] Allergies Active Allergy Reactions Criticality [...] week 01/30/2021 How often do you attend [facility] or mandaeism services? 1 to 4 times per year 01/30/2021 Do you belong to any clubs o r organizations such as uatsdin groups, unions, fraternal or athletic groups, or [...] and heating? Not hard at all 01/30/2021 [facility] - Occupational [...] of Treatment Not on file Care Teams Oceanography Teacher Relationship Specialty Start Date End Date Elsewhere, Pcp PCP - General Internal Medicine 06/29/22
--- OUTSIDE RECORDS SUMMARY | 2023-11-23 14:49 | XMS_ITS ---
Author Organization [facility] Address [address] [place] [address] Care Team Providers Care Vegetable Canner Name Role Phone Unavailable Unavailable Unavailable Surgery Details Not on file Complications Check Surgery Details section. Procedure Estimated Blood Loss Check Surgery Details section. Procedure Findings Check Surgery Details section. Procedure Specimens Taken Check Surgery Details section.
--- OUTSIDE RECORDS SUMMARY | 2023-11-23 14:49 | XMS_ITS | Referral Summary ---
Author Organization [facility] Address [address] [place] [address] Care Team Providers Care Internship Name Role Phone Votel Adam Talbert Primary Care Provider [phone] Daniel Wick MD Unavailable [phone] Encounters Date Type Department Care Team Description 10/06/2023 [facility] Medical Advice [address] [address] Daniel Wick MD 09/23/2023 [facility] Medical Advice [address] [address] Davide Grimes MA 09/23/[address] [address] Daniel Wick MD from Last 3 Months [...] COVID-19 MONOVALENT 12+ (Pfizer) 11/27/2020 Flu 65+ (Fluad) 11/25/2018,11/19/2017,11/12/2016 Flu, Unspecified 12/15/2008 Influenza (H1N1) 11/24/2018, 6,12/29/2014,2013,02/14/2009 Influenza (High Dose) Trival ent,PF (Fluzone) 11/24/2018,12/22/2015,12/29/2014,2013 Influenza (IIV3) PF 12/02/2012, 2,12/15/2010,2009,11/30/2008,01/18/2008,12/10/2006 Influenza [...] Comments Blood Pressure 148/74 01/31/2022 4:30 PM BAND SAW FILER Pulse 87 01/31/2022 4:30 PM BAND SAW FILER Temperature 36.8 ??C (98.3 ??F) 01/31/2022 4:30 PM CS T Respiratory Rate 18 01/31/2022 4:30 PM BAND SAW FILER Oxygen Saturation 100% 01/31/2022 4:30 PM BAND SAW FILER Inhaled Oxygen Concentration - - Weight 81.6 kg (180 lb) 01/31/2022 4:30 PM BAND SAW FILER Height 170.2 cm (5' 7) 10/05/2019 11:21 [...] includes age and gender (Katty et al., NE, DOI: 10.1056/[id number]) Blood STRUCTURE OF LEFT UPPER LIMB / Unknown Venipuncture / Unknown 09/22/2021 10:38 PM CDT 09/22/2021 10:47 PM CDT Bryant Yap MD LAB - BLOOD ORDERABL ES [facility] [address] [facility] (1st floor, no room number) [place] [address], [facility] [phone] from Last 3 Months or Most Recently Relevant to Health Maintenance Care Teams Internship Relationship Specialty Start Date End Date Votel, Adam Talbert PCP - General Family Practice 09/01/19 Daniel Wick MD [address] [place] [address] Assigned PCP 09/12/21
--- OUTSIDE RECORDS SUMMARY | 2023-11-23 14:49 | XMS_ITS | Encounter Summary ---
Author Organization [facility] Address [address] [place] [address] Care Team Providers Care Scrap Charger Name Role Phone Votel Adam Talbert Primary Care Provider [phone] Daniel Wick MD Unavailable [phone] Encounter Details Date Type Department Care Team (Late st Contact Info) Description 10/06/2023 [facility] Medical Advice [address] [address] Daniel Wick MD [address] [place] [address] Social History Tobacco Use Types Packs/Day [...] on filedocumented in this encounter Care Teams Scrap Charger Relationship Specialty Start Date End Date Votel, Adam Talbert PCP - General Family Practice 09/01/19 Daniel Wick MD [address] [place] [address] Assigned PCP 09/12/21 documented as of this encounter
--- OUTSIDE RECORDS SUMMARY | 2023-11-23 14:49 | XMS_ITS | Encounter Summary ---
Author Organization [facility] Address [address] [place] [address] Care Team Providers Care Director Operations Broadcast Name Role Phone Votel, Adam Talbert Primary Care Provider [phone] Daniel Wick MD Unavailable [phone] Encounter Details Date Type Department Care Team (Late st Contact Info) Description 09/23/2023 My[facility] Medical Advice [address] [address] Davide Grimes MA Social History [...] on filedocumented in this encounter Care Teams Director Operations Broadcast Relationship Specialty Start Date End Date Votel, Adam Talbert PCP - General Family Practice 09/01/19 Daniel Wick MD [address] [place], [place] [address] Assigned PCP 09/12/21 documented as of this encounter
--- OUTSIDE RECORDS SUMMARY | 2023-11-23 14:49 | XMS_ITS | Encounter Summary ---
Author Organization [facility] Address [address] [place] [address] Care Team Providers Care Calender Inspector Name Role Phone Votel, Adam Talbert Primary Care Provider [phone] Daniel Wick MD Unavailable [phone] Encounter Details Date Type Department Care Team (Late st Contact Info) Description 01/27/2023 My[facility] Medical Advice [address] [address] Lois Mensah RN Social History [...] on filedocumented in this encounter Care Teams Calender Inspector Relationship Specialty Start Date End Date Votel, Adma Talbert PCP - General Family Practice 09/01/19 Daniel Wick MD [address] [place], [place] [address] Assigned PCP 09/12/21 documented as of this encounter
--- OUTSIDE RECORDS SUMMARY | 2023-11-23 14:49 | XMS_ITS | Clinical Summary ---
Author Organization [facility] Address [address] [place] [address] Care Team Providers Care Supervisor Drying And Softening Name Role Phone Elsewhere, Pcp Primary Care Provider Unavailabl e Source Comments Patient records contain information from all sites at [facility]. For routine questions regarding patient records, call [phone] during business hours, M-F 8:00 AM - 5:00 PM Central Time. Record requests for emergency care only can be directed to [phone] at any time.[facility] Allergies Active Allergy Reactions Criticality Noted [...] week 01/30/2021 How often do you attend [facility] or congregation services? 1 to 4 times per year 01/30/2021 Do you belong to any clubs o r organizations such as nondenominational groups, unions, fraternal or athletic groups, or [...] and heating? Not hard at all 01/30/2021 [facility] - Occupational [...] place to sleep or slept in a jail (including now)? No 01/30/2021 Nutrition Answer Date [...] Last Done Comments Hepatitis C Screening 1945 RSV vaccine - (32-3 6 weeks) or 60+ years (1 - 1-dose 75+ series) 02/04/2019 Depression Screening (Annual PHQ-2) 03/03/2023 Fall Risk Screen (Annual) 03/03/2023 COVID-19 Vaccine (5 - 2023-2 5 season) 2023 12/14/2022, 11/09/2021, 06/10/2021, Additional history exists Influenza Vaccine (#1) 2023 , 11/09/2021, 11/15/2020, Additional history exists DTaP,Tdap,and Td Vaccines (4 - Td or Tdap) 11/26/2032 11/26/2022, 04/13/2012, 04/13/2012, Additional history exists Pneumococcal vaccine (65+ years) Completed 06/06/2014, 06/15/2009, 05/19/2009 Zoster Vaccines Completed 10/09/2018, 08/2018, 08/03/2018, Additional history exists Care Teams Supervisor Drying And Softening Relationship Specialty Start Date End Date Elsewhere, Pcp PCP - General Internal Medicine 06/29/22
--- OUTSIDE RECORDS SUMMARY | 2023-11-23 14:49 | XMS_ITS | Clinical Summary ---
Author Organization [facility] Address [address] [place] [address] Care Team Providers Care Personal Coach Name Role Phone Votelionel Adam Talbert Primary Care Provider Daniel Wick MD Unavailable [phone] Allergies Active Allergy Reactions Criticality Noted [...] Care Team Description 10/06/2023 MyC Medical Advice [address] [place] [address] Daniel Wick MD 09/23/2023 MyC Medical Advice [address] [phone] Davide Grimes MA 09/23/[address] [phone] Daniel Wick MD from Last 3 Months [...] Comments Blood Pressure 148/74 01/31/2022 4:30 PM CERTIFIED FLEX ENDOSCOPE REPROCESSOR Pulse 87 01/31/2022 4:30 PM CERTIFIED FLEX ENDOSCOPE REPROCESSOR Temperature 36.8 ??C (98.3 ??F) 01/31/2022 4:30 PM CS T Respiratory Rate 18 01/31/2022 4:30 PM CERTIFIED FLEX ENDOSCOPE REPROCESSOR Oxygen Saturation 100% 01/31/2022 4:30 PM CERTIFIED FLEX ENDOSCOPE REPROCESSOR Inhaled Oxygen Concentration - - Weight 81.6 kg (180 lb) 01/31/2022 4:30 PM CERTIFIED FLEX ENDOSCOPE REPROCESSOR Height 170.2 cm (5' 7) 10/05/2019 11:21 PM CDT Body Mass Index 28.19 10/05/2019 11:21 PM CDT Plan of Treatment Health Maintenance Due Date Last Done Comments ADVANCE CARE PLANNING 1945 ANNUAL REVIEW OF HM ORDERS 1945 DEPRESSION ACTION PLAN 1945 PHQ-9 1945 HEPATITIS C SCREENING 02/04/1962 LIPID 1984 FALL RISK ASSESSMENT 02/04/2009 RSV VACCINE (1 - 1-dose 75+ series) 02/04/2019 DTAP/TDAP/TD IMMUNIZATION (3 - Td or Tdap) 04/13/2022 04/13/2012, 04/13/2012, 03/19/2002 MEDICARE ANNUAL WELLNESS VISIT 07/10/2022 07/10/2021 BMP 09/22/2022 09/22/2021, 08/31, 08/03/2020, Additional history exists COVID-19 Vaccine ( season) 2023 06/10/2021, 11/27/2020 INFLUENZA VACCINE (#1) 2023 , [...] and gender (Katty et al., NEJM, DOI: 10.1056/IBYVev0160860) Blood STRUCTURE OF LEFT UPPER LIMB / Unknown Venipuncture / Unknown 09/22/2021 10:38 PM CDT 09/22/2021 10:47 PM CDT Bryant Yap MD LAB - BLOOD ORDERABL ES LABORATORY [facility] [address] [facility] Lab (1st floor, no room number) [place] [address], [facility] [phone] from Last 3 Months or Most Recently Relevant to Health Maintenance Care Teams Personal Coach Relationship Specialty Start Date End Date Votel, Adam Talbert PCP - General Family Practice 09/01/19 Daniel Wick MD [address] [facility] [place] [address] Assigned PCP 09/12/21
--- OUTSIDE RECORDS SUMMARY | 2023-11-23 14:49 | XMS_ITS | Encounter Summary ---
Author Organization [facility] Address [address] [place] [address] Care Team Providers Care Machine Oiler Name Role Phone Votel Adam Talbert Primary Care Provider [phone] Daniel Wick MD Unavailable [phone] Encounter Details Date Type Department Care Team (Late st Contact Info) Description 09/23/[address] [phone] Daniel Wick MD [address] [place] [address] Social History Tobacco Use Types Packs/Day [...] 2022 Next Steps: Type of outreach: Sent InboundWriter message. Next Steps: Reach out within 90 days via [employer]. Max number of attempts reached: Yes. Will try again in 90 days if patient still on fail list. Questions for provider review: None Davide Grimes MA documented in this encounter Plan of Treatment Not on file documented as of this encounter Visit Diagnoses Not on filedocumented in this encounter Care Teams Machine Oiler Relationship Specialty Start Date End Date Votel, Adam Talbert PCP - General Family Practice 09/01/19 Daniel Wick MD [address] [place] [address] Assigned PCP 09/12/21 documented as of this encounter
== END 2023-11-23 14:48 | disposition home or self-care (01) ==
LOC: ED 14:46
PROVIDERS: Emergency Provider Emergency Medicine; PCP Family Medicine
DX: S61.412A Laceration without foreign body of left hand, initial encounter (principal); W45.8XXA Other foreign body or object entering through skin, initial encounter
CPT/HCPCS: 12001; 12002; 99282; 99283

== ENCOUNTER 2023-11-25 13:45 | Outpatient (RCR) | payer MEDICARE, SELFPAY | END 2024-03-24 23:59 | disposition home or self-care (01) | PROVIDERS: PCP Family Medicine; Visit Provider Family Medicine | DX: H81.12 Benign paroxysmal vertigo, left ear (principal); Z51.89 Encounter for other specified aftercare | CPT/HCPCS: 97162 ==

== ENCOUNTER 2024-08-03 12:28 | Outpatient (RCR) | payer MEDICARE, SELFPAY | END 2024-12-01 23:59 | disposition home or self-care (01) | PROVIDERS: PCP Family Medicine; Visit Provider Psychiatry & Neurology Neurology | DX: M21.372 Foot drop, left foot (principal); M62.81 Muscle weakness (generalized); R26.81 Unsteadiness on feet; Z51.89 Encounter for other specified aftercare | CPT/HCPCS: 97110; 97161 ==

== ENCOUNTER 2025-02-16 00:22 | Emergency (ER) | payer MEDICARE, SELFPAY ==
--- NOTE | 2025-02-16 00:25 | ED.HA ---
HPI - Headache General Time Seen by Provider: 00:25 Date Seen: 02/16/25 Chief Complaint: Headache/Migraine Stated Complaint: Headache Time Seen by Provider: 02/16/25 00:24 Source: patient and family Mode of arrival: ambulatory Limitations: no limitations History of Present Illness HPI Narrative: 80-year-old male who comes in today for headache. Patient reports 3 days of right-sided headache. No vision changes, no nausea vomiting, no trauma, not positional. Has not taken anything for his headache today, he did take some ibuprofen yesterday with minimal improvement. Pain is not worse lying down. Patient is not on blood thinners. Related Data Home Medications ?Medication ?Instructions ?Recorded ?Confirmed metoprolol succinate 100 mg 100 mg PO HS 02/05/23 11/29/24 tablet,extended release 24 hr omeprazole 20 mg capsule,delayed 20 mg PO DAILY 10/13/23 11/29/24 release tamsulosin 0.4 mg capsule 0.8 mg PO DAILY 10/13/23 11/29/24 cyclosporine 0.1 % eye drops drp ophthalmic (eye) 10/22/23 11/29/24 (Vevye) desipramine 10 mg tablet 10 mg PO QPM 11/23/23 11/29/24 tadalafil 5 mg tablet mg PO 11/23/23 11/29/24 Previous Rx's ?Medication ?Instructions ?Recorded methylprednisolone 4 mg tablets in See Rx Instructions PO .COMPLEX 02/16/25 a dose pack (Medrol (Angel)) #21 ea Allergies Allergy/AdvReac Type Severity Reaction Status Date / Time vancomycin Allergy Intermediate high fever Verified 11/29/24 09:42 ciprofloxacin Allergy Mild elevated Verified 11/29/24 09:42 temp losartan Allergy Mild Cough Verified 11/29/24 09:42 Sulfa (Sulfonamide Allergy Mild Hives Verified 11/29/24 09:42 Antibiotics) [facility] Medical History (Updated 02/16/25 @ 00:57 by Renny Urias MD) Colon polyp ?K63.5 - Polyp of colon (ICD-10) Depression ?F32.A - Depression, unspecified (ICD-10) Normal esophagogastroduodenoscopy (EGD) ?Z01.89 - Encounter for other specified special examinations (ICD-10) Acute urinary retention ?R33.8 - Other retention of urine (ICD-10) Chronic bronchitis ?J42 - Unspecified chronic bronchitis (ICD-10) Asthma ?J45.909 - Unspecified asthma, uncomplicated (ICD-10) Hyponatremia ?E87.1 - Hypo-osmolality and hyponatremia (ICD-10) Ascending aorta dilatation ?I77.810 - Thoracic aortic ectasia (ICD-10) Incomplete bladder emptying ?R33.9 - Retention of urine, unspecified (ICD-10) Benign prostatic hyperplasia ?N40.0 - Benign prostatic hyperplasia without lower urinary tract symptoms (ICD-10) Sensorineural hearing loss, bilateral ?H90.3 - Sensorineural hearing loss, bilateral (ICD-10) Chronic eustachian tube dysfunction ?H69.80 - Other specified disorders of Eustachian tube, unspecified ear (ICD-10) Erectile dysfunction ?N52.9 - Male erectile dysfunction, unspecified (ICD-10) Essential hypertension ?I10 - Essential (primary) hypertension (ICD-10) Dry eyes ?H04.123 - Dry eye syndrome of bilateral lacrimal glands (ICD-10) Surgical History (Updated 10/19/24 @ 15:59 by Siena Marie) H/O shoulder surgery (10/14/23) ?Z98.890 - Other specified postprocedural states (ICD-10) History of arthroscopy of left shoulder (07/03/23) ?Z98.890 - Other specified postprocedural states (ICD-10) Hx of cataract extraction ?Z98.49 - Cataract extraction status, unspecified eye (ICD-10) H/O hand surgery ?Z98.890 - Other specified postprocedural states (ICD-10) History of laparoscopic cholecystectomy (10/27/08) ?Z90.49 - Acquired absence of other specified parts of digestive tract (ICD-10) History of arthroscopy of right shoulder (01/06/15) ?Z98.890 - Other specified postprocedural states (ICD-10) History of arthroscopy of right knee (03/15/16) ?Z98.890 - Other specified postprocedural states (ICD-10) Family History Mother Liver cancer, Onset Age: 92 Social History (Reviewed 09/29/25 @ 09:45 by Maryam Concepcion ~ [facility], [facility]) Narrative: , Radha, is here with him today and helps give history. Denies tobacco use, smoked for a few years 30 years ago. Drinks 1-5 beers every other week. Denies recreational drugs. Wishes to be a [employer]. What is your current living situation?: I presently have a place to live Problems where you live: no known problems Problems where you live details: n/a In the past 12 months, utilities in danger of being shut off: no In past 12 months, lack of transportation kept you from medical appts, meetings, work, or getting things needed for daily living: no In the past 12 mos, have been you worried that your food would run out before you had money to buy more?: never true In the past 12 mos, the food you bought just didn't last and you didn't have money to buy more?: never true Highest level of school completed/degree received: Bachelor's degree Smoking Status: Former smoker Do you use any of these nicotine containing products: None How often do you have a drink containing alcohol: 2-4 times a month Alcohol type: beer How many standard drinks containing alcohol do you have on a typical day: 1 or 2 How often do you have six or more drinks on one occasion: Less than monthly AUDIT-C Alcohol total score: 3 Non-prescribed substance use: denies use Caffeine: Yes How often does anyone, including family, friends and others, physically hurt you: never How often does anyone, including family, friends and others, insult or talk down to you: never How often does anyone, including family, friends and others, threaten you with harm: never How often does anyone, including family, friends and others, scream or curse at you: never Gender Identity: male service: Yes Exam Narrative: Exam Narrative: General: Well-developed and well-nourished, no acute distress Head: Atraumatic and normocephalic Eyes: Pupils are equal reactive, extraocular motions intact, conjunctiva clear ENT: External nose and ears are normal, posterior pharynx without erythema or exudate Neck: No midline cervical tenderness, full spontaneous range of motion the neck, trachea midline, no adenopathy Heart: Regular rate and rhythm no murmurs or thrills Lungs: Clear to auscultation bilaterally without wheezes or crackles Abdomen: Soft, nontender, nondistended with active bowel sounds Musculoskeletal: No tenderness, deformity, or edema Neurologic: Awake, alert, and oriented x3, no gross focal neurologic deficits, cranial nerves intact as tested Psych: Mood and affect are appropriate Skin: No rashes Const: Vital Signs, click to edit/add: Vital Signs - 24 hr 02/16/25 00:26 02/16/25 00:48 02/16/25 00:49 Temperature 97.3 F L 97.3 F L 97.3 F L Pulse Rate [Left P ulse Oximeter] 78 Respiratory Rate 18 Blood Pressure [Ri ght Upper Arm] 175/90 H Pulse Oximetry 99 Oxygen Delivery Me thod Room Air Course Course ED Course: Additional records reviewed: Emergency department visit from September 2023 when patient was seen for vertigo and diagnosed with BPPV Additional history from: Spouse Care impacted by: History of vertigo, hypertension Testing considered but not performed: See ED course Disposition: Discharge Patient presents today with 3 days right-sided headache. Not positional, no trauma, not on blood thinners, no fevers or chills. No neurologic symptoms. No temporal tenderness to suggest temporal arteritis. CT scan is ordered to evaluate for intracranial pathology. Toradol and Tylenol ordered for headache. Reevaluation(s) Time of Reevaluation #1: 00:56 Reevaluation #1: CT head in panel interpreted by me negative for acute findings. Patient stable for discharge. Vital Signs Vital signs: Initial Vital Signs Temperature 97.3 F L 02/16/25 00:26 Temperature Source Temporal Artery Scan 02/16/25 00:26 Pulse Rate 78 02/16/25 00:26 Pulse Rhythm Regular 02/16/25 00:26 Respiratory Rate 18 02/16/25 00:26 Blood Pressure 175/90 H 02/16/25 00:26 Blood Pressure Mean 118 H 02/16/25 00:26 Blood Pressure Position Sitting 02/16/25 00:26 Pulse Oximetry 99 02/16/25 00:26 Oxygen Delivery Method Room Air 02/16/25 00:26 Vital Signs Temperature 97.3 F L 02/16/25 00:26 Pulse Rate 78 02/16/25 00:26 Respiratory Rate 18 02/16/25 00:26 Blood Pressure 175/90 H 02/16/25 00:26 Pulse Oximetry 99 02/16/25 00:26 Oxygen Delivery Method Room Air 02/16/25 00:26 Temperature 97.3 F L 02/16/25 00:49 Pulse Rate 78 02/16/25 00:26 Respiratory Rate 18 02/16/25 00:26 Blood Pressure 175/90 H 02/16/25 00:26 Pulse Oximetry 99 02/16/25 00:26 Oxygen Delivery Method Room Air 02/16/25 00:26 Medications Administered Medications: Generic Name Dose Route Start Last Admin Trade Name Maulik PRN Reason Stop Dose Admin Acetaminophen 1,000 mg 02/16/25 00:42 02/16/25 00:49 Acetaminophen 500 Mg Tablet PO 02/16/25 00:43 1,000 mg ONCE ONE Administration Ketorolac Tromethamine 30 mg 02/16/25 00:42 02/16/25 00:48 Ketorolac 30 Mg/Ml Inj IM 02/16/25 00:43 30 mg ONCE ONE Administration Discharge Plan Discharge Clinical Impression: Right-sided headache, Essential hypertension Patient Disposition: Home, Self-Care Condition: Stable Instructions: Acute Headache (DC), Chronic Hypertension (DC) Additional Instructions: Continue your current blood pressure medications Take Tylenol and ibuprofen as needed for headache Follow-up with your primary care provider Activity Level: Activity as Tolerated Discharge Diet: Regular Prescriptions: New methylprednisolone [Medrol (Angel)] 4 mg tablets,dose pack See Rx Instructions .ROUTE .COMPLEX Qty: 21 0RF Rx Instructions: for 6 days No Action metoprolol succinate 100 mg tablet extended release 24 hr 100 mg PO HS Vevye 0.1 % drops ophthalmic (eye) desipramine 10 mg tablet 10 mg PO QPM tadalafil 5 mg tablet PO omeprazole 20 mg capsule,delayed release(DR/EC) 20 mg PO DAILY tamsulosin 0.4 mg capsule 0.8 mg PO DAILY Follow Up/Referrals: Adam Peterson MD [Primary Care Provider, Family Practice] Stand Alone Forms: [employer] [facility] Info Instructions
--- OUTSIDE RECORDS SUMMARY | 2025-02-16 00:25 | XMS_ITS | Clinical Summary ---
Author Organization [facility] Address [address] [place] [address] Care Team Providers Care Pest Controller Assistant Name Role Phone Pa Fall Unavailable Unavailab Adam Camargo MD Primary Care Provider + Kaley Perez Unavailable [phone] Allergies Active AllergyReactionsCriticalityNoted PghlFsvenfsfHtbnocmtSnbqzRem58/21/2017 Sulfa (Sulfonamide Antibiotics)Itching,Rash,MltxtFfd56/18/2015VancomycinFever, Malignant Hyperthermia,Other - Describe In Comment IulzqKfjy87/10/2010 Medications MedicationSigDispense QuantityRefillsLast FilledStart DateEnd DateStatus omeprazole (PRILOSEC) 20 mg Delayed-Release capsule Take 1 capsule by mouth once daily before a meal. 90 capsule ctive predniSONE 10 mg tablet Indications:Reactive airways dysfunction syndrome (HC)TAKE 4 TABS ORALLY EVERY DAY FOR 3 DAYS THEN 3 TABS FOR 3 DAYS THEN 2 TABS FOR 3 DAYS THEN 1 TAB FOR 3 DAYS 30 Tablet 5Active tamsulosin 0.4 mg capsule Indications:Incomplete bladder emptyingTAKE 2 CAPSULES BY MOUTH ONCE DAILY AFTER A MEAL 180 Capsule 5Active metoprolol succinate 100 mg Sustained-Release tablet Indications:HTN (hypertension)Take 1 Tablet (100 mg) by mouth once daily. 90 Tablet 5Active desipramine 10 mg tablet Indications:Neurological symptomsTAKE 1 TABLET BY MOUTH EVERYDAY AT BEDTIME 90 Tablet 5Active Active Problems ProblemNoted DateDiagnosed DatePostoperative mfcrnscydgu27/30/2024 Assessment & Plan (12/31/2023 1:09 PM CDT): Low systolic blood pressure post anesthesia. Happened 3 times. Recommendations for surgical procedures to be in hospital setting. Chronic kidney disease (CKD), stage II (mild)4Depression, recurrent 09/10/2023SIADH (syndrome of inappropriate ADH production)4Colon polyp 10/01/2022 Overview (10/01/2022): Colonoscopy 08/2022 2-TA, repeat in 7 years Reactive airways dysfunction bissxexm17/19/2022scending aorta dilatation 12/06/2020Incomplete bladder /15/2021ensorineural hearing loss, kxhqdqnbe86/23/2011rain /10/2011 Overview (03/12/2010): on desipramine for many years Erectile drmrhkyhmpd83/17/2010ETD (eustachian tube dysfunction)02/16/2010HTN (hypertension)01/09/20095102Tknsgtdcjhnwep26/15/2009bdominal pain, epigastric 09/07/2008 Overview (09/07/2008): EGD 08/2008 normal Resolved Problems ProblemNoted DateDiagnosed DateResolved DateRoutine adult health maintenance Overview (04/30/2013): Colonoscopy 04/2013 hyperplastic polyps repeat in 10 years Immunizations ImmunizationAdministration DatesNext DueAMB INFLUENZA IIV3 (AGE 65+ YRS) PF (Flu Clinic Only)11/19/2017AMB Influenza, IIV3 (Age >=3 years)(Flu Clinic Only) 12/02/2012,12/18/2011,02/09/2010COVID-19 VACCINE SPIKEVAX (MODERNA 50MCG/0.5ML) 12YO+ PFS4COVID-19 vaccine (Pfizer-BioNTech 30mcg/0.3mL) 12YO+ AMADO- SUCROSE PF, MDV2COVID-19 vaccine (Pfizer-BioNTech 30mcg/0.3mL) PF, MDV 11/27/2020Influenza A (H1N1), Rajjlohedbj63/24/2019,12/22/2015,12/29/2014, 11/10/2013,02/14/2009Influenza Virus, Odlptqzgree18/15/2009Influenza, High-dose Sxnbyuyrjtu00/24/2019,12/22/2015,12/29/2014,11/10/2013Influenza, High-dose Quadrivalent Rasxtqeaoak03/26/2023,12/21/2019Influenza, IIV3 (Age >=3 years) 12/15/2010,11/30/2008,01/18/2008,12/10/2006Influenza, Inactivated AIIV4 (Age 65+ Years) Preserv Free11/09/2021,11/15/2020Influenza, Inactivated IIV3 (Age 65+ Years) Preserv Free11/18/2023,11/25/2018,11/12/2016Pneumococcal Poly,23-Valent (Pneumovax)03/11/2017(Deferred: Patient Refused),06/15/2009,05/19/2009 Pneumococcal conj 13-Valent (Prevnar 13)06/06/2014RSV, Recombinant ADJ Reconstituted (Arexvy 120MCG/0.5mL)11/07/2023,02/17/2023TD, UNSPECIFIED 04/13/2012Td (Age >=7 Years)03/19/2002Tdap11/26/2022,04/13/2012Zoster (Shingrix- RZV, recombinant)10/09/2018,08/03/2018Zoster (Zostavax-ZVL, live)03/12/2010 Zoster, Unspecified Nkthkuhtkez79/09/2018(Deferred: Patient Refused) Family History Medical HistoryRelationNameCommentsGood HealthDaughter 2Alcohol/DrugFatherCancer MotherLiver age 92HypertensionMotherGood HealthSister 4Good HealthSister 5 Good HealthSister 6Good HealthSon 3Good HealthSon 4Anesthesia ProblemNo Family HistoryRelationNameStatusCommentsDaughter 1AliveDaughter 2FatherDeceased (Age 65)chemical dependencyMaternal GrandfatherDeceased (Age 70s)CVAMotherDeceased Paternal GrandfatherDeceased (Age 70s)CVASister 1AliveSister 2AliveSister 3Alive Sister 4Sister 5Sister 6Son 1AliveSon 2AliveSon 3Son 4 Social History Tobacco UseTypesPacks/DayYears UsedDateSmoking Tobacco: NmxrtaSovbcgvoku27 03/03/1969 - 03/03/1971Smokeless Tobacco: Never Tobacco Cessation:Counseling Given: Yes Alcohol UseStandard Drinks/WeekCommentsYes0 (1 standard drink = 0.6 oz pure alcohol)0 - 10 drinks/weekPHQ-2AnswerDate RecordedPHQ-2 TOTAL [id number] Social ConnectionsAnswerDate RecordedDo you often feel lonely or isolated from those around you?Financial Resource StrainAnswerDate Recorded Difficulty of Paying Living Upzydtuc036ifficulty of Paying Living ExpensesNot on file10/28/2023Food InsecurityAnswerDate RecordedDo you worry your food will run out before you are able to buy more?Transportation NeedsAnswerDate RecordedDoes lack of transportation keep you from medical appointments?oes lack of transportation keep you from work, meetings or getting things that you need?Housing StabilityAnswerDate Recorded What is your housing situation today?UtilitiesAnswerDate RecordedDo you have trouble paying for utilities (for example, heat, electricity, water, phone)?Sex and Gender InformationValueDate RecordedSex Assigned at BirthNot on fileLegal NnnWkyi1303/16/2012 5:47 AM CSTGender IdentityNot on file Sexual OrientationNot on fileOccupationIndustryJob Start DateJob End Dateretired Not on fileNot on fileNot on fileBoard MemberNot on fileNot on fileNot on file Last Filed Vital Signs Vital SignReadingTime TakenCommentsBlood Ekudndjl353/6905 1:23 PM CDT Alrbg425507/28/2024 1:23 PM KROBkyhaihhlgr21.4 ??C (97.6 ??F)07/28/2024 1:23 PM CDTRespiratory Twvg447909/26/2022 11:34 AM CDTOxygen Rchuwksglr623%07/28/2024 1:23 PM CDTInhaled Oxygen Concentration--Hvgbow75.2 kg (176 lb 14.4 oz)07/28/2024 1:23 PM URDJxpzpb348.5 cm (5' 7.13)07/28/2024 1:23 PM CDTBody Mass Index27.6 07/28/2024 1:23 PM CDT Plan of Treatment Health MaintenanceDue DateLast DoneCommentsCOVID-19 vaccine series ( season), 12/14/2022, 11/09/2021, Additional history exists Influenza Vaccine (#1), 11/09/2021, 11/15/2020, Additional history existsBMI (ht and wt on same day) for age 18+, 12/31/2023, 11/17/2023, Additional history existsDepression screening for age 12+, 09/17/2023, 09/09/2023, Additional history exists Medicare Wellness for age 65+, 07/18/2022, 07/10/2021, Additional history existsTetanus krdvsko59, 04/13/2012, 04/13/2012, Additional history existsPneumococcal series for age 50+Completed 06/06/2014, 06/15/2009, 05/19/2009Zoster (shingles) series for age 50+Completed 10/09/2018, 08/03/2018, 03/12/2010RSV vaccine for adults or pregnancyCompleted 11/07/2023, 02/17/2023Hepatitis B series for 19+Aged OutNo longer eligible based on patient's age to complete this topic Insurance * Guarantor: Molly Hogue DAc TypeRelation to PatientDate of BirthPhone Billing AddressPersonal/Vnfvry8906/18/1947 [address] [place] [address] Advance Directives TypeDate RecordedPatient RepresentativeExplanationHealthcare Directive06/19/2006 HEALTH CARE DIRECTIVE, [facility], 06/19/2006 Care Teams Team MemberRelationshipSpecialtyStart DateEnd Date Votel, Adam Mascorro MD [address] [place] [address] PCP - GeneralFamily Practice03/25/11 Pa Fall General SurgerySurgery - General03/06/11 Kaley Perez AuD [address] [place] [address] Audiology10/11/09
--- OUTSIDE RECORDS SUMMARY | 2025-02-16 00:25 | XMS_ITS | Clinical Summary ---
Author Organization [facility] Address [address] [place] [address] Care Team Providers Care Fitness Assistant Name Role Phone Adam Peterson Primary Care Provider [phone] Allergies Active AllergyReactionsCriticalityNoted BnddWfqnttntPungymxyGtopu60/21/2017Sulfa KwzvscxskrvIqptXue48/30/3396Orxciisbah75/30/2020 Fever VancomycinOther (See Comments)11/13/2021 Medications MedicationSigDispense QuantityRefillsLast FilledStart DateEnd DateStatus tamsulosin (FLOMAX) 0.4 MG capsule Take 0.4 mg by mouth 2 times dailyActive desipramine (NORPRAMIN) 25 MG tablet Take 25 mg by mouth At BedtimeActive metoprolol succinate ER (TOPROL-XL) 50 MG 24 hr tablet Take 50 mg by mouth At BedtimeActive chlorthalidone (HYGROTON) 25 MG tablet Take 25 mg by mouth dailyActive aspirin (ASA) 81 MG EC tablet Take 81 mg by mouth dailyActive omeprazole (PRILOSEC) [address] capsule Take 20 mg by mouth dailyActive fish oil-omega-3 fatty acids 1000 MG capsule Take 1 g by mouth 2 times dailyActive tadalafil (CIALIS) 20 MG tablet Take 20 mg by mouth daily as neededActive Active Problems ProblemNoted DateDiagnosed DateEssential bglpyewoxemx88/01/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 xhwucmyo21/01/2022Major depression, chronic 10/01/2021Gastroesophageal reflux disease without ppycueefxwj12/01/2022 Resolved Problems ProblemNoted DateDiagnosed DateResolved DateAcute gfqoed69 Immunizations ImmunizationAdministration DatesNext DueCOVID-19 MONOVALENT 12+ (Pfizer) 11/27/2020Flu 65+ (Fluad)11/25/2018,11/19/2017,11/12/2016Flu, Unspecified 12/15/2008Influenza (H1N1)11/24/2018,12/22/2015,12/29/2014,11/10/2013,02/14/2009 Influenza (High Dose) Trivalent,PF (Fluzone)11/24/2018,12/22/2015,12/29/2014, 11/10/2013Influenza (IIV3) PF12/02/2012,12/18/2011,12/15/2010,02/09/2010, 11/30/2008,01/18/2008,12/10/2006Influenza Vaccine 65+ (FLUAD)11/15/2020Influenza Vaccine 65+ (Fluzone HD)12/21/2019Pneumo Conj 13-V (2010&after)06/06/2014 Pneumococcal 23 qlvjhm2206/15/2009,05/19/2009TDAP (Adacel,Boostrix)04/13/2012Td (Adult), Fyjtstrj64/17/2003Tdap (Adult) Unspecified Vvpbfcamzqb07/11/2013Zoster recombinant adjuvanted (Shingrix)10/09/2018,08/03/2018Zoster vaccine, live 03/12/2010 Family History Medical HistoryRelationCommentsHypertensionMotherOther CancerMotherLiver cancer RelationStatusCommentsFatherDeceasedMotherDeceased Social History Tobacco UseTypesPacks/DayYears UsedDateSmoking Tobacco: EjssgyHhwxkpcdbe45 03/03/1968 - 03/03/1972Smokeless Tobacco: NeverAlcohol UseStandard Drinks/Week CommentsYes0 (1 standard drink = 0.6 oz pure alcohol)occPHQ-2AnswerDate Recorded PHQ-2 [id number] EducationAnswerDate RecordedGetting School Help NeededNot on file12/02/2022Sex and Gender InformationValueDate RecordedSex Assigned at BirthNot on fileLegal HksWoap39/04/2012 3:11 AM CSTGender Identity Not on fileSexual OrientationNot on file Last Filed Vital Signs Vital SignReadingTime TakenCommentsBlood Hbqgguht696/7412 4:30 PM GEEK SQUAD MANAGER Efzxt523901/31/2022 4:30 PM LXQNerjfqectyz88.8 ??C (98.3 ??F)01/31/2022 4:30 PM CSTRespiratory Efui972904/03/2021 4:30 PM CSTOxygen Bvlumspujv942%01/31/2022 4:30 PM CSTInhaled Oxygen Concentration--Vofveg98.6 kg (180 lb)01/31/2022 4:30 PM GEEK SQUAD MANAGER Shjtgr927.2 cm (5' 7)10/05/2019 11:21 PM CDTBody Mass Index28.19010/05/2019 11:21 PM CDT Plan of Treatment Not on file Insurance Care Teams Team MemberRelationshipSpecialtyStart DateEnd Date Votel, Adam KOEHLER: [phone] PCP - GeneralFamily Practice09/01/19
--- OUTSIDE RECORDS SUMMARY | 2025-02-16 00:25 | XMS_ITS | Clinical Summary ---
Author Organization [facility] Address [address] [place] [address] Care Team Providers Care Automatic Data Processing Planner Name Role Phone Elsewhere, Pcp Primary Care Provider Unavailabl e Source Comments Patient records contain information from all sites at [facility]. For routine questions regarding patient records, call [phone] during business hours, M-F 8:00 AM - 5:00 PM Central Time. Record requests for emergency care only can be directed to [phone] at any time.[facility] Allergies Active AllergyReactionsCriticalityNoted DateCommentsCarvedilolOther (see comments)12/01/20224853DeihewhlFwpmvUud12/21/2017Sulfa (Sulfonamide Antibiotics) Hives (Reselect Reaction)06/29/2022VancomycinMalignant Xfwmztynxojv77/29/2023 Medications * This document contains information received from the source organization and may not represent a complete record from that organization. MedicationSigDispense QuantityRefillsLast FilledStart DateEnd DateStatus metoprolol succinate (TOPROL-XL) 100 mg 24 hr tablet Take 100 mg by mouth daily. Do not crush or chew.Active tamsulosin (Flomax) 0.4 mg 24 hr capsule Take 0.4 mg by mouth 2 (two) times a day.03/03/2014ctive tadalafiL (Cialis) 20 mg tablet Take 20 mg by mouth daily as needed.Active omeprazole (PriLOSEC) [address] capsule Take 1 capsule by mouth daily.06/06/2014ctive ketoconazole (Nizoral) 2 % shampoo Apply 1 Application topically as needed. See attached for detailed directions. 4Active fluocinonide (Lidex) 0.05 % external solution Apply 1 Application topically as needed. See attached for detailed directions. 5Active desipramine (Norpramin) 25 mg tablet Take 25 mg by mouth at bedtime.Active desipramine (Norpramin) 10 mg tablet Take 1 tablet by mouth at bedtime.5Active cetirizine (ZyrTEC) 10 mg tablet Take 1 tablet by mouth daily.03/11/2017Active Vevye 0.1 % drops Administer 1 drop into both eyes 2 (two) times a day.4Active Immunizations ImmunizationAdministration DatesNext DueInfluenza Split12/15/2008PPSV23 05/19/2009 Social History Tobacco UseTypesPacks/DayYears UsedDateSmoking Tobacco: MapemsRmthgbmoih4Ucpx: 1973Passive Smoke Exposure: PastSmokeless Tobacco: Never Tobacco Cessation:Counseling Given: Not Answered Alcohol UseStandard Drinks/WeekCommentsYes0 (1 standard drink = 0.6 oz pure alcohol)Hunger Vital SignAnswerDate RecordedWithin the past 12 months, you worried that your food would run out before you got the money to buymore.Never true01/30/2021Within the past 12 months, the food you bought just didn't last and you didn't have money to get more.Never true01/30/2021RAPARE - TransportationAnswerDate RecordedIn the past 12 months, has lack of transportation kept you from medical appointments or from getting medications?No 01/30/2021In the past 12 months, has lack of transportation kept you from meetings, work, or from getting things needed for daily living?No01/30/2021 Housing Stability Vital SignAnswerDate RecordedIn the last 12 months, was there a time when you were not able to pay the mortgage or rent on time?No01/30/2021In the last 12 months, how many places have you lived?In the last 12 months, was there a time when you did not have a steady place to sleep or slept in [facility] (including now)?No11/30/2021EducationAnswerDate RecordedWhat is the highest level of school you have completed or the highest degree you have received?Bachelor's degree (e.g., BA, AB, BS)10/09/2019Sex and Gender InformationValueDate RecordedSex Assigned at XlemiSipe97/08/2020 1:07 PM CDT Legal XguHyiu3304/05/2016 1:17 PM CSTGender KewsktxtKoik50/10/2020 1:52 PM CDT Sexual SzqxbeublcqYuiaqrqk85/10/2020 1:53 PM CDT Last Filed Vital Signs Vital SignReadingTime TakenCommentsBlood Eelkziue479/7403/17/2023 8:52 PM MST Mwkuf262203/17/2023 8:46 PM LEJTddzcmomsko52.3 ??C (97.3 ??F)03/17/2023 1:31 PM MSTRespiratory Wdkp485103/17/2023 8:46 PM MSTOxygen Zkxhyzyzaf08%03/17/2023 8:46 PM MSTInhaled Oxygen Concentration--Cjcubr27 kg (185 lb 3 oz)03/17/2023 1:31 PM HAVGxvqdz125.2 cm (5' 7)03/17/2023 1:31 PM MSTBody Mass Mlyau3756/15/2024 1:31 PM MST Plan of Treatment Health MaintenanceDue DateLast DoneCommentsDepression Screening (Annual PHQ-2) 03/03/2024Fall Risk Screen (Annual)5COVID-19 Vaccine ( season)/, 12/14/2022, 11/09/2021, Additional history exists Influenza Vaccine (#1)/, 11/26/2022, 11/09/2021, Additional history existsDTaP,Tdap,and Td Vaccines (4 - Td or Tdap), 04/13/2012, 04/13/2012, Additional history existsPneumococcal vaccine (50+ years)Ttjnppczq30/06/2015, 06/15/2009, 05/19/2009Zoster VaccinesCompleted 10/09/2018, 08/06/2018, 08/03/2018, Additional history existsRSV vaccine - (32-36 weeks) or 50+ mgcuzOkcqbmdag93/06/2024, 02/17/2023IPV Vaccines Aged OutNo longer eligible based on patient's age to complete this topic Insurance Care Teams Team MemberRelationshipSpecialtyStart DateEnd Date Elsewhere, Pcp PCP - GeneralInternal Medicine06/29/22
--- OUTSIDE RECORDS SUMMARY | 2025-02-16 00:25 | XMS_ITS | Patient Health Record ---
Author Organization [facility] Address [address] [place] [address] Phone [phone] Care Team Providers [employer] Name Role Phone VotelAdam Primary Care Provider Ahsan GARCIA MD, MARCELL Unavailable [phone] None, None Unavailable Unavailable Allergies Allergen (clinical drug ingredient) Drug/Non Drug Allergy documented on EMR Reaction Allergy Type Onset Date Status Substance with sulfonamide s tructure and antibacterial mechanism of action (substance) Sulfa Antibiotics Unknown Drug Allergy ActivevancomycinVancomycinUnknownDrug AllergyActive Reason For Referral No Information Medications Medication SIG (Take, Route, Frequency, Duration) Notes Start Date End Date Diagnosis (ICD Code) Status Restasis 0.05 % Emulsion INSTILL 1 DROP IN BOTH EYES TWICE DAILY DIRECTED Ophthalmic; Duration: 90 ActiveEysuvis 0.25 % SuspensionINSTILL 1 DROP INTO BOTH EYES FOUR TIMES DAILY. USE FOR 2 WEEKS Ophthalmic; Duration: 14ActiveMetoprolol Succinate ER 50 MG Tablet Extended Release 24 HourTAKE 1 TABLET BY MOUTH DAILY Oral; Duration: 90 ActiveChlorthalidone 25 MG TabletOral; Duration: 90ActiveDesipramine HCl 25 MG TabletOral; Duration: 90ActiveTamsulosin HCl 0.4 MG CapsuleOral; Duration: 90 Active Social History Tobacco Use: Social History Observation Description Date Details (start date - stop date) Never Smoker NA - NA Sex Observation Social History Observation Description Sex Observation Female Social History Alcohol Use:Social InfoQuestionAnswerNotesRecreational drugsRecreational Drug Use:NoAlcohol ScreenDid you have a drink containing alcohol in the past year?Yes ? How often did you have a drink containing alcohol in the past year?2 to 3 times a week (3 points)? How many drinks did you have on a typical day when you were drinking in the past year?1 or 2 drinks (0 point)? How often did you have 6 or more drinks on one occasion in the past year?Never (0 point)Points3 InterpretationPositiveTobacco Use:Social InfoQuestionAnswerNotesTobacco use/smokingAre you anonsmoker Problems Problem Type SNOMED Code ICD Code Dates Problem Status W/U Sta tus Risk Notes Problem Sensorineural hearing loss, bilateral ([id number]) Bilateral sensorineural hearing loss (H90.3) Added On:09/12/2020 Active confirmed Plan Of Treatment No Information Insurance Providers Payer Name Payer Address Payer Phone Subscriber Number Group Number Insured Name Patient Relationship to Insured Coverage Start Date Coverage End Date [employer] [place] [employer] [address] [address] [place], [place] [id number], PhillipSelf - patient is the insuredMEDICAREPO [address] [place] [id number], PhillipSelf - patient is the insured Medical (General) History Medical History History ICD Code HTN Heart diseaseSkin CaCV19 Vaccine 05/15/2020urgical History Surgery Date(Month/Year) [facility]olecyst[facility]
[2025-02-16 00:26] VITALS: BP 175/90; PULSE 78; RESP 18; TEMP 36.3; O2SAT 99; BMI 29.0
--- NOTE | 2025-02-16 00:42 | CRLHL7_ITS ---
For Patients: As a result of the Century Cures Act, medical imaging exams and procedure reports are released immediately into your electronic medical record. You may view this report before your referring provider. If you have questions, please contact your health care provider. INDICATION: Right side headache, right sided headache TECHNIQUE: CT Head without i.v. contrast. Coronal and sagittal reformats were obtained. COMPARISON: None FINDINGS: CSF space: Unremarkable for age. Brain: No evidence of mass, acute infarction or hemorrhage is seen. No mass-effect or midline shift is seen. Mild diffuse cortical atrophy is noted. The brain parenchyma is otherwise normal in appearance with preservation of the patton-white matter junction. Calvarium: The visualized paranasal sinuses are well aerated. The mastoid air cells are clear. The visualized orbits are grossly unremarkable. The calvarium is unremarkable in appearance with no fractures identified. IMPRESSION: 1. No evidence of acute infarction, intracranial hemorrhage, or mass-effect seen. Please note that all CT scans at this facility use dose modulation, iterative reconstruction, and/or weight-based dosing when appropriate to reduce radiation dose to as low as reasonably achievable. Dictated by: Levar Donovan MD @ 02/16/2025 01:17:58 (Electronically Signed)
[2025-02-16 00:48] VITALS: TEMP 36.3
[2025-02-16 00:49] VITALS: TEMP 36.3
[2025-02-16] MEDS: ACETAMINOPHEN 500 MG TABLET 1000 MG PO (00:49)
== END 2025-02-16 01:23 | disposition home or self-care (01) ==
LOC: ED 01:03
PROVIDERS: Emergency Provider Family Medicine; PCP Family Medicine
DX: R51.9 Headache, unspecified (principal); I10 Essential (primary) hypertension
CPT/HCPCS: 70450; 96372; 99284; A9270; J1885